=== PATIENT | male | born 1935 | race Caucasian/White ===

== ENCOUNTER 2025-03-16 18:46 | Inpatient (IN) | payer MEDICARE, SELFPAY ==
--- OUTSIDE RECORDS SUMMARY | 2022-04-06 14:00 | XMS_ITS | Encounter Summary ---
Author Organization [email or web address] ([place], [place], [place], [place]) Address [address] [place] [address] Care Team Providers Care Chair Frame Builder Name Role Phone Dion Macedo MD Primary Care Provider Encounter Details Date Type Department Care Team (Late st Contact Info) Description 04/06/2022 2:00 PM EDT Hospital Encounter [facility] [address] [place] [address] Dion Macedo MD [address] [place] [address] Social History Tobacco Use Types Packs/Day Years Used Date Smoking Tobacco: Never Assessed Employment Answer Date Recorded Help finding and keeping a job Not on file 0 07/08/2023 Family and Community Support Answer Suraj e Recorded Help with Day to Day Activities Not on file 07/08/2023 Feeling Lonely or Isolated Not on file 07/08 Educational Attainment Answer Date Amilcar rded Speak language other than Monegasque at home Not on file 07/08/2023 Want help with school or training Not on file 07/08/2023 Substance Use Answer Date Recorded Used prescription meds for non-medical reasons N ot on file 07/08/2023 Used illegal drugs past 12 months Not on file 07/08/2023 Sex and Gender Information Value Date Recorded Sex Assigned at Male 12/29/2021 5:06 PM CDT Legal Sex Male 1:35 PM CDT Gender Identity Male 12/29/2021 5:06 PM CDT Sexual Orientation Not on file documented as of this encounter Plan of Treatment Not on file documented as of this encounter Visit Diagnoses Not on filedocumented in this encounter Care Teams Chair Frame Builder Relationship Specialty Start Date End Date Dion Macedo MD [address] [place] [address] PCP - General Family Medicine 06/27/21 documented as of this encounter
--- OUTSIDE RECORDS SUMMARY | 2025-01-25 11:00 | XMS_ITS | Encounter Summary ---
Author Organization [employer] ([place], [place], [place], [place]) Address [address] [place] [address] Care Team Providers Care Granular Operator Name Role Phone Dion Macedo MD Primary Care Provider Encounter Details Date Type Department Care Team (Latest Contact Info) Description 01/25/2025 11:00 AM EDT - 01/25/2025 11:59 PM EDT Hospital Encounter [facility]ound [facility] Ostomy Therapy [address] [place] [address] Discharge Disposition: Home or Self Care Social History Tobacco Use Types Packs/Day Years [...] Date Amilcar rded Speak language other than [place] at home Not on file 07/08/2023 Want [...] on file documented as of this encounter Progress Notes * Anastasiya Celeste RN - 01/25/2025 1:56 PM EDTSummary: CHIN follow up in ostomy clinic for g-tube change 01/25/25 1100 Gastrostomy/Enterostomy Gastrostomy 22 Fr. LUQ Placement Date/Time: (c) (c) Inserted by: Patient followed in the outpatient ostomy clinic Type: Gastrostomy Tube Size (Fr.): 22 Fr. Location: LUQ Drain Status Clamped Drainage Appearance None Site Assessment Clean;Dry (mild erythema) Type of Dressing Gauze Dressing Status Clean;Dry;Intact Dressing Intervention Dressing changed Securement Method Tape Wound/ostomy department received a call from the patient who is requesting G tube change and patient is at clinic today. Patient with long history of G tube. Patient arrived to clinic after registration. Patient relates he has not had any abdominal pain since last visit. Patient positioned, HOB lowered.Patient with 3 marking showing on g-tube upon inspection. Note peritubular skin with mild erythema, no pain upon palpation. No crepitus, fluctuance or purulence observed with palpation. Patient relates that his tube site has been leaking, he is using Triad on peritubular skin with relief. Removed 8ml H20 from the old balloon. Patient did not have tube feed leakage when old tube was removed. Exchanged the old tube for a new 22Fr tube lubricated with water soluble lubricant. Old balloonintact upon removal. New tube inserted easily; without resistance or pain. Instilled 10 ml H20 intothe new balloon without issue. Aspirated a large amount of gastric content, flushed with 30 ml H20 without issue, no leaking or resistance observed. Placed a new split sponge. HOB raised, patient stood without assistance. He twisted and bent at his abdomen without notable drainage around gtube. Reviewed with the patient the importance of maintaining and monitoring the bumper for a position atthe (4-3) marker, patient verbalized understanding. I also expressed that if he has issues regarding pain during non business hours to seek an emergency room where they may also exchange his G tube and evaluate. Patient verbalized understanding. Wound and Ostomy Care Department to follow as indicated. Patient to call for appointment when next g-tube is to be change which is every 3 months. Time spent with patient 30 minutes. Supplies: [employer] [facility] Gastrostomy Feeding Tube #0100 documented in this encounter Plan of Treatment Not on file documented as of this encounter Visit Diagnoses Not on filedocumented in this encounter Care Teams Granular Operator Relationship Specialty Start Date End Date Dion Macedo MD [address] [place] [address] PCP - General Family Medicine 06/27/21 documented as of this encounter
--- OUTSIDE RECORDS SUMMARY | 2025-03-13 13:41 | XMS_ITS | Encounter Summary ---
Author Organization [facility] Address [address] [place] [address] Care Team Providers Care Entertainment [employer] Media Correspondent Name Role Phone Dion Macedo MD Primary Care Provider Reason for Referral * Durable Medical Equipment (Routine) - Pending Review Specialty Diagnoses / Procedures Referred By Lennoxac t Referred To Contact Diagnoses Panlobular emphysema History of cancer of head or neck Procedures Oxygen Therapy Vanessa Bowie MD [address] [address] Phone: tel: fax: Referral ID Status Reason Start Date Expiration Date V isits Requested Visits Authorized [id number] Pending Review 03/14/2025 06/13/2026 1 1 Reason for Visit * Reason Comments Fatigue * Auth/Cert Specialty Diagnoses / Procedures Referred By Asael t Referred To Contact Diagnoses TIA (transient ischemic attack) Referral ID Status Reason Start Date Expiration Date Visits Re quested Visits Authorized [id number] 1 1 Encounter Details Date Type Department Care Team (Late st Contact Info) Description 03/13/2025 1:41 PM EDT - 03/14/2025 4:55 PM EDT Hospital Encounter [address] [facility] [place] [address] Danie Posada DO [address] [facility] [place] [address] Gay Lozano MD [address] [facility] [address] [place] [address] Lasha Bernabe DO [address] [facility] 4Th [address] [place], [place] [id number] Vanessa Bowie MD [address] [facility] 4th [place], [place] [id number] Generalized weakness (Primary Dx); Weakness of right lower extremity; Pneumonia of right lower lobe due to infectious organism; DENIA (acute kidney injury); Dehydration; Hyperkalemia; Elevated lactic acid level; Pyuria; Elevated liver enzymes; Anemia, unspecified type; Dysphagia, unspecified type; Panlobular emphysema; History of cancer of head or neck Discharge Disposition: Home or Self Care Social History Tobacco Use Types Packs/Day Years Used Date Smoking Tobacco: Former Cigarettes 1 10 1 08/22/1973 - 06/21/1984 Smokeless Tobacco: Never Alcohol Use Standard Drinks/Week Comments Yes 4 (1 standard drink = 0.6 oz pur e alcohol) [facility] Utilities Answer Date Recorded In the past 12 months has [employer], gas, oil, or water [employer] threatened to shut off services in your home? No 03/14/2025 AUDIT-C Answer Date Recorded Q1: How often do you have a drink containing alc ohol? Monthly or less 12/08/2022 Q2: How many drinks containi ng alcohol do you have on a typical day when you are drinking? 3 or 4 12/08/2022 Q3: How often do you have si x or more drinks on one occasion? Less than monthly 12/08/2022 Overall Financial Resource Strain (CARDIA) Answe r Date Recorded How hard is it for you to pa y for the very basics like food, housing, medical care, and heating? Not very hard 03/14/2025 [facility] Occupat ional Health - Occupational Stress Questionnaire Answer Date Recorded Do you feel stress - tense, restless, nervous, or anxious, or unable to sleep at night because your mind is troubled all the time - these days? Not at all 03/14/2025 Exercise Vital Sign Answer Date Recorde d On average, how many days pe r week do you engage in moderate to strenuous exercise (like a brisk walk)? 0 days 03/14/2025 On average, how many minutes do you engage in exercise at this level? 0 min 03/14/2025 Hunger Vital Sign Answer Date Recorded Within the past 12 months, y ou worried that your food would run out before you got the money to buy more. Never true 03/14/20 25 Within the past 12 months, t he food you bought just didn't last and you didn't have money to get more. Never true 03/14/2025 PRAPARE - Transportation Answer Date Re corded In the past 12 months, has l ack of transportation kept you from medical appointments or from getting medications? No 02/25 In the past 12 months, has l ack of transportation kept you from meetings, work, or from getting things needed for daily living? No 03/14/2025 Abuse Screen Answer Date Recorded Feels Unsafe at Home or Work/School no 03/13/2025 Feels Threatened by Someone no 02/25 Does Anyone Try to Keep You From Having Contact with Others or Doing Things Outside Your Home? no 03/13/2025 Physical Signs of Abuse Present no 03/13/2025 Housing Stability Answer Date Recorded Current Living Arrangements home 02/25 Potentially Unsafe Housing Conditions unable to assess 03/14/2025 Family and Community Support Answer Suraj e Recorded If for any reason you need h elp with day-to-day activities such as bathing, preparing meals, shopping, managing finances, etc., do you get the help you need? I get all the help I need 03/14/2025 How often do you feel lonely or isolated from those around you? Never 03/14/2025 Employment Answer Date Recorded Do you want help finding or keeping work or a shalini b? Patient declined 03/14/2025 Disabilities Answer Date Recorded Difficulty Concentrating, Remembering or Making Decisions no 12/08/2022 Difficulty Managing Errands Independently yes 12/08/2022 Education Answer Date Recorded Do you want help with school or training? For example, starting or completing job training or getting a high school diploma, GED or equivalent Patient declined 03/14/2025 Preferred Language Marshallese 03/14/2025 PHQ-2 Answer Date Recorded Patient Health Questionnaire-2 Score 0 03/14/2025 Sex and Gender Information Value Date Recorded Sex Assigned at Not on file Legal Sex Male 10:55 AM EDT Gender Identity Not on file Sexual Orientation Not on file documented as of this encounter Last Filed Vital Signs Vital Sign Reading Time Taken Comments Blood Pressure 142/78 03/14/2025 11:16 AM EDT Pulse 80 03/14/2025 11:49 AM EDT Temperature 36.9 C (98.4 F) 03/14/2025 11:16 AM EDT Respiratory Rate 16 03/14/2025 7:04 AM EDT Oxygen Saturation 87% 03/14/2025 11:49 AM EDT Inhaled Oxygen Concentration - - Weight 78 kg (172 lb) 03/13/2025 2:09 PM EDT Height 172.7 cm (5' 8 ) 03/13/2025 2:09 PM EDT Body Mass Index 26.15 03/13/2025 2:09 PM EDT documented in this encounter Functional Status * Over the past 2 weeks, how often have you been bothered by any of the following problems? Question Answer Date of Assessment Author Patient Health Questionnaire -2 Score 0 03/14/2025 12:41 PM EDT Rosetta Banegas RN * Calculated C-SSRS Risk Score (Lifetime/Recent) Answer Date of Assessment Author No Risk Indicated 03/13/2025 1:55 PM EDT Monica Johnston RN * [place] Suicide Severity Rating Scale (Screener/Recent Self-Report) Question Answer Date of Assessment Author 1. Wish to be (Past 1 Month) No 025 1:55 PM EDT Monica Coy, BAO 2. Non-Specific Active Suici maryann Thoughts (Past 1 Month) No 03/13/2025 1:55 PM EDT Dayanna Coy, BAO 6. Suicidal Behavior (Lifetime) No 1:55 PM EDT Monica Coy, BAO * Question Answer Date of Assessment Author Little interest or pleasure in doing things Not at all 03/14/2025 12:41 PM EDT Rosetta Banegas, RN Feeling down, depressed, or hopeless Not at all 03/14/2025 12:41 PM EDT Rosetta Banegas RN documented as of this encounter Discharge Summaries * Vanessa Bowie MD - 03/14/2025 3:49 PM EDT Images from the original note were not included. [facility] Medicine Services DISCHARGE SUMMARY Patient Name: Abraham Max : 1935 Date of Admission: 03/13/2025 1:41 PM Date of Discharge: 03/14/2025 Primary Care Physician: Dion Macedo MD Consults No orders found for last 30 day(s). Hospital Course Presenting Problem: DENIA/hypotension Active Hospital Problems Diagnosis POA ??? Dysphagia, oropharyngeal [R13.12] Yes ??? PEG (percutaneous endoscopic gastrostomy) status [Z93.1] Not Applicable ??? History of cancer of head or neck [Z85.89] Not Applicable ??? Hyperlipidemia [E78.5] Yes ??? Acquired hypothyroidism [E03.9] Yes Resolved Hospital Problems Diagnosis Date Resolved POA ??? DENIA (acute kidney injury) [N17.9] 03/14/2025 Yes ??? Hypotension [I95.9] 03/14/2025 Yes ??? Hyperkalemia [E87.5] 03/14/2025 Yes Hospital Course: Abraham Max is a 89 y.o. 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 Hypotensive on EMS arrival (SBP 80's) Stroke rule-out limited by inability to obtain MRI from pacemaker. But CT head x2 stable. Symptoms resolved with fluid resuscitation as did BP so thought to be weakness 2/2 this Patient cannot pinpoint reason for hypotension/hypovolemia. He reports being out in garden more than normal over last week in the heat (possible contributor) and new start of tamsulosin in last 4 days which may have contributed. Infectious work-up to now unrevealing. Mod transaminitis possibly 2/2 h ypotension, no abdominal symptoms. No acute respiratory symptoms with CXR at patient baseline. O2 sat 86-95% on room air. He reports he is prescribed oxygen and is supposed to use it but has brokensystem which we correct for him. Appears at baseline per him and daughter both He is very anxious to get home and asks for prompt discharge. Ambulating at baseline with no symptoms on 03/14. I discuss with him his elevated liver enzymes and need for follow-up repeat labs with PCP within 1 week to ensure this improves. Given hydration TF protocol for hot days which he understands. Hold amlodipine + tamsulosin until OP follow-up Discharge Follow Up Recommendations for outpatient labs/diagnostics: PCP Tuesday w repeat CMP Day of Discharge HPI: When I walk in room says I didn't have a stroke. I am 89 years old and someone lese needs this bed Then gets up on a walker, does a jig and says What else do I need to do to provide to you I'm fine No active respiratory symptoms from baseline on review. No recent infectious symptoms Vital Signs: Temp: [97 ??F (36.1 ??C)-98.6 ??F (37 ??C)] 98.4 ??F (36.9 ??C) Heart Rate: [44-80] 80 Resp: [16] 16 BP: (98-144)/(57-110) 142/78 Flow (L/min) (Oxygen Therapy): [2-3] 2 Physical Exam: Constitutional: No acute distress, awake, alert male sitting up in bed. Daughter bedside HEENT: chronic significant voice changes and congestion sounds Resp: no increased wob on room air, upper airway sounds obfuscate exam Cardiovascular: RRR, no murmurs, rubs, or gallops Gastrointestinal: Soft, nontender, nondistended, PEG in place Musculoskeletal: Muscle tone within normal limits, no joint effusions appreciated Psychiatric: Appropriate affect, cooperative Neurologic: Alert and oriented, up on walker w balanced back, speech clear Skin: No rashes Pertinent and/or Most Recent Results LAB RESULTS: Lab 03/14/25 0650 03/13/25 1715 03/13/25 1709 03/13/25 1355 03/13/25 1353 WBC 5.07 -- -- 5.43 -- HEMOGLOBIN 10.4* -- -- 10.8* -- HEMOGLOBIN, POC -- 11.2* -- -- 11.6* HEMATOCRIT 32.8* -- -- 34.3* -- HEMATOCRIT POC -- 33* -- -- 34* PLATELETS 118* -- -- 149 -- NEUTROS ABS 3.88 -- -- 4.72 -- IMMATURE GRANS (ABS) 0.04 -- -- 0.04 -- LYMPHS ABS 0.74 -- -- 0.53* -- MONOS ABS 0.40 -- -- 0.14 -- EOS ABS 0.00 -- -- 0.00 -- MCV 102.5* -- -- 104.3* -- CRP -- -- -- 5.00* -- PROCALCITONIN -- -- -- 0.27* -- LACTATE -- -- 1.7 4.8* -- PROTIME -- -- -- 14.8 -- Lab 03/14/25 0650 03/13/25 1715 03/13/25 1355 03/13/25 1353 SODIUM 136 -- 135* -- POTASSIUM 3.9 -- 5.4* -- CHLORIDE 99 -- 95* -- CO2 27.0 -- 24.2 -- ANION GAP 10.0 -- 15.8* -- BUN 34.3* -- 40.6* -- CREATININE 0.79 1.50* 1.50* 1.50* EGFR 86.0 44.8* 44.8* 44.8* GLUCOSE 90 -- 142* -- CALCIUM 8.5* -- 9.4 -- MAGNESIUM 2.1 -- -- -- PHOSPHORUS 2.9 -- -- -- Lab 03/14/25 0650 03/13/25 1355 TOTAL PROTEIN 5.7* 6.3 ALBUMIN 3.6 3.8 GLOBULIN 2.1 2.5 ALT (SGPT) 195* 133* AST (SGOT) 193* 159* BILIRUBIN 0.5 0.6 ALK PHOS 128* 89 Lab 03/13/25 1355 PROTIME 14.8 INR 1.09 Lab 03/14/25 0650 CHOLESTEROL 89 LDL CHOL 37 HDL CHOL 41 TRIGLYCERIDES 36 Lab 03/13/25 1540 ABO TYPING O RH TYPING Positive ANTIBODY SCREEN Negative Brief Urine Lab Results (Last result in the past 365 days) Color Clarity Blood Leuk Est Nitrite Protein CREAT Urine HCG 03/13/25 1528 Dark Yellow Clear Negative Trace Negative Trace Microbiology Results (last 10 days) Procedure Component Value - Date/Time COVID PRE-OP / PRE-PROCEDURE SCREENING ORDER (NO ISOLATION) - Swab, Nasopharynx [[id number]] (Normal) Collected: 03/13/25 1453 Lab Status: Final result Specimen: Swab from Nasopharynx Updated: 03/13/25 1606 Narrative: The following orders were created for panel order COVID PRE-OP / PRE-PROCEDURE SCREENING ORDER (NO ISOLATION) - Swab, Nasopharynx. Procedure Abnormality Status --------- ------ Respiratory Panel PCR w/...[[id number]] Normal Final result Please view results for these tests on the individual orders. Respiratory Panel PCR w/COVID-19(SARS-CoV-2) TIFFANI/ONDINA/SAFIA/PAD/COR/BROOK In-House, JIGMAKER Swab in UTM/VTM, 2 HR TAT - Swab, Nasopharynx [[id number]] (Normal) Collected: 03/13/25 1453 Lab Status: Final result Specimen: Swab from Nasopharynx Updated: 03/13/25 1606 ADENOVIRUS, PCR Not Detected Coronavirus 229E Not Detected Coronavirus HKU1 Not Detected Coronavirus NL63 Not Detected Coronavirus OC43 Not Detected COVID19 Not Detected Human Metapneumovirus Not Detected Human Rhinovirus/Enterovirus Not Detected Influenza A PCR Not Detected Influenza B PCR Not Detected Parainfluenza Virus 1 Not Detected Parainfluenza Virus 2 Not Detected Parainfluenza Virus 3 Not Detected Parainfluenza Virus 4 Not Detected RSV, PCR Not Detected Bordetella pertussis pcr Not Detected Bordetella parapertussis PCR Not Detected Chlamydophila pneumoniae PCR Not Detected Mycoplasma pneumo by PCR Not Detected Narrative: In the setting of a positive respiratory panel with a viral infection PLUS a negative procalcitoninwithout other underlying concern for bacterial infection, consider observing off antibiotics or discontinuation of antibiotics and continue supportive care. If the respiratory panel is positive for atypical bacterial infection (Bordetella pertussis, Chlamydophila pneumoniae, or Mycoplasma pneumoniae), consider antibiotic de-escalation to target atypical bacterial infection. CT Head Without Contrast Result Date: 03/14/2025 CT HEAD WO CONTRAST Date of Exam: 03/14/2025 8:12 AM EDT Indication: eval stroke. Comparison: Head CT 03/13/2025. Technique: Axial CT images were obtained of the head without contrast administration. Automated exposure control and iterative construction methods were used. Findings: No evidence of acute intracranial hemorrhage or mass effect. No extra-axial collection. The king white matter differentiation is preserved. Ventricles and sulci are symmetric. The mastoid air cells and paranasal sinuses are well aerated. Globes and extraocular muscles are unremarkable. No acute osseous abnormality. Impression: No acute intracranial findings. Electronically Signed: Santiago Miles MD 03/14/2025 8:35 AM EDT Workstation ID: [id number] DxDesc XR Chest 1 View Result Date: 03/13/2025 XR CHEST 1 VW Date of Exam: 03/13/2025 1:51 PM EDT Indication: Stroke Protocol (Onset > 12 hrs). Comparison: CT chest December 08, 2022 Findings: There probably is some atelectasis/scarring in the right middle lobe/right lower lobe area. There also may be some atelectasis in the left basilar area. There may be some chronic interstitial changes in the lower lungs. The heart is enlarged. There are nopleural effusions. Impression: 1.Atelectasis/scarring right middle lobe/right lower lobe area. There may be some atelectasis left basilar area. 2.Some chronic interstitial changes in the lower lungs not excluded. 3.Cardiomegaly. Electronically Signed: Obi Hooper MD 03/13/2025 2:43 PM EDT Workstation ID: [id number] CT Angiogram Head w AI Analysis of LVO Result Date: 03/13/2025 CT ANGIOGRAM NECK, CT ANGIOGRAM HEAD W AI ANALYSIS OF LVO Date of Exam: 03/13/2025 2:04 PM EDT Indication: stroke. CTA OF THE [place] INCLUDING MULTIPLANAR REFORMATTED IMAGING AND PERFORMANCE AND REVIEW OF MIP, 3D OR SURFACE SHADING RECONTRUCTED IMAGES TECHNIQUE: CTA imaging of the neck was performed with IV contrast along with sagittal and coronal reconstructed imaging with contrast. 3D and 2D reconstructed imaging obtained. Exam was tailored for the arterial system. One or more CT techniques were used to decrease dose to the patient, these include automated exposure control, adjustment of the mA and/or kV according to patient size, or use of iterative reconstruction technique. CONTRAST: 70 cc of Isovue-370. COMPARISON: No comparison exams available at the time of dictation. FINDINGS: The NASCET methodology was utilized for calculation of percent stenosis. AORTIC ARCH: Normal anatomic branch pattern of the origination of the great vessels. RIGHT COMMON CAROTID: There is no significant atheromatous disease of the right common carotid artery. No stenosis identified. There is no evidence for pseudoaneurysm or dissection. RIGHT INTERNAL CAROTID ARTERY: There is mild calcified atheromatous disease of the right internal carotid artery. No stenosis identified. There is no evidence forpseudoaneurysm or dissection. LEFT COMMON CAROTID ARTERY: There is no significant atheromatous disease of the left common carotid artery. No stenosis identified. There is no evidence for pseudoaneurysm or dissection. LEFT INTERNAL CAROTID ARTERY: There is mild calcified atheromatous disease of the left internal carotid artery. No stenosis identified. There is no evidence for pseudoaneurysm or dissection. VETEBRAL ARTERIES: There is no significant ostial disease or stenosis of the bilateral vertebral artery origins. Codominant vertebral arteries are noted. There is no evidence for stenosis or dissection of the vertebral arteries. LUNGS: Visualized upper lung hernandez are grossly clear. OSSEOUS: Degenerative changes are noted in the partially imaged cervical spine. 1. No evidence of hemodynamically significant stenosis. CTA OF THE [place] INCLUDING MULTIPLANAR REFORMATTED IMAGING AND PERFORMANCE AND REVIEW OF MIP, 3D OR SURFACE SHADING RECONTRUCTED IMAGES TECHNIQUE: CTA imaging of the head was performed with IV contrast along with sagittal and coronal reconstructed imaging with contrast. 3D and 2D reconstructed imaging obtained. Exam was tailored for the arterial system. One or more CT techniques were used to decrease dose to the patient, these include automated exposure control, adjustment of the mA and/or kV according to patient size, or use of iterative reconstruction technique. CONTRAST: 70 cc of Isovue-370. COMPARISON: No comparison exams available at the time of dictation. FINDINGS: ICA CIRCULATION: Minimal to no significant plaque formation present about the cavernous sinus of the ICAs bilateral. Vascular malformation and/or aneurysm is not present. Hemodynamically significant stenosis not present. ANTERIOR CEREBRAL ARTERY CIRCULATION: The intracranial PATI segments appear normal. MIDDLE CEREBRAL ARTERY CIRCULATION: The bilateral MCA M1 and M2 segments appear normal. POSTERIOR CEREBRAL ARTERY CIRCULATION: The AGRICULTURAL TECHNICAL OFFICER segments appear normal. VERTEBROBASILAR CIRCULATION: Codominant vertebral arteries. Basilar artery appears patentand normal. ADDITIONAL FINDINGS: None IMPRESSION: 1. Normal. Electronically Signed: Jassi Allison MD 03/13/2025 2:34 PM EDT Workstation ID: [id number] CT Angiogram Neck Result Date: 03/13/2025 CT ANGIOGRAM NECK, CT ANGIOGRAM HEAD W AI ANALYSIS OF LVO Date of Exam: 03/13/2025 2:04 PM EDT Indication: stroke. CTA OF THE [place] INCLUDING MULTIPLANAR REFORMATTED IMAGING AND PERFORMANCE AND REVIEW OF MIP, 3D OR SURFACE SHADING RECONTRUCTED IMAGES TECHNIQUE: CTA imaging of the neck was performed with IV contrast along with sagittal and coronal reconstructed imaging with contrast. 3D and 2D reconstructed imaging obtained. Exam was tailored for the arterial system. One or more CT techniques were used to decrease dose to the patient, these include automated exposure control, adjustment of the mA and/or kV according to patient size, or use of iterative reconstruction technique. CONTRAST: 70 cc of Isovue-370. COMPARISON: No comparison exams available at the time of dictation. FINDINGS: The NASCET methodology was utilized for calculation of percent stenosis. AORTIC ARCH: Normal anatomic branch pattern of the origination of the great vessels. RIGHT COMMON CAROTID: There is no significant atheromatous disease of the right common carotid artery. No stenosis identified. There is no evidence for pseudoaneurysm or dissection. RIGHT INTERNAL CAROTID ARTERY: There is mild calcified atheromatous disease of the right internal carotid artery. No stenosis identified. There is no evidence forpseudoaneurysm or dissection. LEFT COMMON CAROTID ARTERY: There is no significant atheromatous disease of the left common carotid artery. No stenosis identified. There is no evidence for pseudoaneurysm or dissection. LEFT INTERNAL CAROTID ARTERY: There is mild calcified atheromatous disease of the left internal carotid artery. No stenosis identified. There is no evidence for pseudoaneurysm or dissection. VETEBRAL ARTERIES: There is no significant ostial disease or stenosis of the bilateral vertebral artery origins. Codominant vertebral arteries are noted. There is no evidence for stenosis or dissection of the vertebral arteries. LUNGS: Visualized upper lung hernandez are grossly clear. OSSEOUS: Degenerative changes are noted in the partially imaged cervical spine. 1. No evidence of hemodynamically significant stenosis. CTA OF THE [place] INCLUDING MULTIPLANAR REFORMATTED IMAGING AND PERFORMANCE AND REVIEW OF MIP, 3D OR SURFACE SHADING RECONTRUCTED IMAGES TECHNIQUE: CTA imaging of the head was performed with IV contrast along with sagittal and coronal reconstructed imaging with contrast. 3D and 2D reconstructed imaging obtained. Exam was tailored for the arterial system. One or more CT techniques were used to decrease dose to the patient, these include automated exposure control, adjustment of the mA and/or kV according to patient size, or use of iterative reconstruction technique. CONTRAST: 70 cc of Isovue-370. COMPARISON: No comparison exams available at the time of dictation. FINDINGS: ICA CIRCULATION: Minimal to no significant plaque formation present about the cavernous sinus of the ICAs bilateral. Vascular malformation and/or aneurysm is not present. Hemodynamically significant stenosis not present. ANTERIOR CEREBRAL ARTERY CIRCULATION: The intracranial PATI segments appear normal. MIDDLE CEREBRAL ARTERY CIRCULATION: The bilateral MCA M1 and M2 segments appear normal. POSTERIOR CEREBRAL ARTERY CIRCULATION: The AGRICULTURAL TECHNICAL OFFICER segments appear normal. VERTEBROBASILAR CIRCULATION: Codominant vertebral arteries. Basilar artery appears patentand normal. ADDITIONAL FINDINGS: None IMPRESSION: 1. Normal. Electronically Signed: Jassi Allison MD 03/13/2025 2:34 PM EDT Workstation ID: [id number] CT Head Without Contrast Stroke Protocol Result Date: 03/13/2025 CT HEAD WO CONTRAST STROKE PROTOCOL Date of Exam: 03/13/2025 1:42 PM EDT Indication: Stroke, follow up Neuro deficit, acute, stroke suspected. Comparison: None available. Technique: Axial CT images were obtained of the head without contrast administration. Reconstructed coronal images were also obtai teresa. Automated exposure control and iterative construction methods were used. Scan Time: 13:41 Results discussed in person with the stroke navigator at the time of the scan. Findings: No evidence of acute intracranial hemorrhage or mass effect. No extra-axial collection. The king white matter differentiation is preserved. Ventricles and sulci are symmetric. The mastoid air cells and paranasal sinuses are well aerated. Globes and extraocular muscles are unremarkable. No acute osseous abnormality. Advanced degenerative changes of the partially visualized upper cervical spine. Impression: No acute intracranial findings. Electronically Signed: Santiago Miles MD 03/13/2025 1:56 PM EDT Workstation ID: [id number] I have personally reviewed the therapy plans: [] PT/OT/ ST Therapy Plans Plan for Follow-up of Pending Labs/Results: Pending Labs Order Current Status Blood Culture - Blood, Arm, Right In process Blood Culture - Blood, Wrist, Right In process Discharge Details Discharge Medications PAUSE taking these medications Instructions Start Date amLODIPine 5 MG tablet Wait to take this until your doctor or other care provider tells you to start again. Hold until PCP follow-up Commonly known as: NORVASC amlodipine 5 mg tablet Take 1 tablet every day by oral route. tamsulosin 0.4 MG capsule 24 hr capsule Wait to take this until your doctor or other care provider tells you to start again. Until PCP appointment follow-up Commonly known as: FLOMAX 1 capsule, Daily Continue These Medications Instructions Start Date aspirin 81 MG EC tablet Aspir-Low 81 mg tablet,delayed release baclofen 10 MG tablet Commonly known as: LIORESAL Take 1 tablet by mouth 3 (Three) Times a Day. Pt states he takes it once in the evening diphenhydrAMINE 25 mg capsule Commonly known as: BENADRYL 12.5 mg, 2 Times Daily levothyroxine 137 MCG tablet Commonly known as: SYNTHROID, LEVOTHROID 137 mcg, Every Tattoo Artist omeprazole 40 MG capsule Commonly known as: priLOSEC 1 capsule, Daily predniSONE 10 MG tablet Commonly known as: DELTASONE Take three tablets once daily on day once. Take two tablets once daily on day two. Take one tablet daily on day three. VITAMIN B 12 PO 1,000 mcg, Daily Zinc 50 MG tablet Daily No Known Allergies Discharge Disposition: Home or Self Care Diet: Hospital: Diet Order Procedures ??? NPO Diet NPO Type: Tube Feeding Standing Status: Standing Number of Occurrences: 1 NPO Type: Tube Feeding Activity: Restrictions or Other Recommendations: CODE STATUS: Code Status and Medical Interventions: No CPR (Do Not Attempt to Resuscitate); Limited Support; No intubation (DNI) Ordered at: 03/13/251921 Code Status (Patient has no pulse and is not breathing): No CPR (Do Not Attempt to Resuscitate) Medical Interventions (Patient has pulse or is breathing): Limited Support Medical Intervention Limits: No intubation (DNI) Level Of Support Discussed With: Patient No future appointments. Additional Instructions for the Follow-ups that You Need to Schedule Discharge Follow-up with PCP As directed Currently Documented PCP: Dion Macedo MD PCP Follow Up Details: Tuesday with repeat labs Vanessa Bowie MD 03/14/25 Time Spent on Discharge: I spent 55 minutes on this discharge activity which included: [id number] with the patient, reviewing the data in the system, coordination of the care with the nursing staff as well as consultants, documentation, and entering orders. documented in this encounter Medications at Time of Discharge amLODIPine (NORVASC) 5 MG tablet amlodipine 5 mg tablet Take 1 tablet every day by oral route. aspirin 81 MG EC tablet Aspir-Low 81 mg tablet,delayed release baclofen (LIORESAL) 10 MG tablet Take 1 tablet by mouth 3 (Three) Times a Day. Pt states he takes it once in the evening Cyanocobalamin (VITAMIN B 12 PO) Take 1,000 mcg by mouth Daily. diphenhydrAMINE (BENADRYL) 25 mg capsule Take 12.5 mg by mouth 2 (Two) Times a Day. levothyroxine (SYNTHROID, LEVOTHROID) 137 MCG tablet Take 1 tablet by mouth Every Morning. omeprazole (priLOSEC) 40 MG capsule Take 1 capsule by mouth Daily. tamsulosin (FLOMAX) 0.4 MG capsule 24 hr capsule Take 1 capsule by mouth Daily. 11/29/2021 Zinc 50 MG tablet Take by mouth Daily. predniSONE (DELTASONE) 10 MG tabletIndications :Non-seasonal allergic rhinitis, unspecified trigger Take three tablets once daily on day once. Take two tablets once daily on day two. Take one tablet daily on day three. 3 tablet 2 07/09/2024 documented as of this encounter Progress Notes * Santana Hodge MD - 03/14/2025 12:24 PM EDT Stroke Progress Note Chief Complaint: Dysarthria and bilateral lower extremity weakness Subjective Subjective Subjective: The patient is lying down in the bed in NAD. The patient daughter was at the bedside. The patient stated that he is close to his baseline and denied having any new stroke or strokelike symptoms. Stated to me that yesterday he felt both his legs are weak and denies having any pain including lower back pain. I have a detailed discussion with patient and his daughter regarding imaging finding what could possibly explain his symptoms. We also discussed management plan moving forward. All questions and concerns were answered. No other acute complains at this time Review of Systems Constitutional: fatigue Objective Temp: [97 ??F (36.1 ??C)-98.6 ??F (37 ??C)] 98.4 ??F (36.9 ??C) Heart Rate: [44-80] 80 Resp: [16] 16 BP: (98-144)/(54-110) 142/78 Objective GEN: lying in bed; in NAD HENT: normocephalic, non-erythematous oropharynx NEURO: Mental Status: A&O x 3, interactive, able to follow commands. Speech: Intact Articulation CN 2-12: II - PERRLA III, IV, - EOMI V - Facial sensation intact VII -no gross facial asymmetry VIII - Auditory acuity intact XII - Tongue protrudes midline Motor: Patient is able to move all 4 extremities against gravity with no drift appreciated with bilateral upper extremities being stronger in the bilateral lower extremities Sensory: intact light touch throughout Coordination: no ataxia with [id number] testing Gait/Station: deferred Results Review: I reviewed the patient's new clinical results. WBC Date Value Ref Range Status 03/14/2025 5.07 3.40 - 10.80 10*3/mm3 Final RBC Date Value Ref Range Status 03/14/2025 3.20 (L) 4.14 - 5.80 10*6/mm3 Final Hemoglobin Date Value Ref Range Status 03/14/2025 10.4 (L) 13.0 - 17.7 g/dL Final Hematocrit Date Value Ref Range Status 03/14/2025 32.8 (L) 37.5 - 51.0 % Final MCV Date Value Ref Range Status 03/14/2025 102.5 (H) 79.0 - 97.0 fL Final MCH Date Value Ref Range Status 03/14/2025 32.5 26.6 - 33.0 pg Final MCHC Date Value Ref Range Status 03/14/2025 31.7 31.5 - 35.7 g/dL Final RDW Date Value Ref Range Status 03/14/2025 15.9 (H) 12.3 - 15.4 % Final RDW-SD Date Value Ref Range Status 03/14/2025 59.3 (H) 37.0 - 54.0 fl Final MPV Date Value Ref Range Status 03/14/2025 11.0 6.0 - 12.0 fL Final Platelets Date Value Ref Range Status 03/14/2025 118 (L) 140 - 450 10*3/mm3 Final Neutrophil % Date Value Ref Range Status 03/14/2025 76.5 (H) 42.7 - 76.0 % Final Lymphocyte % Date Value Ref Range Status 03/14/2025 14.6 (L) 19.6 - 45.3 % Final Monocyte % Date Value Ref Range Status 03/14/2025 7.9 5.0 - 12.0 % Final Eosinophil % Date Value Ref Range Status 03/14/2025 0.0 (L) 0.3 - 6.2 % Final Basophil % Date Value Ref Range Status 03/14/2025 0.2 0.0 - 1.5 % Final Immature Grans % Date Value Ref Range Status 03/14/2025 0.8 (H) 0.0 - 0.5 % Final Neutrophils, Absolute Date Value Ref Range Status 03/14/2025 3.88 1.70 - 7.00 10*3/mm3 Final Lymphocytes, Absolute Date Value Ref Range Status 03/14/2025 0.74 0.70 - 3.10 10*3/mm3 Final Monocytes, Absolute Date Value Ref Range Status 03/14/2025 0.40 0.10 - 0.90 10*3/mm3 Final Eosinophils, Absolute Date Value Ref Range Status 03/14/2025 0.00 0.00 - 0.40 10*3/mm3 Final Basophils, Absolute Date Value Ref Range Status 03/14/2025 0.01 0.00 - 0.20 10*3/mm3 Final Immature Grans, Absolute Date Value Ref Range Status 03/14/2025 0.04 0.00 - 0.05 10*3/mm3 Final nRBC Date Value Ref Range Status 03/14/2025 0.6 (H) 0.0 - 0.2 /100 WBC Final Lab Results Component Value Date GLUCOSE 90 03/14/2025 BUN 34.3 (H) 03/14/2025 CREATININE 0.79 03/14/2025 NA 136 03/14/2025 K 3.9 03/14/2025 CL 99 03/14/2025 CALCIUM 8.5 (L) 03/14/2025 PROTEINTOT 5.7 (L) 03/14/2025 ALBUMIN 3.6 03/14/2025 ALT 195 (H) 03/14/2025 AST 193 (H) 03/14/2025 ALKPHOS 128 (H) 03/14/2025 BILITOT 0.5 03/14/2025 GLOB 2.1 03/14/2025 AGRATIO 1.7 03/14/2025 BCR 43.4 (H) 03/14/2025 ANIONGAP 10.0 03/14/2025 EGFR 86.0 03/14/2025 CT Head Without Contrast Result Date: 03/14/2025 Impression: No acute intracranial findings. Electronically Signed: Santiago Miles MD 03/14/2025 8:35 AM EDT Workstation ID: [id number] DxDesc XR Chest 1 View Result Date: 03/13/2025 Impression: 1.Atelectasis/scarring right middle lobe/right lower lobe area. There may be some atelectasis left basilar area. 2.Some chronic interstitial changes in the lower lungs not excluded. 3.Cardiomegaly. Electronically Signed: Obi Hooper MD 03/13/2025 2:43 PM EDT Workstation ID: [id number] CT Angiogram Head w AI Analysis of LVO Result Date: 03/13/2025 1. No evidence of hemodynamically significant stenosis. CTA OF THE [place] INCLUDING MULTIPLANAR REFORMATTED IMAGING AND PERFORMANCE AND REVIEW OF MIP, 3D OR SURFACE SHADING RECONTRUCTED IMAGES TECHNIQUE: CTA imaging of the head was performed with IV contrast along with sagittal and coronal reconstructed imaging with contrast. 3D and 2D reconstructed imaging obtained. Exam was tailored for the arterial system. One or more CT techniques were used to decrease dose to the patient, these include automated exposure control, adjustment of the mA and/or kV according to patient size, or use of iterative reconstruction technique. CONTRAST: 70 cc of Isovue-370. COMPARISON: No comparison exams available at the time of dictation. FINDINGS: ICA CIRCULATION: Minimal to no significant plaque formation present about the cavernous sinus of the ICAs bilateral. Vascular malformation and/or aneurysm is not present. Hemodynamically significant stenosis not present. ANTERIOR CEREBRAL ARTERY CIRCULATION: The intracranial PATI segments appear normal. MIDDLE CEREBRAL ARTERY CIRCULATION: The bilateral MCA M1 and M2 segments appear normal. POSTERIOR CEREBRAL ARTERY CIRCULATION: The AGRICULTURAL TECHNICAL OFFICER segments appear normal. VERTEBROBASILAR CIRCULATION: Codominant vertebral arteries. Basilar artery appears patent and normal. ADDITIONAL FINDINGS: None IMPRESSION: 1. Normal. Electronically Signed: Jassi Allison MD 03/13/2025 2:34 PM EDT Workstation ID: [id number] CT Angiogram Neck Result Date: 03/13/2025 1. No evidence of hemodynamically significant stenosis. CTA OF THE [place] INCLUDING MULTIPLANAR REFORMATTED IMAGING AND PERFORMANCE AND REVIEW OF MIP, 3D OR SURFACE SHADING RECONTRUCTED IMAGES TECHNIQUE: CTA imaging of the head was performed with IV contrast along with sagittal and coronal reconstructed imaging with contrast. 3D and 2D reconstructed imaging obtained. Exam was tailored for the arterial system. One or more CT techniques were used to decrease dose to the patient, these include automated exposure control, adjustment of the mA and/or kV according to patient size, or use of iterative reconstruction technique. CONTRAST: 70 cc of Isovue-370. COMPARISON: No comparison exams available at the time of dictation. FINDINGS: ICA CIRCULATION: Minimal to no significant plaque formation present about the cavernous sinus of the ICAs bilateral. Vascular malformation and/or aneurysm is not present. Hemodynamically significant stenosis not present. ANTERIOR CEREBRAL ARTERY CIRCULATION: The intracranial PATI segments appear normal. MIDDLE CEREBRAL ARTERY CIRCULATION: The bilateral MCA M1 and M2 segments appear normal. POSTERIOR CEREBRAL ARTERY CIRCULATION: The AGRICULTURAL TECHNICAL OFFICER segments appear normal. VERTEBROBASILAR CIRCULATION: Codominant vertebral arteries. Basilar artery appears patentand normal. ADDITIONAL FINDINGS: None IMPRESSION: 1. Normal. Electronically Signed: Jassi Allison MD 03/13/2025 2:34 PM EDT Workstation ID: [id number] CT Head Without Contrast Stroke Protocol Result Date: 03/13/2025 Impression: No acute intracranial findings. Electronically Signed: Santiago Miles MD 03/13/2025 1:56 PM EDT Workstation ID: [id number] -[facility] wo on 03/13/2025 images were personally reviewed and showed no acute ischemic or hemorrhagic stroke. Repeat CT head from 03/14/2025 images were unremarkable and showed no interval change -CTA of the head and neck images from 03/13/2025 were personally reviewed and showed no flow limiting stenosis or LVO -LDL from 03/14/2025 was 37 Assessment/Plan This is a 89-year-old female with known medical diagnoses of paroxysmal A-fib (1 episode, not on OAC), essential hypertension, hyperlipidemia, CAD, carotid stenosis s/p stent (15 years ago), remote neck cancer s/p surgery, chronic dysphagia s/p G-tube, remote stroke (data deficient) and remote tobacco abuse who presents to the emergency department via EMS for further evaluation of strokelike symptoms. Patient reports when he went to bed at midnight that he was in his normal state of health and woke up with symptoms. He reports bilateral lower extremity weakness and does feel that his speech is slightly more dysarthric than usual. Given LKW > 4.5 hours he is not a candidate for IV thrombolytic therapy. Given lack of LVO on CTA head/neck he is not a candidate for endovascular therapy. Hewill require admission to the hospitalist service for further work-up. Antiplatelet REHABILITATION TECHNICIAN: ASA 81 mg Anticoagulant REHABILITATION TECHNICIAN: None #Worsening dysarthria and bilateral lower extremity weakness #History of stroke, data deficient, no residual deficit per patient -Differentials include metabolic disarrangement/infection verses stroke recrudescence in setting ofhypoperfusion 2/2 hypotension versus less likely TIA/acute ischemic stroke -Will obtain MRI of the brain without contrast if able, patient will need PPM clearance and may notbe able to tolerate given his neck deformity; if unable to obtain can repeat CT in AM -[facility] wo on 03/13/2025 images were personally reviewed and showed no acute ischemic or hemorrhagic stroke. Repeat CT head from 03/14/2025 images were unremarkable and showed no interval change -CTA of the head and neck images from 03/13/2025 were personally reviewed and showed no flow limiting stenosis or LVO -LDL from 03/14/2025 was 37 Recommendations -Treat underlying metabolic and infectious etiology -Continue home aspirin 81 mg -Target systolic blood pressure goals of normotension. Avoid hypotension -Activity as tolerated, fall risk precautions. -PT/OT/PHARMACY CLERK evaluation #Essential hypertension, presented with hypotension -As detailed above #Hyperlipidemia -No need for statin at this time given that LDL is 37 during this admission Patient education: call 911 or present to emergency department with any stroke symptom, including unilateral face, arm, or leg weakness, numbness, or paresthesias, unilateral facial droop, speech deficits, dizziness with nausea, vomiting, nystagmus, and incoordination, visual deficits, or severe onset headache. Stroke will sign off. Please call for any further questions or concerns Santana Hodge MD, Msc, PhD Vascular Neurologist [facility] documented in this encounter H&P Notes * Lasha Bernabe DO - 03/13/2025 6:53 PM EDT Images from the original note were not included. [facility] Medicine Services HISTORY AND PHYSICAL Patient Name: Abraham Max : 1935 Primary Care Physician: Dion Macedo MD Date of admission: 03/13/2025 Subjective Subjective Source of Information: Patient, ER signout, EMR Chief Complaint: Chief Complaint Patient presents with ??? Fatigue HPI: Abraham Max is a 89 y.o. male with PMHx of aspiration pneumonia, remote CVA (2020), hx of right neck cancer s/p CCRT with subsequent chronic dysphagia s/p G-tube, HTN, ISMAEL s/p stent (2009), PAF (not on AC) who presented for evaluation of lower extremity weakness and stroke-like symptoms. LTKW: 03/12 @ 0000. The patient's daughter states she was talking to her father on the phone earlier today and noticed his speech was more dysarthric than usual and that he said his legs weren't working this morning . During the night, he was able to ambulate to use the bathroom without issues. The patient was having difficulty moving his legs and could not adequately get out of bed this morning, so he was able to slide out of bed and crawl on the ground to let his daughter into the house. The patient was unable to move both of his legs. Other than this, he denied any other new complaints. EMS reported an SBP in the 80s or 90s upon arrival and he received 500cc NS. Upon arrival to [facility] ER, the patient underwent evaluation by the stroke team. NIHSS: 1. CTB and CTA H/N were negative for acute pathology. CXR revealed some RLL atelectasis/scarring, but there was some concern for aspiration pneumonia so he was given doxycyline, Zosyn, and vancomycin. Patient deniedF/C, CP, SOB, worsening cough, abd and back pain, N/V/D, dysuria. During my interview, the patient was able to move his lower extremities and appeared to be at baseline. Review of systems: Total 12 point review of systems is negative except as I have mentioned above Personal History Past Medical History: Diagnosis Date ??? Arteriosclerosis of coronary artery 11/11/2020 ??? Atrial fibrillation 03/16/2022 ??? Cancer small cell cart artery ??? Carotid artery disease 03/16/2022 ??? Difficulty walking ??? HL (hearing loss) ??? Hyperlipidemia 11/11/2020 ??? Hypertension 5 mg amlodipine ??? Vision loss Past Surgical History: Procedure Laterality Date ??? CAROTID STENT 15 years Family History: family history includes Dementia in his father. Social History: reports that he quit smoking about 40 years ago. His smoking use included cigarettes. He started smoking about 50 years ago. He has a 10 pack- year smoking history. He has never used smokeless tobacco. He reports current alcohol use of about 4.0 - 5.0 standard drinks of alcohol per week. He reports that he does not use drugs. Social History Social History Narrative ??? Not on file Medications: Available home medication information reviewed. Cyanocobalamin, Zinc, amLODIPine, aspirin, baclofen, diphenhydrAMINE, levothyroxine, omeprazole, predniSONE, and tamsulosin No Known Allergies Objective Objective Vital Signs: Temp: [97.8 ??F (36.6 ??C)-98.1 ??F (36.7 ??C)] 97.8 ??F (36.6 ??C) Heart Rate: [44-58] 52 Resp: [16] 16 BP: (98-134)/(54-110) 134/110 Flow (L/min) (Oxygen Therapy): [2-2.5] 2.5 Total (NIH Stroke Scale): 1 General: Well nourished Head: Normocephalic, atraumatic Eyes: Sclerae appear normal. Pupils equally round ENT: Nares appear normal, no drainage. Moist oral mucosa Neck: No restricted ROM. Trachea midline CV: Bradycardic, RR. No M/R/G. No JVD Lungs: CTAB. No wheezing, rhonchi, or rales. Symmetric expansion Abdomen: Bowel sounds present. Nondistended, soft, nontender. G-tube inplace (no signs of infectionor leaks) Extremities: No cyanosis or clubbing. No edema. Skin: No rashes and normal coloration. Warm and dry. Neuro: CN II-XII grossly intact. Sensation intact. AAOx3. Mild dysarthria, answering all questions,following all commands, strength 5/5 throughout Psych: Normal mood and affect I have personally reviewed labs and tests showing: LAB RESULTS: Lab 03/13/25171403/13/25170803/13/25135403/13/25 135 WBC -- -- 5.43 -- HEMOGLOBIN -- -- 10.8* -- HEMOGLOBIN, POC 11.2* -- -- 11.6* HEMATOCRIT -- -- 34.3* -- HEMATOCRIT POC 33* -- -- 34* PLATELETS -- -- 149 -- NEUTROS ABS -- -- 4.72 -- IMMATURE GRANS (ABS) -- -- 0.04 -- LYMPHS ABS -- -- 0.53* -- MONOS ABS -- -- 0.14 -- EOS ABS -- -- 0.00 -- MCV -- -- 104.3* -- PROCALCITONIN -- -- 0.27* -- LACTATE -- 1.7 4.8* -- PROTIME -- -- 14.8 -- INR -- -- 1.09 -- Lab 03/13/25171403/13/25135403/13/25 135 SODIUM -- 135* -- POTASSIUM -- 5.4* -- CHLORIDE -- 95* -- CO2 -- 24.2 -- ANION GAP -- 15.8* -- BUN -- 40.6* -- CREATININE 1.50* 1.50* 1.50* EGFR 44.8* 44.8* 44.8* GLUCOSE -- 142* -- CALCIUM -- 9.4 -- Lab 03/13/25 1355 TOTAL PROTEIN 6.3 ALBUMIN 3.8 GLOBULIN 2.5 ALT (SGPT) 133* AST (SGOT) 159* BILIRUBIN 0.6 ALK PHOS 89 Lab 03/13/25 1540 ABO TYPING O RH TYPING Positive ANTIBODY SCREEN Negative UA 03/13/2025 15:28 Urinalysis Squamous Epithelial Cells, UA 7-12 Specific [place], UA 1.020 Ketones, UA Trace Blood, UA Negative Leukocytes, UA Trace Nitrite, UA Negative RBC, UA 0-2 WBC, UA 6-10 Bacteria, UA None Seen Microbiology Results (last 10 days) Procedure Component Value - Date/Time COVID PRE-OP / PRE-PROCEDURE SCREENING ORDER (NO ISOLATION) - Swab, Nasopharynx [[id number]] (Normal) Collected: 03/13/251452 Lab Status: Final result Specimen: Swab from Nasopharynx Updated: 03/13/25 160 Narrative: The following orders were created for panel order COVID PRE-OP / PRE-PROCEDURE SCREENING ORDER (NO ISOLATION) - Swab, Nasopharynx. Procedure Abnormality Status --------- ------ Respiratory Panel PCR w/...[[id number]] Normal Final result Please view results for these tests on the individual orders. Respiratory Panel PCR w/COVID-19(SARS-CoV-2) TIFFANI/ONDINA/SAFIA/PAD/COR/BROOK In-House, JIGMAKER Swab in UTM/VTM, 2 HR TAT - Swab, Nasopharynx [[id number]] (Normal) Collected: 03/13/25 145 Lab Status: Final result Specimen: Swab from Nasopharynx Updated: 03/13/25 160 ADENOVIRUS, PCR Not Detected Coronavirus 229E Not Detected Coronavirus HKU1 Not Detected Coronavirus NL63 Not Detected Coronavirus OC43 Not Detected COVID19 Not Detected Human Metapneumovirus Not Detected Human Rhinovirus/Enterovirus Not Detected Influenza A PCR Not Detected Influenza B PCR Not Detected Parainfluenza Virus 1 Not Detected Parainfluenza Virus 2 Not Detected Parainfluenza Virus 3 Not Detected Parainfluenza Virus 4 Not Detected RSV, PCR Not Detected Bordetella pertussis pcr Not Detected Bordetella parapertussis PCR Not Detected Chlamydophila pneumoniae PCR Not Detected Mycoplasma pneumo by PCR Not Detected Narrative: In the setting of a positive respiratory panel with a viral infection PLUS a negative procalcitoninwithout other underlying concern for bacterial infection, consider observing off antibiotics or discontinuation of antibiotics and continue supportive care. If the respiratory panel is positive for atypical bacterial infection (Bordetella pertussis, Chlamydophila pneumoniae, or Mycoplasma pneumoniae), consider antibiotic de-escalation to target atypical bacterial infection. XR Chest 1 View Result Date: 03/13/2025 XR CHEST 1 VW Date of Exam: 03/13/2025 1:51 PM EDT Indication: Stroke Protocol (Onset > 12 hrs). Comparison: CT chest December 08, 2022 Findings: There probably is some atelectasis/scarring in the right middle lobe/right lower lobe area. There also may be some atelectasis in the left basilar area. There may be some chronic interstitial changes in the lower lungs. The heart is enlarged. There are nopleural effusions. Impression: Impression: 1.Atelectasis/scarring right middle lobe/right lower lobe area. There may be some atelectasis left basilar area. 2.Some chronic interstitial changes in the lower lungs not excluded. 3.Cardiomegaly. Electronically Signed: Obi Hooper MD 03/13/2025 2:43 PM EDT Workstation ID: [id number] CT Angiogram Head w AI Analysis of LVO Result Date: 03/13/2025 CT ANGIOGRAM NECK, CT ANGIOGRAM HEAD W AI ANALYSIS OF LVO Date of Exam: 03/13/2025 2:04 PM EDT Indication: stroke. CTA OF THE [place] INCLUDING MULTIPLANAR REFORMATTED IMAGING AND PERFORMANCE AND REVIEW OF MIP, 3D OR SURFACE SHADING RECONTRUCTED IMAGES TECHNIQUE: CTA imaging of the neck was performed with IV contrast along with sagittal and coronal reconstructed imaging with contrast. 3D and 2D reconstructed imaging obtained. Exam was tailored for the arterial system. One or more CT techniques were used to decrease dose to the patient, these include automated exposure control, adjustment of the mA and/or kV according to patient size, or use of iterative reconstruction technique. CONTRAST: 70 cc of Isovue-370. COMPARISON: No comparison exams available at the time of dictation. FINDINGS: The NASCET methodology was utilized for calculation of percent stenosis. AORTIC ARCH: Normal anatomic branch pattern of the origination of the great vessels. RIGHT COMMON CAROTID: There is no significant atheromatous disease of the right common carotid artery. No stenosis identified. There is no evidence for pseudoaneurysm or dissection. RIGHT INTERNAL CAROTID ARTERY: There is mild calcified atheromatous disease of the right internal carotid artery. No stenosis identified. There is no evidence for pseudoaneurysm or dissection. LEFT COMMON CAROTID ARTERY: There is no significant atheromatous disease of the left common carotid artery. No stenosis identified. There is no evidence for pseudoaneurysm or dissection. LEFT INTERNAL CAROTID ARTERY: There is mild calcified atheromatous disease of theleft internal carotid artery. No stenosis identified. There is no evidence for pseudoaneurysm or dissection. VETEBRAL ARTERIES: There is no significant ostial disease or stenosis of the bilateral vertebral artery origins. Codominant vertebral arteries are noted. There is no evidence for stenosis ordissection of the vertebral arteries. LUNGS: Visualized upper lung hernandez are grossly clear. OSSEOUS: Degenerative changes are noted in the partially imaged cervical spine. Impression: 1. No evidence of hemodynamically significant stenosis. CTA OF THE [place] INCLUDING MULTIPLANAR REFORMATTED IMAGING AND PERFORMANCE AND REVIEW OF MIP, 3D OR SURFACE SHADING RECONTRUCTED IMAGES TECHNIQUE: CTA imaging of the head was performed with IV contrast along with sagittal and coronal reconstructed imaging with contrast. 3D and 2D reconstructed imaging obtained. Exam was tailored for the arterial system. One or more CT techniques were used to decrease dose to the patient, these include automated exposure control, adjustment of the mA and/or kV according to patient size, or use of iterative reconstruction technique. CONTRAST: 70 cc of Isovue-370. COMPARISON: No comp [facility] exams available at the time of dictation. FINDINGS: ICA CIRCULATION: Minimal to no significant plaque formation present about the cavernous sinus of the ICAs bilateral. Vascular malformation and/or aneurysm is not present. Hemodynamically significant stenosis not present. ANTERIOR CEREBRAL ARTERY CIRCULATION: The intracranial PATI segments appear normal. MIDDLE CEREBRAL ARTERY CIRCULATION: The bilateral MCA M1 and M2 segments appear normal. POSTERIOR CEREBRAL ARTERY CIRCULATION: The AGRICULTURAL TECHNICAL OFFICER segments appear normal. VERTEBROBASILAR CIRCULATION: Codominant vertebral arteries. Basilar artery appears patent and normal. ADDITIONAL FINDINGS: None IMPRESSION: 1. Normal. Electronically Signed: Jassi Allison MD 03/13/2025 2:34 PM EDT Workstation ID: [id number] CT Angiogram Neck Result Date: 03/13/2025 CT ANGIOGRAM NECK, CT ANGIOGRAM HEAD W AI ANALYSIS OF LVO Date of Exam: 03/13/2025 2:04 PM EDT Indication: stroke. CTA OF THE [place] INCLUDING MULTIPLANAR REFORMATTED IMAGING AND PERFORMANCE AND REVIEW OF MIP, 3D OR SURFACE SHADING RECONTRUCTED IMAGES TECHNIQUE: CTA imaging of the neck was performed with IV contrast along with sagittal and coronal reconstructed imaging with contrast. 3D and 2D reconstructed imaging obtained. Exam was tailored for the arterial system. One or more CT techniques were used to decrease dose to the patient, these include automated exposure control, adjustment of the mA and/or kV according to patient size, or use of iterative reconstruction technique. CONTRAST: 70 cc of Isovue-370. COMPARISON: No comparison exams available at the time of dictation. FINDINGS: The NASCET methodology was utilized for calculation of percent stenosis. AORTIC ARCH: Normal anatomic branch pattern of the origination of the great vessels. RIGHT COMMON CAROTID: There is no significant atheromatous disease of the right common carotid artery. No stenosis identified. There is no evidence for pseudoaneurysm or dissection. RIGHT INTERNAL CAROTID ARTERY: There is mild calcified atheromatous disease of the right internal carotid artery. No stenosis identified. There is no evidence forpseudoaneurysm or dissection. LEFT COMMON CAROTID ARTERY: There is no significant atheromatous disease of the left common carotid artery. No stenosis identified. There is no evidence for pseudoaneurysm or dissection. LEFT INTERNAL CAROTID ARTERY: There is mild calcified atheromatous disease of the left internal carotid artery. No stenosis identified. There is no evidence for pseudoaneurysm or dissection. VETEBRAL ARTERIES: There is no significant ostial disease or stenosis of the bilateral vertebral artery origins. Codominant vertebral arteries are noted. There is no evidence for stenosis or dissection of the vertebral arteries. LUNGS: Visualized upper lung hernandez are grossly clear. OSSEOUS: Degenerative changes are noted in the partially imaged cervical spine. Impression: 1. No evidence of hemodynamically significant stenosis. CTA OF THE [place] INCLUDING MULTIPLANAR REFORMATTED IMAGING AND PERFORMANCE AND REVIEW OF MIP, 3D OR SURFACE SHADING RECONTRUCTED IMAGES TECHNIQUE: CTA imaging of the head was performed with IV contrast along with sagittal and coronal reconstructed imaging with contrast. 3D and 2D reconstructed imaging obtained. Exam was tailored for the arterial system. One or more CT techniques were used to decrease dose to the patient, these include automated exposure control, adjustment of the mA and/or kV according to patient size, or use of iterative reconstruction technique. CONTRAST: 70 cc of Isovue-370. COMPARISON: No [facility] exams available at the time of dictation. FINDINGS: ICA CIRCULATION: Minimal to no significant plaque formation present about the cavernous sinus of the ICAs bilateral. Vascular malformation and/or aneurysm is not present. Hemodynamically significant stenosis not present. ANTERIOR CEREBRAL ARTERY CIRCULATION: The intracranial PATI segments appear normal. MIDDLE CEREBRAL ARTERY CIRCULATION: The bilateral MCA M1 and M2 segments appear normal. POSTERIOR CEREBRAL ARTERY CIRCULATION: The AGRICULTURAL TECHNICAL OFFICER segments appear normal. VERTEBROBASILAR CIRCULATION: Codominant vertebral arteries. Basilar artery appears patent and normal. ADDITIONAL FINDINGS: None IMPRESSION: 1. Normal. Electronically Signed: Jassi Allison MD 03/13/2025 2:34 PM EDT Workstation ID: [id number] CT Head Without Contrast Stroke Protocol Result Date: 03/13/2025 CT HEAD WO CONTRAST STROKE PROTOCOL Date of Exam: 03/13/2025 1:42 PM EDT Indication: Stroke, follow up Neuro deficit, acute, stroke suspected. Comparison: None available. Technique: Axial CT images were obtained of the head without contrast administration. Reconstructed coronal images were also obtai teresa. Automated exposure control and iterative construction methods were used. Scan Time: 13:41 Results discussed in person with the stroke navigator at the time of the scan. Findings: No evidence of acute intracranial hemorrhage or mass effect. No extra-axial collection. The king white matter differentiation is preserved. Ventricles and sulci are symmetric. The mastoid air cells and paranasal sinuses are well aerated. Globes and extraocular muscles are unremarkable. No acute osseous abnormality. Advanced degenerative changes of the partially visualized upper cervical spine. Impression: Impression: No acute intracranial findings. Electronically Signed: Santiago Miles MD 03/13/2025 1:56 PM EDT Workstation ID: [id number] My personal interpretation of the CXR is no acute cardiopulmonary process My personal interpretation of the EKG is 48 junctional rhythm, no ischemic ST/T abnormalities This case was discussed with the ER attending physician. Assessment & Plan Assessment & Plan TIA (transient ischemic attack) Acquired hypothyroidism Difficulty swallowing Hyperlipidemia PEG (percutaneous endoscopic gastrostomy) status History of cancer of head or neck Dysphagia, oropharyngeal Hyperkalemia DENIA (acute kidney injury) Worsening of dysarthria and bilateral lower extremity weakness - DDx: TIA/CVA, stroke recrudescence in setting of hypoperfusion 2/2 hypotension, metabolic derangement/infection - CTB & CTA H/N unremarkable - Patient unable to tolerate MRI, so interval CT Brain will be obtained in the morning - Aspirin 81 - PT/OT/ST - Neurology following - Further management pending clinical course DENIA - BUN/Cr. 40/1.5 (baseline cr ~0.6-0.7) - IVF, avoid nephrotoxins, monitor renal function Hyperkalemia - Acute, mild - Lokelma 10g x1 - Monitor levels and treat further if indicated Hx of aspiration pneumonia - Afebrile, WBC 5.4 - CXR revealed Atelectasis/scarring right middle lobe/right lower lobe area. There may be some atelectasis left basilar area. - No hypoxia, respiratory distress, or HPI consistent with aspiration event -- will continue to monitor off antibiotics - Patient saturating 93-95% on RA Hypothyroidism - Chronic - Resume synthroid 137 HLD - Chronic - Check lipid panel - Statin Chronic oropharyngeal dysphagia s/p G-tube Hx of neck cancer s/p CCRT - NPO - Nutrition consult for TF VTE PPx: SCDs Diet: NPO Diet NPO Type: Strict NPO CODE STATUS: Code Status and Medical Interventions: No CPR (Do Not Attempt to Resuscitate); Limited Support; No intubation (DNI) Ordered at: 03/13/25 192 Code Status (Patient has no pulse and is not breathing): No CPR (Do Not Attempt to Resuscitate) Medical Interventions (Patient has pulse or is breathing): Limited Support Medical Intervention Limits: No intubation (DNI) Level Of Support Discussed With: Patient Expected Discharge TBD Expected discharge date/ time has not been documented. Lasha Bernabe DO 03/13/25 documented in this encounter Consult Notes * Brittaney Goss RD - 03/14/2025 10:27 AM EDTAssociated Order(s): IP CONSULT TO NUTRITION SERVICES Patient Name: Abraham Max Date of : 1935 Admission date: 03/13/2025 Reason for Encounter: Tube Feed Consult [facility] Clinical Nutrition Assessment Subjective Subjective Information Pt admitted for TIA. Pt has been a tube feeder for ~15 years and has a G-tube. Pt doesn't eat orally r/t chronic dysphagia from radiation to neck for skin cancer treatment. Current home regimen of 3 bolus feeds a day and does 1 carton Boost VHC at each feed, followed by ~180-240 ml flush. Reports sometimes does 4 cartons a day, but it just depends . Pt does not do flushes before feeds at home. Reports doing a 60 ml flush or two with meds as well at home. Objective H&P and Current Problems H&P Past Medical History: Diagnosis Date Arteriosclerosis of coronary artery 11/11/2020 Atrial fibrillation 03/16/2022 Cancer small cell cart artery Carotid artery disease 03/16/2022 Difficulty walking HL (hearing loss) Hyperlipidemia 11/11/2020 Hypertension 5 mg amlodipine Vision loss Past Surgical History: Procedure Laterality Date CAROTID STENT 15 years Current Problems Admission Diagnosis: TIA (transient ischemic attack) [G45.9] Problem List: TIA (transient ischemic attack) Acquired hypothyroidism Difficulty swallowing Hyperlipidemia PEG (percutaneous endoscopic gastrostomy) status History of cancer of head or neck Dysphagia, oropharyngeal Hyperkalemia DENIA (acute kidney injury) Applicable Nutrition Hx G-tube dependent x~15 years Anthropometrics Height: 172.7 cm (68 ) Weight: 78 kg (172 lb) (03/13/25 1409) Weight Method: Stated BMI (Calculated): 26.2 Trending Weight Changes 03/14/25: No significant changes Weight History Weight Weight (kg) Weight (lbs) Weight Method 03/16/2022 65.318 kg 144 lb 05/14/2022 69.673 kg 153 lb 9.6 oz 05/26/2022 68.765 kg 151 lb 9.6 oz 12/07/2022 70.308 kg 155 lb Estimated 07/09/2024 64.411 kg 142 lb 03/13/2025 78.019 kg 172 lb Stated Labs Comment: Results from last 7 days Lab Units 09/18/64903/13/25 17103/13/25 1709 03/13/25 1355 SODIUM mmol/L 136 -- -- 135* POTASSIUM mmol/L 3.9 -- -- 5.4* GLUCOSE mg/dL 90 -- -- 142* BUN mg/dL 34.3* -- -- 40.6* CREATININE mg/dL 0.79 1.50* -- 1.50* CALCIUM mg/dL 8.5* -- -- 9.4 PHOSPHORUS mg/dL 2.9 -- -- -- MAGNESIUM mg/dL 2.1 -- -- -- ALBUMIN g/dL 3.6 -- -- 3.8 CRP mg/dL -- -- -- 5.00* LACTATE mmol/L -- -- 1.7 4.8* BILIRUBIN mg/dL 0.5 -- -- 0.6 ALK PHOS U/L 128* -- -- 89 AST (SGOT) U/L 193* -- -- 159* ALT (SGPT) U/L 195* -- -- 133* TRIGLYCERIDES mg/dL 36 -- -- -- Results from last 7 days Lab Units 03/14/25 0650 03/13/25171403/13/25 1355 PLATELETS 10*3/mm3 118* -- 149 HEMOGLOBIN g/dL 10.4* -- 10.8* HEMOGLOBIN, POC g/dL -- 11.2* -- HEMATOCRIT % 32.8* -- 34.3* HEMATOCRIT POC % -- 33* -- No results found for: HGBA1C Medications Scheduled Medications aspirin, 81 mg, Per G Tube, Daily levothyroxine, 137 mcg, Per G Tube, Q AM melatonin, 5 mg, Per G Tube, Nightly pantoprazole, 40 mg, Intravenous, Q AM sodium chloride, 10 mL, Intravenous, Q12H Infusions lactated ringers, 75 mL/hr, Last Rate: 75 mL/hr (03/14/25 0800) Pharmacy Consult, PRN Medications acetaminophen Calcium Replacement - Follow Nurse / BPA Driven Protocol ipratropium-albuterol Magnesium Standard Dose Replacement - Follow Nurse / BPA Driven Protocol Pharmacy Consult nitroglycerin ondansetron Phosphorus Replacement - Follow Nurse / BPA Driven Protocol Potassium Replacement - Follow Nurse / BPA Driven Protocol sodium chloride sodium chloride sodium chloride Physical Findings Chewing/Swallowing PHARMACY CLERK eval pending and Pt with chronic dysphagia and G-tube dependence after receiving radiation to neck for skin cancer treatment years ago. Dentition Mouth/Teeth WDL: teeth Teeth Symptoms: tooth/teeth missing Skin No breakdown noted Bowel function Bowels functioning like normal Edema None noted Intake & Output (last 3 days) 03/11 0703/12 0703/12 0701 03/13 0703/13 0703/14 0703/14 0703/15 07 I.V. (mL/kg) 500 (6.4) IV Piggyback 1100 Total Intake(mL/kg) 1600 (20.5) Urine (mL/kg/hr) 1000 450 (1.7) Total Output 1000 450 Net +600 -450 Nutrition Focused Physical Exam 03/14/25: NFPE completed and not consistent with nutrition diagnosis of malnutrition at this time using AND/ASPEN criteria. Estimated Needs Date Assessed 03/14/25 Weight(s) Used 78 kg Energy Requirements Method for Estimation 20 kcals/kg and MSJ Daily Needs (kcal/day) 20 kcal/kg - 1560 kcal MSJ 1.2 - 1681 kcal ~1600 kcal Protein Requirements Method for Estimation 0.8-1.0 gm/kg Daily Needs (g/day) 62-78 g/d ~70 g/d Fluid Requirements Method for Estimation Per Clinical Status Daily Needs (mL/day) ~1600 ml/d Current Nutrition Orders & Evaluation of Intake Oral Nutrition Food Allergies/Intolerances NKFA Current PO Diet NPO Diet NPO Type: Tube Feeding Oral Nutrition Supplement None Trending % PO Intake 03/14/25: NPO Enteral Nutrition Current EN Order None ordered Current EN Modulars None EN Route G-tube EN Tolerance EN Observation/Intake 2 Assessment & Plan Nutrition Diagnosis and Goals Nutrition Diagnosis 1 Swallowing Difficulty related to Hx of neck radiation as evidenced by chronicdysphagia and need for alternate means for nutrition Nutrition Diagnosis 2 Inadequate Energy Intake related to clinical course as evidenced by no tube feeds running at this time Goal(s) Initiate EN , Tolerates EN , Tolerates EN at Goal , Meets Estimated Needs , and No Significant Weight Loss Nutrition Intervention and Prescription Intervention Start EN, Continue to monitor for plan of care, and Continue with current interventions Diet Prescription NPO EN Prescription Boost [facility] 3 bolus feeds/d 1 carton every feed Follow with 180-240 ml flush This regimen provides: 711mL TGV, 1590kcal (99% est needs), 66g protein (94% est needs), 0g fiber, 476mL TF FW (+ 540-720mL flush = 1016-1196mL total). 3 Monitoring/Evaluation Monitor/Evaluation Per Protocol, I&O, EN Delivery/Tolerance, Weight, GI Status, Symptoms, POC/GOC, and Swallow Function RD Follow-Up Encounter 1-2 days and prn Electronically signed by: Brittaney Goss RD 03/14/25 10:27 EDT Cosigned by Kiara Harrington RD at 03/15/2025 9:45 AM EDT Associated attestation - Kiara Harrington RD - 03/15/2025 9:45 AM EDT I have reviewed this documentation and agree. * Zhanna Lozano APRN - 03/13/2025 1:53 PM EDT Stroke Consult Note Patient Name: Abraham Max Age: 89 y.o. Sex: male : 1935 Primary Care Physician: Daysi Curtis APRN Referring Physician: Dr. Asaf Posada TIME STROKE TEAM CALLED: 1331 EST TIME PATIENT SEEN: 1341 EST Handedness: Left Race: Chief Complaint/Reason for Consultation: Worsening dysarthria and bilateral lower extremity weakness HPI: Mr. Max is a 89-year-old female with known medical diagnoses of paroxysmal A-fib (1 episode,not on OAC), essential hypertension, hyperlipidemia, CAD, carotid stenosis s/p stent (15 years ago), remote neck cancer s/p surgery, chronic dysphagia s/p G-tube, remote stroke (data deficient) and remote tobacco abuse who presents to the emergency department via EMS for further evaluation of strokelike symptoms. Per EMS report the patient's daughter called him today and noted that he his speech was more dysarthric than normal. When she went to his residence to check on him he had to crawl on the floor to unlock the door for her. EMS reports RLE weakness however here in the ED he tells me that he was unable to move both of his legs upon awakening this morning. EMS reports SBP in the 80s to 90s upon their arrival. He did get 500 cc normal saline fluid en route. On arrival to the emergency department the patient is neurologically intact other than moderate dysarthria. He tells me that he takes ASA 81 mg daily however no other antiplatelet or anticoagulation medications. Last Known Normal Date/Time: 0000 EST Review of Systems HENT: Positive for trouble swallowing (Chronic). Eyes: Negative for photophobia and visual disturbance. Respiratory: Negative. Cardiovascular: Negative. Gastrointestinal: Negative. Genitourinary: Negative. Musculoskeletal: Positive for gait problem. Skin: Negative. Neurological: Positive for speech difficulty and weakness (BLE). Negative for dizziness, numbness and headaches. Past Medical History: Diagnosis Date Arteriosclerosis of coronary artery 11/11/2020 Atrial fibrillation 03/16/2022 Cancer small cell cart artery Carotid artery disease 03/16/2022 Difficulty walking HL (hearing loss) Hyperlipidemia 11/11/2020 Hypertension 5 mg amlodipine Vision loss Past Surgical History: Procedure Laterality Date CAROTID STENT 15 years Family History Problem Relation Age of Onset Dementia Father Social History Socioeconomic History Marital status: Tobacco Use Smoking status: Former Current packs/day: 0.00 Average packs/day: 1 pack/day for 10.0 years (10.0 ttl pk-yrs) Types: Cigarettes Start date: 06/21/1974 Quit date: 06/21/1984 Years since quittin.7 Smokeless tobacco: Never Vaping Use Vaping status: Never Used Substance and Sexual Activity Alcohol use: Yes Alcohol/week: 4.0 - 5.0 standard drinks of alcohol Types: 4 - 5 Drinks containing 0.5 oz of alcohol per week Drug use: Never Sexual activity: Not Currently Partners: Female No Known Allergies Prior to Admission medications Medication Sig Start Date End Date Taking? Authorizing Provider amLODIPine (NORVASC) 5 MG tablet amlodipine 5 mg tablet Take 1 tablet every day by oral route. Markos Kebede MD aspirin 81 MG EC tablet Aspir-Low 81 mg tablet,delayed release ProviderMarkos MD baclofen (LIORESAL) 10 MG tablet Markos Kebede MD Cyanocobalamin (VITAMIN B 12 PO) Take 1,000 mcg by mouth Daily. Markos Kebede MD diphenhydrAMINE (BENADRYL) 25 mg capsule Take 12.5 mg by mouth 2 (Two) Times a Day. Markos Kebede MD levothyroxine (SYNTHROID, LEVOTHROID) 137 MCG tablet Take 1 tablet by mouth Every Morning. Markos Kebede MD omeprazole (priLOSEC) 40 MG capsule Take 1 capsule by mouth Daily. Markos Kebede MD predniSONE (DELTASONE) 10 MG tablet Take three tablets once daily on day once. Take two tablets once daily on day two. Take one tablet daily on day three. 07/09/24 Daysi Curtis APRN tamsulosin (FLOMAX) 0.4 MG capsule 24 hr capsule Take 1 capsule by mouth Daily. 11/29/21 Markos Kebede MD Zinc 50 MG tablet Take by mouth Daily. Markos Kebede MD Neurological Exam Mental Status Alert. Oriented to person, place, time and situation. Oriented to person, place, and time. Moderatedysarthria present. Language is fluent with no aphasia. Attention and concentration are normal. Cranial Nerves CN II: Visual hernandez full to confrontation. CN III, IV, : Extraocular movements intact bilaterally. Pupils equal round and reactive to light bilaterally. CN V: Facial sensation is normal. CN VII: Full and symmetric facial movement. CN VIII: Hard of hearing. Motor Decreased muscle bulk throughout. BUE with no drift, 5/5 strength BLE with no drift 4+/5 strength. Sensory Sensation is intact to light touch, pinprick, vibration and proprioception in all four extremities. Coordination No obvious dysmetria out of proportion to weakness noted. Gait Not observed. Physical Exam Vitals and nursing note reviewed. Constitutional: General: He is not in acute distress. Appearance: Normal appearance. He is not ill-appearing. HENT: Head: Normocephalic. Mouth/Throat: Mouth: Mucous membranes are dry. Eyes: Extraocular Movements: Extraocular movements intact. Pupils: Pupils are equal, round, and reactive to light. Cardiovascular: Rate and Rhythm: Normal rate. Pulmonary: Effort: Pulmonary effort is normal. No respiratory distress. Comments: On room air Musculoskeletal: General: Deformity (Neck) present. Right lower leg: Edema present. Left lower leg: Edema present. Skin: General: Skin is warm and dry. Neurological: Mental Status: He is alert and oriented to person, place, and time. Cranial Nerves: Dysarthria present. No cranial nerve deficit. Sensory: No sensory deficit. Motor: Weakness (Generalized) present. Coordination: Coordination normal. Psychiatric: Mood and Affect: Mood normal. Behavior: Behavior normal. Acute Stroke Data Thrombolytic Inclusion / Exclusion Criteria Time: 13:53 EDT Person Administering Scale: Zhanna Lozano APRN YES NO INCLUSION CRITERIA CLASS I [] [x] Suspected diagnosis of acute ischemic stroke with measureable neurological deficit. Low NIHSS with disabling stroke symptoms. [] [x] Onset of stroke symptoms < 3 hours before beginning treatment >/ 18 years old Stroke symptom onset = time patient was last seen well or without symptoms (LKW) [] [x] Onset of symptoms between 3-4.5 hours: >/= 80 years old (safe Class IIa) with history of both diabetes and prior CVA (reasonable Class IIb) AND NIHSS </= 25 *If not eligible for IV Thrombolytic consider neuro intervention for LKW within 24 hours YES NO EXCLUSION CRITERIA (CONTRAINDICATIONS) CLASS III EVIDENCE HARM [] [] Blood pressure >185/110 medically refractory to IV medications [] [] Active bleeding at a non-compressible site [] [] Active intracranial hemorrhage (ICH) [] [] Symptoms suggestive of subarachnoid hemorrhage (SAH) [] [] GI bleed within 21 days [] [] Ischemic stroke within 3 months [] [] Severe head trauma within 3 months [] [] Intracranial or intraspinal surgery within 3 months [] [] Current GI malignancy [] [] Intracranial neoplasm [] [] Infective endocarditis [] [] Aortic arch dissection [] [] Active coagulopathy with INR >1.7, platelets <100,000, PTT > 40 sec, PT > 15 sec *For warfarin, administration can begin before blood tests resulted. Discontinue for above values. [] [] Treatment dose* of LMWH (Lovenox) in last 24 hours *prophylactic dosages are not a contraindication [] [] Concurrent use of antiplatelet agents' glycoprotein inhibitors IIb/IIIa (Integrilin, etc.) [] [] Thrombin or factor Xa inhibitors (Eliquis, Xarelto, Arixtra) taken in last 48 hours YES NO CLASS II: AIS WITH THE FOLLOWING CONDITIONS - TREATMENT RISKS SHOULD BE WEIGHED AGAINST POSSIBLE BENEFITS. [] [] Major trauma in last 14 days, recent major surgery in last 14 days, intracranial arterial dissection, giant unruptured and unsecured intracranial aneurysm, pericarditis [] [] The risks, benefits, and alternatives have been discussed with the patient or family related to the administration of IV thrombolytic therapy for stroke symptoms. [] [] I have discussed and reviewed the patient's case and imaging with the attending prior to IV thrombolytic therapy. TIME N/A Time IV thrombolytic administered Hospital Meds: Scheduled- OnabotulinumtoxinA, 200 Units, Intramuscular, Q3 Months Infusions- PRNs- sodium chloride Functional Status Prior to Current Stroke/[place] Score: 3 NIH Stroke Scale Time: 13:53 EDT Person Administering Scale: Zhanna Lozano APRN Interval: baseline 1a. Level of Consciousness: 0-->Alert, keenly responsive 1b. LOC Questions: 0-->Answers both questions correctly 1c. LOC Commands: 0-->Performs both tasks correctly 2. Best Gaze: 0-->Normal 3. Visual: 0-->No visual loss 4. Facial Palsy: 0-->Normal symmetrical movements 5a. Motor Arm, Left: 0-->No drift, limb holds 90 (or 45) degrees for full 10 secs 5b. Motor Arm, Right: 0-->No drift, limb holds 90 (or 45) degrees for full 10 secs 6a. Motor Leg, Left: 0-->No drift, leg holds 30 degree position for full 5 secs 6b. Motor Leg, Right: 0-->No drift, leg holds 30 degree position for full 5 secs 7. Limb Ataxia: 0-->Absent 8. Sensory: 0-->Normal, no sensory loss 9. Best Language: 0-->No aphasia, normal 10. Dysarthria: 1-->[id number] dysarthria, patient slurs at least some words and, at worst, can be understood with some difficulty 11. Extinction and Inattention (formerly Neglect): 0-->No abnormality Total (NIH Stroke Scale): 1 Results Reviewed: I have personally reviewed current lab, radiology, and data and agree with results. CT Head Without Contrast Stroke Protocol Result Date: 03/13/2025 Impression: No acute intracranial findings. Electronically Signed: Santiago Miles MD 03/13/2025 1:56 PM EDT Workstation ID: [id number] CTA head/neck with multifocal intracranial atherosclerotic disease and bilateral carotid calcified atherosclerotic disease however no LVO. WBC Date Value Ref Range Status 03/13/2025 5.43 3.40 - 10.80 10*3/mm3 Final Hemoglobin Date Value Ref Range Status 03/13/2025 10.8 (L) 13.0 - 17.7 g/dL Final 03/13/2025 11.6 (L) 12.0 - 17.0 g/dL Final Comment: Serial Number: [id number] Hematocrit Date Value Ref Range Status 03/13/2025 34.3 (L) 37.5 - 51.0 % Final 03/13/2025 34 (L) 38 - 51 % Final Platelets Date Value Ref Range Status 03/13/2025 149 140 - 450 10*3/mm3 Final Lab Results Component Value Date GLUCOSE 142 (H) 03/13/2025 BUN 40.6 (H) 03/13/2025 CREATININE 1.50 (H) 03/13/2025 NA 135 (L) 03/13/2025 K 5.4 (H) 03/13/2025 CL 95 (L) 03/13/2025 CALCIUM 9.4 03/13/2025 PROTEINTOT 6.3 03/13/2025 ALBUMIN 3.8 03/13/2025 ALT 133 (H) 03/13/2025 AST 159 (H) 03/13/2025 ALKPHOS 89 03/13/2025 BILITOT 0.6 03/13/2025 GLOB 2.5 03/13/2025 AGRATIO 1.5 03/13/2025 BCR 27.1 (H) 03/13/2025 ANIONGAP 15.8 (H) 03/13/2025 EGFR 44.8 (L) 03/13/2025 Assessment/Plan: This is a 89-year-old female with known medical diagnoses of paroxysmal A-fib (1 episode, not on OAC), essential hypertension, hyperlipidemia, CAD, carotid stenosis s/p stent (15 years ago), remote neck cancer s/p surgery, chronic dysphagia s/p G-tube, remote stroke (data deficient) and remote tobacco abuse who presents to the emergency department via EMS for further evaluation of strokelike symptoms. Patient reports when he went to bed at midnight that he was in his normal state of health and woke up with symptoms. He reports bilateral lower extremity weakness and does feel that his speech is slightly more dysarthric than usual. Given LKW > 4.5 hours he is not a candidate for IV thrombolytic therapy. Given lack of LVO on CTA head/neck he is not a candidate for endovascular therapy. Hewill require admission to the hospitalist service for further work-up. Antiplatelet REHABILITATION TECHNICIAN: ASA 81 mg Anticoagulant REHABILITATION TECHNICIAN: None Worsening dysarthria and bilateral lower extremity weakness History of stroke, data deficient, no residual deficit per patient Differentials include CVA (less likely given BLE involvement) verses metabolic disarrangement/infection verses stroke recrudescence in setting of hypoperfusion 2/2 hypotension -Will obtain MRI of the brain without contrast if able, patient will need PPM clearance and may notbe able to tolerate given his neck deformity; if unable to obtain can repeat CT in AM - will not initiate stroke order set unless MRI is + for stroke -N.p.o.; all medications through G-tube -Activity as tolerated, fall risk precautions -PT/OT/PHARMACY CLERK evaluation - Recommend infectious workup Essential hypertension, presented with hypotension -Allow autoregulation of blood pressure for adequate cerebral blood flow - Will give an additional 1 L normal saline bolus Hyperlipidemia -Lipid panel in a.m. - Atorvastatin 40 mg nightly, patient is not on statin therapy REHABILITATION TECHNICIAN Plan of care was discussed with the patient and Dr. Posada (ED MD). Stroke neurology will continue to follow. Please call with any questions or concerns. Thank you for this consult. Zhanna Lozano APRN March 13, 2025 13:53 EDT documented in this encounter Nursing Notes * Elo Ignacio RN - 03/14/2025 4:22 PM EDT Problem: Adult Inpatient Plan of Care Goal: Plan of Care Review Outcome: Adequate for Care Transition Problem: Adult Inpatient Plan of Care Goal: Patient-Specific Goal (Individualized) Outcome: Adequate for Care Transition Problem: Adult Inpatient Plan of Care Goal: Absence of Hospital-Acquired Illness or Injury Outcome: Adequate for Care Transition Intervention: Identify and Manage Fall Risk Description: Perform standard risk assessment on admission using a validated tool or comprehensive approach appropriate to the patient; reassess fall risk frequently, with change in status or transfer to another level of care.Communicate risk to interprofessional healthcare team; ensure fall risk vi sible cue.Determine need for increased observation, equipment and environmental modification, as well as use of supportive, nonskid footwear.Adjust safety measures to individual needs and identified risk factors.Reinforce the importance of active participation with fall risk prevention, safety, and physical activity with the patient and family.Perform regular intentional rounding to assess need for position change, pain assessment and personal needs, including assistance with toileting. Recent Flowsheet Documentation Taken 03/14/2025 1600 by Elo Ignacio RN Safety Promotion/Fall Prevention: assistive device/personal items within reach Taken 03/14/2025 1400 by Elo Ignacio RN Safety Promotion/Fall Prevention: assistive device/personal items within reach Taken 03/14/2025 1200 by Elo Ignacio RN Safety Promotion/Fall Prevention: assistive device/personal items within reach Taken 03/14/2025 1000 by Elo Ignacio RN Safety Promotion/Fall Prevention: assistive device/personal items within reach Taken 03/14/2025 0800 by Elo Ignacio RN Safety Promotion/Fall Prevention: assistive device/personal items within reach Intervention: Prevent Skin Injury Description: Perform a screening for skin injury risk, such as pressure or moisture-associated skindamage on admission and at regular intervals throughout hospital stay.Keep all areas of skin (especially folds) clean and dry.Maintain adequate skin hydration.Relieve and redistribute pressure and protect bony prominences and skin at risk for injury; implement measures based on patient- specific risk factors.Match turning and repositioning schedule to clinical condition.Encourage weight shift frequently; assist with reposition if unable to complete independently.Float heels off bed; avoid pressure on the Achilles tendon.Keep skin free from extended contact with medical devices.Optimize nutrition and hydration.Encourage functional activity and mobility, as early as tolerated.Use aids (e.g., slide boards, mechanical lift) during transfer. Recent Flowsheet Documentation Taken 03/14/2025 1600 by Elo Ignacio RN Body Position: position maintained Skin Protection: incontinence pads utilized Taken 03/14/2025 1400 by Elo Ignacio RN Body Position: position maintained Skin Protection: incontinence pads utilized Taken 03/14/2025 1200 by Elo Ignacio RN Body Position: position maintained Skin Protection: incontinence pads utilized Taken 03/14/2025 1000 by Elo Ignacio RN Body Position: position maintained Skin Protection: incontinence pads utilized Taken 03/14/2025 0800 by Elo Ignacio RN Body Position: position maintained Skin Protection: incontinence pads utilized Intervention: Prevent Infection Description: Maintain skin and mucous membrane integrity; promote hand, oral and pulmonary hygiene.Optimize fluid balance, nutrition, sleep and glycemic control to maximize infection resistance.Identify potential sources of infection early to prevent or mitigate progression of infection (e.g., wound, lines, devices).Evaluate ongoing need for invasive devices; remove promptly when no longer indicated.Review vaccination status. Recent Flowsheet Documentation Taken 03/14/2025 1600 by Elo Ignacio RN Infection Prevention: environmental surveillance performed equipment surfaces disinfected Taken 03/14/2025 1400 by Elo Ignacio RN Infection Prevention: environmental surveillance performed equipment surfaces disinfected Taken 03/14/2025 1200 by Elo Ignacio RN Infection Prevention: environmental surveillance performed equipment surfaces disinfected Taken 03/14/2025 1000 by Elo Ignacio RN Infection Prevention: environmental surveillance performed equipment surfaces disinfected Taken 03/14/2025 0800 by Elo Ignacio RN Infection Prevention: environmental surveillance performed equipment surfaces disinfected Problem: Adult Inpatient Plan of Care Goal: Absence of Hospital-Acquired Illness or Injury Intervention: Identify and Manage Fall Risk Description: Perform standard risk assessment on admission using a validated tool or comprehensive approach appropriate to the patient; reassess fall risk frequently, with change in status or transfer to another level of care.Communicate risk to interprofessional healthcare team; ensure fall risk vi sible cue.Determine need for increased observation, equipment and environmental modification, as well as use of supportive, nonskid footwear.Adjust safety measures to individual needs and identified risk factors.Reinforce the importance of active participation with fall risk prevention, safety, and physical activity with the patient and family.Perform regular intentional rounding to assess need for position change, pain assessment and personal needs, including assistance with toileting. Recent Flowsheet Documentation Taken 03/14/2025 1600 by Elo Ignacio RN Safety Promotion/Fall Prevention: assistive device/personal items within reach Taken 03/14/2025 1400 by Elo Ignacio RN Safety Promotion/Fall Prevention: assistive device/personal items within reach Taken 03/14/2025 1200 by Elo Ignacio RN Safety Promotion/Fall Prevention: assistive device/personal items within reach Taken 03/14/2025 1000 by Elo Ignacio RN Safety Promotion/Fall Prevention: assistive device/personal items within reach Taken 03/14/2025 0800 by Elo Ignacio RN Safety Promotion/Fall Prevention: assistive device/personal items within reach Problem: Adult Inpatient Plan of Care Goal: Absence of Hospital-Acquired Illness or Injury Intervention: Prevent Skin Injury Description: Perform a screening for skin injury risk, such as pressure or moisture-associated skindamage on admission and at regular intervals throughout hospital stay.Keep all areas of skin (especially folds) clean and dry.Maintain adequate skin hydration.Relieve and redistribute pressure and protect bony prominences and skin at risk for injury; implement measures based on patient- specific risk factors.Match turning and repositioning schedule to clinical condition.Encourage weight shift frequently; assist with reposition if unable to complete independently.Float heels off bed; avoid pressure on the Achilles tendon.Keep skin free from extended contact with medical devices.Optimize nutrition and hydration.Encourage functional activity and mobility, as early as tolerated.Use aids (e.g., slide boards, mechanical lift) during transfer. Recent Flowsheet Documentation Taken 03/14/2025 1600 by Elo Ignacio RN Body Position: position maintained Skin Protection: incontinence pads utilized Taken 03/14/2025 1400 by Elo Ignacio RN Body Position: position maintained Skin Protection: incontinence pads utilized Taken 03/14/2025 1200 by Elo Ignacio RN Body Position: position maintained Skin Protection: incontinence pads utilized Taken 03/14/2025 1000 by Elo Ignacio RN Body Position: position maintained Skin Protection: incontinence pads utilized Taken 03/14/2025 0800 by Elo Ignacio RN Body Position: position maintained Skin Protection: incontinence pads utilized Problem: Adult Inpatient Plan of Care Goal: Absence of Hospital-Acquired Illness or Injury Intervention: Prevent Infection Description: Maintain skin and mucous membrane integrity; promote hand, oral and pulmonary hygiene.Optimize fluid balance, nutrition, sleep and glycemic control to maximize infection resistance.Identify potential sources of infection early to prevent or mitigate progression of infection (e.g., wound, lines, devices).Evaluate ongoing need for invasive devices; remove promptly when no longer indicated.Review vaccination status. Recent Flowsheet Documentation Taken 03/14/2025 1600 by Elo Ignacio RN Infection Prevention: environmental surveillance performed equipment surfaces disinfected Taken 03/14/2025 1400 by Elo Ignacio RN Infection Prevention: environmental surveillance performed equipment surfaces disinfected Taken 03/14/2025 1200 by Elo Ignacio RN Infection Prevention: environmental surveillance performed equipment surfaces disinfected Taken 03/14/2025 1000 by Elo Ignacio RN Infection Prevention: environmental surveillance performed equipment surfaces disinfected Taken 03/14/2025 0800 by Elo Ignacio RN Infection Prevention: environmental surveillance performed equipment surfaces disinfected Goal Outcome Evaluation: * Elo Ignacio RN - 03/14/2025 4:21 PM EDT Problem: Adult Inpatient Plan of Care Goal: Absence of Hospital-Acquired Illness or Injury Intervention: Identify and Manage Fall Risk Description: Perform standard risk assessment on admission using a validated tool or comprehensive approach appropriate to the patient; reassess fall risk frequently, with change in status or transfer to another level of care.Communicate risk to interprofessional healthcare team; ensure fall risk vi sible cue.Determine need for increased observation, equipment and environmental modification, as well as use of supportive, nonskid footwear.Adjust safety measures to individual needs and identified risk factors.Reinforce the importance of active participation with fall risk prevention, safety, and physical activity with the patient and family.Perform regular intentional rounding to assess need for position change, pain assessment and personal needs, including assistance with toileting. Recent Flowsheet Documentation Taken 03/14/2025 1600 by Elo Ignacio RN Safety Promotion/Fall Prevention: assistive device/personal items within reach Taken 03/14/2025 1400 by Elo Ignacio RN Safety Promotion/Fall Prevention: assistive device/personal items within reach Taken 03/14/2025 1200 by Elo Ignacio RN Safety Promotion/Fall Prevention: assistive device/personal items within reach Taken 03/14/2025 1000 by Elo Ignacio RN Safety Promotion/Fall Prevention: assistive device/personal items within reach Taken 03/14/2025 0800 by Elo Ignacio RN Safety Promotion/Fall Prevention: assistive device/personal items within reach Goal Outcome Evaluation: * Elo Ignacio RN - 03/14/2025 4:21 PM EDT Goal Outcome Evaluation: * Rosaura Walden, MS CCC-PHARMACY CLERK - 03/14/2025 11:54 AM EDT Goal Outcome Evaluation: Anticipated Discharge Disposition (PHARMACY CLERK): unknown, other (see comments) (pending further w/u) PHARMACY CLERK Swallowing Diagnosis: suspected pharyngeal dysphagia, other (see comments) (suspect chronic in nature) (03/14/25 0910) * Wild Camacho RN - 03/13/2025 6:50 PM EDT Pt. Admitted to 3F from ED. IV antibiotics infusing from ED. A&Ox4. Baseline dysarthria and dysphagia. Prev. Neck cancer, chemo and radiation tx. Strict NPO at baseline, G-tube in place. 2L NC. Telemetry in place. Pt. States there's always some drainage around tube. Drsg. In place. Denies any pain. NIH-1. MD and daughter at bedside. Skin assessment with BAO [place]. Preventative allevyn place tococcyx (blanchable redness) and bilateral heels (blanchable redness). King waffle mattress placed under pt. Bed alarm under pt. Call light w/ in reach. WCTM. documented in this encounter ED Notes * Danie Posada DO - 03/13/2025 2:41 PM EDT Subjective History of Present Illness Patient is a pleasant 89-year-old male presents to the emergency department with weakness. Was initially reported that he had slurred speech and right leg weakness preventing him from getting out of bed. History is somewhat vague with or also reports for the patient that he has had generalized weakness in his bilateral lower extremities preventing him from getting out of bed. He states they did try to get up and was unable to have the strength to stand, lowering to the floor. He denies a significant fall or trauma. Family found him at home unable to stand and called EMS. EMS states that patient was hypotensive with a systolic in the 80s but otherwise vital signs were normal. Blood glucose was normal and route. Patient himself denies fever and states that when he went to bed last night he was normal. He had a stroke several years ago but denies symptoms similar to what he is experienced today. He denies fever, chills, chest pain, shortness of breath, abdominal pain, vomiting, diarrhea,or other acute complaints. Patient had both the stroke several years ago but also throat cancer. Feeding tube in place. Because of the stroke and cancer his speech is fairly difficult to comprehend but he is able to communicate to a limited degree. Review of Systems All other systems reviewed and are negative. Past Medical History: Diagnosis Date Arteriosclerosis of coronary artery 11/11/2020 Atrial fibrillation 03/16/2022 Cancer small cell cart artery Carotid artery disease 03/16/2022 Difficulty walking HL (hearing loss) Hyperlipidemia 11/11/2020 Hypertension 5 mg amlodipine Vision loss No Known Allergies Past Surgical History: Procedure Laterality Date CAROTID STENT 15 years Family History Problem Relation Age of Onset Dementia Father Social History Socioeconomic History Marital status: Tobacco Use Smoking status: Former Current packs/day: 0.00 Average packs/day: 1 pack/day for 10.0 years (10.0 ttl pk-yrs) Types: Cigarettes Start date: 06/21/1974 Quit date: 06/21/1984 Years since quittin.7 Smokeless tobacco: Never Vaping Use Vaping status: Never Used Substance and Sexual Activity Alcohol use: Yes Alcohol/week: 4.0 - 5.0 standard drinks of alcohol Types: 4 - 5 Drinks containing 0.5 oz of alcohol per week Drug use: Never Sexual activity: Not Currently Partners: Female Objective Physical Exam Vitals and nursing note reviewed. Constitutional: Appearance: He is ill-appearing (Chronic ill appearance). HENT: Head: Normocephalic. Mouth/Throat: Mouth: Mucous membranes are moist. Eyes: Extraocular Movements: Extraocular movements intact. Pupils: Pupils are equal, round, and reactive to light. Cardiovascular: Rate and Rhythm: Normal rate and regular rhythm. Pulses: Normal pulses. Heart sounds: Normal heart sounds. Pulmonary: Effort: Pulmonary effort is normal. Breath sounds: Normal breath sounds. Abdominal: General: Bowel sounds are normal. Palpations: Abdomen is soft. Comments: G-tube feeding tube in place Musculoskeletal: General: Normal range of motion. Cervical back: Normal range of motion. Rigidity present. No tenderness. Comments: Baseline kyphosis Skin: General: Skin is warm and dry. Capillary Refill: Capillary refill takes less than 2 seconds. Neurological: General: No focal deficit present. Mental Status: He is alert and oriented to person, place, and time. Motor: Weakness present. Comments: Generalized weakness. No focal deficit. Slurred speech suspected baseline Psychiatric: Behavior: Behavior normal. Procedures ED Course Recent Results (from the past 24 hours) POC CHEM 8 Collection Time: 03/13/25 1:53 PM Specimen: Blood Result Value Ref Range Glucose 141 (H) 70 - 130 mg/dL BUN 40 (H) 8 - 26 mg/dL Creatinine 1.50 (H) 0.60 - 1.30 mg/dL Sodium 133 (L) 138 - 146 mmol/L POC Potassium 5.2 (H) 3.5 - 4.9 mmol/L Chloride 94 (L) 98 - 109 mmol/L Total CO2 26 24 - 29 mmol/L Hemoglobin 11.6 (L) 12.0 - 17.0 g/dL Hematocrit 34 (L) 38 - 51 % Ionized Calcium 1.12 (L) 1.20 - 1.32 mmol/L eGFR 44.8 (L) >60.0 mL/min/1.73 Comprehensive Metabolic Panel Collection Time: 03/13/25 1:55 PM Specimen: Blood Result Value Ref Range Glucose 142 (H) 65 - 99 mg/dL BUN 40.6 (H) 8.0 - 23.0 mg/dL Creatinine 1.50 (H) 0.76 - 1.27 mg/dL Sodium 135 (L) 136 - 145 mmol/L Potassium 5.4 (H) 3.5 - 5.2 mmol/L Chloride 95 (L) 98 - 107 mmol/L CO2 24.2 22.0 - 29.0 mmol/L Calcium 9.4 8.6 - 10.5 mg/dL Total Protein 6.3 6.0 - 8.5 g/dL Albumin 3.8 3.5 - 5.2 g/dL ALT (SGPT) 133 (H) 1 - 41 U/L AST (SGOT) 159 (H) 1 - 40 U/L Alkaline Phosphatase 89 39 - 117 U/L Total Bilirubin 0.6 0.0 - 1.2 mg/dL Globulin 2.5 gm/dL A/G Ratio 1.5 g/dL BUN/Creatinine Ratio 27.1 (H) 7.0 - 25.0 Anion Gap 15.8 (H) 5.0 - 15.0 mmol/L eGFR 44.8 (L) >60.0 mL/min/1.73 Protime-INR Collection Time: 03/13/25 1:55 PM Specimen: Blood Result Value Ref Range Protime 14.8 12.2 - 15.3 Seconds INR 1.09 0.89 - 1.12 CBC Auto Differential Collection Time: 03/13/25 1:55 PM Specimen: Blood Result Value Ref Range WBC 5.43 3.40 - 10.80 10*3/mm3 RBC 3.29 (L) 4.14 - 5.80 10*6/mm3 Hemoglobin 10.8 (L) 13.0 - 17.7 g/dL Hematocrit 34.3 (L) 37.5 - 51.0 % MCV 104.3 (H) 79.0 - 97.0 fL MCH 32.8 26.6 - 33.0 pg MCHC 31.5 31.5 - 35.7 g/dL RDW 16.0 (H) 12.3 - 15.4 % RDW-SD 61.4 (H) 37.0 - 54.0 fl MPV 10.8 6.0 - 12.0 fL Platelets 149 140 - 450 10*3/mm3 Neutrophil % 86.9 (H) 42.7 - 76.0 % Lymphocyte % 9.8 (L) 19.6 - 45.3 % Monocyte % 2.6 (L) 5.0 - 12.0 % Eosinophil % 0.0 (L) 0.3 - 6.2 % Basophil % 0.0 0.0 - 1.5 % Immature Grans % 0.7 (H) 0.0 - 0.5 % Neutrophils, Absolute 4.72 1.70 - 7.00 10*3/mm3 Lymphocytes, Absolute 0.53 (L) 0.70 - 3.10 10*3/mm3 Monocytes, Absolute 0.14 0.10 - 0.90 10*3/mm3 Eosinophils, Absolute 0.00 0.00 - 0.40 10*3/mm3 Basophils, Absolute 0.00 0.00 - 0.20 10*3/mm3 Immature Grans, Absolute 0.04 0.00 - 0.05 10*3/mm3 nRBC 0.4 (H) 0.0 - 0.2 /100 WBC Green Top (Gel) Collection Time: 03/13/25 1:55 PM Result Value Ref Range Extra Tube Hold for add-ons. Lavender Top Collection Time: 03/13/25 1:55 PM Result Value Ref Range Extra Tube hold for add-on Gold Top - SST Collection Time: 03/13/25 1:55 PM Result Value Ref Range Extra Tube Hold for add-ons. King Top Collection Time: 03/13/25 1:55 PM Result Value Ref Range Extra Tube Hold for add-ons. Light Blue Top Collection Time: 03/13/25 1:55 PM Result Value Ref Range Extra Tube Hold for add-ons. Lactic Acid, Plasma Collection Time: 03/13/25 1:55 PM Specimen: Blood Result Value Ref Range Lactate 4.8 (C) 0.5 - 2.0 mmol/L Procalcitonin Collection Time: 03/13/25 1:55 PM Specimen: Blood Result Value Ref Range Procalcitonin 0.27 (H) 0.00 - 0.25 ng/mL Ethanol Collection Time: 03/13/25 1:55 PM Specimen: Blood Result Value Ref Range Ethanol <10 0 - 10 mg/dL ECG 12 Lead ED Triage Standing Order; Stroke (Onset >12 hrs) Collection Time: 03/13/25 2:10 PM Result Value Ref Range QT Interval 410 ms QTC Interval 395 ms ECG 12 Lead Rhythm Change Collection Time: 03/13/25 2:30 PM Result Value Ref Range QT Interval 424 ms QTC Interval 378 ms Respiratory Panel PCR w/COVID-19(SARS-CoV-2) TIFFANI/ONDINA/SAFIA/PAD/COR/BROOK In-House, JIGMAKER Swab in UTM/VTM, 2 HR TAT - Swab, Nasopharynx Collection Time: 03/13/25 2:53 PM Specimen: Nasopharynx; Swab Result Value Ref Range ADENOVIRUS, PCR Not Detected Not Detected Coronavirus 229E Not Detected Not Detected Coronavirus HKU1 Not Detected Not Detected Coronavirus NL63 Not Detected Not Detected Coronavirus OC43 Not Detected Not Detected COVID19 Not Detected Not Detected - Ref. Range Human Metapneumovirus Not Detected Not Detected Human Rhinovirus/Enterovirus Not Detected Not Detected Influenza A PCR Not Detected Not Detected Influenza B PCR Not Detected Not Detected Parainfluenza Virus 1 Not Detected Not Detected Parainfluenza Virus 2 Not Detected Not Detected Parainfluenza Virus 3 Not Detected Not Detected Parainfluenza Virus 4 Not Detected Not Detected RSV, PCR Not Detected Not Detected Bordetella pertussis pcr Not Detected Not Detected Bordetella parapertussis PCR Not Detected Not Detected Chlamydophila pneumoniae PCR Not Detected Not Detected Mycoplasma pneumo by PCR Not Detected Not Detected Urinalysis With Culture If Indicated - Straight Cath Collection Time: 03/13/25 3:28 PM Specimen: Straight Cath; Urine Result Value Ref Range Color, UA Dark Yellow (A) Yellow, Straw Appearance, UA Clear Clear pH, UA <=5.0 5.0 - 8.0 Specific [place], UA 1.020 1.005 - 1.030 Glucose, UA Negative Negative Ketones, UA Trace (A) Negative Bilirubin, UA Negative Negative Blood, UA Negative Negative Protein, UA Trace (A) Negative Leuk Esterase, UA Trace (A) Negative Nitrite, UA Negative Negative Urobilinogen, UA 1.0 E.U./dL 0.2 - 1.0 E.U./dL Urinalysis, Microscopic Only - Straight Cath Collection Time: 03/13/25 3:28 PM Specimen: Straight Cath; Urine Result Value Ref Range RBC, UA 0-2 None Seen, 0-2 /HPF WBC, UA 6-10 (A) None Seen, 0-2 /HPF Bacteria, UA None Seen None Seen /HPF Squamous Epithelial Cells, UA 7-12 (A) None Seen, 0-2 /HPF Hyaline Casts, UA 21-30 None Seen /LPF Methodology Manual Light Microscopy Type & Screen Collection Time: 03/13/25 3:40 PM Specimen: Blood Result Value Ref Range ABO Type O RH type Positive Antibody Screen Negative T&S Expiration Date 03/16/2025 11:59:59 PM Note: In addition to lab results from this visit, the labs listed above may include labs taken at another facility or during a different encounter within the last 24 hours. Please correlate lab timeswith ED admission and discharge times for further clarification of the services performed during this visit. XR Chest 1 View Final Result Impression: 1.Atelectasis/scarring right middle lobe/right lower lobe area. There may be some atelectasis left basilar area. 2.Some chronic interstitial changes in the lower lungs not excluded. 3.Cardiomegaly. Electronically Signed: Obi Hooper MD 03/13/2025 2:43 PM EDT Workstation ID: [id number] CT Angiogram Head w AI Analysis of LVO Final Result 1. No evidence of hemodynamically significant stenosis. CTA OF THE [place] INCLUDING MULTIPLANAR REFORMATTED IMAGING AND PERFORMANCE AND REVIEW OFMIP, 3D OR SURFACE SHADING RECONTRUCTED IMAGES TECHNIQUE: CTA imaging of the head was performed with IV contrast along with sagittal and coronal reconstructed imaging with contrast. 3D and 2D reconstructed imaging obtained. Exam was tailored forthe arterial system. One or more CT techniques were used to decrease dose to the patient, these include automated exposure control, adjustment of the mA and/or kV according to patient size, or use of iterative reconstruction technique. CONTRAST: 70 cc of Isovue-370. COMPARISON: No comparison exams available at the time of dictation. FINDINGS: ICA CIRCULATION: Minimal to no significant plaque formation present about the cavernous sinus of the ICAs bilateral. Vascular malformation and/or aneurysm is not present. Hemodynamically significant stenosis not present. ANTERIOR CEREBRAL ARTERY CIRCULATION: The intracranial PATI segments appear normal. MIDDLE CEREBRAL ARTERY CIRCULATION: The bilateral MCA M1 and M2 segments appear normal. POSTERIOR CEREBRAL ARTERY CIRCULATION: The AGRICULTURAL TECHNICAL OFFICER segments appear normal. VERTEBROBASILAR CIRCULATION: Codominant vertebral arteries. Basilar artery appears patent and normal. ADDITIONAL FINDINGS: None IMPRESSION: 1. Normal. Electronically Signed: Jassi Allison MD 03/13/2025 2:34 PM EDT Workstation ID: [id number] CT Angiogram Neck Final Result 1. No evidence of hemodynamically significant stenosis. CTA OF [place] INCLUDING MULTIPLANAR REFORMATTED IMAGING AND PERFORMANCE AND REVIEW OFMIP, 3D OR SURFACE SHADING RECONTRUCTED IMAGES TECHNIQUE: CTA imaging of the head was performed with IV contrast along with sagittal and coronal reconstructed imaging with contrast. 3D and 2D reconstructed imaging obtained. Exam was tailored for the arterial system. One or more CT techniques were used to decrease dose to the patient, these include automated exposure control, adjustment of the mA and/or kV according to patient size, or use of iterative reconstruction technique. CONTRAST: 70 cc of Isovue-370. COMPARISON: No comparison exams available at the time of dictation. FINDINGS: ICA CIRCULATION: Minimal to no significant plaque formation present about the cavernous sinus of the ICAs bilateral. Vascular malformation and/or aneurysm is not present. Hemodynamically significant stenosis not present. ANTERIOR CEREBRAL ARTERY CIRCULATION: The intracranial PATI segments appear normal. MIDDLE CEREBRAL ARTERY CIRCULATION: The bilateral MCA M1 and M2 segments appear normal. POSTERIOR CEREBRAL ARTERY CIRCULATION: The AGRICULTURAL TECHNICAL OFFICER segments appear normal. VERTEBROBASILAR CIRCULATION: Codominant vertebral arteries. Basilar artery appears patent and normal. ADDITIONAL FINDINGS: None IMPRESSION: 1. Normal. Electronically Signed: Jassi Allison MD 03/13/2025 2:34 PM EDT Workstation ID: [id number] CT Head Without Contrast Stroke Protocol Final Result Impression: No acute intracranial findings. Electronically Signed: Santiago Miles MD 03/13/2025 1:56 PM EDT Workstation ID: [id number] CT Head Without Contrast (Results Pending) Vitals: 03/13/25 1530 03/13/25 1600 03/13/25 1630 03/13/25 1700 BP: 107/64 99/57 110/59 BP Location: Patient Position: Pulse: (!) 48 (!) 46 (!) 49 (!) 44 Resp: Temp: TempSrc: SpO2: 92% 91% 92% 93% Weight: Height: Medications sodium chloride 0.9 % flush 10 mL (has no administration in time range) vancomycin IVPB 1500 mg in 0.9% NaCl (Premix) 500 mL (has no administration in time range) sepsis fluid NS 0.9 % bolus 1,340 mL (has no administration in time range) aspirin chewable tablet 81 mg (has no administration in time range) doxycycline (VIBRAMYCIN) 100 mg in sodium chloride 0.9 % 100 mL MBP (has no administration in time range) iopamidol (ISOVUE-370) 76 % injection 100 mL (75 mL Intravenous Given 03/13/25 1404) sodium chloride 0.9 % bolus 1,000 mL (1,000 mL Intravenous New Bag 03/13/25 1511) piperacillin-tazobactam (ZOSYN) 3.375 g IVPB in 100 mL NS MBP (CD) (3.375 g Intravenous New Bag 03/13/25 1605) ECG/EMG Results (last 24 hours) Procedure Component Value Units Date/Time Telemetry Scan [[id number]] Resulted: 03/13/251414 Updated: 03/13/251436 Telemetry Scan [[id number]] Resulted: 03/13/251424 Updated: 03/13/251436 ECG 12 Lead Rhythm Change [[id number]] Collected: 03/13/251429 Updated: 03/13/25 1440 QT Interval 424 ms QTC Interval 378 ms Narrative: Test Reason : Rhythm Change Blood Pressure : */* mmHG Vent. 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 Differential including CVA, acute psychosis, baseline poor cognition, hypertensive encephalopathy, medication reaction, drug reaction, seizure, ICH,MS, UTI, Metabolic disturbance, PR, PNA, and additional acute, emergent conditions considered. Extensive workup including imaging and labs, as discussed separately, performed and emergent condition managed. Patient presents with dehydration and electrolyte abnormalities consistent with this including acute kidney injury. Etiology for his generalized weakness is not fully evident at this time. Given patient's history of aspiration and nonspecific opacities on chest x-ray, right lower lobe, antibiotics initiated and empiric coverage started. Patient is currently significantly improving with IV hydration. He is comfortable with this plan. Problems Addressed: DENIA (acute kidney injury): complicated acute illness or injury Anemia, unspecified type: complicated acute illness or injury Dehydration: complicated acute illness or injury Elevated lactic acid level: complicated acute illness or injury Elevated liver enzymes: complicated acute illness or injury Generalized weakness: complicated acute illness or injury Hyperkalemia: complicated acute illness or injury Pneumonia of right lower lobe due to infectious organism: complicated acute illness or injury Pyuria: complicated acute illness or injury Weakness of right lower extremity: complicated acute illness or injury Amount and/or Complexity of Data Reviewed External Data Reviewed: notes. Labs: ordered. Decision-making details documented in ED Course. Radiology: ordered and independent interpretation performed. Decision-making details documented in ED Course. ECG/medicine tests: ordered and independent interpretation performed. Decision- making details documented in ED Course. Risk Prescription drug management. Decision regarding hospitalization. Final diagnoses: Generalized weakness Weakness of right lower extremity Pneumonia of right lower lobe due to infectious organism DENIA (acute kidney injury) Dehydration Hyperkalemia Elevated lactic acid level Pyuria Elevated liver enzymes Anemia, unspecified type ED Disposition ED Disposition ED Disposition Decision to Admit Condition -- Comment Level of Care: Telemetry [5] Diagnosis: TIA (transient ischemic attack) [566297] Admitting Physician: GAY LOZANO [[id number]] Attending Physician: GAY LOZANO [[id number]] Certification: I Certify That Inpatient Hospital Services Are Medically Necessary For Greater Than 2 Midnights Danie Posada DO 03/13/25 1719 documented in this encounter Miscellaneous Notes * Case Management/Social Work - Rosetta Banegas RN - 03/14/2025 12:40 PM EDT Images from the original note were not included. Discharge Planning Assessment [facility] Patient Name: Abraham Max Today's Date: 03/14/2025 Admit Date: 03/13/2025 Plan: Home Discharge Needs Assessment Row Name 03/14/25 1225 Living Environment People in Home alone Current Living Arrangements home Potentially Unsafe Housing Conditions unable to assess In the past 12 months has the electric, gas, oil, or water company threatened to shut off services in your home? No Primary Care Provided by self Provides Primary Care For no one Family Caregiver if Needed child(carlos), adult Family Caregiver Names Ceci Nieto, daughter Quality of Family Relationships unable to assess Resource/Environmental Concerns Resource/Environmental Concerns none Transportation Concerns none Transportation Needs In the past 12 months, has lack of transportation kept you from medical appointments or from getting medications? no In the past 12 months, has lack of transportation kept you from meetings, work, or from getting things needed for daily living? No Food Insecurity Within the past 12 months, you worried that your food would run out before you got the money to buymore. Never true Within the past 12 months, the food you bought just didn't last and you didn't have money to get more. Never true Transition Planning Patient/Family Anticipates Transition to home Patient/Family Anticipated Services at Transition onsite case managergarden center manager Anticipated family or friend will provide Discharge Needs Assessment Equipment Currently Used at Home none Concerns to be Addressed discharge planning Do you want help finding or keeping work or a job? Patient declined Do you want help with school or training? For example, starting or completing job training or getting a high school diploma, GED or equivalent Patient declined Discharge Plan Row Name 03/14/25 1229 Plan Plan Home Patient/Family in Agreement with Plan yes Plan Comments Spoke with patient at bedside to initiate discharge planning. Confirmed patient resides in [facility]; PCP is Dion Macedo; insurance is [facility] Medicare. Patient states he is independent with ADLs and mobility; no DME or home health currently used. Patient's daughter will transport at discharge. Home oxygen ordered thru [facility] [place] (2L [place]) and they will bring a tank to the patient's hospital room prior to discharge and deliver remaining equipment to the home address. Patient denies other needs. Final Discharge Disposition Code 01 - home or self-care Continued Care and Services - Admitted Since 03/13/2025 Durable Medical Equipment Service Provider Request Status Services Address Phone Fax Patient Preferred [facility] Selected Oxygen Equipment and Accessories [address] [phone] -- Demographic Summary Row Name 03/14/25 1211 General Information Referral Source admission list Reason for Consult discharge planning Preferred Language Marshall[place] Contact Information Permission Granted to Share Info With onsite case managerproblem manager Status Row Name 03/14/25 1226 Functional Status Usual Activity Tolerance good Physical Activity On average, how many days per week do you engage in moderate to strenuous exercise (like a brisk walk)? 0 days On average, how many minutes do you engage in exercise at this level? 0 min Number of minutes of exercise per week 0 Functional Status, IADL Medications independent Meal Preparation independent Housekeeping independent Shopping independent If for any reason you need help with day-to-day activities such as bathing, preparing meals, shopping, managing finances, etc., do you get the help you need? I get all the help I need Psychosocial No documentation. Abuse/Neglect No documentation. Legal No documentation. Substance Abuse No documentation. Patient Forms No documentation. Rosetta Banegas RN * Therapy Evaluation - Rosaura Walden, MS CCC-PHARMACY CLERK - 03/14/2025 11:55 AM EDT Images from the original note were not included. Acute Care - Speech Language Pathology Swallow Initial Evaluation [facility] Clinical Swallow Evaluation Patient Name: Abraham Max : 1935 Today's Date: 03/14/2025 Admit Date: 03/13/2025 Visit Dx: ICD-10-CM ICD-9-CM 1. Generalized weakness R53.1 780.79 2. Weakness of right lower extremity R29.898 729.89 3. Pneumonia of right lower lobe due to infectious organism J18.9 486 4. DENIA (acute kidney injury) N17.9 584.9 5. Dehydration E86.0 276.51 6. Hyperkalemia E87.5 276.7 7. Elevated lactic acid level R79.89 276.2 8. Pyuria R82.81 791.9 9. Elevated liver enzymes R74.8 790.5 10. Anemia, unspecified type D64.9 285.9 11. Dysphagia, unspecified type R13.10 787.20 12. Panlobular emphysema J43.1 492.8 13. 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 Personal history of malignant neoplasm, unspecified History of cancer of head or neck Torticollis, acquired Cervical dystonia TIA (transient ischemic attack) Dysphagia, oropharyngeal Hyperkalemia DENIA (acute kidney injury) Past Medical History: Diagnosis Date Arteriosclerosis of coronary artery 11/11/2020 Atrial fibrillation 03/16/2022 Cancer small cell cart artery Carotid artery disease 03/16/2022 Difficulty walking HL (hearing loss) Hyperlipidemia 11/11/2020 Hypertension 5 mg amlodipine Vision loss Past Surgical History: Procedure Laterality Date CAROTID STENT 15 years PHARMACY CLERK Recommendation and Plan Recommended discharge disposition is based on the functional assessment performed by PT/OT/Speech therapy (as applicable) and may not reflect the medical necessity determined by your provider or services covered by an individual patient's insurance plan or patient resource. PHARMACY CLERK Swallowing Diagnosis: suspected pharyngeal dysphagia, other (see comments) (suspect chronic in nature) (03/14/25909) PHARMACY CLERK Diet Recommendation: NPO, terminal makeup operator alternate methods of nutrition/hydration (03/14/25909) PHARMACY CLERK Rec. for Method of Medication Administration: meds via alternate route (03/14/25909) Recommended Diagnostics: No further PHARMACY CLERK services recommended, other (see comments) (SLC Eval not ordered, discussed w/ pt. Pt does not feel SLC eval is warranted @ this time and denies acute change from baseline) (03/14/25909) Swallow Criteria for Skilled Therapeutic Interventions Met: patient/family declined skilled intervention at this time (03/14/25909) Anticipated Discharge Disposition (PHARMACY CLERK): unknown, other (see comments) (pending further w/u) (03/14/25909) Therapy Frequency (Swallow): evaluation only (03/14/25909) Oral Care Recommendations: Oral Care BID/PRN, Toothbrush, Suction toothbrush (03/14/25909) SWALLOW EVALUATION (Last 72 Hours) PHARMACY CLERK Adult Swallow Evaluation Row Name 03/14/25909 Rehab Evaluation Document Type evaluation - Subjective Information no complaints - Patient Observations alert;cooperative - Patient/Family/Caregiver Comments/Observations Family present - Patient Effort good - Symptoms Noted During/After Treatment none - General Information Patient Profile Reviewed yes - Current Method of Nutrition NPO;gastrostomy feedings - Precautions/Limitations, Vision WFL;for purposes of eval -MH Precautions/Limitations, Hearing WFL;for purposes of eval - Prior Level of Function-Communication unknown - Prior Level of Function-Swallowing NPO;other (see comments) See clinical eval summary - Plans/Goals Discussed with patient;family;agreed upon [facility] Barriers to Rehab medically complex;previous functional deficit - Patient's Goals for Discharge patient did not state - Family Goals for Discharge family did not state - Pain Additional Documentation Pain Scale: FACES Pre/Post-Treatment (Group) - Pain Scale: FACES Pre/Post-Treatment Pain: FACES Scale, Pretreatment 0-->no hurt - Posttreatment Pain Rating 0-->no hurt - Oral Motor Structure and Function Secretion Management WNL/WFL - Mucosal Quality moist, healthy - Oral Musculature and Cranial Nerve Assessment Oral Motor General Assessment vocal impairment - Vocal Impairment, Detail. Cranial Nerve X (Vagus) vocal quality abnormality (see comments);other (see comments) Hoarse vocal quality, also noted w/ hypernasality - General Eating/Swallowing Observations Respiratory Support Currently in Use nasal cannula - O2 Liters 1L - Eating/Swallowing Skills self-fed - Positioning During Eating upright 90 degree;upright in bed - Utensils Used cup - Consistencies Trialed thin liquids - Clinical Swallow Eval Pharyngeal Phase suspected pharyngeal impairment - Clinical Swallow Evaluation Summary Pt accepted single sip of thin liquid, immediate cough observed. Pt then expectorated majority of trial. Further PO presentations deferred per pt preference. Per chart, MBS completed @ [facility] 06/08/23: No overt signs of initiation of a pharyngeal swallow were appre ciated. No laryngeal elevation, anterior hyoid excursion, base of tongue to posterior pharyngeal wall contact or pharyngeal stripping wave were observed. No overt penetration or aspiration was observed. Pt reports he has been NPO w/ PEG ~18 years, but occasionally accepts small sips of thin liquid w/ L head turn. Pt also reports he underwent instrumental study @ [facility] a long time ago , w/ recsfor thin liquid diet (no solids) + head turn/tilt to the L. Discussed concern for continued pharyngeal dysphagia, pt/family demonstrated understanding. Pt stated he may be interested in repeat instrumental in the future, provided contact card & onsite case manager made aware. - Pharyngeal Phase Concerns Pharyngeal Phase Concerns cough - Cough thin - PHARMACY CLERK Evaluation Clinical Impression PHARMACY CLERK Swallowing Diagnosis suspected pharyngeal dysphagia;other (see comments) suspect chronic in nature - Functional Impact risk of aspiration/pneumonia - Swallow Criteria for Skilled Therapeutic Interventions Met patient/family declined skilled intervention at this time - Recommendations Therapy Frequency (Swallow) evaluation only - PHARMACY CLERK Diet Recommendation NPO;terminal makeup operator alternate methods of nutrition/hydration - Recommended Diagnostics No further PHARMACY CLERK services recommended;other (see comments) SLC Eval not ordered, discussed w/ pt. Pt does not feel SLC eval is warranted @ this time and denies acute change frombaseline - Oral Care Recommendations Oral Care BID/PRN;Toothbrush;Suction toothbrush - PHARMACY CLERK Rec. for Method of Medication Administration meds via alternate route - Anticipated Discharge Disposition (PHARMACY CLERK) unknown;other (see comments) pending further w/u - User Garcia (r) = Recorded By, (t) = Taken By, (c) = Cosigned By Initials Name Effective Dates Rosaura Walden MS CCC-PHARMACY CLERK 11/05/22 - EDUCATION The patient has been educated in the following areas: Dysphagia (Swallowing Impairment) Oral Care/Hydration NPO rationale. Time Calculation: Time Calculation- PHARMACY CLERK Row Name 03/14/25 1154 Time Calculation- [facility] PHARMACY CLERK Start Time 09 - PHARMACY CLERK Received On 03/14/25 - Untimed Charges [id number] Eval Oral Pharyng Swallow Minutes 65 - Total Minutes Untimed Charges Total Minutes 65 - Total Minutes 65 - User Garcia (r) = Recorded By, (t) = Taken By, (c) = Cosigned By Initials Name Provider Type Rosaura Walden MS CCC-PHARMACY CLERK Speech and Language Pathologist Therapy Charges for Today Code Description Service Date Service Provider Modifiers Qty [id number] HC ST EVAL ORAL PHARYNG SWALLOW 4 03/14/2025 Rosaura Walden MS CCC-PHARMACY CLERK GN 1 MS ZEUS Anthony 03/14/2025 documented in this encounter Plan of Treatment Pending Results Name Type Priority Associated Diagnoses Date /Time Blood Culture - Blood, Wrist, Right Microbiology STAT 03/13/2025 3 :06 PM EDT Blood Culture - Blood, Arm, Right Microbiology STAT 03/13/2025 3:0 6 PM EDT documented as of this encounter Procedures Procedure Name Priority Date/Time Associated Diagnosis Comments CT HEAD WO CONTRAST STAT 03/14/2025 8 :29 AM EDT CBC WITH AUTO DIFFERENTIAL Routine 03/14/2025 6:50 AM EDT PHOSPHORUS Routine 03/14/2025 6:50 AM EDT MAGNESIUM Routine 03/14/2025 6:50 AM EDT LIPID PANEL Routine 03/14/2025 6:50 AM EDT COMPREHENSIVE METABOLIC PANEL Routine 03/14/2025 6:50 AM EDT POCT [id number] CT Routine 03/13/2025 5:15 PM EDT LACTIC ACID, REFLEX STAT 03/13/2025 5 :09 PM EDT TYPE AND SCREEN STAT 03/13/2025 3:40 PM EDT URINALYSIS, MICROSCOPIC ONLY STAT 03/13/2025 3:28 PM EDT URINALYSIS W/ CULTURE IF INDICATED STAT 03/13/2025 3:28 PM EDT BLOOD CULTURE STAT 03/13/2025 3:06 PM EDT BLOOD CULTURE STAT 03/13/2025 3:06 PM EDT RESPIRATORY PANEL PCR W/ COVID-19 (SARS-COV-2), JIGMAKER SWAB IN UTM/VTP, 2 HR TAT STAT 03/13/2025 2:53 PM EDT COVID PRE-OP / PRE-PROCEDURE SCREENING ORDER (NO ISOLATION) STAT 03/13/2025 2:53 PM EDT XR CHEST 1 VW STAT 03/13/2025 2:35 PM EDT ECG 12-LEAD STAT 03/13/2025 2:30 PM EDT SCANNED - TELEMETRY 03/13/2025 2 :29 PM EDT SCANNED - TELEMETRY 03/13/2025 2 :25 PM EDT SCANNED - TELEMETRY 03/13/2025 2 :15 PM EDT ECG 12-LEAD STAT 03/13/2025 2:[address] ANGIOGRAM HEAD W AI ANALYSIS OF LVO STAT 03/13/2025 2:[address] ANGIOGRAM NECK STAT 03/13/2025 2:0 6 PM EDT KING TOP STAT 03/13/2025 1:55 PM EDT GOLD TOP - SST STAT 03/13/2025 1:55 PM EDT DK GREEN TOP STAT 03/13/2025 1:55 PM EDT PROCALCITONIN STAT 03/13/2025 1:55 PM EDT CBC WITH AUTO DIFFERENTIAL STAT 03/13/2025 1:55 PM EDT LAVENDER TOP STAT 03/13/2025 1:55 PM EDT LIGHT BLUE TOP STAT 03/13/2025 1:55 PM EDT RAINBOW DRAW STAT 03/13/2025 1:55 PM EDT PROTIME-INR STAT 03/13/2025 1:55 PM EDT CBC AND DIFFERENTIAL STAT 03/13/2025 1:55 PM EDT C-REACTIVE PROTEIN Add-On 03/13/2025 1: 55 PM EDT LACTIC ACID, PLASMA STAT 03/13/2025 1 :55 PM EDT CK STAT 03/13/2025 1:55 PM EDT ETHANOL STAT 03/13/2025 1:55 PM EDT COMPREHENSIVE METABOLIC PANEL STAT 03/13/2025 1:55 PM EDT POCT [id number]-[id number] CT STAT 03/13/2025 1:[address] HEAD WO CONTRAST STROKE PROTOCOL STAT 03/13/2025 1:45 PM EDT documented in this encounter Results * CT Head Without Contrast (03/14/2025 8:29 AM EDT) Anatomical Region Laterality Modality Head N/A Computed Tomogra phy 03/14/2025 8:32 AM EDT Impressions 03/14/2025 8:35 AM EDT Impression: No acute intracranial findings. Electronically Signed: Santiago Miles MD 03/14/2025 8:35 AM EDT Workstation ID: [id number] DxDesc Narrative 03/14/2025 8:[address] HEAD WO CONTRAST Date of Exam: 03/14/2025 8:12 AM EDT Indication: eval stroke. Comparison: Head CT 03/13/2025. Technique: Axial CT images were obtained of the head without contrast administration. Automated exposure control and iterative construction methods were used. Findings: No evidence of acute intracranial hemorrhage or mass effect. No extra-axial collection. The king white matter differentiation is preserved. Ventricles and sulci are symmetric. The mastoid air cells and paranasal sinuses are well aerated. Globes and extraocular muscles are unremarkable. No acute osseous abnormality. Procedure Note Santiago Miles MD - 03/14/2025 CT HEAD WO CONTRAST Date of Exam: 03/14/2025 8:12 AM EDT Indication: eval stroke. Comparison: Head CT 03/13/2025. Technique: Axial CT images were obtained of the head without contrastadministration. Automated exposure control and iterative constructionmethods were used. Findings: No evidence of acute intracranial hemorrhage or mass effect. Noextra-axial collection. The king white matter differentiation ispreserved. Ventricles and sulci are symmetric. The mastoid air cells and paranasal sinuses are well aerated. Globes andextraocular muscles are unremarkable. No acute osseous abnormality. IMPRESSION: Impression: No acute intracranial findings. Electronically Signed: Santiago Miles MD 03/14/2025 8:35 AM EDT Workstation ID: [id number] DxDesc Zhanna Lozano BANK SALES AND SERVICE MANAGER IMG CT ORDERABLES F inal Result * Phosphorus (03/14/2025 6:50 AM EDT) Phosphorus 2.9 2.5 - 4.5 mg/dL 03/14/2025 7:43 AM EDT [facility] Blood Venipuncture / Unknown 03/14/2025 6:50 AM EDT 03/14/2025 7:00 AM EDT Lasha Bernabe DO LAB BLOOD ORDERABLES Final R esult Performing Organization Address City/[facility] Co de Phone Number [facility]
[address] [place] [address], * Magnesium (03/14/2025 6:50 AM EDT) Magnesium 2.1 1.6 - 2.4 mg/dL 03/14/2025 7:45 AM EDT [facility] Blood Venipuncture / Unknown 03/14/2025 6:50 AM EDT 03/14/2025 7:00 AM EDT us Lasha Bernabe DO LAB BLOOD ORDERABLES Final R esult [facility]
[address] [place] [address], [place] [phone] * (ABNORMAL) Comprehensive Metabolic Panel (03/14/2025 6:50 AM EDT) [facility] Glucose 90 65 - 99 mg/dL 03/14/2025 7:45 AM EDT [facility] BUN 34.3(H) 8.0 - 23.0 mg/dL 03/14/2025 7:45 AM EDT [facility] Creatinine 0.79 0.76 - 1.27 mg/dL 03/14/2025 7:45 AM EDT [facility] Sodium 136 136 - 145 mmol/L 03/14/2025 7:45 AM EDT [facility] Potassium 3.9 3.5 - 5.2 mmol/L 03/14/2025 7:45 AM EDT [facility] Chloride 99 98 - 107 mmol/L 03/14/2025 7:45 AM EDT [facility] CO2 27.0 22.0 - 29.0 mmol/L 03/14/2025 7:45 AM EDT [facility] Calcium 8.5(L) 8.6 - 10.5 mg/dL 03/14/2025 7:45 AM EDT [facility] Total Protein 5.7(L) 6.0 - 8.5 g/dL 03/14[facility] Albumin 3.6 3.5 - 5.2 g/dL 03/14/2025 7:[facility] ALT (SGPT) 195(H) 1 - 41 U/L 03/14/2025 7:45 AM [facility] AST (SGOT) 193(H) 1 - 40 U/L 03/14/2025 7:45 AM EDT [facility] Alkaline Phosphatase 128(H) 39 - 117 U/L 03/14/2025 7:45 AM T [facility] Total Bilirubin 0.5 0.0 - 1.2 mg/dL 03/14/2025 7:45 AM EDT [facility] Globulin 2.1 gm/dL 03/14/2025 7:45 AM EDT [facility] Comment:Calculated Result A/G Ratio 1.7 g/dL 03/14/2025 7:45 AM EDT [facility] BUN/Creatinine Ratio 43.4(H) 7.0 - 25.0 03/14/2025 7:45 AM EDT [facility] Anion Gap 10.0 5.0 - 15.0 mmol/L 03/14/2025 7:45 AM EDT [facility] eGFR 86.0 >60.0 mL/min/1.7 3 03/14/2025 7:45 AM EDT [facility] Blood Venipuncture / Unknown 03/14/2025 6:50 AM EDT 03/14/2025 7:00 AM EDT [facility] - 03/14/2025 7:45 AM EDT GFR Categories in Chronic Kidney Disease (CKD) GFR Category GFR (mL/min/1.73) Interpretation G1 90 or greater Normal or high (1) G2 60-89 Mild decrease (1) G3a 45-59 Mild to moderate decrease G3b 30-44 Moderate to severe decrease G4 15-29 Severe decrease G5 14 or less Kidney failure (1)In the absence of evidence of kidney disease, neither GFR category G1 or G2 fulfill the criteria for CKD. eGFR calculation 2020 CKD-EPI creatinine equation, which does not include race as a factor Lasha Bernabe DO LAB BLOOD ORDERABLES Final R esult [facility]
[address] [place] [address], * (ABNORMAL) CBC Auto Differential (03/14/2025 6:50 AM EDT) WBC 5.07 3.40 - 10.80 10*3/mm3 03/14/2025 7:13 AM EDT [facility] RBC 3.20(L) 4.14 - 5.80 10*6/mm3 03/14/2025 7:[facility] Hemoglobin 10.4(L) 13.0 - 17.7 g/dL 03/14/2025 7:13 AM [facility] Hematocrit 32.8(L) 37.5 - 51.0 % 03/14/2025 7:13 AM [facility] MCV 102.5(H) 79.0 - 97.0 fL 03/14/2025 7:13 [facility] MCH 32.5 26.6 - 33.0 pg 03/14/2025 7:13 AM [facility] MCHC 31.7 31.5 - 35.7 g/dL 03/14/2025 7:13 AM [facility] RDW 15.9(H) 12.3 - 15.4 % 03/14/2025 7:13 AM [facility] RDW-SD 59.3(H) 37.0 - 54.0 fl 03/14/2025 7:13 AM [facility] MPV 11.0 6.0 - 12.0 fL 03/14/2025 7:13 AM [facility] Platelets 118(L) 140 - 450 10*3/mm3 03/14/2025 7:13 AM [facility] Neutrophil % 76.5(H) 42.7 - 76.0 % 03/14/2025 7:13 AM [facility] Lymphocyte % 14.6(L) 19.6 - 45.3 % 03/14/2025 7:13 AM [facility] Monocyte % 7.9 5.0 - 12.0 % 03/14/2025 7:13 AM [facility] Eosinophil % 0.0(L) 0.3 - 6.2 % 03/14/2025 7:13 AM [facility] Basophil % 0.2 0.0 - 1.5 % 03/14/2025 7:13 AM [facility] Immature Grans % 0.8(H) 0.0 - 0.5 % 03/14/2025 7:13 AM EDT [facility] Neutrophils, Absolute 3.88 1.70 - 7.00 10*3/mm3 03/14/2025 7:13 AM EDT [facility] Lymphocytes, Absolute 0.74 0.70 - 3.10 10*3/mm3 03/14/2025 7:13 AM EDT [facility] Monocytes, Absolute 0.40 0.10 - 0.90 10*3/mm3 03/14/2025 7:13 AM EDT [facility] Eosinophils, Absolute 0.00 0.00 - 0.40 10*3/mm3 03/14/2025 7:13 AM EDT [facility] Basophils, Absolute 0.01 0.00 - 0.20 10*3/mm3 03/14/2025 7:13 AM EDT [facility] Immature Grans, Absolute 0.04 0.00 - 0.05 10*3/mm3 03/14/2025 7:13 AM EDT [facility] nRBC 0.6(H) 0.0 - 0.2 /100 WBC 03/14/2025 7:13 AM EDT [facility] Blood Venipuncture / Unknown 03/14/2025 6:50 AM EDT 03/14/2025 7:00 AM EDT Lasha Bernabe DO LAB BLOOD ORDERABLES Final R esult [facility]
[address] [place] [address], * Lipid Panel (03/14/2025 6:50 AM EDT) Total Cholesterol 89 0 - 200 mg/dL 03/14/2025 7:43 AM EDT [facility] Triglycerides 36 0 - 150 mg/dL 03/14/2025 7:43 AM EDT [facility] HDL Cholesterol 41 40 - 60 mg/dL 03/14/2025 7:43 AM EDT [facility] LDL Cholesterol 37 0 - 100 mg/dL 03/14/2025 7:43 AM EDT [facility] VLDL Cholesterol 11 5 - 40 mg/dL 03/14/2025 7:43 AM EDT [facility] LDL/HDL Ratio 1.00 03/14/2025 7:43 AM EDT [facility] Blood Venipuncture / Unknown 03/14/2025 6:50 AM EDT 03/14/2025 7:00 AM EDT Narrative [facility] - 03/14/2025 7:43 AM EDT Cholesterol Reference Ranges (U.S. Department of Health and Human Services ATP III Classifications) Desirable <200 mg/dL Borderline High 200-239 mg/dL High Risk >240 mg/dL Triglyceride Reference Ranges (U.S. Department of Health and Human Services ATP III Classifications) Normal <150 mg/dL Borderline High 150-199 mg/dL High 200-499 mg/dL Very High >500 mg/dL HDL Reference Ranges (U.S. Department of Health and Human Services ATP III Classifications) Low <40 mg/dl (major risk factor for CHD) High >60 mg/dl ('negative' risk factor for CHD) LDL Reference Ranges (U.S. Department of Health and Human Services ATP III Classifications) Optimal <100 mg/dL Near Optimal 100-129 mg/dL Borderline High 130-159 mg/dL High 160-189 mg/dL Very High >189 mg/dL LDL is calculated using the NIH LDL-C calculation. Zhanna Lozano BANK SALES AND SERVICE MANAGER LAB BLOOD ORDERABLE S Final Result [facility]
[address] [place] [address], * (ABNORMAL) POC CHEM 8 (03/13/2025 5:15 PM EDT) Glucose 126 70 - 130 mg/dL 03/13/2025 5:18 PM EDT [facility] BUN 40(H) 8 - 26 mg/dL 03/13/2025 5:18 PM EDT [facility] Creatinine 1.50(H) 0.60 - 1.30 mg/dL 03/13/2025 5:18 PM EDT [facility] Sodium 132(L) 138 - 146 mmol/L 03/13/2025 5:18 PM EDT [facility] POC Potassium 5.0(H) 3.5 - 4.9 mmol/L 03/13/2025 5:18 PM EDT [facility] Chloride 95(L) 98 - 109 mmol/L 03/13/2025 5:18 PM EDT [facility] Total CO2 27 24 - 29 mmol/L 03/13/2025 5:18 PM EDT [facility] Hemoglobin 11.2(L) 12.0 - 17.0 g/dL 03/13/2025 5:18 PM EDT [facility] Comment:Serial Number: [id number] 1Operator: [id number] Hematocrit 33(L) 38 - 51 % 03/13/2025 5:18 PM EDT [facility] Ionized Calcium 1.14(L) 1.20 - 1.32 mmol/L 03/13/2025 5:18 PM EDT [facility] eGFR 44.8(L) >60.0 mL/min/1.7 3 03/13/2025 5:18 PM EDT [facility] Blood 03/13/2025 5:15 PM EDT 03/13/2025 5:18 PM EDT us Gay Lozano MD POINT OF CARE TEST ORDERABLES Final Result [facility]
[address] [place] [address], * STAT Lactic Acid, Reflex (03/13/2025 5:09 PM EDT) Lactate 1.7 0.5 - 2.0 mmol/L 03/13/2025 5:43 PM EDT [facility] Comment:Falsely depressed re sults may occur on samples drawn from patients receiving N-Acetylcysteine (NAC) or Metamizole. Blood Structure of left upper limb / Unknown Venipuncture / Unknown 03/13/2025 5:09 PM EDT 03/13/2025 5:19 PM EDT [employer] LAB BLOOD ORDERABLES Final Resul t Performing Organization Address [facility] Co de Phone Number [facility]
[address] [place] [address], * Type & Screen (03/13/2025 3:40 PM EDT) ABO Type O 03/13/2025 4:29 PM EDT [facility] RH type Positive 03/13/2025 4:29 PM EDT [facility] Antibody Screen Negative 03/13/2025 4:29 PM EDT [facility] T&S Expiration Date 03/16/2025 11:59:59 PM 03/13/2025 4:29 PM EDT [facility] Blood Venipuncture / Unknown 03/13/2025 3:40 PM EDT 03/13/2025 3:53 PM EDT [employer] BLOOD BANK TEST ORDERABLES Edite d Result - Final Performing Organization Address City/[facility] Co de Phone Number [facility]
[address] [place] [address], * (ABNORMAL) Urinalysis, Microscopic Only - Straight Cath (03/13/2025 3:28 PM EDT) RBC, UA 0-2 None Seen, 0-2 /HPF 03/13/2025 4:11 PM EDT [facility] WBC, UA 6-10(A) None Seen, 0-2 /HPF 03/13/2025 4:11 PM EDT [facility] Comment:Urine culture not in dicated. Bacteria, UA None Seen None Seen /HPF 03/13/2025 4:11 PM EDT [facility] Squamous Epithelial Cells, UA 7-12(A) None Seen, 0-2 /HPF 03/13/2025 4:11 PM EDT [facility] Hyaline Casts, UA 21-30 None Seen /LPF 03/13/2025 4:11 PM EDT [facility] Methodology Manual Light Microscopy 03/13/2025 4:11 PM EDT [facility] Urine (Straight Cath) Collection / Unknown 03/13/2025 3:28 PM EDT 03/13/2025 3:42 PM EDT Danie Posada DO URINE ORDERABLES Final Result [facility]
[address] [place] [address], * (ABNORMAL) Urinalysis With Culture If Indicated - Straight Cath (03/13/2025 3:28 PM EDT) Color, UA Dark Yellow(A) Yellow, Straw 03/13/2025 3:51 PM EDT [facility] Appearance, UA Clear Clear 03/13/2025 3:51 PM EDT [facility] pH, UA <=5.0 5.0 - 8.0 03/13/2025 3:51 PM EDT [facility] Specific [place], UA 1.020 1.005 - 1.030 03/13/2025 3:51 PM EDT [facility] Glucose, UA Negative Negative 03/13/2025 3:51 PM EDT [facility] Ketones, UA Trace(A) Negative 03/13/2025 3:51 PM EDT [facility] Bilirubin, UA Negative Negative 03/13/2025 3:51 PM EDT [facility] Blood, UA Negative Negative 03/13/2025 3:51 PM EDT [facility] Protein, UA Trace(A) Negative 03/13/2025 3:51 PM EDT [facility] Leuk Esterase, UA Trace(A) Negative 03/13/2025 3:51 PM EDT [facility] Nitrite, UA Negative Negative 03/13/2025 3:51 PM EDT [facility] Urobilinogen, UA 1.0 E.U./dL 0.2 - 1.0 E.U./dL 03/13/2025 3:51 PM EDT [facility] Urine (Straight Cath) Collection / Unknown 03/13/2025 3:28 PM EDT 03/13/2025 3:42 PM EDT [facility] - 03/13/2025 3:51 PM EDT In absence of clinical symptoms, the presence of pyuria, bacteria, and/or nitrites on the urinalysis result does not correlate with infection. Danie Posada DO URINE ORDERABLES Final Result [facility]
[address] [place] [address], * Respiratory Panel PCR w/COVID-19(SARS-CoV-2) TIFFANI/ONDINA/SAFIA/PAD/COR/BROOK In-House, JIGMAKER Swab in UTM/VTM, 2 HR TAT - Swab, Nasopharynx (03/13/2025 2:53 PM EDT) ADENOVIRUS, PCR Not Detected Not Detected BIOFIRE TORCH 03/13/2025 4:06 PM EDT [facility] Coronavirus 229E Not Detected Not Detected BIOFIRE TOR 03/13/2025 4:06 PM EDT [facility] Coronavirus HKU1 Not Detected Not Detected BIOFIRE TORCH 03/13/2025 4:06 PM EDT [facility] Coronavirus NL63 Not Detected Not Detected BIOFIRE TORCH 03/13/2025 4:06 PM EDT [facility] Coronavirus OC43 Not Detected Not Detected BIOFIRE TOR 03/13/2025 4:06 PM EDT [facility] COVID19 Not Detected Not Detected - Ref. Range BIOFIRE TOR 03/13/2025 4:06 PM EDT [facility] Human Metapneumovirus Not Detected Not Detected BIOFIRE TOR 03/13/2025 4:06 PM EDT [facility] Human Rhinovirus/Enterov irus Not Detected Not Detected BIOFIRE TOR 03/13/2025 4:06 PM EDT [facility] Influenza A PCR Not Detected Not Detected BIOFIRE TOR 03/13/2025 4:06 PM EDT [facility] Influenza B PCR Not Detected Not Detected BIOFIRE TOR 03/13/2025 4:06 PM EDT [facility] Parainfluenza Virus 1 Not Detected Not Detected BIOFIRE TOR 03/13/2025 4:06 PM EDT [facility] Parainfluenza Virus 2 Not Detected Not Detected BIOFIRE TOR 03/13/2025 4:06 PM EDT [facility] Parainfluenza Virus 3 Not Detected Not Detected BIOFIRE TOR 03/13/2025 4:06 PM EDT [facility] Parainfluenza Virus 4 Not Detected Not Detected BIOFIRE TOR 03/13/2025 4:06 PM EDT [facility] RSV, PCR Not Detected Not Detected BIOFIRE TOR 03/13/2025 4:06 PM EDT [facility] Bordetella pertussis pcr Not Detected Not Detected BIOFIRE TOR 03/13/2025 4:06 PM EDT [facility] Bordetella parapertussis PCR Not Detected Not Detected BIOFIRE TOR 03/13/2025 4:06 PM EDT [facility] Chlamydophila pneumoniae PCR Not Detected Not Detected BIOFIRE TOR 03/13/2025 4:06 PM EDT [facility] Mycoplasma pneumo by PCR Not Detected Not Detected BIOFIRE TOR [facility] Swab Nasopharyngeal structure / Unknown Collection / Unknown 03/13/2025 2:53 PM EDT 03/13/2025 3:16 PM EDT Narrative [facility] - 03/13/2025 4:06 PM EDT In the setting of a positive respiratory panel with a viral infection PLUS a negative procalcitonin without other underlying concern for bacterial infection, consider observing off antibiotics or discontinuation of antibiotics and continue supportive care. If the respiratory panel is positive for atypical bacterial infection (Bordetella pertussis, Chlamydophila pneumoniae, or Mycoplasma pneumoniae), consider antibiotic de-escalation to target atypical bacterial infection. us Danie Posada DO MICROBIOLOGY - GENERAL ORDERABLE S Final Result [facility]
[address] [place] [address], * XR Chest 1 View (03/13/2025 2:35 PM EDT) Anatomical Region Laterality Modality Body N/A Radiographic Gabby ging 03/13/2025 2:40 PM EDT Impressions 03/13/2025 2:43 PM EDT Impression: 1.Atelectasis/scarring right middle lobe/right lower lobe area. There may be some atelectasis left basilar area. 2.Some chronic interstitial changes in the lower lungs not excluded. 3.Cardiomegaly. Electronically Signed: Obi Hooper MD 03/13/2025 2:43 PM EDT Workstation ID: [id number] [facility] 03/13/2025 2:43 PM EDT XR CHEST 1 VW Date of Exam: 03/13/2025 1:51 PM EDT Indication: Stroke Protocol (Onset > 12 hrs). Comparison: CT chest December 08, 2022 Findings: There probably is some atelectasis/scarring in the right middle lobe/right lower lobe area. There also may be some atelectasis in the left basilar area. There may be some chronic interstitial changes in the lower lungs. The heart is enlarged. There are no pleural effusions. Procedure Note Obi Hooper MD - 03/13/2025 XR CHEST 1 VW Date of Exam: 03/13/2025 1:51 PM EDT Indication: Stroke Protocol (Onset > 12 hrs). Comparison: CT chest December 08, 2022 Findings: There probably is some atelectasis/scarring in the right middle lobe/rightlower lobe area. There also may be some atelectasis in the left basilararea. There may be some chronic interstitial changes in the lower lungs.The heart is enlarged. There are no pleural effusions. IMPRESSION: Impression: 1.Atelectasis/scarring right middle lobe/right lower lobe area. There maybe some atelectasis left basilar area. 2.Some chronic interstitial changes in the lower lungs not excluded. 3.Cardiomegaly. Electronically Signed: Obi Hooper MD 03/13/2025 2:43 PM EDT Workstation ID: [id number] Danie Posada DO IMG DIAGNOSTIC IMAGING ORDERABLE S Final Result * ECG 12 Lead Rhythm Change (03/13/2025 2:30 PM EDT) QT Interval 424 ms BH ECG QTC Interval 378 ms ECG 03/13/2025 2:30 PM EDT 03/17/2025 2:30 PM EDT Narrative ECG - 03/17/2025 2:30 PM EDT Test Reason : Rhythm Change Blood Pressure : */* mmHG Vent. 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 ECG ORDERABLES Final Result * Telemetry Scan (03/13/2025 2:25 PM EDT) Result [facility] ECG ORDERABLES Final Result * Telemetry Scan (03/13/2025 2:15 PM EDT) Result [facility] ECG ORDERABLES Final Result * ECG 12 Lead ED Triage Standing Order; Stroke (Onset >12 hrs) (03/13/2025 2:10 PM EDT) QT Interval 410 ms ECG QTC Interval 395 ms ECG 03/13/2025 2:10 PM EDT 03/17/2025 2:30 PM EDT Narrative ECG - 03/17/2025 2:30 PM EDT Test Reason : ED Triage Standing Order~ Blood Pressure : */* mmHG Vent. 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 No evidence of hemodynamically significant stenosis. CTA OF THE [place] INCLUDING MULTIPLANAR REFORMATTED IMAGING AND PERFORMANCE AND REVIEW OF MIP, 3D OR SURFACE SHADING RECONTRUCTED IMAGES TECHNIQUE: CTA imaging of the head was performed with IV contrast along with sagittal and coronal reconstructed imaging with contrast. 3D and 2D reconstructed imaging obtained. Exam was tailored for the arterial system. One or more CT techniques were used to decrease dose to the patient, these include automated exposure control, adjustment of the mA and/or kV according to patient size, or use of iterative reconstruction technique. CONTRAST: 70 cc of Isovue-370. COMPARISON: No comparison exams available at the time of dictation. FINDINGS: ICA CIRCULATION: Minimal to no significant plaque formation present about the cavernous sinus of the ICAs bilateral. Vascular malformation and/or aneurysm is not present. Hemodynamically significant stenosis not present. ANTERIOR CEREBRAL ARTERY CIRCULATION: The intracranial PATI segments appear normal. MIDDLE CEREBRAL ARTERY CIRCULATION: The bilateral MCA M1 and M2 segments appear normal. POSTERIOR CEREBRAL ARTERY CIRCULATION: The AGRICULTURAL TECHNICAL OFFICER segments appear normal. VERTEBROBASILAR CIRCULATION: Codominant vertebral arteries. Basilar artery appears patent and normal. ADDITIONAL FINDINGS: None IMPRESSION: 1. Normal. Electronically Signed: Jassi Allison MD 03/13/2025 2:34 PM EDT Workstation ID: [id number] [facility] 03/13/2025 2:[address] ANGIOGRAM NECK, CT ANGIOGRAM HEAD W AI ANALYSIS OF LVO Date of Exam: 03/13/2025 2:04 PM EDT Indication: stroke. CTA OF THE [place] INCLUDING MULTIPLANAR REFORMATTED IMAGING AND PERFORMANCE AND REVIEW OF MIP, 3D OR SURFACE SHADING RECONTRUCTED IMAGES TECHNIQUE: CTA imaging of the neck was performed with IV contrast along with sagittal and coronal reconstructed imaging with contrast. 3D and 2D reconstructed imaging obtained. Exam was tailored for the arterial system. One or more CT techniques were used to decrease dose to the patient, these include automated exposure control, adjustment of the mA and/or kV according to patient size, or use of iterative reconstruction technique. CONTRAST: 70 cc of Isovue-370. COMPARISON: No comparison exams available at the time of dictation. FINDINGS: The NASCET methodology was utilized for calculation of percent stenosis. AORTIC ARCH: Normal anatomic branch pattern of the origination of the great vessels. RIGHT COMMON CAROTID: There is no significant atheromatous disease of the right common carotid artery. No stenosis identified. There is no evidence for pseudoaneurysm or dissection. RIGHT INTERNAL CAROTID ARTERY: There is mild calcified atheromatous disease of the right internal carotid artery. No stenosis identified. There is no evidence for pseudoaneurysm or dissection. LEFT COMMON CAROTID ARTERY: There is no significant atheromatous disease of the left common carotid artery. No stenosis identified. There is no evidence for pseudoaneurysm or dissection. LEFT INTERNAL CAROTID ARTERY: There is mild calcified atheromatous disease of the left internal carotid artery. No stenosis identified. There is no evidence for pseudoaneurysm or dissection. VETEBRAL ARTERIES: There is no significant ostial disease or stenosis of the bilateral vertebral artery origins. Codominant vertebral arteries are noted. There is no evidence for stenosis or dissection of the vertebral arteries. LUNGS: Visualized upper lung hernandez are grossly clear. OSSEOUS: Degenerative changes are noted in the partially imaged cervical spine. Procedure Note Jassi Allison MD - 03/13/2025 CT ANGIOGRAM NECK, CT ANGIOGRAM HEAD W AI ANALYSIS OF LVO Date of Exam: 03/13/2025 2:04 PM EDT Indication: stroke. CTA OF THE [place] INCLUDING MULTIPLANAR REFORMATTED IMAGING ANDPERFORMANCE AND REVIEW OF MIP, 3D OR SURFACE SHADING RECONTRUCTED IMAGES TECHNIQUE: CTA imaging of the neck was performed with IV contrast alongwith sagittal and coronal reconstructed imaging with contrast. 3D and 2Dreconstructed imaging obtained. Exam was tailored for the arterialsystem. One or more CT techniques were used to decrease dose to the patient, theseinclude automated exposure control, adjustment of the mA and/or kVaccording to patient size, or use of iterative reconstruction technique. CONTRAST: 70 cc of Isovue-370. COMPARISON: No comparison exams available at the time of dictation. FINDINGS: The NASCET methodology was utilized for calculation of percentstenosis. AORTIC ARCH: Normal anatomic branch pattern of the origination of thegreat vessels. RIGHT COMMON CAROTID: There is no significant atheromatous disease of the right common carotidartery. No stenosis identified. There is no evidence for pseudoaneurysmor dissection. RIGHT INTERNAL CAROTID ARTERY: There is mild calcified atheromatous disease of the right internal carotidartery. No stenosis identified. There is no evidence for pseudoaneurysmor dissection. LEFT COMMON CAROTID ARTERY: There is no significant atheromatous disease of the left common carotidartery. No stenosis identified. There is no evidence for pseudoaneurysmor dissection. LEFT INTERNAL CAROTID ARTERY: There is mild calcified atheromatous disease of the left internal carotidartery. No stenosis identified. There is no evidence for pseudoaneurysmor dissection. VETEBRAL ARTERIES: There is no significant ostial disease or stenosis ofthe bilateral vertebral artery origins. Codominant vertebral arteries arenoted. There is no evidence for stenosis or dissection of the vertebralarteries. LUNGS: Visualized upper lung hernandez are grossly clear. OSSEOUS: Degenerative changes are noted in the partially imaged cervicalspine. IMPRESSION: 1. No evidence of hemodynamically significant stenosis. CTA OF THE [place] INCLUDING MULTIPLANAR REFORMATTED IMAGING ANDPERFORMANCE AND REVIEW OF MIP, 3D OR SURFACE SHADING RECONTRUCTED IMAGES TECHNIQUE: CTA imaging of the head was performed with IV contrast alongwith sagittal and coronal reconstructed imaging with contrast. 3D and 2Dreconstructed imaging obtained. Exam was tailored for the arterialsystem. One or more CT techniques were used to decrease dose to the patient, theseinclude automated exposure control, adjustment of the mA and/or kVaccording to patient size, or use of iterative reconstruction technique. CONTRAST: 70 cc of Isovue-370. COMPARISON: No comparison exams available at the time of dictation. FINDINGS: ICA CIRCULATION: Minimal to no significant plaque formation present aboutthe cavernous sinus of the ICAs bilateral. Vascular malformation and/oraneurysm is not present. Hemodynamically significant stenosis notpresent. ANTERIOR CEREBRAL ARTERY CIRCULATION: The intracranial PATI segments appearnormal. MIDDLE CEREBRAL ARTERY CIRCULATION: The bilateral MCA M1 and M2 segmentsappear normal. POSTERIOR CEREBRAL ARTERY CIRCULATION: The AGRICULTURAL TECHNICAL OFFICER segments appear normal. VERTEBROBASILAR CIRCULATION: Codominant vertebral arteries. Basilarartery appears patent and normal. ADDITIONAL FINDINGS: None IMPRESSION: 1. Normal. Electronically Signed: Jassi Allison MD 03/13/2025 2:34 PM EDT Workstation ID: [id number] us Zhanna Lozano [employer]ICE MA[employer] IMG CT ORDERABLES F inal Result * CT Angiogram Head w AI Analysis of LVO (03/13/2025 2:06 PM EDT) Anatomical Region Laterality Modality Head, Vascular N/A Computed Tomogra phy 03/13/2025 2:26 PM EDT Impressions 03/13/2025 2:34 PM EDT 1. No evidence of hemodynamically significant stenosis. CTA OF THE [place] INCLUDING MULTIPLANAR REFORMATTED IMAGING AND PERFORMANCE AND REVIEW OF MIP, 3D OR SURFACE SHADING RECONTRUCTED IMAGES TECHNIQUE: CTA imaging of the head was performed with IV contrast along with sagittal and coronal reconstructed imaging with contrast. 3D and 2D reconstructed imaging obtained. Exam was tailored for the arterial system. One or more CT techniques were used to decrease dose to the patient, these include automated exposure control, adjustment of the mA and/or kV according to patient size, or use of iterative reconstruction technique. CONTRAST: 70 cc of Isovue-370. COMPARISON: No comparison exams available at the time of dictation. FINDINGS: ICA CIRCULATION: Minimal to no significant plaque formation present about the cavernous sinus of the ICAs bilateral. Vascular malformation and/or aneurysm is not present. Hemodynamically significant stenosis not present. ANTERIOR CEREBRAL ARTERY CIRCULATION: The intracranial PATI segments appear normal. MIDDLE CEREBRAL ARTERY CIRCULATION: The bilateral MCA M1 and M2 segments appear normal. POSTERIOR CEREBRAL ARTERY CIRCULATION: The AGRICULTURAL TECHNICAL OFFICER segments appear normal. VERTEBROBASILAR CIRCULATION: Codominant vertebral arteries. Basilar artery appears patent and normal. ADDITIONAL FINDINGS: None IMPRESSION: 1. Normal. Electronically Signed: Jassi Allison MD 03/13/2025 2:34 PM EDT Workstation ID: [id number] [facility] 03/13/2025 2:[address] ANGIOGRAM NECK, CT ANGIOGRAM HEAD W AI ANALYSIS OF LVO Date of Exam: 03/13/2025 2:04 PM EDT Indication: stroke. CTA OF THE [place] INCLUDING MULTIPLANAR REFORMATTED IMAGING AND PERFORMANCE AND REVIEW OF MIP, 3D OR SURFACE SHADING RECONTRUCTED IMAGES TECHNIQUE: CTA imaging of the neck was performed with IV contrast along with sagittal and coronal reconstructed imaging with contrast. 3D and 2D reconstructed imaging obtained. Exam was tailored for the arterial system. One or more CT techniques were used to decrease dose to the patient, these include automated exposure control, adjustment of the mA and/or kV according to patient size, or use of iterative reconstruction technique. CONTRAST: 70 cc of Isovue-370. COMPARISON: No comparison exams available at the time of dictation. FINDINGS: The NASCET methodology was utilized for calculation of percent stenosis. AORTIC ARCH: Normal anatomic branch pattern of the origination of the great vessels. RIGHT COMMON CAROTID: There is no significant atheromatous disease of the right common carotid artery. No stenosis identified. There is no evidence for pseudoaneurysm or dissection. RIGHT INTERNAL CAROTID ARTERY: There is mild calcified atheromatous disease of the right internal carotid artery. No stenosis identified. There is no evidence for pseudoaneurysm or dissection. LEFT COMMON CAROTID ARTERY: There is no significant atheromatous disease of the left common carotid artery. No stenosis identified. There is no evidence for pseudoaneurysm or dissection. LEFT INTERNAL CAROTID ARTERY: There is mild calcified atheromatous disease of the left internal carotid artery. No stenosis identified. There is no evidence for pseudoaneurysm or dissection. VETEBRAL ARTERIES: There is no significant ostial disease or stenosis of the bilateral vertebral artery origins. Codominant vertebral arteries are noted. There is no evidence for stenosis or dissection of the vertebral arteries. LUNGS: Visualized upper lung hernandez are grossly clear. OSSEOUS: Degenerative changes are noted in the partially imaged cervical spine. Procedure Note Jassi Allison MD - 03/13/2025 CT ANGIOGRAM NECK, CT ANGIOGRAM HEAD W AI ANALYSIS OF LVO Date of Exam: 03/13/2025 2:04 PM EDT Indication: stroke. CTA OF THE [place] INCLUDING MULTIP[place]AR REFORMATTED IMAGING ANDPERFORMANCE AND REVIEW OF MIP, 3D OR SURFACE SHADING RECONTRUCTED IMAGES TECHNIQUE: CTA imaging of the neck was performed with IV contrast alongwith sagittal and coronal reconstructed imaging with contrast. 3D and 2Dreconstructed imaging obtained. Exam was tailored for the arterialsystem. One or more CT techniques were used to decrease dose to the patient, theseinclude automated exposure control, adjustment of the mA and/or kVaccording to patient size, or use of iterative reconstruction technique. CONTRAST: 70 cc of Isovue-370. COMPARISON: No comparison exams available at the time of dictation. FINDINGS: The NASCET methodology was utilized for calculation of percentstenosis. AORTIC ARCH: Normal anatomic branch pattern of the origination of thegreat vessels. RIGHT COMMON CAROTID: There is no significant atheromatous disease of the right common carotidartery. No stenosis identified. There is no evidence for pseudoaneurysmor dissection. RIGHT INTERNAL CAROTID ARTERY: There is mild calcified atheromatous disease of the right internal carotidartery. No stenosis identified. There is no evidence for pseudoaneurysmor dissection. LEFT COMMON CAROTID ARTERY: There is no significant atheromatous disease of the left common carotidartery. No stenosis identified. There is no evidence for pseudoaneurysmor dissection. LEFT INTERNAL CAROTID ARTERY: There is mild calcified atheromatous disease of the left internal carotidartery. No stenosis identified. There is no evidence for pseudoaneurysmor dissection. VETEBRAL ARTERIES: There is no significant ostial disease or stenosis ofthe bilateral vertebral artery origins. Codominant vertebral arteries arenoted. There is no evidence for stenosis or dissection of the vertebralarteries. LUNGS: Visualized upper lung hernandez are grossly clear. OSSEOUS: Degenerative changes are noted in the partially imaged cervicalspine. IMPRESSION: 1. No evidence of hemodynamically significant stenosis. CTA OF THE [place] INCLUDING MULTIPLANAR REFORMATTED IMAGING ANDPERFORMANCE AND REVIEW OF MIP, 3D OR SURFACE SHADING RECONTRUCTED IMAGES TECHNIQUE: CTA imaging of the head was performed with IV contrast alongwith sagittal and coronal reconstructed imaging with contrast. 3D and 2Dreconstructed imaging obtained. Exam was tailored for the arterialsystem. One or more CT techniques were used to decrease dose to the patient, theseinclude automated exposure control, adjustment of the mA and/or kVaccording to patient size, or use of iterative reconstruction technique. CONTRAST: 70 cc of Isovue-370. COMPARISON: No comparison exams available at the time of dictation. FINDINGS: ICA CIRCULATION: Minimal to no significant plaque formation present aboutthe cavernous sinus of the ICAs bilateral. Vascular malformation and/oraneurysm is not present. Hemodynamically significant stenosis notpresent. ANTERIOR CEREBRAL ARTERY CIRCULATION: The intracranial PATI segments appearnormal. MIDDLE CEREBRAL ARTERY CIRCULATION: The bilateral MCA M1 and M2 segmentsappear normal. POSTERIOR CEREBRAL ARTERY CIRCULATION: The AGRICULTURAL TECHNICAL OFFICER segments appear normal. VERTEBROBASILAR CIRCULATION: Codominant vertebral arteries. Basilarartery appears patent and normal. ADDITIONAL FINDINGS: None IMPRESSION: 1. Normal. Electronically Signed: Jassi Allison MD 03/13/2025 2:34 PM EDT Workstation ID: [id number] Nikki Cartagena MD IM CT ORDERABLES Final R esult * (ABNORMAL) C-reactive Protein (03/13/2025 1:55 PM EDT) [facility] C-Reactive Protein 5.00(H) 0.00 - 0.50 mg/dL 03/13/2025 10:50 PM EDT [facility] Blood Line / Unknown 03/13/2025 1: 55 PM EDT 03/13/2025 1:59 PM EDT Lasha Bernabe DO LAB BLOOD ORDERABLES Final R esult Performing Organization Address City/[facility]/ZIP Co de Phone Number [facility]
[address] [place] [address], * CK (03/13/2025 1:55 PM EDT) Pathologist [facility] Creatine Kinase 57 20 - 200 U/L 03/13/2025 5:20 PM EDT [facility] Blood Line / Unknown 03/13/2025 1: 55 PM EDT 03/13/2025 1:59 PM EDT Gay Lozano MD LAB BLOOD ORDERABLES Final Re sult Performing Organization Address [facility] Co de Phone Number [facility]
[address] [place] [address], * Ethanol (03/13/2025 1:55 PM EDT) Pathologist [facility] Ethanol <10 0 - 10 mg/dL 03/13/2025 4:41 PM EDT [facility] Blood Line / Unknown 03/13/2025 1: 55 PM EDT 03/13/2025 1:59 PM EDT Narrative [facility] - 03/13/2025 4:41 PM EDT Not for legal purposes. Danie Posada DO LAB BLOOD ORDERABLES Final Resul t Performing Organization Address City/[facility]/ZIP Co de Phone Number [facility]
[address] [place] [address], [place] [phone] * (ABNORMAL) Procalcitonin (03/13/2025 1:55 PM EDT) Procalcitonin 0.27(H) 0.00 - 0.25 ng/mL 03/13/2025 2:32 PM EDT [facility] Blood Line / Unknown 03/13/2025 1: 55 PM EDT 03/13/2025 1:59 PM EDT [facility] - 03/13/2025 2:32 PM EDT As a Marker for Sepsis (Non-Neonates): 1. <0.5 ng/mL represents a low risk of severe sepsis and/or septic shock. 2. >2 ng/mL represents a high risk of severe sepsis and/or septic shock. As a Marker for Lower Respiratory Tract Infections that require antibiotic therapy: PCT on Admission Antibiotic Therapy 6-12 Hrs later >0.5 Strongly Recommended >0.25 - <0.5 Recommended 0.1 - 0.25 Discouraged Remeasure/reassess PCT <0.1 Strongly Discouraged Remeasure/reassess PCT As 28 day mortality risk marker: Change in Procalcitonin Result (>80% or <=80%) if Day 0 (or Day 1) and Day 4 values are available. Refer to http://www.wiceik-okr-txrjrnemhz.com Change in PCT <=80% A decrease of PCT levels below or equal to 80% defines a positive change in PCT test result representing a higher risk for 28-day all-cause mortality of patients diagnosed with severe sepsis for septic shock. Change in PCT >80% A decrease of PCT levels of more than 80% defines a negative change in PCT result representing a lower risk for 28-day all-cause mortality of patients diagnosed with severe sepsis or septic shock. us Danie Posada DO LAB BLOOD ORDERABLES Final Resul t [facility]
[address] [place] [address], * (ABNORMAL) Lactic Acid, Plasma (03/13/2025 1:55 PM EDT) Lactate 4.8(HH) 0.5 - 2.0 mmol/L 03/13/2025 3:05 PM EDT [facility] Comment:Falsely depressed re sults may occur on samples drawn from patients receiving N-Acetylcysteine (NAC) or Metamizole. Blood Line / Unknown 03/13/2025 1: 55 PM EDT 03/13/2025 1:59 PM EDT us Danie Ethete DO LAB BLOOD ORDERABLES Final Resul t Performing Organization Address [facility] Phone Number [facility]
[address] [place] [address], * Light Blue Top (03/13/2025 1:55 PM EDT) Extra Tube Hold for add-ons. 03/13/2025 2:01 PM EDT [facility] Comment:Auto resulted Blood Line / Unknown 03/13/2025 1: 55 PM EDT 03/13/2025 1:59 PM EDT us Danie Ethete DO LAB BLOOD ORDER ONLY Final Resul t Performing Organization Address [facility] de Phone Number [facility]
[address] [place] [address], [place] [phone] * King Top (03/13/2025 1:55 PM EDT) Extra Tube Hold for add-ons. 03/13/2025 2:01 PM EDT [facility] Comment:Auto resulted. Blood Line / Unknown 03/13/2025 1: 55 PM EDT 03/13/2025 1:59 PM EDT us Danie Ethete DO LAB BLOOD ORDER ONLY Final Resul t Performing Organization Address [facility] de Phone Number [facility]
[address] [place] [address], * Gold Top - SST (03/13/2025 1:55 PM EDT) Extra Tube Hold for add-ons. 03/13/2025 2:01 PM EDT [facility] Comment:Auto resulted. Blood Line / Unknown 03/13/2025 1: 55 PM EDT 03/13/2025 1:59 PM EDT us Danie Ethete DO LAB BLOOD ORDER ONLY Final Resul t Performing Organization Address City/[facility]/ZIP Co de Phone Number [facility]
[address] [place] [address], [place] [phone] * Lavender Top (03/13/2025 1:55 PM EDT) Extra Tube hold for add-on 03/13/2025 2:01 PM EDT [facility] Comment:Auto resulted Blood Line / Unknown 03/13/2025 1: 55 PM EDT 03/13/2025 1:59 PM EDT us Danie Ethete DO LAB BLOOD ORDER ONLY Final Resul t Performing Organization Address City/[facility]/ZIP Co de Phone Number [facility]
[address] [place] [address], [place] [phone] * Green Top (Gel) (03/13/2025 1:55 PM EDT) Extra Tube Hold for add-ons. 03/13/2025 2:01 PM EDT [facility] Comment:Auto resulted. Blood Line / Unknown 03/13/2025 1: 55 PM EDT 03/13/2025 1:59 PM EDT us Danie Ethete DO LAB BLOOD ORDER ONLY Final Resul t Performing Organization Address City/[facility]/ZIP Co de Phone Number [facility]
[address] [place] [address], * (ABNORMAL) CBC Auto Differential (03/13/2025 1:55 PM EDT) WBC 5.43 3.40 - 10.80 10*3/mm3 03/13/2025 2:07 PM EDT [facility] RBC 3.29(L) 4.14 - 5.80 10*6/mm3 03/13/2025 2:07 PM EDT [facility] Hemoglobin 10.8(L) 13.0 - 17.7 g/dL 03/13/2025 2:07 PM EDT [facility] Hematocrit 34.3(L) 37.5 - 51.0 % 03/13/2025 2:07 PM EDT [facility] MCV 104.3(H) 79.0 - 97.0 fL 03/13/2025 2:07 PM EDT [facility] MCH 32.8 26.6 - 33.0 pg 03/13/2025 2:07 PM EDT [facility] MCHC 31.5 31.5 - 35.7 g/dL 03/13/2025 2:07 PM EDT [facility] RDW 16.0(H) 12.3 - 15.4 % 03/13/2025 2:07 PM EDT [facility] RDW-SD 61.4(H) 37.0 - 54.0 fl 03/13/2025 2:07 PM EDT [facility] MPV 10.8 6.0 - 12.0 fL 03/13/2025 2:07 PM EDT [facility] Platelets 149 140 - 450 10*3/mm3 03/13/2025 2:07 PM EDT [facility] Neutrophil % 86.9(H) 42.7 - 76.0 % 03/13/2025 2:07 PM EDT [facility] Lymphocyte % 9.8(L) 19.6 - 45.3 % 03/13/2025 2:07 PM EDT [facility] Monocyte % 2.6(L) 5.0 - 12.0 % 03/13/2025 2:07 PM EDT [facility] Eosinophil % 0.0(L) 0.3 - 6.2 % 03/13/2025 2:07 PM EDT [facility] Basophil % 0.0 0.0 - 1.5 % 03/13/2025 2:07 PM EDT [facility] Immature Grans % 0.7(H) 0.0 - 0.5 % 03/13/2025 2:07 PM EDT [facility] Neutrophils, Absolute 4.72 1.70 - 7.00 10*3/mm3 03/13/2025 2:07 PM EDT [facility] Lymphocytes, Absolute 0.53(L) 0.70 - 3.10 10*3/mm3 03/13/2025 2:07 PM EDT [facility] Monocytes, Absolute 0.14 0.10 - 0.90 10*3/mm3 03/13/2025 2:07 PM EDT [facility] Eosinophils, Absolute 0.00 0.00 - 0.40 10*3/mm3 03/13/2025 2:07 PM EDT [facility] Basophils, Absolute 0.00 0.00 - 0.20 10*3/mm3 03/13/2025 2:07 PM EDT [facility] Immature Grans, Absolute 0.04 0.00 - 0.05 10*3/mm3 03/13/2025 2:07 PM EDT [facility] nRBC 0.4(H) 0.0 - 0.2 /100 WBC 03/13/2025 2:07 PM EDT [facility] Blood Line / Unknown 03/13/2025 1: 55 PM EDT 03/13/2025 1:59 PM EDT us Danie Posada DO LAB BLOOD ORDERABLES Final Resul t [facility]
[address] [place] [address], * Protime-INR (03/13/2025 1:55 PM EDT) Protime 14.8 12.2 - 15.3 Seconds 03/13/2025 2:17 PM EDT [facility] INR 1.09 0.89 - 1.12 03/13/2025 2:17 PM EDT [facility] Blood Line / Unknown 03/13/2025 1: 55 PM EDT 03/13/2025 1:59 PM EDT Danie Posada DO LAB BLOOD ORDERABLES Final Resul t [facility]
[address] [place] [address], * (ABNORMAL) Comprehensive Metabolic Panel (03/13/2025 1:55 PM EDT) Glucose 142(H) 65 - 99 mg/dL 03/13/2025 2:32 PM EDT [facility] BUN 40.6(H) 8.0 - 23.0 mg/dL 03/13/2025 2:32 PM EDT [facility] Creatinine 1.50(H) 0.76 - 1.27 mg/dL 03/13/2025 2:32 PM EDT [facility] Sodium 135(L) 136 - 145 mmol/L 03/13/2025 2:32 PM EDT [facility] Potassium 5.4(H) 3.5 - 5.2 mmol/L 03/13/2025 2:32 PM EDT [facility] Chloride 95(L) 98 - 107 mmol/L 03/13/2025 2:32 PM EDT [facility] CO2 24.2 22.0 - 29.0 mmol/L 03/13/2025 2:32 PM EDT [facility] Calcium 9.4 8.6 - 10.5 mg/dL 03/13/2025 2:32 PM EDT [facility] Total Protein 6.3 6.0 - 8.5 g/dL 03/13/2025 2:32 PM EDT [facility] Albumin 3.8 3.5 - 5.2 g/dL 03/13/2025 2:32 PM EDT [facility] ALT (SGPT) 133(H) 1 - 41 U/L 03/13/2025 2:32 PM EDT [facility] AST (SGOT) 159(H) 1 - 40 U/L 03/13/2025 2:32 PM EDT [facility] Alkaline Phosphatase 89 39 - 117 U/L 03/13/2025 2:32 PM EDT [facility] Total Bilirubin 0.6 0.0 - 1.2 mg/dL 03/13/2025 2:32 PM EDT [facility] Globulin 2.5 gm/dL 03/13/2025 2:32 PM EDT [facility] Comment:Calculated Result A/G Ratio 1.5 g/dL 03/13/2025 2:32 PM T [facility] BUN/Creatinine Ratio 27.1(H) 7.0 - 25.0 03/13/2025 2:32 PM T [facility] Anion Gap 15.8(H) 5.0 - 15.0 mmol/L 03/13/2025 2:32 PM T [facility] eGFR 44.8(L) >60.0 mL/min/1.7 3 03/13/2025 2:32 PM T [facility] Blood Line / Unknown 03/13/2025 1: 55 PM EDT 03/13/2025 1:59 PM EDT [facility] - 03/13/2025 2:32 PM EDT GFR Categories in Chronic Kidney Disease (CKD) GFR Category GFR (mL/min/1.73) Interpretation G1 90 or greater Normal or high (1) G2 60-89 Mild decrease (1) G3a 45-59 Mild to moderate decrease G3b 30-44 Moderate to severe decrease G4 15-29 Severe decrease G5 14 or less Kidney failure (1)In the absence of evidence of kidney disease, neither GFR category G1 or G2 fulfill the criteria for CKD. eGFR calculation 2020 CKD-EPI creatinine equation, which does not include race as a factor us Danie Posada LAB BLOOD ORDERABLES Final Resul t [facility]
[address] [place] [address], * (ABNORMAL) POC CHEM 8 (03/13/2025 1:53 PM EDT) Glucose 141(H) 70 - 130 mg/dL 03/13/2025 1:56 PM EDT [facility] BUN 40(H) 8 - 26 mg/dL 03/13/2025 1:56 PM EDT [facility] Creatinine 1.50(H) 0.60 - 1.30 mg/dL 03/13/2025 1:56 PM EDT [facility] Sodium 133(L) 138 - 146 mmol/L 03/13/2025 1:56 PM EDT [facility] POC Potassium 5.2(H) 3.5 - 4.9 mmol/L 03/13/2025 1:56 PM EDT [facility] Chloride 94(L) 98 - 109 mmol/L 03/13/2025 1:56 PM EDT [facility] Total CO2 26 24 - 29 mmol/L 03/13/2025 1:56 PM EDT [facility] Hemoglobin 11.6(L) 12.0 - 17.0 g/dL 03/13/2025 1:56 PM EDT [facility] Comment:Serial Number: [id number] 1Operator: [id number] Hematocrit 34(L) 38 - 51 % 03/13/2025 1:56 PM EDT [facility] Ionized Calcium 1.12(L) 1.20 - 1.32 mmol/L 03/13/2025 1:56 PM EDT [facility] eGFR 44.8(L) >60.0 mL/min/1.7 3 03/13/2025 1:56 PM EDT [facility] Blood 03/13/2025 1:53 PM EDT 03/13/2025 1:56 PM EDT us Danie Posada DO POINT OF CARE TEST ORDERABLES Fi nal Result [facility]
[address] [place] [address], * CT Head Without Contrast Stroke Protocol (03/13/2025 1:45 PM EDT) Anatomical Region Laterality Modality Head N/A Computed Tomogra phy 03/13/2025 1:51 PM EDT Impressions 03/13/2025 1:56 PM EDT Impression: No acute intracranial findings. Electronically Signed: Santiago Miles MD 03/13/2025 1:56 PM EDT Workstation ID: [id number] Narrative 03/13/2025 1:[address] HEAD WO CONTRAST STROKE PROTOCOL Date of Exam: 03/13/2025 1:42 PM EDT Indication: Stroke, follow up Neuro deficit, acute, stroke suspected. Comparison: None available. Technique: Axial CT images were obtained of the head without contrast administration. Reconstructed coronal images were also obtained. Automated exposure control and iterative construction methods were used. Scan Time: 13:41 Results discussed in person with the stroke navigator at the time of the scan. Findings: No evidence of acute intracranial hemorrhage or mass effect. No extra-axial collection. The king white matter differentiation is preserved. Ventricles and sulci are symmetric. The mastoid air cells and paranasal sinuses are well aerated. Globes and extraocular muscles are unremarkable. No acute osseous abnormality. Advanced degenerative changes of the partially visualized upper cervical spine. Procedure Note Santiago Miles MD - 03/13/2025 CT HEAD WO CONTRAST STROKE PROTOCOL Date of Exam: 03/13/2025 1:42 PM EDT Indication: Stroke, follow up Neuro deficit, acute, stroke suspected. Comparison: None available. Technique: Axial CT images were obtained of the head without contrastadministration. Reconstructed coronal images were also obtained.Automated exposure control and iterative construction methods were used. Scan Time: 13:41 Results discussed in person with the stroke navigator at the time of thescan. Findings: No evidence of acute intracranial hemorrhage or mass effect. Noextra-axial collection. The king white matter differentiation ispreserved. Ventricles and sulci are symmetric. The mastoid air cells and paranasal sinuses are well aerated. Globes andextraocular muscles are unremarkable. No acute osseous abnormality.Advanced degenerative changes of the partially visualized upper cervicalspine. IMPRESSION: Impression: No acute intracranial findings. Electronically Signed: Santiago Miles MD 03/13/2025 1:56 PM EDT Workstation ID: [id number] Danie Posada DO IM CT ORDERABLES Final Result documented in this encounter Visit Diagnoses Diagnosis DENIA (acute kidney injury)- Primary Generalized weakness Weakness of right lower extremity Pneumonia of right lower lobe due to infectious organism DENAI (acute kidney injury) Dehydration Hyperkalemia Hyperpotassemia Elevated lactic acid level Pyuria Other nonspecific finding on examination of urine Elevated liver enzymes Other nonspecific abnormal serum enzyme levels Anemia, unspecified type Dysphagia, unspecified type Panlobular emphysema Other emphysema History of cancer of head or neck Hyperlipidemia Other and unspecified hyperlipidemia PEG (percutaneous endoscopic gastrostomy) status Acquired hypothyroidism Unspecified hypothyroidism Dysphagia, oropharyngeal Dysphagia, oropharyngeal phase History of cancer of head or neck Hyperkalemia Hyperpotassemia Hypotension Unspecified hypotension documented in this encounter Admitting Diagnoses Diagnosis TIA (transient ischemic attack) Unspecified transient cerebral ischemia documented in this encounter Administered Medications Inactive Administered Medications - up to 3 most recent administrations Medication Order MAR Action Action Date Dose Rate Site acetaminophen (TYLENOL) tablet 650 mg 650 mg, Oral, Every 4 Hours PRN, Mild Pain, Starting on Tue03/13/25 at 1859, If given for fever, use fever parameter: fever greater than 100.4 F Based on patient request - if ordered for moderate or severe pain, provider allows for administration of a medication prescribed for a lower pain scale. Do not exceed 4 grams of acetaminophen in a 24 hr period. Max dose of 2gm for AST/ALT greater than 120 units/L. If given for pain, use the following pain scale: Mild Pain = Pain Score of 1-3, CPOT 1-2 Moderate Pain = Pain Score of 4-6, CPOT 3-4 Severe Pain = Pain Score of 7-10, CPOT 5-8 aspirin chewable tablet 81 mg 81 mg, Per G Tube, Daily, First dose on Tue03/13/25 at 1800, Herbal/drug interaction: Avoid use with ginkgo biloba. Based on patient request - if ordered for moderate or severe pain, provider allows for administration of a medication prescribed for a lower pain scale. Do not exceed 4 grams of aspirin in a 24 hr period. If given for pain, use the following pain scale: Mild Pain = Pain Score of 1-3, CPOT 1-2 Moderate Pain = Pain Score of 4-6, CPOT 3-4 Severe Pain = Pain Score of 7-10, CPOT 5-8 Given 03/14/2025 8:01 AM EDT 81 mg Given 03/13/2025 8:18 PM EDT 81 mg Calcium Replacement - Follow Nurse / BPA Driven Protocol Open Order & Select [facility] Electrolyte Replacement Protocol Algorithm to View Details doxycycline (VIBRAMYCIN) 100 mg in sodium chloride 0.9 % 100 mL MBP 100 mg, Intravenous, Administer over 60 Minutes, Once, On Tue03/13/25 at 1655, For 1 dose, Protect from light., Indications: PneumoniaIndications:Pneumonia New Bag 03/13/2025 5:53 PM EDT 100 mg iopamidol (ISOVUE-370) 76 % injection 100 mL 100 mL, Intravenous, Once in Imaging, On Tue03/13/25 at 1420, For 1 dose Given 03/13/2025 2:04 PM EDT 75 mL ipratropium-albuterol (DUO-NEB) nebulizer solution 3 mL 3 mL, Nebulization, Every 4 Hours PRN, Shortness of Air, Wheezing, Starting on Tue03/13/25 at 2241 lactated ringers infusion 75 mL/hr, Intravenous, Continuous, Starting on Tue03/13/25 at 2015, For 12 hours New Bag 03/13/2025 8:40 PM EDT 75 mL/hr 75 mL/hr lactated ringers infusion 75 mL/hr, Intravenous, Continuous, Starting on Arabella 03/14/25 at 0845, For 12 hours New Bag 03/14/2025 8:00 AM EDT 75 mL/hr 75 mL/hr levothyroxine (SYNTHROID, LEVOTHROID) tablet 137 mcg 137 mcg, Per G Tube, Every Tattoo Artist, First dose on Arabella 03/14/25 at 0600, Take on empty stomach. Given 03/14/2025 6:02 AM EDT 137 mcg Magnesium Standard Dose Replacement - Follow Nurse / BPA Driven Protocol Open Order & Select [facility] Electrolyte Replacement Protocol Algorithm to View Details MED REC Continuous PRN, Starting on Tue03/14/25 at 0800, Until Tue03/14/25 at 1855, Consult, Consult for: med rec incomplete melatonin tablet 5 mg 5 mg, Per G Tube, Nightly, First dose on Tue03/13/25 at 2100 Given 03/13/2025 8:18 PM EDT 5 mg nitroglycerin (NITROSTAT) SL tablet 0.4 mg 0.4 mg, Sublingual, Every 5 Minutes PRN, Chest Pain, Starting on Tue03/13/25 at 1900, If Pain Unrelieved After 3 Doses Notify MD May administer up to 3 doses per episode. Hold if SBP less than 100. ondansetron (ZOFRAN) injection 4 mg 4 mg, Intravenous, Every 6 Hours PRN, Nausea, Vomiting, Starting on Tue03/13/25 at 1859, If BOTH ondansetron (ZOFRAN) and promethazine (PHENERGAN) are ordered use ondansetron first and THEN promethazine IF ondansetron is ineffective. pantoprazole (PROTONIX) injection 40 mg 40 mg, Intravenous, Every Tattoo Artist, First dose on Arabella 03/14/25 at 0600, Dilute with 10 mL of 0.9% NaCl and give IV push over 2 minutes., Indications: Gastroesophageal Reflux DiseaseIndications:Gastroesophagea l Reflux Disease Given 03/14/2025 6:01 AM EDT 40 mg Phosphorus Replacement - Follow Nurse / BPA Driven Protocol Open Order & Select [facility] Electrolyte Replacement Protocol Algorithm to View Details piperacillin-tazobactam (ZOSYN) 3.375 g IVPB in 100 mL NS MBP (CD) 3.375 g, Intravenous, Administer over 30 Minutes, Once, On Tue03/13/25 at 1529, For 1 dose, Indications: EmpiricIndications:Empiric New Bag 03/13/2025 4:05 PM EDT 3.375 g Potassium Replacement - Follow Nurse / BPA Driven Protocol Open Order & Select [facility] Electrolyte Replacement Protocol Algorithm to View Details sepsis fluid NS 0.9 % bolus 1,340 mL 1,340 mL, Intravenous, at 1,340 mL/hr, Administer over 1 Hours, Once, On Tue03/13/25 at 1619, For 1 dose, Volume of This Order May Need to Be Adjusted to Account For Fluids Already Given. Calculated Total Bolus Volume - 2,340.6 mL New Bag 03/13/2025 5:55 PM EDT 1,340 mL 1340 mL/hr sodium chloride 0.9 % bolus 1,000 mL 1,000 mL, Intravenous, at 1,000 mL/hr, Administer over 1 Hours, Once, On Tue03/13/25 at 1443, For 1 dose New Bag 03/13/2025 3:11 PM EDT 1,000 mL 1000 mL/hr sodium chloride 0.9 % flush 10 mL 10 mL, Intravenous, As Needed, Line Care, Starting on Tue03/13/25 at 1341 sodium chloride 0.9 % flush 10 mL 10 mL, Intravenous, Every 12 Hours Scheduled, First dose on Tue03/13/25 at 2100 Given 03/14/2025 8:01 AM EDT 10 mL sodium chloride 0.9 % flush 10 mL 10 mL, Intravenous, As Needed, Line Care, Starting on Tue03/13/25 at 1859 sodium chloride 0.9 % infusion 40 mL 40 mL, Intravenous, As Needed, Line Care, Starting on Tue03/13/25 at 1859, Following administration of an IV intermittent medication, flush line with 40mL NS at 100mL/hr. sodium zirconium cyclosilicate (LOKELMA) packet 10 g 10 g, Per G Tube, Once, On Tue03/13/25 at 2015, For 1 dose, Empty entire contents of the packet(s) into a glass with at least 3 tablespoons (45 mL) of water. Stir well and drink immediately; if powder remains in the glass, add water, stir and drink immediately; repeat until no powder remains. Administer other oral medications at least 2 hours before or 2 hours after dose. Given 03/13/2025 8:18 PM EDT 10 g vancomycin IVPB 1500 mg in 0.9% NaCl (Premix) 500 mL 1,500 mg (rounded from 1,560 mg = 20 mg/kg 78 kg), Intravenous, at 333.3 mL/hr, Administer over 90 Minutes, Once, On Tue03/13/25 at 1529, For 1 dose, Indications: EmpiricIndications:Empiric New Bag 03/13/2025 5:53 PM EDT 1,500 mg 333.3 mL/hr documented in this encounter Active and Recently Administered Medications Times are shown in EDT. Scheduled Medication Order 03/12/2025 03/13/2025 03/14/2025 aspirin chewable tablet 81 mg 81 mg, Per G Tube, Daily, First dose on Tue03/13/25 at 1800, Herbal/drug interaction: Avoid use with ginkgo biloba. Based on patient request - if ordered for moderate or severe pain, provider allows for administration of a medication prescribed for a lower pain scale. Do not exceed 4 grams of aspirin in a 24 hr period. If given for pain, use the following pain scale: Mild Pain = Pain Score of 1-3, CPOT 1-2 Moderate Pain = Pain Score of 4-6, CPOT 3-4 Severe Pain = Pain Score of 7-10, CPOT 5-8 2017 (Given - Provider: Jesus Alberto Turner RN - Comment: scheduled) 800 (Given - Provider: Elo Ignacio RN) doxycycline (VIBRAMYCIN) 100 mg in sodium chloride 0.9 % 100 mL MBP (COMPLETED) 100 mg, Intravenous, Administer over 60 Minutes, Once, On Tue03/13/25 at 1655, For 1 dose, Protect from light., Indications: Pneumonia 175 (New Bag - Provider: Monica Coy RN) iopamidol (ISOVUE-370) 76 % injection 100 mL (COMPLETED) 100 mL, Intravenous, Once in Imaging, On Tue03/13/25 at 1420, For 1 dose 1404 (Given - Provider: Andie Garcia) levothyroxine (SYNTHROID, LEVOTHROID) tablet 137 mcg 137 mcg, Per G Tube, Every Tattoo Artist, First dose on Arabella 03/14/25 at 0600, Take on empty stomach. 06 (Given - Provider: Jesus Alberto Turner RN) melatonin tablet 5 mg 5 mg, Per G Tube, Nightly, First dose on Tue03/13/25 at 2100 2018 (Given - Provider: Jesus Alberto Turner, RN) pantoprazole (PROTONIX) injection 40 mg 40 mg, Intravenous, Every Tattoo Artist, First dose on Arabella 03/14/25 at 0600, Dilute with 10 mL of 0.9% NaCl and give IV push over 2 minutes., Indications: Gastroesophageal Reflux Disease 0601 (Given - Provider: Jesus Alberto Turner, BAO) piperacillin-tazobactam (ZOSYN) 3.375 g IVPB in 100 mL NS MBP (CD) (COMPLETED) 3.375 g, Intravenous, Administer over 30 Minutes, Once, On Tue03/13/25 at 1529, For 1 dose, Indications: Empiric 1605 (New Bag - Provider: Tayla Bell RN)1745 (Stopped - Provider: Monica Coy RN) sepsis fluid NS 0.9 % bolus 1,340 mL (COMPLETED) 1,340 mL, Intravenous, at 1,340 mL/hr, Administer over 1 Hours, Once, On Tue03/13/25 at 1619, For 1 dose, Volume of This Order May Need to Be Adjusted to Account For Fluids Already Given. Calculated Total Bolus Volume - 2,340.6 mL 1755 (New Bag - Provider: Monica Coy RN) sodium chloride 0.9 % bolus 1,000 mL (COMPLETED) 1,000 mL, Intravenous, at 1,000 mL/hr, Administer over 1 Hours, Once, On Tue03/13/25 at 1443, For 1 dose 1511 (New Bag - Provider: Monica Coy RN)1745 (Stopped - Provider: Monica Coy RN) sodium chloride 0.9 % flush 10 mL 10 mL, Intravenous, Every 12 Hours Scheduled, First dose on Tue03/13/25 at 2100 2047 (Canceled Entry - Provider: Jesus Alberto Turner RN) 0801 (Given - Provider: Elo Ignacio RN) sodium zirconium cyclosilicate (LOKELMA) packet 10 g (COMPLETED) 10 g, Per G Tube, Once, On Tue03/13/25 at 2015, For 1 dose, Empty entire contents of the packet(s) into a glass with at least 3 tablespoons (45 mL) of water. Stir well and drink immediately; if powder remains in the glass, add water, stir and drink immediately; repeat until no powder remains. Administer other oral medications at least 2 hours before or 2 hours after dose. 2018 (Given - Provider: Jesus Alberto Turner RN) vancomycin IVPB 1500 mg in 0.9% NaCl (Premix) 500 mL (COMPLETED) 1,500 mg (rounded from 1,560 mg = 20 mg/kg 78 kg), Intravenous, at 333.3 mL/hr, Administer over 90 Minutes, Once, On Tue03/13/25 at 1529, For 1 dose, Indications: Empiric 1753 (New Bag - Provider: Monica Coy RN) Continuous Medication Order 03/12/2025 03/13/2025 03/14/2025 lactated ringers infusion (CANCELED) 75 mL/hr, Intravenous, Continuous, Starting on Tue03/13/25 at 2015, For 12 hours 2040 (New Bag - Provider: Jesus Alberto Turner RN) 0748 (Stopped - Provider: Elo Ignacio RN - Comment: [Order ends at this time. Document the following action when infusion is complete: Stopped]) lactated ringers infusion 75 mL/hr, Intravenous, Continuous, Starting on Arabella 03/14/25 at 0845, For 12 hours 0800 (New Bag - Provider: Elo Ignacio RN)1855 (Due: Order Ending - Provider: Automatic Discharge Provider - Comment: [Order ends at this time. Document the following action when infusion is complete: Stopped]) PRN Medication Order 03/12/2025 03/13/2025 03/14/2025 acetaminophen (TYLENOL) tablet 650 mg 650 mg, Oral, Every 4 Hours PRN, Mild Pain, Starting on Tue03/13/25 at 1859, If given for fever, use fever parameter: fever greater than 100.4 F Based on patient request - if ordered for moderate or severe pain, provider allows for administration of a medication prescribed for a lower pain scale. Do not exceed 4 grams of acetaminophen in a 24 hr period. Max dose of 2gm for AST/ALT greater than 120 units/L. If given for pain, use the following pain scale: Mild Pain = Pain Score of 1-3, CPOT 1-2 Moderate Pain = Pain Score of 4-6, CPOT 3-4 Severe Pain = Pain Score of 7-10, CPOT 5-8 Calcium Replacement - Follow Nurse / BPA Driven Protocol Open Order & Select [facility] Electrolyte Replacement Protocol Algorithm to View Details ipratropium-albuterol (DUO-NEB) nebulizer solution 3 mL 3 mL, Nebulization, Every 4 Hours PRN, Shortness of Air, Wheezing, Starting on Tue03/13/25 at 2241 Magnesium Standard Dose Replacement - Follow Nurse / BPA Driven Protocol Open Order & Select [facility] Electrolyte Replacement Protocol Algorithm to View Details MED REC Continuous PRN, Starting on Arabella 03/14/25 at 0800, Until Arabella 03/14/25 at 1855, Consult, Consult for: med rec incomplete nitroglycerin (NITROSTAT) SL tablet 0.4 mg 0.4 mg, Sublingual, Every 5 Minutes PRN, Chest Pain, Starting on Tue03/13/25 at 1900, If Pain Unrelieved After 3 Doses Notify MD May administer up to 3 doses per episode. Hold if SBP less than 100. ondansetron (ZOFRAN) injection 4 mg 4 mg, Intravenous, Every 6 Hours PRN, Nausea, Vomiting, Starting on Tue03/13/25 at 1859, If BOTH ondansetron (ZOFRAN) and promethazine (PHENERGAN) are ordered use ondansetron first and THEN promethazine IF ondansetron is ineffective. Phosphorus Replacement - Follow Nurse / BPA Driven Protocol Open Order & Select [facility] Electrolyte Replacement Protocol Algorithm to View Details Potassium Replacement - Follow Nurse / BPA Driven Protocol Open Order & Select [facility] Electrolyte Replacement Protocol Algorithm to View Details sodium chloride 0.9 % flush 10 mL 10 mL, Intravenous, As Needed, Line Care, Starting on Tue03/13/25 at 1341 sodium chloride 0.9 % flush 10 mL 10 mL, Intravenous, As Needed, Line Care, Starting on Tue03/13/25 at 1859 sodium chloride 0.9 % infusion 40 mL 40 mL, Intravenous, As Needed, Line Care, Starting on Tue03/13/25 at 1859, Following administration of an IV intermittent medication, flush line with 40mL NS at 100mL/hr. documented in this encounter Additional Health Concerns Infection Onset Date Last Indicated Resolved Time COVID Screen (preop/placement) 03/13/2025 03/13/2025 03/13/2025 4:06 PM EDT documented as of this encounter Care Teams Entertainment [employer] Correspondent Relationship Specialty Start Date End Date Dion Macedo MD [address] [place] [address] PCP - General Family Medicine 03/13/25 documented as of this encounter
--- NOTE | 2025-03-16 16:29 | ECG_ITS ---
APPROVED REPORT Exam: Resting ECG HR:77 bpm ECG Measurements Heart Rate 77 AXES MS 161 P -1 QRSd 93 QRS 47 QT 350 T 42 QTc 382 Conclusion SINUS RHYTHM WITH OCCASIONAL VENTRICULAR PREMATURE COMPLEXES SEPTAL MYOCARDIAL INFARCTION , OF INDETERMINATE AGE [40+ ms Q WAVE IN V1/V2] ABNORMAL ECG UNCONFIRMED REPORT Electronically signed by : Stone Kothari MD 03/17/2025 20:23:25
--- NOTE | 2025-03-16 18:55 | PC.NURSE ---
patient arrived to the ICU in room [id number] @[id number]
[2025-03-16 19:15] VITALS: PULSE 77
[2025-03-16 19:16] VITALS: BP 166/97; PULSE 79; RESP 16; TEMP 37; O2SAT 94
[2025-03-16 19:35] VITALS: BMI 20.4
[2025-03-16 19:46] LABS: Hematocrit 34.8 % (42.0-52.0); Hemoglobin 11.3 g/dL (14.1-18.0)
[2025-03-16 20:05] VITALS: BP 170/95; PULSE 83; RESP 17; O2SAT 92
[2025-03-16 20:10] LABS: Troponin I 4.04 ng/ml (0.00-0.034)
--- NOTE | 2025-03-16 21:53 | EXP.HP ---
History of Present Illness *Admission Date: 03/16/25 *Reason for visit:: chst pain, syncope *History of present illness: Patient is a 89-year-old male with past medical history of status post surgery, status post PEG tube placement, CAD status post stenting around 30 years ago, hypothyroidism, hypertension, BPH who presents to the hospital as a transfer from outside facility where he presented for difficulty breathing, chest discomfort as well as an episode of syncope. Patient lives at home, reportedly he passed out and woke up and called his daughter who recommended to go to the emergency department where he was noticed to have elevated troponin. Patient at time of my evaluation denied active chest pain shortness of breath nausea vomiting diarrhea constipation dysuria fevers and chills. On further evaluation patient was noticed to have elevated troponin as well as BNP. Assessment and plan elevated troponin, chest pain suspect NSTEMI Start IV heparin Order echocardiogram Consult cardiology Monitor on cardiac flour tester troponin Aspirin, statin Patient also had syncope, will order D-dimer levels to rule out PE Elevated proBNP, suspect chronic CHF-unknown EF Order chest x-ray Ordered 20 of IV Lasix Follow-up on echocardiogram Chronic medical condition Hypothyroidism History of throat cancer status post PEG tube, patient is n.p.o. normally History of CAD Hypertension Resume home amlodipine, levothyroxine, Flomax Will resume feeding via feeding tube DVT prophylaxis on IV heparin [facility] Disclaimer: The information contained in this section may have been updated after the patient was seen, as this information can be updated by other users. Social History Smoking Status: Former smoker alcohol intake: never current occupational status: disabled Travel in the last 8 weeks?: None Other Medical History Have you received the Flu Vaccine for this season: Yes Have you received the Pneumonia Vaccine: Yes Review of Systems Review of Systems Review of systems:: pertinent systems reviewed and negative unless documented below Meds Home Medications and Allergies Home Medications ?Medication ?Instructions ?Recorded ?Confirmed ?Type amlodipine 5 mg tablet 5 mg PO DAILY 03/16/25 03/16/25 History aspirin 81 mg tablet 81 mg PO DAILY 03/16/25 03/16/25 History cholecalciferol (vitamin D3) 10 400 unit PO DAILY 03/16/25 03/16/25 History mcg (400 unit) tablet (Vitamin D3) finasteride 5 mg tablet 5 mg PO DAILY 03/16/25 03/16/25 History levothyroxine 150 mcg tablet 37.5 mcg PO DAILY 03/16/25 03/16/25 History omeprazole 40 mg capsule,delayed 20 mg PO DAILY 03/16/25 03/16/25 History release prednisone 20 mg tablet 20 mg PO DAILY 03/16/25 03/16/25 History tamsulosin 0.4 mg capsule 0.4 mg PO HS 03/16/25 03/16/25 History New Prescriptions to Start Prescriptions: Allergies Allergy/AdvReac Type Severity Reaction Status Date / Time No Known Allergies Allergy Verified 03/16/25 19:07 Exam Data for Last 24 hours Vital signs and Labs for Last 24 Hours: Temp Pulse Resp BP Pulse Ox O2 Del Method O2 Flow Rate 98.6 F 83 17 170/95 H 92 L Nasal Cannula 6 03/16/25 19:16 03/16/25 20:05 03/16/25 20:05 03/16/25 20:05 03/16/25 20:05 03/16/25 21:00 03/16/25 21:00 Laboratory Results - last 24 hr 03/16/25 19:36: Hgb 11.3 L, Hct 34.8 L, Troponin I 4.04 H I & O for Last 24 hours: Intake & Output 03/13/25 03/14/25 03/15/25 03/16/25 23:59 23:59 23:59 23:59 Output Total 150 / 150 Balance -150 / -150 Weight 60.9 kg Constitutional Constitutional: no acute distress *Routine HEENT Exam Head: Present normocephalic Eye: Present EOMI and PERRL ENT: Present mucous membranes moist *Routine Neck Exam Neck: Present supple; Absent lymphadenopathy *Routine Respiratory Exam Respiratory: Present CTA bilaterally *Routine Cardiovascular Exam Cardiovascular: Present RRR *Routine Abdominal Exam Abdominal: Present soft and normoactive bowel sounds; Absent tenderness *Routine Rectal Exam Rectal:: deferred *Routine Genitalia Exam Genitalia:: deferred *Routine Extremities Exam Extremities: Absent cyanosis, clubbing or edema *Routine Skin Exam Skin: Present warm; Absent rash *Routine Neurological Exam Neurological: Present alert and oriented X3 Assessment and Plan *Assessment and plan (1) NSTEMI (non-ST elevated myocardial infarction): Status: Acute Category: Medical Code(s): I21.4 - Non-ST elevation (NSTEMI) myocardial infarction (2) Elevated brain natriuretic peptide (BNP) level: Status: Acute Category: Medical Code(s): R79.89 - Other specified abnormal findings of blood chemistry (3) HTN (hypertension): Status: Acute Category: Medical Code(s): I10 - Essential (primary) hypertension (4) Hypothyroid: Status: Acute Category: Medical Code(s): E03.9 - Hypothyroidism, unspecified Plan Patient is a 89-year-old male with past medical history of status post surgery, status post PEG tube placement, CAD status post stenting around 30 years ago, hypothyroidism, hypertension, BPH who presents to the hospital as a transfer from outside facility where he presented for difficulty breathing, chest discomfort as well as an episode of syncope. Patient lives at home, reportedly he passed out and woke up and called his daughter who recommended to go to the emergency department where he was noticed to have elevated troponin. Patient at time of my evaluation denied active chest pain shortness of breath nausea vomiting diarrhea constipation dysuria fevers and chills. On further evaluation patient was noticed to have elevated troponin as well as BNP. Assessment and plan elevated troponin, chest pain suspect NSTEMI Start IV heparin Order echocardiogram Consult cardiology Monitor on cardiac flour tester troponin Aspirin, statin Patient also had syncope, will order D-dimer levels to rule out PE Elevated proBNP, suspect chronic CHF-unknown EF Order chest x-ray Ordered 20 of IV Lasix Follow-up on echocardiogram Chronic medical condition Hypothyroidism History of throat cancer status post PEG tube, patient is n.p.o. normally History of CAD Hypertension Resume home amlodipine, levothyroxine, Flomax Will resume feeding via feeding tube DVT prophylaxis on IV heparin
[2025-03-16 22:00] VITALS: BP 157/89; PULSE 72; RESP 16; O2SAT 92
[2025-03-16 22:20] LABS: NT Pro Brain Natriuretic Pep. 19100 pg/mL (0-450)
[2025-03-16 23:58] LABS: Troponin I 4.36 ng/ml (0.00-0.034)
[2025-03-17] VITALS (14 sets, daily range): BP systolic 111–181; BP diastolic 59–99; PULSE 42–132; RESP 11–21; TEMP 37.1; O2SAT 40–96; BMI 19.8
--- NOTE | 2025-03-17 00:15 | XR_ITS ---
PROCEDURE INFORMATION: Exam: XR Chest Exam date and time: 03/17/2025 1:26 AM Age: 89 years old Clinical indication: Shortness of breath; Additional info: SOB TECHNIQUE: Imaging protocol: Radiologic exam of the chest. Views: 1 view. COMPARISON: No relevant prior studies available. FINDINGS: Lungs: Poorly defined perihilar opacities. Subtle Zaid B-lines. Pleural spaces: Possible small right pleural effusion. Heart/Mediastinum: Unremarkable. No cardiomegaly. Bones/joints: Unremarkable. IMPRESSION: CHF/pulmonary edema with possible pleural effusion.
[2025-03-17] MEDS: FUROSEMIDE 20 MG/2 ML VIAL IV (00:41)
[2025-03-17 01:08] LABS: Albumin Level 3.9 g/dl (3.5-5.0); Chloride 103 mmol/L (98-107); Potassium 3.9 mmoL/L (3.5-5.1); Sodium 144 mmol/L (136-145)
--- NOTE | 2025-03-17 01:08 | PC.NURSE ---
Patient asleep but suddenly woke up coughing. Phlegm noted in back of throat and patient was attempting to clear airway. Due to patient anatomy and previous hx of throat cancer, patient was having difficulty clearing sputum. Patient states that at home that he usually gargles salt water. Yankauer used for oral suction and attempt to remove secretions. During coughing episode patient did desat to 75%, and was not recovering on previous 6L NC. Respiratory notified for placement of a nonrebreather. Nonrebreather in place and patient O2 recovered to 93%. Dr. Santoro notified of patient episode. No new orders at this time. Radiology notified of prev chest xray order and needing STAT. Radiology at bedside for imaging to which patient tolerated. Patient appears to be resting more comfortably at this time. Current O2 96% on 15LNRB.
[2025-03-17 01:11] LABS: Alanine Aminotransferase 113 U/L (12-78); Albumin/Globulin Ratio 1.6 (1.1-1.8); Alkaline Phosphatase 91 U/L (38-126); Anion Gap 10.9 mEq/L (5-15); Aspartate Amino Transferase 97 U/L (17-59); Bilirubin,Total 0.9 mg/dl (0.2-1.3); Blood Urea Nitrogen 27 mg/dl (9-20); Calcium 9.4 mg/dl (8.4-10.2); Carbon Dioxide 34 mmol/L (22.0-30.0); Creatinine Clearance Estimated 45 mL/min (50-200); Creatinine,Serum 0.60 mg/dl (0.66-1.25); Estimated Glomerular Filt Rate 127 ml/min (>60); GFR (African American) 154 ML/MIN (>60); Globulin 2.5 g/dL (1.3-3.2); Glucose 111 mg/dl (74-100); Total Protein,Serum 6.4 g/dl (6.3-8.2)
[2025-03-17 01:16] LABS: D-Dimer 1.86 ug/mL (0.0-0.5)
[2025-03-17 02:05] LABS: Lactate Venous 1.4 mmol/L (0.4-2.0); VBG HCO3 33.5 mmol/L (23-30); VBG PCO2 53.0 mmol/L (35-51); VBG PH 7.42 mmol/L (7.31-7.41); VBG PO2 38.9 mmol/L (28-40)
--- NOTE | 2025-03-17 02:22 | CT_ITS ---
PROCEDURE INFORMATION: Exam: CTA Chest With Contrast Exam date and time: 03/17/2025 2:56 AM Age: 89 years old Clinical indication: Shortness of breath and other: Syncope; Additional info: SOB, syncope TECHNIQUE: Imaging protocol: Computed tomographic angiography of the chest with contrast. Exam focused on the arteries. 3D rendering (Not supervised by radiologist): MIP and/or 3D reconstructed images were created by the technologist. Radiation optimization: All CT scans at this facility use at least one of these dose optimization techniques: automated exposure control; mA and/or kV adjustment per patient size (includes targeted exams where dose is matched to clinical indication); or iterative reconstruction. Contrast material: ISOUVE 370; Contrast volume: 70 ml; Contrast route: INTRAVENOUS (IV); COMPARISON: CR XR CHEST PORTABLE 03/17/2025 1:26 AM FINDINGS: Pulmonary arteries: Pulmonary artery is dilated at 4.0 cm. Aorta: Unremarkable. No aortic aneurysm. No aortic dissection. Lungs: Moderately severe centrilobular emphysema. Partial consolidation of the lower lobes bilaterally. Diffuse ground-glass opacity and infiltrates are seen throughout both lungs. Thickening of the interlobular septa is noted. Pleural spaces: Moderate right and small left-sided pleural effusions. Heart: Moderate cardiomegaly. Coronary arteries: Extensive coronary atherosclerosis is present. Lymph nodes: Unremarkable. No enlarged lymph nodes. Bones/joints: Unremarkable. No acute fracture. Soft tissues: Unremarkable. IMPRESSION: 1. No evidence of pulmonary embolus. 2. Cardiomegaly, coronary atherosclerosis, bilateral right greater than left effusions, thickening of the interlobular septa, ground-glass opacity likely pulmonary edema, findings all consistent with congestive failure. 3. Moderately severe centrilobular emphysema. 4. Superimposed infiltrate can not be entirely excluded, correlate with clinical signs and symptoms. 5. Pulmonary artery enlargement was present, this can be seen with pulmonary hypertension.
--- NOTE | 2025-03-17 02:50 | PC.NURSE ---
Patient transported with RN and tech to CT. Transport monitor in bed, monitoring patient vitals at this time. Patient tolerated CT well. Upon arrival to room patient current oxygen saturation 95% on nonrebreather. Attempted to place patient back on 6LNC to which patient O2 sats dropped to 79% with good pleth. Dr. Santoro notified. New order to place patient on vapotherm. Respiratory notified, and patient placed on vapotherm at 30L and 80%. Current saturations 85%. Respiratory remains at bedside.
[2025-03-17 03:04] LABS: Troponin I 2.89 ng/ml (0.00-0.034)
[2025-03-17] MEDS: 0.9 % SODIUM CHLORIDE 50 ML VIAL 40 ML IV (03:14)
[2025-03-17] MEDS: IOPAMIDOL-370 (76%);100ML BOTTLE 70 ML IV (03:14)
[2025-03-17] MEDS: SODIUM CHLORIDE 0.9% 10ML SYR (RAD ONLY) 10 ML IV (03:15)
--- NOTE | 2025-03-17 04:00 | PC.NURSE ---
Repiratory at bedside. Patient unable to tolerate vapotherm due to humidity secretion. Patient continues to choke on drainage from vapotherm and unable to tolerate. Dr. Santoro notified and inform of issue. BIPAP ordered, and patient placed on bipap. Patient tolerating at this time 18/8 100% fio2. Second IV line started, and new medications order. SEE MAR.
[2025-03-17] MEDS: METHYLPREDNISOLONE SOD SUCC 40MG VIAL 40 MG IV (04:15)
[2025-03-17] MEDS: FUROSEMIDE 40MG/4ML VIAL 40 MG IV (04:25)
--- NOTE | 2025-03-17 04:58 | ECG_ITS ---
APPROVED REPORT Exam: Resting ECG HR:142 bpm ECG Measurements Heart Rate 142 AXES QRSd 91 QRS 85 QT 299 T -72 QTc 381 Conclusion ATRIAL FIBRILLATION WITH RAPID VENTRICULAR RESPONSE WITH ABERRANT CONDUCTION OR VENTRICULAR PREMATURE COMPLEXES SEPTAL MYOCARDIAL INFARCTION , OF INDETERMINATE AGE [40+ ms Q WAVE IN V1/V2] ST DEVIATION AND MODERATE T-WAVE ABNORMALITY, CONSIDER INFERIOR ISCHEMIA [-0.1+ mV T-WAVE IN II/aVF] ABNORMAL ECG UNCONFIRMED REPORT Electronically signed by : Stone Kothari MD 03/17/2025 20:23:11
--- NOTE | 2025-03-17 05:00 | PC.NURSE ---
Patient currently in respiratory distress. Dr. Santoro at bedside. New orders placed for nitro gtt, and bumex gtt due to patient hypertension, and tachycardia. EKG obtained, shows AFIB RVR. SEE AUG. Patient requesting daughter at bedside. Daughter contacted and updated on patient condition. Daughter states that she is in route to hospital.
[2025-03-17] MEDS: BUMETANIDE 10 MG in 0.9 % SODIUM CHLORIDE 60 ML 5 MG IV (05:11)
[2025-03-17] MEDS: NITROGLYCERIN IN 5 % DEXTROSE 250 ML 1.5 MG IV (05:16)
--- NOTE | 2025-03-17 05:34 | PC.NURSE ---
Daughter updated on patient plan of care and now at bedside.
[2025-03-17 05:38] LABS: VBG HCO3 35.9 mmol/L (23-30); VBG PCO2 56.3 mmol/L (35-51); VBG PH 7.42 mmol/L (7.31-7.41); VBG PO2 32.8 mmol/L (28-40)
[2025-03-17 05:40] LABS: Lactate Venous 3.2 mmol/L (0.4-2.0)
--- NOTE | 2025-03-17 05:40 | PC.NURSE ---
Patient states that he wants to take bipap mask off and wishes to no longer receive advanced medical care. Dr. Santoro called and at bedside, to which patient informs physician of same wishes. DNR form obtained, and signed by daughter who is POA, to which patient agrees. At 0549 DNR obtained, all gtts turned off and bipap mask removed. Pt given first dose morphine at 0559 for comfort.
[2025-03-17 05:53] LABS: Hematocrit 41.6 % (42.0-52.0); Immature Granulocytes % 0.5 %; Mean Corpuscular HGB Conc 31.0 g/dL (31.8-35.4); Mean Corpuscular Hemoglobin 32.7 pg (27.0-31.2); Mean Corpuscular Volume 105.3 fl (80-94); Nucleated Red Blood Cells % 0.6 %; Platelet Count 169 K/mm3 (142-424); Red Blood Count 3.95 M/mm3 (4.60-6.20); Red Cell Distribution Width-SD 63.4 fL; White Blood Count 10.7 K/mm3 (4.8-10.8)
[2025-03-17 05:58] LABS: Albumin Level 4.4 g/dl (3.5-5.0); Chloride 95 mmol/L (98-107); Sodium 142 mmol/L (136-145)
[2025-03-17 05:59] LABS: Hemoglobin 13.0 g/dL (14.1-18.0); Potassium 3.5 mmoL/L (3.5-5.1)
[2025-03-17] MEDS: MORPHINE 2MG/ML SYRINGE 2 MG IV ×4 (05:59→08:09)
[2025-03-17 06:01] LABS: Alanine Aminotransferase 121 U/L (12-78); Albumin/Globulin Ratio 1.6 (1.1-1.8); Alkaline Phosphatase 84 U/L (38-126); Anion Gap 13.5 mEq/L (5-15); Aspartate Amino Transferase 127 U/L (17-59); Bilirubin,Total 1.5 mg/dl (0.2-1.3); Blood Urea Nitrogen 25 mg/dl (9-20); Carbon Dioxide 37 mmol/L (22.0-30.0); Cholesterol 134 mg/dl (140-200); Creatinine Clearance Estimated 44 mL/min (50-200); Creatinine,Serum 0.60 mg/dl (0.66-1.25); Estimated Glomerular Filt Rate 127 ml/min (>60); GFR (African American) 154 ML/MIN (>60); Globulin 2.8 g/dL (1.3-3.2); Phosphorous 2.8 mg/dl (2.5-4.5); Total Protein,Serum 7.2 g/dl (6.3-8.2); Triglycerides 96 mg/dl (30-150)
[2025-03-17 06:02] LABS: Calcium 9.3 mg/dl (8.4-10.2); Glucose 123 mg/dl (74-100); HDL Cholesterol 45 mg/dl (40-60); Magnesium 1.7 mg/dl (1.6-2.3)
--- NOTE | 2025-03-17 06:10 | PC.NURSE ---
Patient appears to be uncomfortable. Jerking movements notes, and facial grimacing. Dr. Santoro informed and gives verbal order to give extra morphine dose to patient for comfort. After second dose administration, patient appears to resting comfortably, with eyes close, and breathing unlabored. Daughter remains at bedside. Staff support provided, and education through and dying process.
[2025-03-17 06:19] LABS: Procalcitonin 0.095 ng/mL (0.0-2.0)
--- NOTE | 2025-03-17 08:40 | PC.NURSE ---
Patient at 0837. Call placed to [facility] at this time.
--- NOTE | 2025-03-17 08:45 | PC.NURSE ---
[facility] contacted spoke to Katy Jaramillo case id number [id number].
--- NOTE | 2025-03-17 08:47 | PC.NURSE ---
Can Stacker paged at this time
[2025-03-17 09:35] LABS: Reflex Lactic Add Lactic Reflex
--- NOTE | 2025-03-17 09:35 | P.DN_ITS ---
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 He presented there after an episode of vomiting that was blood-tinged after administering a G-tube feed. He subsequently syncopized. On presentation to the ER he was found to have a troponin of 1500 on high-sensitivity troponin. Was placed on oxygen (Not initially reported at time of acceptance of transfer) due to hypoxia on arrival. Workup concerning for NSTEMI. Transfer was initiated for further management. On arrival the patient developed acute worsening of respiratory distress. Workup at our facility found that his BNP was elevated at 19,000. Chest imaging showed bilateral pulmonary edema and moderate size pleural effusions. Patient initiated on diuretics with Lasix and then Bumex drip. Began to have some urine output. Attempts were made to oxygenate him using nasal cannula oxygen, Vapotherm, and subsequently BiPAP due to intolerance of Vapotherm because of moisture/secretions and his inability to swallow. While on BiPAP he went into A-fib with RVR. He decided he did not want to have any further interventions and was intolerant of BiPAP. Family was contacted who arrived at bedside. Patient stated his wishes and they were in agreement. Decision made to de-escalate care and transition to comfort care. Patient was kept comfortable with morphine and respirations gradually decreased. peacefully with his daughter at bedside at 8:37 AM. Additional Data Confirmation of : no pulse, no respirations, no heart sounds and pupils fixed and dilated Family: at bedside Attending/PCP notified?: Yes Attending physician: Abraham Rodríguez MD Was code activated?: No Autopsy should be considered if:: Unknown or unanticipated medical complications Cause is not known with certainty on clinical grounds Would allay concerns of the public/family regarding Unexplained/unexpected apparently natural and not subject to a forensic medical jurisdiction DOA Within 24 hours of admission Sustained or apparently sustained injury while in the hospital Result of high risk, infectious and contagious disease Obstetric and pediatric arising from environmental or occupational hazard Unexplained/unexpected from dental, medical, or surgical diagnostic procedures and/or therapies Would disclose a known or suspected illness which also may have a bearing on survivors or recipients of transplanted organs Autopsy requested?: No Inappropriate situation test examiner notified?: Yes Organ bank notified?: Yes Advance directives: Yes
--- NOTE | 2025-03-17 09:38 | PC.NURSE ---
Post mortem care completed by Orion Malloy RN, Orion ASHLEY, and Lacey SRNA
--- NOTE | 2025-03-17 09:58 | PC.NURSE ---
Slope Tender in the room at this time
--- NOTE | 2025-03-17 10:01 | PC.NURSE ---
[facility] contacted by the Manager Nuclear.
--- NOTE | 2025-03-17 10:30 | PC.NURSE ---
Daughter and son in law called wanting to change the home from [facility] in [place] to [facility] in [place]
--- NOTE | 2025-03-17 10:31 | PC.NURSE ---
on the phone with [facility] at this time with Jamir the director about switching from that home to [facility] in [place].
--- NOTE | 2025-03-17 10:38 | PC.NURSE ---
[facility] will be coming to get the patient.
--- NOTE | 2025-03-17 11:40 | PC.NURSE ---
patient now with [facility]
--- OUTSIDE RECORDS SUMMARY | 2025-03-17 16:22 | XMS_ITS | Encounter Summary ---
Author Organization [employer] ([place], [place], [place], [place]) Address [address] [place] [address] Care Team Providers Care Math And Science Instructor Name Role Phone Dion Macedo MD Primary Care Provider Encounter Details Date Type Department Care Team (Late st Contact Info) Description 08/04/2018 Transcribed Document [facility] [place] [facility] [place] [address] ProviderMarkos MD [address], [place] [id number] Social History Tobacco Use Types Packs/Day Years Used Date Smoking Tobacco: Never Assessed Sex and Gender Information Value Date Recorded Sex Assigned at Male 12/29/2021 5:06 PM CDT Legal Sex Male 1:35 PM CDT Gender Identity Male 12/29/2021 5:06 PM CDT Sexual Orientation Not on file documented as of this encounter Miscellaneous Notes * Cerner Conversion Note - Markos Kebede MD - 08/04/2018 1:06 PM SOLDERING MACHINE SETTER Consult Phone Call Documentation Entered On: 08/04/2018 13:06 EST Performed On: 08/04/2018 13:06 EST by Romain Quiroz jonathan Phone Call for Consults Consult Phone Call/Page Attempt : First call Consult Reason : PT HAS PEG TUBE Physician Requesting Consult : ЕКАТЕРИНА SUE MD-INT Date and Time Call Returned : 08/04/2018 13:06 EST Romain Quiroz jonathan - 08/04/2018 13:06 EST Electronically signed by Shira [facility] Conversion Laborer [employer]ner at 10/13/2022 9:40 PM CDT documented in this encounter Plan of Treatment Not on file documented as of this encounter Visit Diagnoses Not on filedocumented in this encounter Care Teams Math And Science Instructor Relationship Specialty Start Date End Date Dion Macedo MD [address] [place] [address] PCP - General Family Medicine 06/27/21 documented as of this encounter
--- OUTSIDE RECORDS SUMMARY | 2025-03-17 16:22 | XMS_ITS | Encounter Summary ---
Author Organization [employer] ([place], [place], [place], [place]) Address [address] [place] [address] Care Team Providers Care Director Digital Marketing Name Role Phone Dion Macedo MD Primary Care Provider Encounter Details Date Type Department Care Team (Late st Contact Info) Description 08/09/2018 Transcribed Document [facility] [place] [address] ProviderMarkos MD [address] [place], [place] [id number] Social History Tobacco Use Types Packs/Day Years Used Date Smoking Tobacco: Never Assessed Sex and Gender Information Value Date Recorded Sex Assigned at Male 12/29/2021 5:06 PM CDT Legal Sex Male 1:35 PM CDT Gender Identity Male 12/29/2021 5:06 PM CDT Sexual Orientation Not on file documented as of this encounter Miscellaneous Notes * Cerner Conversion Note - Markos Kebede MD - 08/09/2018 11:13 AM PROCESS AREA SUPERVISOR Patient Education Materials Follows: Aspiration Pneumonia Aspiration pneumonia is an infection in your lungs. It occurs when food, liquid, or stomach contents (vomit) are inhaled (aspirated) into your lungs. When these things get into your lungs, swelling (inflammation) and infection can occur. This can make it difficult for you to breathe. Aspiration pneumonia is a serious condition and can be life threatening. What increases the risk? Aspiration pneumonia is more likely to occur when a person's cough (gag) reflex or ability to swallow has been decreased. Some things that can do this include: ??? Having a brain injury or disease, such as stroke, seizures, Parkinson's disease, dementia, or amyotrophic lateral sclerosis (ALS). ??? Being given general anesthetic for procedures. ??? Being in a coma (unconscious). ??? Having a narrowing of the tube that carries food to the stomach (esophagus). ??? Drinking too much alcohol. If a person passes out and vomits, vomit can be swallowed into the lungs. ??? Taking certain medicines, such as tranquilizers or sedatives. What are the signs or symptoms? Coughing after swallowing food or liquids. ??? Breathing problems, such as wheezing or shortness of breath. ??? Bluish skin. This can be caused by lack of oxygen. ??? Coughing up food or mucus. The mucus might contain blood, greenish material, or yellowish-white fluid (pus). ??? Fever. ??? Chest pain. ??? Being more tired than usual (fatigue). ??? Sweating more than usual. ??? Bad breath. How is this diagnosed? A physical exam will be done. During the exam, the health care provider will listen to your lungs with a stethoscope to check for: ??? Crackling sounds in the lungs. ??? Decreased breath sounds. ??? A rapid heartbeat. Various tests may be ordered. These may include: ??? Chest X-ray. ??? CT scan. ??? Swallowing study. This test looks at how food is swallowed and whether it goes into your breathing tube (trachea) or food pipe (esophagus). ??? Sputum culture. Saliva and mucus (sputum) are collected from the lungs or the tubes that carry air to the lungs (bronchi). The sputum is then tested for bacteria. ??? Bronchoscopy. This test uses a flexible tube (bronchoscope) to see inside the lungs. How is this treated? Treatment will usually include antibiotic medicines. Other medicines may also be used to reduce fever or pain. You may need to be treated in the hospital. In the hospital, your breathing will be carefully monitored. Depending on how well you are breathing, you may need to be given oxygen, or you may need breathing support from a breathing machine (ventilator). For people who fail a swallowing study, a feeding tube might be placed in the stomach, or they may be asked to avoid certain food textures or liquids when they eat. Follow these instructions at home: ??? Carefully follow any special eating instructions you were given, such as avoiding certain food textures or thickening liquids. This reduces the risk of developing aspiration pneumonia again. ??? Only take [id number] or prescription medicines as directed by your health care provider. Follow the directions carefully. ??? If you were prescribed antibiotics, take them as directed. Finish them even if you start to feel better. ??? Rest as instructed by your health care provider. ??? Keep all follow-up appointments with your health care provider. Contact a health care provider if: ??? You develop worsening shortness of breath, wheezing, or difficulty breathing. ??? You develop a fever. ??? You have chest pain. This information is not intended to replace advice given to you by your health care provider. Make sure you discuss any questions you have with your health care provider. Document Released: 04/10/2010 Document Revised: 11/24/2016 Document Reviewed: 11/29/2013 Service Route Interactive Patient Education ? 2017 [employer]. Electronically signed by Addi Silva Conversion Supervisor Cap And Hat Production Cerner at 10/13/2022 9:32 PM CDT documented in this encounter Plan of Treatment Not on file documented as of this encounter Visit Diagnoses Not on filedocumented in this encounter Care Teams Director Digital Marketing Relationship Specialty Start Date End Date Dion Macedo MD [address] [place] [address] PCP - General Family Medicine 06/27/21 documented as of this encounter
--- OUTSIDE RECORDS SUMMARY | 2025-03-17 16:22 | XMS_ITS | Encounter Summary ---
Author Organization [employer] ([place], [place], [place], [place]) Address [address] [place] [address] Care Team Providers Care Facsimile Operator Name Role Phone Dion Macedo MD Primary Care Provider Encounter Details Date Type Department Care Team (Late st Contact Info) Description 08/06/2018 Transcribed Document [facility] [place] [address] [place] [address] ProviderMarkos MD [address] [place], [place] [id number] Social History Tobacco Use Types Packs/Day Years Used Date Smoking Tobacco: Never Assessed Sex and Gender Information Value Date Recorded Sex Assigned at Male 12/29/2021 5:06 PM CDT Legal Sex Male 1:35 PM CDT Gender Identity Male 12/29/2021 5:06 PM CDT Sexual Orientation Not on file documented as of this encounter Miscellaneous Notes * Cerner Conversion Note - Markos ProviderMD - 08/06/2018 5:00 PM MASTER TAX ADVISOR Chart Check - Review Order Profile Entered On: 08/06/2018 19:00 EST Performed On: 08/06/2018 17:00 EST by Nasreen Mcmillan RN Chart Check Chart Reviewed Date and Time : 08/06/2018 17:00 EST Powerplans Initiated/Discontinued as Appropriate : Yes All Active Orders Reviewed : Yes Nasreen Mcmillan RN - 08/06/2018 19:00 EST Electronically signed by Shira [facility] Conversion Drafting Instructor Cerner at 10/13/2022 9:21 PM CDT documented in this encounter Plan of Treatment Not on file documented as of this encounter Visit Diagnoses Not on filedocumented in this encounter Care Teams Facsimile Operator Relationship Specialty Start Date End Date Doin Macedo MD [address] [place] [address] PCP - General Family Medicine 06/27/21 documented as of this encounter
--- OUTSIDE RECORDS SUMMARY | 2025-03-17 16:22 | XMS_ITS | Encounter Summary ---
Author Organization [employer] ([place], [place], [place], [place]) Address [address] [place] [address] Care Team Providers Care Blasting Cap Assembler Name Role Phone Dion Macedo MD Primary Care Provider Encounter Details Date Type Department Care Team (Late st Contact Info) Description 08/08/2018 Transcribed Document [facility] [place] [address] [place] [address] ProviderMarkos MD [address] [place] [address] Social History Tobacco Use Types Packs/Day Years Used Date Smoking Tobacco: Never Assessed Sex and Gender Information Value Date Recorded Sex Assigned at Male 12/29/2021 5:06 PM CDT Legal Sex Male 1:35 PM CDT Gender Identity Male 12/29/2021 5:06 PM CDT Sexual Orientation Not on file documented as of this encounter Miscellaneous Notes * Cerner Conversion Note - Markos ProviderMD - 08/08/2018 5:00 PM SHIELD OPERATOR Chart Check - Review Order Profile Entered On: 08/08/2018 18:02 EST Performed On: 08/08/2018 17:00 EST by Nasreen Mcmillan RN Chart Check Chart Reviewed Date and Time : 08/08/2018 17:00 EST Powerplans Initiated/Discontinued as Appropriate : Yes All Active Orders Reviewed : Yes Nasreen Mcmillan RN - 08/08/2018 18:02 EST Electronically signed by Shira [facility] Conversion Commercial Real Estate Agent Cerner at 10/13/2022 9:35 PM CDT documented in this encounter Plan of Treatment Not on file documented as of this encounter Visit Diagnoses Not on filedocumented in this encounter Care Teams Blasting Cap Assembler Relationship Specialty Start Date End Date Dion Macedo MD [address] [place] [address] PCP - General Family Medicine 06/27/21 documented as of this encounter
--- OUTSIDE RECORDS SUMMARY | 2025-03-17 16:22 | XMS_ITS | Encounter Summary ---
Author Organization [employer] ([place], [place], [place], [place]) Address [address] [place] [address] Care Team Providers Care Correctional Security Officer Name Role Phone Dion Macedo MD Primary Care Provider Encounter Details Date Type Department Care Team (Late st Contact Info) Description 08/07/2018 Transcribed Document [facility] [place] Family Medicine [address] [place] [address] ProviderMarkos MD [address] [place] [address] Social History Tobacco Use Types Packs/Day Years Used Date Smoking Tobacco: Never Assessed Sex and Gender Information Value Date Recorded Sex Assigned at Male 12/29/2021 5:06 PM CDT Legal Sex Male 1:35 PM CDT Gender Identity Male 12/29/2021 5:06 PM CDT Sexual Orientation Not on file documented as of this encounter Miscellaneous Notes * Cerner Conversion Note - Markos ProviderMD - 08/07/2018 5:00 AM LABORER PIPELINE Chart Check - Review Order Profile Entered On: 08/07/2018 6:31 EST Performed On: 08/07/2018 5:00 EST by Sarah Recio Rn-Resource Chart Check Chart Reviewed Date and Time : 08/07/2018 6:31 EST Powerplans Initiated/Discontinued as Appropriate : Yes All Active Orders Reviewed : Yes Sarah Recio, Rn-Resource - 08/07/2018 6:31 EST Electronically signed by Shira [id number] Conversion Composition Tile Layer Cerner at 10/13/2022 9:37 PM CDT documented in this encounter Plan of Treatment Not on file documented as of this encounter Visit Diagnoses Not on filedocumented in this encounter Care Teams Correctional Security Officer Relationship Specialty Start Date End Date Dion Macedo MD [address] [place] [address] PCP - General Family Medicine 06/27/21 documented as of this encounter
--- OUTSIDE RECORDS SUMMARY | 2025-03-17 16:22 | XMS_ITS | Encounter Summary ---
Author Organization [employer] ([place], [place], [place], [place]) Address [address] [place] [address] Care Team Providers Care Regulatory Assistant Name Role Phone Dion Macedo MD Primary Care Provider Encounter Details Date Type Department Care Team (Late st Contact Info) Description 08/04/2018 Transcribed Document [facility] [place] [address] [place] [address] ProviderMarkos MD [address] [place], [place] [phone] Social History Tobacco Use Types Packs/Day Years Used Date Smoking Tobacco: Never Assessed Sex and Gender Information Value Date Recorded Sex Assigned at Male 12/29/2021 5:06 PM CDT Legal Sex Male 1:35 PM CDT Gender Identity Male 12/29/2021 5:06 PM CDT Sexual Orientation Not on file documented as of this encounter Miscellaneous Notes * Cerner Conversion Note - Markos Kebede MD - 08/04/2018 7:13 PM STOCK FEEDER RX Interventions Entered On: 08/04/2018 19:14 EST Performed On: 08/04/2018 19:13 EST by Edith Arzola, Pharm.D.-Resident Clinical Interventions Chart Review : Yes Edith Arzola, Pharm.D.-Resident - 08/04/2018 19:13 EST Chart Review Chart Review, Order : Zosyn 7 day treatment Chart Review, Notes : Per Kssindy treat Zosyn for 7 days Chart Review, Value : 0 Dollar Chart Review, Time : 0 Minute(s) Edith Arzola, Pharm.D.-Resident - 08/04/2018 19:13 EST Electronically signed by Shira, [facility] Conversion Shotgun Shell Assembly Machine Operator Cerner at 10/13/2022 9:30 PM CDT documented in this encounter Plan of Treatment Not on file documented as of this encounter Visit Diagnoses Not on filedocumented in this encounter Care Teams Regulatory Assistant Relationship Specialty Start Date End Date Dion Macedo MD [address] [place] [address] PCP - General Family Medicine 06/27/21 documented as of this encounter
--- OUTSIDE RECORDS SUMMARY | 2025-03-17 16:22 | XMS_ITS | Encounter Summary ---
Author Organization [employer] ([place], [place], [place], [place]) Address [address] [place] [address] Care Team Providers Care Building Mechanic Name Role Phone Dion Macedo MD Primary Care Provider Encounter Details Date Type Department Care Team (Late st Contact Info) Description 08/04/2018 Transcribed Document [facility] [place] [address] [place] [address] ProviderMarkos MD [address] [place], [place] [id number] Social History Tobacco Use Types Packs/Day Years Used Date Smoking Tobacco: Never Assessed Sex and Gender Information Value Date Recorded Sex Assigned at Male 12/29/2021 5:06 PM CDT Legal Sex Male 1:35 PM CDT Gender Identity Male 12/29/2021 5:06 PM CDT Sexual Orientation Not on file documented as of this encounter Miscellaneous Notes * Cerner Conversion Note - Markos Kebede MD - 08/04/2018 8:18 PM RETAIL STORE CLERK Pain Assessment Entered On: 08/06/2018 3:28 EST Performed On: 08/06/2018 3:51 EST by Rosibel Arreola Rn Intervention Information: acetaminophen Performed by Rosibel Arreola Rn on 08/06/2018 02:51:00 EST acetaminophen,650mg Oral,Pain (Mild 1-3) Pain Assessment Pain Assessment : Follow-up assessment Pain Scale Goal : 0 Pain Scale Used : 0-10 Scale Rosibel Arreola Rn - 08/06/2018 3:28 EST Pain Scale Intensity : 2 Rosibel Arreola Rn - 08/06/2018 3:28 EST Image 4 - Images currently included in the form version of this document have not been included in the text rendition version of the form. documented in this encounter Plan of Treatment Not on file documented as of this encounter Visit Diagnoses Not on filedocumented in this encounter Care Teams Building Mechanic Relationship Specialty Start Date End Date Dion Macedo MD [address] [place] [address] PCP - General Family Medicine 06/27/21 documented as of this encounter
--- OUTSIDE RECORDS SUMMARY | 2025-03-17 16:22 | XMS_ITS | Encounter Summary ---
Author Organization [employer] ([place], [place], [place], [place]) Address [address] [place] [address] Care Team Providers Care Drawing Supervisor Name Role Phone Dion Macedo MD Primary Care Provider Encounter Details Date Type Department Care Team (Late st Contact Info) Description 08/09/2018 Transcribed Document [facility] [place] [facility] [place] [address] ProviderMarkos MD [address] [place], [place] [id number] Social History Tobacco Use Types Packs/Day Years Used Date Smoking Tobacco: Never Assessed Sex and Gender Information Value Date Recorded Sex Assigned at Male 12/29/2021 5:06 PM CDT Legal Sex Male 1:35 PM CDT Gender Identity Male 12/29/2021 5:06 PM CDT Sexual Orientation Not on file documented as of this encounter Miscellaneous Notes * Cerner Conversion Note - Markos Kebede MD - 08/09/2018 8:00 AM RESTAURANT ASSISTANT Patient: OMERO DOZIER Age: 82 Years Sex: Male : 1935 Admission Information The patient is an 82-year-old gentleman with history of following chronic stable conditions CAD, hyperlipidemia, hypertension, hypothyroidism, BPH, 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 Patient presents on 08/03/2018 to [facility] emergency room complaining of posterior rib-trunk pain. The onset was 1 hours ago. The course/duration of symptoms is constant. Location: left, lateral chest. Type of injury: unknown. The character of symptoms is pain. The location where the incident occurred was at home. The degree of pain is moderate. The degree of bleeding is none. There are exacerbating factors including movement and breathing. The relieving factor is none. Risk factors consist of age. Therapy today: none. Associated symptoms: shortness of breath. Additional history: none. Subjective The pt c/o pain that is rated as 1-2 on scale of 1-10, with out radiation of sx. Global in lower back location. Sx are worst when he takes a deep breath and are improved when he does not breathe deeply. The condition was acute and now controlled. No other improving or exacerbating factors, no other modifying factors associated with current condition. Risk factors are history of aspiration, history of ENT surgery and advanced age Hospital Course Date of inpatient admission 08/03/2018 Date of discharge 08/09/2018 Hospital course by problem list: #1 multifocal aspiration pneumonia: Confirmed by CT on 08/03/2018. Patient was admitted to hospital ICU status on 08/03/2018 and initiated on Zosyn and Flagyl IV therapy. Patient will require 7 days of IV antibiotics therapy as recommended by pulmonary consultants. The patient however understanding risks of recurrence desired to decrease the IV antibiotics to 6 days. New problem, controlled, stable #2 sepsis: with hypotension requiring pressors at time of admission, new problem, controlled, stable #2 chest pain related to diagnosis #1. Morphine was administered when necessary to improve patient's discomfort. New problem, stable, controlled #3 hypertension with hypotension at time of admission, and again hypertension per recent measurements on 08/07/2018. Amlodipine 5 mg by mouth daily was added on 08/07/2018. Blood pressure is being monitored closely and therapy adjusted to optimize inpatient that pressure control. Established problem, stable, controlled #4 dysphagia: Patient is fed through PEG only. Dietary was consulted we will not bolus feed him but instead use a pump to feed him at an hourly rate and thus prevent possible reflux and additional aspiration. Established problem, stable, controlled #5 CAD: Established problem, stable, controlled #6 high risk medications: Medicines requiring close monitoring due to risks of toxicity #7 diarrhea related to tube feedings: Since patient is doing much better now we will switch him back to bolus feeding however the frequency of feeding was increased from 4 times a day to 6 times a day to avoid stomach distention and possible increased risk for proble aspiration. New problem, controlled, stable Significant Findings Please refer to the electronic medical record for details of hospitalization Procedures and Treatment Provided No qualifying data available. Physical Exam Vitals & Measurements T: 36.8 ??C TMIN: 36.8 ??C TMAX: 37.1 ??C HR: 59(Monitored) RR: 18 BP: 172/97 SpO2: 91% HT: 172.72 cm WT: 73.7 kg BMI: 24.7 General: Alert and oriented, Mild distress. Eye: Pupils are equal, round and reactive to light, Extraocular movements are intact, Normal conjunctiva, Vision unchanged. HENT: Normocephalic, Tympanic membranes are clear, Normal hearing, Oral mucosa is moist, No pharyngeal erythema. Neck: Supple, Non-tender, No carotid bruit, No jugular venous distention, No lymphadenopathy, No thyromegaly. Respiratory: Breath sounds are equal, Symmetrical chest wall expansion, No chest wall tenderness, Scattered crackles audible on exam. Cardiovascular: Normal rate, Regular rhythm. Breast: No mass. Gastrointestinal: Soft, Non-tender, Non-distended, Normal bowel sounds, No organomegaly. Genitourinary: No costovertebral angle tenderness. Lymphatics: No lymphadenopathy neck, axilla, groin. Musculoskeletal: Normal range of motion, Normal strength, No tenderness, No swelling, No deformity. Integumentary: Warm, Dry, [place]. Neurologic: Alert, Oriented, Normal sensory, Normal motor function, No focal deficits, Cranial Nerves II-XII are grossly intact, Gag reflex normal, Normal deep tendon reflexes. Psychiatric: Cooperative, Appropriate mood & affect, Normal judgment, Non-suicidal. Discharge Plan Aspiration pneumonia J69.0, Pneumonitis due to inhalation of food and vomit J69.0, Pneumonitis due to inhalation of food and vomit J69.0 Chest pain R07.9 Flank pain [id number] Rib/trunk pain-swelling [id number] Orders: acetaminophen, Oral, Liquid, Q4H, PRN Pain (Mild 1-3), 0 Refill(s) amLODIPine, 5 mg, Oral, Tab, Daily, Routine, Start 08/08/18 9:00:00 EST amLODIPine, 1 Tab, Oral, Tab, Daily, 0 Refill(s) docusate, 10 mL, Oral, Liquid, BID, 0 Refill(s) famotidine, 1 Tab, Oral, Tab, Daily, 0 Refill(s) guaiFENesin, 10 mL, PEG Tube, Liquid, Q6H, PRN Congestion, 0 Refill(s) lactobacillus acidophilus and bulgaricus, Oral, Granule, BID, 0 Refill(s) loratadine, 0.5 Tab, Oral, Tab, Daily, 0 Refill(s) tamsulosin, 1 Cap, Oral, CR Cap, At Bedtime, 0 Refill(s) Communication to Nursing Discharge Discharge Activity Discharge Diet Discharge Follow Up Instructions Nutrition Dietitian Follow Up Tube Feeding, Adult Discharge Orders Discharge - Ordered -- Start: 08/09/18 11:00:00 EST, Discharge to: Home, Other DC instructions: Administer IV antibiotics prior to discharge Discharge Activity - Ordered -- Start: 08/09/18 8:00:00 EST, Activity: Activity as tolerated Discharge Diet - Ordered -- Start: 08/09/18 8:00:00 EST, Diet: Other (see Special Instructions), Resume PEG diet as instructed in the hospital. Do not bend or lift objects after bolus feeding. Discharge Follow Up Instructions - Ordered -- Start: 08/09/18 8:00:00 EST, Patient is to follow-up with Dr. Epperson within 1 week of his hospital discharge. Please call [phone] for an appointment. At the time of the follow-up CMP and CBC will be obtained. If blood pressure remains elevated additional antihypertensives therapy will be instituted. Patient Discharge Condition Condition at time of discharge is stable Discharge Disposition Discharge disposition is as noted above per discharge orders. I have reviewed patient's past medical history, I have personally reviewed patient's laboratory data. I ordered outpatient labs and outpatient antibiotics for this patient. I have discussed the plan of care with the patient at which we arrived via shared decision-making process. I discussed the CODE STATUS with this patient: The patient desires to be DNR. We have reviewed patient's current care and plan for future care. Time in preparation of this discharge summary 1 hour 9 minutes. This note has been prepared with the use of voice recognition software and may contain sound alike errors and omissions. Discharge Medications Home Medications (10) Active acetaminophen 160 mg/5 mL oral suspension , PRN, Oral, Q4H amLODIPine 5 mg oral tablet 5 mg = 1 Tab, Oral, Daily docusate 10 mg/mL oral liquid 100 mg = 10 mL, Oral, BID guaiFENesin 100 mg/5 mL oral liquid 200 mg = 10 mL, PRN, PEG Tube, Q6H hydrOXYzine hydrochloride 50 mg oral tablet 50 mg = 1 Tab, Oral, At Bedtime lactobacillus acidophilus and bulgaricus oral granule , Oral, BID levothyroxine 88 mcg (0.088 mg) oral tablet 88 mcg = 1 Tab, Oral, Daily loratadine 10 mg oral tablet 5 mg = 0.5 Tab, Oral, Daily Pepcid 20 mg oral tablet 20 mg = 1 Tab, Oral, Daily tamsulosin 0.4 mg oral capsule 0.4 mg = 1 Cap, Oral, At Bedtime Augmentin 875 one by mouth twice a day ??8 days Lab Results Blood Gases (Current Encounter/Past 24 Hours) No Blood Gas Results Found (Past 24 Hours) Electrolytes(BMP) Results (Current Encounter/Past 24 Hours) Sodium Level 142 mmol/L 08/08/2018 07:04 Potassium Level 2.9 mmol/L LOW 08/08/2018 18:09 Chloride Level 109 mmol/L 08/08/2018 07:04 Carbon Dioxide Level 27 mmol/L 08/08/2018 07:04 Anion Gap 9 08/08/2018 07:04 Blood Urea Nitrogen 14 mg/dL 08/08/2018 07:04 Glucose Level 97 mg/dL 08/08/2018 07:04 Calcium Level 8.4 mg/dL 08/08/2018 07:04 Creatinine Level 0.50 mg/dL LOW 08/08/2018 18:09 Cardiac Markers (Current Encounter/Past 24 Hours) No Cardiac Marker Results Found (Past 24 Hours) CBC Results (Current Encounter/Past 24 Hours) WBC 4.8 K/uL 08/08/2018 06:43 Hct 35.2 % LOW 08/08/2018 18:09 Hgb 12.3 g/dL LOW 08/08/2018 18:09 Platelet Count 118 K/uL LOW 08/08/2018 18:09 CMP Results (Current Encounter/Past 24 Hours) eGFR NonAfrican >60 mL/min/1.73m2 08/08/2018 07:04 Globulin 2.3 Gram/dL 08/08/2018 07:04 A/G Ratio 1.3 08/08/2018 07:04 eGFR >60 mL/min/1.73m2 08/08/2018 07:04 Creatinine Level 0.50 mg/dL LOW 08/08/2018 18:09 Protein Total 5.4 Gram/dL LOW 08/08/2018 18:09 Bun/Creatinine 28.0 HI 08/08/2018 18:09 Sodium Level 142 mmol/L 08/08/2018 07:04 Potassium Level 2.9 mmol/L LOW 08/08/2018 18:09 Chloride Level 109 mmol/L 08/08/2018 07:04 Carbon Dioxide Level 27 mmol/L 08/08/2018 07:04 Anion Gap 9 08/08/2018 07:04 Alk Phos 61 Units/Liter 08/08/2018 07:04 ALT 34 Units/Liter 08/08/2018 07:04 AST 33 Units/Liter 08/08/2018 07:04 Blood Urea Nitrogen 14 mg/dL 08/08/2018 07:04 Glucose Level 97 mg/dL 08/08/2018 07:04 Albumin Level 3.1 Gram/dL LOW 08/08/2018 18:09 Bilirubin Total 0.8 mg/dL 08/08/2018 07:04 Calcium Level 8.4 mg/dL 08/08/2018 07:04 Coagulation Results (Current Encounter/Past 24 Hours) No Coagulation Results Found (Past 24 Hours) Creatinine Clearance (Current Encounter/Past 24 Hours) Creatinine Level 0.50 mg/dL LOW 08/08/2018 18:09 Bun/Creatinine 28.0 ME 08/08/2018 18:09 Estimated Creatinine Clearance 114.00 mL/Min 08/08/2018 07:04 Blood Products No qualifying data available. No Radiology Results Found documented in this encounter Plan of Treatment Not on file documented as of this encounter Visit Diagnoses Not on filedocumented in this encounter Care Teams Drawing Supervisor Relationship Specialty Start Date End Date Dion Macedo MD [address] [place] [address] PCP - General Family Medicine 06/27/21 documented as of this encounter
--- OUTSIDE RECORDS SUMMARY | 2025-03-17 16:22 | XMS_ITS | Encounter Summary ---
Author Organization [employer] ([place], [place], [place], [place]) Address [address] [place] [address] Care Team Providers Care Supervisor Cytology Name Role Phone Dion Macedo MD Primary Care Provider Encounter Details Date Type Department Care Team (Late st Contact Info) Description 08/04/2018 Transcribed Document [facility] [place] [address] [place] [address] ProviderMarkos MD [address] [place], [place] [id number] Social History Tobacco Use Types Packs/Day Years Used Date Smoking Tobacco: Never Assessed Sex and Gender Information Value Date Recorded Sex Assigned at Male 12/29/2021 5:06 PM CDT Legal Sex Male 1:35 PM CDT Gender Identity Male 12/29/2021 5:06 PM CDT Sexual Orientation Not on file documented as of this encounter Miscellaneous Notes * Cerner Conversion Note - Markos Kebede MD - 08/04/2018 8:47 PM TELESCOPE MAINTENANCE [address] [place] [address] PERSON INFORMATION Name OMERO DOZIER Age 82 Years 1935 Sex Male Language Mosotho PCP LOUIS CLEARY MD-INT Marital Status Med Service Internal Medicine Acct# Arrival 08/03/2018 19:17:00 Visit Reason Flank pain; Rib/trunk pain-swelling; PNEUMONITIS DUE TO INHALATION OF FOOD AND VOMIT Acuity 2 - Emergent LOS 000 25:30 Depart Date: 00:00 AM Address: [address] [facility] [address] Comment: PROVIDER INFORMATION Provider Role Assigned Unassigned JENSEN SANTOS MD-[facility] ED Physician 08/03/2018 19:31:11 08/03/2018 21:31:52 Tawana Wetzel, MAJOR ACCOUNT MANAGER Nurse 08/03/2018 19:51:12 Pect, E X ED Physician 08/03/2018 21:31:53 HANG CARBONE, MAJOR ACCOUNT MANAGER Nurse 08/04/2018 07:30:39 08/04/2018 12:21:02 Sarah Barron, MAJOR ACCOUNT MANAGER Nurse 08/04/2018 12:21:03 DIAGNOSIS Aspiration pneumonia; Chest pain PHYS DOC NOTES VITALS INFORMATION Vital Sign Triage Latest Temp Source Oral Oral Temp Mode Fahrenheit Fahrenheit Temp Fahrenheit 98.5 Deg F 99.0 Deg F Temp Celsius 02 Sat 89 % 94 % Respiratory Rate 22 Breaths/Min 18 Breaths/Min Peripheral Pulse Rate 78 bpm 78 bpm Apical Heart Rate Blood Pressure 180 mmHg / 94 mmHg 171 mmHg / 86 mmHg Comment: MEDICAL INFORMATION Allergy Info: No Known Allergies Medications: Home Meds Display diphenhydrAMINE (Benadryl 25 mg oral capsule) 1 Cap, Oral, Cap, At Bedtime, PRN insomnia, # 30 Cap, 0 Refill(s) hydrOXYzine (hydrOXYzine hydrochloride 50 mg oral tablet) 1 Tab, Oral, At Bedtime, 0 Refill(s) Comment: DISCHARGE INFORMATION Discharge Disposition: Admitted as Inpatient Discharge Location: PATIENT EDUCATION INFORMATION Instructions: Follow up: With: Address: When: [facility] Comments: Patient is established with Louis Cleary. Please contact the Patient Resource Center at [phone] if you need assistance establishing a primary care physician in the future. With: Address: When: LOUIS CLEARY [address] [facility], [address] [place] [id number] [facility] (1) Within 2 to 3 days Comment: documented in this encounter Plan of Treatment Not on file documented as of this encounter Visit Diagnoses Not on filedocumented in this encounter Care Teams Supervisor Cytology Relationship Specialty Start Date End Date Dion Macedo MD [address] [place] [id number] PCP - General Family Medicine 06/27/21 documented as of this encounter
--- OUTSIDE RECORDS SUMMARY | 2025-03-17 16:22 | XMS_ITS | Encounter Summary ---
Author Organization [employer] ([place], [place], [place], [place]) Address [address] [place] [address] Care Team Providers Care Qa Test Analyst Name Role Phone Dion Macedo MD Primary Care Provider Encounter Details Date Type Department Care Team (Late st Contact Info) Description 08/07/2018 Transcribed Document [facility] [place] [address] [place] [address] ProviderMarkos MD [address] [place], [place] [id number] Social History Tobacco Use Types Packs/Day Years Used Date Smoking Tobacco: Never Assessed Sex and Gender Information Value Date Recorded Sex Assigned at Male 12/29/2021 5:06 PM CDT Legal Sex Male 1:35 PM CDT Gender Identity Male 12/29/2021 5:06 PM CDT Sexual Orientation Not on file documented as of this encounter Miscellaneous Notes * Cerner Conversion Note - Historical ProviderMD - 08/07/2018 2:00 AM BILINGUAL KINDERGARTEN TEACHER Rocket Engine Component Mechanic Details Entered On: 08/07/2018 2:49 EST Performed On: 08/07/2018 2:00 EST by Sarah Recio Rn-Resource Order Details Transport Mode Order Detail : Wheelchair Isolation Precautions Order Detail : Standard Precautions Order Detail : N/A IV Order Detail : 1 Oxygen Order Detail : 0 Nurse Collect Order Detail : 0 Lift/Transfer : Independent Central Line Order Detail : No Room Service : Appropriate Arterial Line : No Sarah Recio Rn-Resource - 08/07/2018 2:41 EST Electronically signed by Shira [facility] Conversion Application Development Director Cerner at 10/13/2022 9:24 PM CDT documented in this encounter Plan of Treatment Not on file documented as of this encounter Visit Diagnoses Not on filedocumented in this encounter Care Teams Qa Test Analyst Relationship Specialty Start Date End Date Dion Macedo MD [address] [place] [address] PCP - General Family Medicine 06/27/21 documented as of this encounter
--- OUTSIDE RECORDS SUMMARY | 2025-03-17 16:22 | XMS_ITS | Encounter Summary ---
Author Organization [employer] ([place], [place], [place], [place]) Address [address] [place] [address] Care Team Providers Care Tax Compliance Officer Name Role Phone Dion Macedo MD Primary Care Provider Encounter Details Date Type Department Care Team (Late st Contact Info) Description 08/03/2018 Transcribed Document [facility] [place] [facility] [place] [address] ProviderMarkos MD [address] [place], [place] [address] Social History Tobacco Use Types Packs/Day Years Used Date Smoking Tobacco: Never Assessed Sex and Gender Information Value Date Recorded Sex Assigned at Male 12/29/2021 5:06 PM CDT Legal Sex Male 1:35 PM CDT Gender Identity Male 12/29/2021 5:06 PM CDT Sexual Orientation Not on file documented as of this encounter Miscellaneous Notes * Cerner Conversion Note - Historical ProviderMD - 08/03/2018 10:26 PM DIABETES TRAINER Consult Phone Call Documentation Entered On: 08/05/2018 8:25 EST Performed On: 08/03/2018 22:26 EST by Ceci Duffy, Sports Equipment Repairer-Health Unit Coord Phone Call for Consults Consult Phone Call/Page Attempt : Other: called on 08/04 Ceci Duffy, Sports Equipment Repairer-Health Unit Coord - 08/05/2018 8:25 EST Electronically signed by Shira [facility] Conversion Molasses Feed Mixer Cerner at 10/13/2022 9:28 PM CDT documented in this encounter Plan of Treatment Not on file documented as of this encounter Visit Diagnoses Not on filedocumented in this encounter Care Teams Tax Compliance Officer Relationship Specialty Start Date End Date Dion Macedo MD [address] [place] [address] PCP - General Family Medicine 06/27/21 documented as of this encounter
--- OUTSIDE RECORDS SUMMARY | 2025-03-17 16:22 | XMS_ITS | Encounter Summary ---
Author Organization [employer] ([place], [place], [place], [place]) Address [address] [place] [address] Care Team Providers Care Concrete Paving Supervisor Name Role Phone Dion Macedo MD Primary Care Provider Encounter Details Date Type Department Care Team (Late st Contact Info) Description 08/08/2018 Transcribed Document [facility] [place] [facility] [place] [address] ProviderMarkos MD [address] [place], [place] [id number] Social History Tobacco Use Types Packs/Day Years Used Date Smoking Tobacco: Never Assessed Sex and Gender Information Value Date Recorded Sex Assigned at Male 12/29/2021 5:06 PM CDT Legal Sex Male 1:35 PM CDT Gender Identity Male 12/29/2021 5:06 PM CDT Sexual Orientation Not on file documented as of this encounter Miscellaneous Notes * Cerner Conversion Note - Markos Kebede MD - 08/08/2018 6:17 PM RADIATION SAFETY OFFICER Patient: OMERO DOZIER Age: 82 years Sex: Male : 1935 Associated Diagnoses: None Author: NIKO OCONNOR MD-INT Basic Information The patient is an 82-year-old gentleman with history of following chronic stable conditions CAD, hyperlipidemia, hypertension, hypothyroidism, BPH, 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 Patient presents on 08/03/2018 to [facility] emergency room complaining of posterior rib-trunk pain. [...] pt c/o pain that is rated as 2 on scale of 1-10, with out radiation of sx. Global in lower back location. Sx are worst when he coughs or takes a deep breath and are improved when he does not do these things. The condition is acute and now controlled. No other improving or exacerbating factors, no other modifying factors associated with current condition. Risk factors are history of aspiration, history of ENT surgery and advanced age Review of Systems Constitutional: Weakness, Fatigue. Eye: Negative except as documented in history of present illness. Ear/Nose/Mouth/Throat: Negative except as documented in history of present illness. Respiratory: Shortness of breath. Cardiovascular: Negative except as documented in history of present illness, Positive for hypertension. Gastrointestinal: Abdominal pain: Characterized as ( Now much improved ). Genitourinary: Negative except as documented in history of present illness. Hematology/Lymphatics: Negative except as documented in history of present illness. Endocrine: Negative except as documented in history of present illness. Immunologic: Negative except as documented in history of present illness. Musculoskeletal: Back pain, Joint pain. Integumentary: Negative except as documented in history of present illness. Neurologic: Negative except as documented in history of present illness. Psychiatric: Negative except as documented in history of present illness. ROS reviewed as documented in chart Health Status Allergies: Allergic Reactions (Selected) No Known Allergies, Allergies (1) Active Reaction No Known Allergies None Documented Current medications: (Selected) Inpatient Medications Ordered Astelin 137 mcg/inh nasal spray: 2 Genoa, Nasal, BID BD Lactinex oral granule: 1 Packet, Oral, BID DuoNeb 0.5 mg-2.5 mg/3 mL inhalation solution: 3 mL, Nebulized Inhalation, RT_Q4H, PRN: Dyspnea Lovenox: 40 mg, SubCutaneous, [id number] Milk of Magnesia 8% oral suspension: 30 mL, Oral, Daily, PRN: Constipation Normal Saline Flush: 10 mL, IV Push, See Comment, PRN: IV Use Pepcid: 20 mg, Oral, Daily Tylenol: 650 mg, Oral, Q4H, PRN: Pain (Mild 1-3) Zofran: 4 mg, IV Push, Q4H, PRN: Nausea Zosyn + Sodium Chloride 0.9% intravenous solution 100 mL: 3.375 Gram, 33.33 mL/Hr, IV Piggyback, Q6HInt amLODIPine: 5 mg, Oral, Daily diphenhydrAMINE: 25 mg, Oral, At Bedtime, PRN: Insomnia docusate sodium: 100 mg, Oral, BID guaiFENesin: 200 mg, PEG Tube, Q6H, PRN: Congestion levothyroxine: 88 mcg, Oral, Daily loratadine: 5 mg, Oral, Daily morphine: 2 mg, IV Push, Q4H, PRN: Pain (Severe 7-10) tamsulosin: 0.4 mg, Oral, At Bedtime Documented Medications Documented Benadryl 25 mg oral capsule: 1 Cap, Oral, At Bedtime, PRN: insomnia, 30 Cap, 0 Refill(s) Flomax 0.4 mg oral capsule: 1 Cap, Oral, At Bedtime hydrOXYzine hydrochloride 50 mg oral tablet: 1 Tab, Oral, At Bedtime, 0 Refill(s) levothyroxine 88 mcg (0.088 mg) oral tablet: 1 Tab, Oral, Daily, 30 Tab, Medications (18) Active Scheduled: (10) amLODIPine 5 mg tab 5 mg 1 Tab, Oral, Daily azelastine 137 mcg/spray nasal 30 mL 2 Genoa, Nasal, BID docusate sod 100 mg/10 mL liq 100 mg 10 mL, Oral, BID enoxaparin 40 mg/0.4 mL inj 40 mg 0.4 mL, SubCutaneous, [id number] famotidine 20 mg tab 20 mg 1 Tab, Oral, Daily lactobacillus granule pkt 1 Packet, Oral, BID levothyroxine 88 mcg (0.88 mg) tab 88 mcg 1 Tab, Oral, Daily loratadine 10 mg tab 5 mg 0.5 Tab, Oral, Daily piperacillin-tazobactam + NaCl 0.9% 100 mL 3.375 Gram, IV Piggyback, Q6HInt tamsulosin CR 0.4 mg cap 0.4 mg 1 Cap, Oral, At Bedtime Continuous: (0) PRN: (8) #NaCl 0.9% *FLUSH* inj 10 mL 10 mL, IV Push, See Comment acetaminophen 325 mg/10.15 mL liq 650 mg 20.3 mL, Oral, Q4H albuterol-ipratropium inh 3 mL 3 mL, Nebulized Inhalation, RT_Q4H diphenhydrAMINE 25 mg tab 25 mg 1 Tab, Oral, At Bedtime guaiFENesin 200 mg/10 mL liq 200 mg 10 mL, PEG Tube, Q6H magnesium hydroxide 8% liq 30 mL 30 mL, Oral, Daily morphine 2 mg/1 ml inj 2 mg 1 mL, IV Push, Q4H ondansetron 4 mg/2 mL inj 4 mg 2 mL, IV Push, Q4H Problem list: Medical At risk for sleep apnea / IMO [id number] / Confirmed BPH - Benign prostatic hypertrophy / SNOMED CT 368893503 / Confirmed CAD - Coronary artery disease / SNOMED CT 6645571939 / Confirmed Hyperlipidemia / SNOMED CT 39044939 / Confirmed Hypertension / SNOMED CT 09452594 / Confirmed Hypothyroid / SNOMED CT 106619484 / Confirmed Malignant carotid body tumor / SNOMED CT 87111252 / Confirmed Pancreatitis / SNOMED CT 143506308 / Confirmed, Active Problems (8) At risk for sleep apnea BPH - Benign prostatic hypertrophy CAD - Coronary artery disease Hyperlipidemia Hypertension Hypothyroid Malignant carotid body tumor Pancreatitis Objective VS/Measurements Vitals Signs (last 24 hrs) Last Charted Minimum Maximum Temp 98.3 (AUG 08 14:43) 98.3 (AUG 08 14:43) 98.7 (AUG 07 18:48) Mon HR 59 (AUG 08 14:43) 59 (AUG 08 14:43) 86 (AUG 08 10:52) Resp Rate 18 (AUG 08 14:43) 18 (AUG 07 22:09) 18 (AUG 07 22:09) SBP H 172 (AUG 08 14:43) 139 (AUG 08 02:25) H 188 (AUG 07 22:09) DBP H 97 (AUG 08 14:43) 79 (AUG 08 05:59) H 110 (AUG 08 10:52) MAP 131 (AUG 08 14:43) 95 (AUG 08 05:59) 133 (AUG 08 10:52) SpO2 L 91 (AUG 08 14:43) L 91 (AUG 08 14:43) L 93 (AUG 08 02:25) General: Alert and oriented, Mild distress. Eye: [...] No swelling, No deformity. Integumentary: Warm, Dry, [place]. Neurologic: Alert, Oriented, Normal sensory, Normal motor function, No focal deficits, Cranial Nerves II-XII are grossly intact, Gag reflex normal, Normal deep tendon reflexes. Psychiatric: Cooperative, Appropriate mood & affect, Normal judgment, Non-suicidal. Review / Management Results review: Labs (Last four charted values) WBC 4.8 (AUG 08) 5.2 (AUG 07) 6.5 (AUG 06) 7.4 (AUG 05) HB L 12.3 (AUG 08) L 11.6 (AUG 07) L 12.7 (JUL 10) L 12.1 (AUG 05) HCT L 35.2 (AUG 08) L 34.1 (AUG 07) L 38.0 (JUL 10) L 36.6 (JUL 09) Plt L 118 (AUG 08) L 109 (AUG 07) L 106 (JUL 10) L 91 (JUL 09) Na 142 (FEB 12) 145 (FEB 11) 143 (FEB 10) 142 (FEB 09) K L 2.9 (FEB 12) L 3.1 (FEB 11) L 3.4 (FEB 10) 4.2 (FEB 09) Cl 109 (FEB 12) 110 (FEB 11) 110 (FEB 10) 112 (FEB 09) CO2 27 (FEB 12) 27 (FEB 11) L 22 (FEB 10) 24 (FEB 09) BUN 14 (FEB 12) 15 (FEB 11) 14 (FEB 10) 18 (FEB 09) Cr L 0.50 (FEB 12) L 0.60 (FEB 11) L 0.50 (FEB 10) L 0.60 (FEB 09) Glu R 97 (FEB 12) 93 (FEB 11) 82 (FEB 10) H 116 (FEB 09) Ca 8.4 (FEB 12) L 7.9 (FEB 11) 8.5 (FEB 10) L 7.7 (FEB 09) Lactic C 2.2 (FEB 07) PT 10.2 (FEB 07) INR 0.9 (B 07) PTT 24.1 (FEB 07) AST 33 (FEB 12) 27 (FEB 11) 28 (FEB 10) 27 (FEB 09) ALT 34 (FEB 12) 32 (FEB 11) 34 (FEB 10) 45 (FEB 09) ALK P 61 (FEB 12) 59 (FEB 11) 76 (FEB 10) 70 (FEB 09) T Bili 0.8 (FEB 12) 0.9 (FEB 11) H 1.2 (FEB 10) H 1.1 (FEB 09) PTN L 5.4 (FEB 12) L 5.0 (FEB 11) L 5.8 (FEB 10) L 5.2 (FEB 09) ALB L 3.1 (FEB 12) L 2.8 (FEB 11) L 3.3 (FEB 10) L 2.9 (FEB 09) Lipase 155 (FEB 07) Troponin <0.015 (FEB 07) <0.015 (FEB 07) . Radiology results No Radiology Results Found Impression and Plan #1 multifocal aspiration pneumonia: Confirmed by CT on 08/03/2018. Patient was admitted to hospital ICU status on 08/03/2018 and initiated on Zosyn and Flagyl IV therapy. Patient will require 7 days of IV antibiotics therapy as recommended by pulmonary consultants. The patient however understanding risks of recurrence desired to decrease the IV antibiotics to 6 days. New problem, controlled, unstable #2 sepsis: with hypotension requiring pressors at [...] optimize inpatient that pressure control. Established problem, unstable, controlled #4 dysphagia: Patient is fed through PEG only. Dietary was consulted we will not bolus feed him but instead use a pump to feed him at an hourly rate and thus prevent possible reflux and additional aspiration. Established problem, unstable, controlled #5 CAD: Established problem, stable, controlled [...] for proble aspiration. New problem, controlled, stable I have reviewed patient's past medical history, I have personally reviewed patient's laboratory data. I ordered labs and IV antibiotics for this patient. I have discussed the plan of care with the patient at which we arrived via shared decision-making process. I discussed the CODE STATUS with this patient: The patient desires to be DNR. We have reviewed patient's current care and plan for future care. This note has been prepared with the use of voice recognition software and may contain sound alike errors and omissions. documented in this encounter Plan of Treatment Not on file documented as of this encounter Visit Diagnoses Not on filedocumented in this encounter Care Teams Concrete Paving Supervisor Relationship Specialty Start Date End Date Dion Macedo MD [address] [address] PCP - General Family Medicine 06/27/21 documented as of this encounter
--- OUTSIDE RECORDS SUMMARY | 2025-03-17 16:22 | XMS_ITS | Encounter Summary ---
Author Organization [employer] ([place], [place], [place], [place]) Address [address] [place] [address] Care Team Providers Care Repair Clerk Name Role Phone Dion Macedo MD Primary Care Provider Encounter Details Date Type Department Care Team (Late st Contact Info) Description 08/03/2018 Transcribed Document [facility] [place] [address] [place] [address] ProviderMarkos MD [address] [place], [place] [id number] Social History Tobacco Use Types Packs/Day Years Used Date Smoking Tobacco: Never Assessed Sex and Gender Information Value Date Recorded Sex Assigned at Male 12/29/2021 5:06 PM CDT Legal Sex Male 1:35 PM CDT Gender Identity Male 12/29/2021 5:06 PM CDT Sexual Orientation Not on file documented as of this encounter Miscellaneous Notes * Cerner Conversion Note - Markos Kebede MD - 08/03/2018 8:42 PM QUENCHER OPERATOR Pain Assessment Entered On: 08/03/2018 21:17 EST Performed On: 08/03/2018 21:17 EST by Tawana Wetzel RN Intervention Information: ketorolac Performed by Tawana Wetzel RN on 08/03/2018 20:47:00 EST ketorolac,15mg IV Push,Peripheral Line 1 Pain Assessment Pain Assessment : Follow-up assessment Pain Scale Used : 0-10 Scale Tawana Wetzel RN - 08/03/2018 21:17 EST Pain Scale Intensity : 7 Tawana Wetzel RN - 08/03/2018 21:17 EST Image 4 - Images currently included in the form version of this document have not been included in the text rendition version of the form. documented in this encounter Plan of Treatment Not on file documented as of this encounter Visit Diagnoses Not on filedocumented in this encounter Care Teams Repair Clerk Relationship Specialty Start Date End Date Dion Macedo MD [address] [place] [address] PCP - General Family Medicine 06/27/21 documented as of this encounter
--- OUTSIDE RECORDS SUMMARY | 2025-03-17 16:22 | XMS_ITS | Encounter Summary ---
Author Organization [employer] ([place], [place], [place], [place]) Address [address] [place] [address] Care Team Providers Care Dog Pound Attendant Name Role Phone Dion Macedo MD Primary Care Provider Encounter Details Date Type Department Care Team (Late st Contact Info) Description 08/09/2018 Transcribed Document [facility] [address] [place] [address] ProviderMarkos MD [address] [place], [place] [id number] Social History Tobacco Use Types Packs/Day Years Used Date Smoking Tobacco: Never Assessed Sex and Gender Information Value Date Recorded Sex Assigned at Male 12/29/2021 5:06 PM CDT Legal Sex Male 1:35 PM CDT Gender Identity Male 12/29/2021 5:06 PM CDT Sexual Orientation Not on file documented as of this encounter Miscellaneous Notes * Cerner Conversion Note - Markos Kebede MD - 08/09/2018 7:40 AM WALL TO WALL CARPET INSTALLER Discharge Instructions Entered On: 08/09/2018 7:40 EST Performed On: 08/09/2018 7:40 EST by HOA CLEMENT, RandaD DC Instructions HWD Stroke/TIA Discharge Ins : N/A Heart Failure Discharge Ins : N/A Warfarin Discharge Ins : N/A Diet After Discharge : Resume usual diet as tolerated Activity After Discharge : As tolerated Driving After Discharge : Do not drive Showering/Bathing : May shower Nasreen Mcmillan RN - 08/09/2018 11:12 EST Special Instructions : STOP taking the following medications: 1) Benadryl (diphenhydramine) HOA CLEMENT, RandaD - 08/09/2018 7:40 EST documented in this encounter Plan of Treatment Not on file documented as of this encounter Visit Diagnoses Not on filedocumented in this encounter Care Teams Dog Pound Attendant Relationship Specialty Start Date End Date Dion Macedo MD [address] [place] [address] PCP - General Family Medicine 06/27/21 documented as of this encounter
--- OUTSIDE RECORDS SUMMARY | 2025-03-17 16:22 | XMS_ITS | Encounter Summary ---
Author Organization [employer] ([place], [place], [place], [place]) Address [address] [place] [address] Care Team Providers Care Parks Worker Name Role Phone Dion Macedo MD Primary Care Provider Encounter Details Date Type Department Care Team (Late st Contact Info) Description 08/04/2018 Transcribed Document [facility] [place] [address] ProviderMarkos MD [address] [place], [place] [id number] Social History Tobacco Use Types Packs/Day Years Used Date Smoking Tobacco: Never Assessed Sex and Gender Information Value Date Recorded Sex Assigned at Male 12/29/2021 5:06 PM CDT Legal Sex Male 1:35 PM CDT Gender Identity Male 12/29/2021 5:06 PM CDT Sexual Orientation Not on file documented as of this encounter Miscellaneous Notes * Cerner Conversion Note - Markos Kebede MD - 08/04/2018 5:00 PM CRANK HAND ED Event Note Entered On: 08/04/2018 20:46 EST Performed On: 08/04/2018 17:00 EST by Sarah Barron RN ED Event Note ED Event Date/Time : 08/04/2018 17:00 EST ED Description of Event : Patient transferred to room 217 per H. Ayleen, tube drawer. No distress noted. Sarah Barron RN - 08/04/2018 20:46 EST Electronically signed by [facility] Conversion Plating Stripper Cerner at 10/13/2022 9:40 PM CDT documented in this encounter Plan of Treatment Not on file documented as of this encounter Visit Diagnoses Not on filedocumented in this encounter Care Teams Parks Worker Relationship Specialty Start Date End Date Dion Macedo MD [address] [place] [address] PCP - General Family Medicine 06/27/21 documented as of this encounter
--- OUTSIDE RECORDS SUMMARY | 2025-03-17 16:22 | XMS_ITS | Encounter Summary ---
Author Organization [employer] ([place], [place], [place], [place]) Address [address] [place] [address] Care Team Providers Care Assembler Corncob Pipes Name Role Phone Dion Macedo MD Primary Care Provider Encounter Details Date Type Department Care Team (Late st Contact Info) Description 08/04/[address] [facility] [place] [facility] [place] [address] ProviderMarkos MD [address] [place] [address] Social History Tobacco Use Types Packs/Day Years Used Date Smoking Tobacco: Never Assessed Sex and Gender Information Value Date Recorded Sex Assigned at Male 12/29/2021 5:06 PM CDT Legal Sex Male 1:35 PM CDT Gender Identity Male 12/29/2021 5:06 PM CDT Sexual Orientation Not on file documented as of this encounter Miscellaneous Notes * Cerner Conversion Note - Markos ProviderMD - 08/04/2018 12:59 PM SCRAPER BURRER Consult Phone Call Documentation Entered On: 08/04/2018 13:00 EST Performed On: 08/04/2018 12:59 EST by Romain Quiroz jonathan Phone Call for Consults Consult Phone Call/Page Attempt : First call Consult Reason : HYPOTENSION Physician Requesting Consult : JENSEN SAEZ MD-EMR Date and Time Call Returned : 08/04/2018 13:00 EST Additional Information : SPOKE Eneida BE @1300 Romain Quiroz jonathan - 08/04/2018 12:59 EST Electronically signed by [facility] Conversion Strategic Buyer Cerner at 10/13/2022 9:14 PM CDT documented in this encounter Plan of Treatment Not on file documented as of this encounter Visit Diagnoses Not on filedocumented in this encounter Care Teams Assembler Corncob Pipes Relationship Specialty Start Date End Date Dion Macedo MD [address] [place] [address] PCP - General Family Medicine 06/27/21 documented as of this encounter
--- OUTSIDE RECORDS SUMMARY | 2025-03-17 16:22 | XMS_ITS | Encounter Summary ---
Author Organization [employer] ([place], [place], [place], [place]) Address [address] [place] [address] Care Team Providers Care Advertising Material Distributor Name Role Phone Dion Macedo MD Primary Care Provider Encounter Details Date Type Department Care Team (Late st Contact Info) Description 08/03/2018 Transcribed Document [facility] [place] [address] ProviderMarkos MD [address] [place], [place] [phone] Social History Tobacco Use Types Packs/Day Years Used Date Smoking Tobacco: Never Assessed Sex and Gender Information Value Date Recorded Sex Assigned at Male 12/29/2021 5:06 PM CDT Legal Sex Male 1:35 PM CDT Gender Identity Male 12/29/2021 5:06 PM CDT Sexual Orientation Not on file documented as of this encounter Miscellaneous Notes * Cerner Conversion Note - Historical ProviderMD - 08/03/2018 8:56 PM DIRECTOR OF SCIENTIFIC RESEARCH CR Chest 1 Vw Portable Ordered: 08/03/2018 Modified Reason for Exam: Chest Pain 08/03/2018 20:08 08/03/2018 20:56 (SARITA YADAV APRN) Reviewed by Provider, No further action required x1 documented in this encounter Plan of Treatment Not on file documented as of this encounter Visit Diagnoses Not on filedocumented in this encounter Care Teams Advertising Material Distributor Relationship Specialty Start Date End Date Dion Macedo MD [address] [place] [address] PCP - General Family Medicine 06/27/21 documented as of this encounter
--- OUTSIDE RECORDS SUMMARY | 2025-03-17 16:22 | XMS_ITS | Encounter Summary ---
Author Organization [employer] ([place], [place], [place], [place]) Address [address] [place] [address] Care Team Providers Care Associate Veterinarian Name Role Phone Dion Macedo MD Primary Care Provider Encounter Details Date Type Department Care Team (Late st Contact Info) Description 08/04/2018 Transcribed Document [facility] [place] [facility] [place] [address] ProviderMarkos MD [address] [place], [place] [phone] Social History Tobacco Use Types Packs/Day Years Used Date Smoking Tobacco: Never Assessed Sex and Gender Information Value Date Recorded Sex Assigned at Male 12/29/2021 5:06 PM CDT Legal Sex Male 1:35 PM CDT Gender Identity Male 12/29/2021 5:06 PM CDT Sexual Orientation Not on file documented as of this encounter Miscellaneous Notes * Cerner Conversion Note - Markos Kebede MD - 08/04/2018 5:20 PM ACCOUNTS PAYABLE TECHNICIAN Care Management Assessment/Plan Entered On: 08/07/2018 15:48 EST Performed On: 08/07/2018 15:48 EST by KATYA DEAN CSW Care Management Note Documentation Status Complete : Yes KATYA DEAN CSW - 08/07/2018 15:48 EST Patient History Current Daily Living Assistance : None Professional Skilled Services : None Patient History Note : Pt is a 82 yr old male who was admitted for aspiration PNA with alow readmission risk of 36. BUN/creat 25. Blood cultures are pending. PT/OT/Dietary/Pulmonary have been consulted. Pt did ambulate 375' with PT. Pt is currently on subcue Lovenox 40mg q24h & IV Zosyn 3.375gram q6h. PCP is Dr. Louis Cleary. PMH of HTN, Panceratitis, malignant carotid tumor, PEG placement, BPH, CAD, HLD, & hypothyriodism. Pt is A & O x 4 with no family @ BS. CM role explained. Pt states that he is I & will d/c home when medically ready for d/c. Pt.'s family will transport. CM will continue to follow. KATYA DEAN CSW - 08/07/2018 16:16 EST Financial Concerns Regarding Hospital/Discharge : No Employment/Vocation : Pt is retired Frequent Hospitalizations or ED Visits : No KATYA DEAN CSW - 08/07/2018 15:51 EST Information Obtained from, Care Mgt : Patient, Medical Record KATYA DEAN CSW 08/07/2018 16:16 EST Current Primary Care Physician : Dr. Louis Veras Emergency Contact #1 : Ceci Lovelace Emergency Contact #1 Emergency Contact #1 Relationship : Daughter Emergency Contact #2 : n/a Emergency Contact #2 Phone Number : n/a Emergency Contact #2 Relationship : n/a Living Situation : Home Patient Lives With : Spouse Mobility Assistance Prior to Admission : Independent Current Home Treatments : None [place] [facility] [place] 08/07/2018 15:48 EST Sources of Income : Pension, Social Security Residential Benefits KATYA DEAN [facility] [place] 08/07/2018 15:51 EST Home Situation/Environment : External stairs, Internal stairs Inside Stairs, Number of Steps : 14 KATYA DEAN CSW 08/07/2018 15:48 EST Ant. DC Needs/Initial Plan Anticipated Discharge Needs, Care Management : Transportation needs KATYA DEAN CSW 08/07/2018 16:16 EST Transportation Needs : Family/Friend KATYA DEAN [facility] [place] - 08/07/2018 15:51 EST Anticipated Discharge Needs/Initial Plan Note : Home with self care. Pt.'s family will transport the pt home. KATYA DEAN CSW - 08/07/2018 16:16 EST documented in this encounter Plan of Treatment Not on file documented as of this encounter Visit Diagnoses Not on filedocumented in this encounter Care Teams Associate Veterinarian Relationship Specialty Start Date End Date Dion Macedo MD [address] [place] [address] PCP - General Family Medicine 06/27/21 documented as of this encounter
--- OUTSIDE RECORDS SUMMARY | 2025-03-17 16:22 | XMS_ITS | Encounter Summary ---
Author Organization [employer] ([place], [place], [place], [place]) Address [address] [place] [address] Care Team Providers Care Phytopathologist Name Role Phone Dion Macedo MD Primary Care Provider Encounter Details Date Type Department Care Team (Late st Contact Info) Description 08/09/2018 Transcribed Document [facility] [place] [facility] [place] [address] ProviderMarkos MD [address], [place] [id number] Social History Tobacco Use Types Packs/Day Years [...] Markos Kebede MD - 08/09/2018 11:13 AM [employer] [address] , [place] [address] Patient Copy Patient Information: Name: OMERO DOZIER Current Date: 08/09/2018 11:13:47 : 1935 Patient Address: [address] [place] [id number] Patient Attending Physician: NIKO CLEARY MD-INT Primary Care Provider: NIKO CLEARY MD-INT Primary Care Provider Discharge Diagnosis: Aspiration pneumonia; Chest pain Weight on Admission: 160 lb, 0 oz Weight at Discharge: 160 lb, 8 oz Comment: Follow-up Instructions: With: Address: When: NIKO CLEARY [address] [place] [address], [id number] [place] [phone] Business (1) 1:15 AM Comments: Appointment has been made Bring Ins Card, Photo ID, Ins Co-pay With: Address: When: [facility] Comments: Patient is established with Niko Cleary. Please contact the Patient Resource [facility] at [phone] if you need assistance establishing a primary care physician in the future. Discharge Instructions: Diet after Discharge: Resume usual diet as tolerated Activity after Discharge: As tolerated Driving after Discharge: Do not drive Showering/Bathing:May shower Immunizations Documented During Stay: No Immunizations Found Special Instructions: STOP taking the following medications: 1) Benadryl (diphenhydramine) Heart Failure Discharge Instructions (if any): Stroke Related Discharge Instructions (if any): Warfarin Related Discharge Instructions (if any): Final Medication List: Printed Prescriptions amLODIPine (Norvasc 5 mg oral tablet) 1 Tablet(s) Oral Every Day. Refills: 0. Patient Instructions: New medication. Prescription provided. amoxicillin-clavulanate (Augmentin 875 mg-125 mg oral tablet) 1 Tablet(s) Oral Two Times A Day for 8 Day(s). Refills: 0. Patient Instructions: New medication. Prescription provided. valsartan (Diovan 160 mg oral tablet) 1 Tablet(s) Oral Every Day. Refills: 0. Patient Instructions: New medication. Prescription provided. Other Medications acetaminophen (acetaminophen 160 mg/5 mL oral suspension) 10 Milliliter(s) Oral Every 4 Hours as needed Pain (Mild 1-3). Patient Instructions: New Medication. Available for purchase over the counter. docusate (docusate 10 mg/mL oral liquid) 10 Milliliter(s) Oral Two Times A Day. Patient Instructions: New Medication. Available for purchase over the counter. famotidine (Pepcid 20 mg oral tablet) 1 Tablet(s) Oral Every Day. Patient Instructions: New Medication. Available for purchase over the counter. guaiFENesin (guaiFENesin 100 mg/5 mL oral liquid) 10 Milliliter(s) PEG Tube Every 6 Hours as needed Congestion. Patient Instructions: New Medication. Available for purchase over the counter. hydrOXYzine (hydrOXYzine hydrochloride 50 mg oral tablet) 1 Tablet(s) Oral At Bedtime. lactobacillus acidophilus and bulgaricus (lactobacillus acidophilus and bulgaricus oral granule) 1 Packet(s) Oral Two Times A Day. Patient Instructions: New Medication. Available for purchase over the counter. levothyroxine (levothyroxine 88 mcg (0.088 mg) oral tablet) 1 Tablet(s) Oral Every Day. loratadine (loratadine 10 mg oral tablet) 0.5 Tablet(s) Oral Every Day. Patient Instructions: New Medication. Available for purchase over the counter. tamsulosin (tamsulosin 0.4 mg oral capsule) 1 Capsule(s) Oral At Bedtime. Patient Allergies: No Known Allergies Medication Instructions: Take your medications faithfully. Do NOT skip medication. Do NOT stop taking medications without the direction of a physician. Carry a list of your medications with you at all times, and take this medication list with you to your first follow up visit. Report any side effects. Avoid herbal remedies unless discussed with your physician. As part of your treatment plan, your physician may have prescribed a limited course of a controlled substance. This medication may be given to help people with moderate or severe pain or for other medical conditions, but there are risks involved with treatment. Common side effects may include nausea, constipation, drowsiness, sweating, itching, dry mouth, and rash. More serious side effects may include cognitive and motor impairment, like problems with thinking, concentrating, alertness, and movement (e.g. slowed reflexes), and driving and operating heavy machinery can be dangerous. It is important for you to talk to your physician if you have these side effects or questions. These controlled substances can produce physical dependence and be habit-forming if taken for an extended period of time, which means that the body has gotten used to them and may experience withdrawal symptoms if they are abruptly stopped. Withdrawal symptoms can include runny nose, sweating, goose bumps, diarrhea, abdominal cramping, rapid heartbeat, difficulty sleeping, and nervousness. Patient education materials: Aspiration Pneumonia Aspiration pneumonia is an infection [...] developing aspiration pneumonia again. ??? Only take xojb-ckz-dunfvtu or prescription medicines as directed by your [...] 04/10/2010 Document Revised: 11/24/2016 Document Reviewed: 11/29/2013 [employer] Patient Education ? 2017 [employer] Medication Leaflets: amlodipine (am DRISS appiah) [facility] What is the most important information I should know about amlodipine? Follow all directions on your medicine label and package. Tell each of your healthcare providers about all your medical conditions, allergies, and all medicines you use. What is amlodipine? Amlodipine is a calcium channel davy that dilates (widens) blood vessels and improves blood flow. Amlodipine is used to treat chest pain (angina) and other conditions caused by coronary artery disease. Amlodipine is also used to treat high blood pressure (hypertension). Lowering blood pressure may lower your risk of a stroke or heart attack. Amlodipine is for use in adults and children who are at least 6 years old. Amlodipine may also be used for purposes not listed in this medication guide. What should I discuss with my healthcare provider before taking amlodipine? You should not take amlodipine if you are allergic to it. To make sure amlodipine is safe for you, tell your doctor if you have: ? liver disease; or ?? a heart valve problem called aortic stenosis. It is not known whether this medicine will harm an unborn baby. Tell your doctor if you are or plan to become . Amlodipine can pass into breast milk, but effects on the nursing baby are not known. Tell your doctor if you are breast-feeding. Amlodipine is not approved for use by anyone younger than 6 years old. How should I take amlodipine? Follow all directions on your prescription label. Your doctor may occasionally change your dose. Do not use this medicine in larger or smaller amounts or for longer than recommended. You may take amlodipine with or without food. Take the medicine at the same time each day. Your blood pressure will need to be checked often. Your chest pain may become worse when you first start taking amlodipine or when your dose is increased. Call your doctor if your chest pain is severe or ongoing. If you are being treated for high blood pressure, keep using amlodipine even if you feel well. High blood pressure often has no symptoms. You may need to use blood pressure medicine for the rest of your life. Your hypertension or heart condition may be treated with a combination of drugs. Use all medications as directed by your doctor. Read the medication guide or patient instructions provided with each medication. Do not change your doses or stop taking any of your medications without your doctor's advice. This is especially important if you also take nitroglycerin. Amlodipine is only part of a complete program of treatment that may also include diet, exercise, weight control, and other medications. Follow your diet, medication, and exercise routines very closely. Store at room temperature away from moisture, heat, and light. What happens if I miss a dose? Take the missed dose as soon as you remember. If you are more than 12 hours late, skip the missed dose. Do not take extra medicine to make up the missed dose. What happens if I overdose? Seek emergency medical attention or call the Poison Help line at . Overdose symptoms may include rapid heartbeats, redness or warmth in your arms or legs, or fainting. What should I avoid while taking amlodipine? Avoid getting up too fast from a sitting or lying position, or you may feel dizzy. Get up slowly and steady yourself to prevent a fall. What are the possible side effects of amlodipine? Get emergency medical help if you have signs of an allergic reaction: hives; difficulty breathing; swelling of your face, lips, tongue, or throat. In rare cases, when you first start taking amlodipine, your angina may get worse or you could have a heart attack. Seek emergency medical attention or call your doctor right away if you have symptoms such as: chest pain or pressure, pain spreading to your jaw or shoulder, nausea, sweating. Call your doctor at once if you have: ? pounding heartbeats or fluttering in your chest; ?? worsening chest pain; ?? swelling in your feet or ankles; ?? severe drowsiness; or ?? a light-headed feeling, like you might pass out. Common side effects may include: ? dizziness; ?? feeling tired; ?? stomach pain, nausea; or ?? flushing (warmth, redness, or tingly feeling). This is not a complete list of side effects and others may occur. Call your doctor for medical advice about side effects. You may report side effects to FDA at 9-864-SJF-2315. What other drugs will affect amlodipine? Tell your doctor about all your current medicines and any you start or stop using, especially: ? nitroglycerin; ?? simvastatin (Zocor, Simcor, Vytorin); or ?? any other heart or blood pressure medications. This list is not complete. Other drugs may interact with amlodipine, including prescription and ooyy-jnq-dthlnky medicines, vitamins, and herbal products. Not all possible interactions are listed in this medication guide. Where can I get more information? Your pharmacist can provide more information about amlodipine. Remember, keep this and all other medicines out of the reach of children, never share your medicines with others, and use this medication only for the indication prescribed. Every effort has been made to ensure that the information provided by [employer]') is accurate, up-to-date, and complete, but no guarantee is made to that effect. Drug information contained herein may be time sensitive. [employer] information has been compiled for use by healthcare practitioners and consumers in the [place] and therefore [employer] does not warrant that uses outside of the [place] are appropriate, unless specifically indicated otherwise. [employer] drug information does not endorse drugs, diagnose patients or recommend therapy. [employer] drug information is an informational resource designed to assist licensed healthcare practitioners in caring for their patients and/or to serve consumers viewing this service as a supplement to, and not a substitute for, the expertise, skill, knowledge and judgment of healthcare practitioners. The absence of a warning for a given drug or drug combination in no way should be construed to indicate that the drug or drug combination is safe, effective or appropriate for any given patient. [employer] does not assume any responsibility for any aspect of healthcare administered with the aid of information [employer] provides. The information contained herein is not intended to cover all possible uses, directions, precautions, warnings, drug interactions, allergic reactions, or adverse effects. If you have questions about the drugs you are taking, check with your doctor, nurse or pharmacist. Copyright 9935-9980 [employer]. Version: 14.01. Revision Date: 10/04/2016. amoxicillin and clavulanate potassium (am OK i CRISTIANA in KLAV ue EDWARD ate brandi TAS ee um) Augmentin, Augmentin ES-600, Augmentin XR What is the most important information I should know about amoxicillin and clavulanate potassium? You should not use this medicine if you have severe kidney disease, if you have had liver problems or jaundice while taking amoxicillin and clavulanate potassium, or if you are allergic to any penicillin or cephalosporin antibiotic, such as Amoxil, Ceftin, Cefzil, Moxatag, Omnicef, and others. What is amoxicillin and clavulanate potassium? Amoxicillin is a penicillin antibiotic that fights bacteria in the body. Clavulanate potassium is a beta-lactamase inhibitor that helps prevent certain bacteria from becoming resistant to amoxicillin. Amoxicillin and clavulanate potassium is a combination medicine used to treat many different infections caused by bacteria, such as sinusitis, pneumonia, ear infections, bronchitis, urinary tract infections, and infections of the skin. Amoxicillin and clavulanate potassium may also be used for purposes not listed in this medication guide. What should I discuss with my healthcare provider before taking amoxicillin and clavulanate potassium? You should not use this medicine if you are allergic to it, or if: ? you have severe kidney disease (or if you are on dialysis); ?? you have had liver problems or jaundice while taking amoxicillin and clavulanate potassium; or ?? you are allergic to any penicillin or cephalosporin antibiotic, such as Amoxil, Ceftin, Cefzil, Moxatag, Omnicef, and others. To make sure amoxicillin and clavulanate potassium is safe for you, tell your doctor if you have ever had: ? liver disease (hepatitis or jaundice); ?? kidney disease; or ?? mononucleosis. It is not known whether this medicine will harm an unborn baby. Tell your doctor if you are or plan to become . Amoxicillin and clavulanate potassium can make control pills less effective. Ask your doctor about using a non-hormonal control (condom, diaphragm with spermicide) to prevent . Amoxicillin and clavulanate potassium can pass into breast milk and may affect the nursing baby. Tell your doctor if you are breast-feeding. Do not give this medicine to a child without medical advice. The liquid or chewable tablet may contain phenylalanine. Talk to your doctor before using these forms of this medicine if you have phenylketonuria (PKU). How should I take amoxicillin and clavulanate potassium? Follow all directions on your prescription label. Do not take this medicine in larger or smaller amounts or for longer than recommended. Take the medicine every 12 hours, at the start of a meal to reduce stomach upset. Do not crush or chew the extended-release tablet. Swallow the pill whole, or break the pill in half and take both halves one at a time. If you have trouble swallowing a whole or half pill, talk with your doctor about using another form of amoxicillin and clavulanate potassium. The chewable tablet must be chewed before you swallow it. Shake the liquid medicine well just before you measure a dose. Measure liquid medicine with the dosing syringe provided, or with a special dose-measuring spoon or medicine cup. If you do not have a dose-measuring device, ask your pharmacist for one. Use this medicine for the full prescribed length of time. Your symptoms may improve before the infection is completely cleared. Skipping doses may also increase your risk of further infection that is resistant to antibiotics. Amoxicillin and clavulanate potassium will not treat a viral infection such as the flu or a common cold. This medicine can cause unusual results with certain lab tests for glucose (sugar) in the urine. Tell any doctor who treats you that you are using amoxicillin and clavulanate potassium. Store the tablets at room temperature away from moisture and heat. Store the liquid in the refrigerator. Throw away any unused liquid after 10 days. What happens if I miss a dose? Take the missed dose as soon as you remember. Skip the missed dose if it is almost time for your next scheduled dose. Do not take extra medicine to make up the missed dose. What happens if I overdose? Seek emergency medical attention or call the Poison Help line at . Overdose can cause nausea, vomiting, stomach pain, diarrhea, skin rash, drowsiness, hyperactivity, and decreased urination. What should I avoid while taking amoxicillin and clavulanate potassium? Avoid taking this medicine together with or just after eating a high-fat meal. This will make it harder for your body to absorb the medication. Antibiotic medicines can cause diarrhea, which may be a sign of a new infection. If you have diarrhea that is watery or bloody, call your doctor. Do not use anti-diarrhea medicine unless your doctor tells you to. What are the possible side effects of amoxicillin and clavulanate potassium? Get emergency medical help if you have signs of an allergic reaction: hives; difficult breathing; swelling of your face, lips, tongue, or throat. Call your doctor at once if you have: ? severe stomach pain, diarrhea that is watery or bloody; ?? pale or yellowed skin, dark colored urine, fever, confusion or weakness; ?? loss of appetite, upper stomach pain, jaundice (yellowing of the skin or eyes); ?? easy bruising or bleeding; ?? little or no urination; or ?? severe skin reaction--fever, sore throat, swelling in your face or tongue, burning in your eyes, skin pain followed by a red or purple skin rash that spreads (especially in the face or upper body) and causes blistering and peeling. Common side effects may include: ? nausea, diarrhea; or ?? vaginal itching or discharge; This is not a complete list of side effects and others may occur. Call your doctor for medical advice about side effects. You may report side effects to FDA at 8-890-PMX-7360. What other drugs will affect amoxicillin and clavulanate potassium? Tell your doctor about all your current medicines and any you start or stop using, especially: ? allopurinol; ?? probenecid; or ?? a blood thinner--warfarin, Coumadin, Jantoven. This list is not complete. Other drugs may interact with amoxicillin and clavulanate potassium, including prescription and kgnr-pmu-llsmoki medicines, vitamins, and herbal products. Not all possible interactions are listed in this medication guide. Where can I get more information? Your pharmacist can provide more information about amoxicillin and clavulanate potassium. Remember, keep this and all other medicines out of the reach of children, never share your medicines with others, and use this medication only for the indication prescribed. Every effort has been made to ensure that the information provided by [employer]') is accurate, up-to-date, and complete, but no guarantee is made to that effect. Drug information contained herein may be time sensitive. [employer] information has been compiled for use by healthcare practitioners and consumers in the [place] and therefore [employer] does not warrant that uses outside of the [place] are appropriate, unless specifically indicated otherwise. [employer] drug information does not endorse drugs, diagnose patients or recommend therapy. [employer] drug information is an informational resource designed to assist licensed healthcare practitioners in caring for their patients and/or to serve consumers viewing this service as a supplement to, and not a substitute for, the expertise, skill, knowledge and judgment of healthcare practitioners. The absence of a warning for a given drug or drug combination in no way should be construed to indicate that the drug or drug combination is safe, effective or appropriate for any given patient. [employer] does not assume any responsibility for any aspect of healthcare administered with the aid of information [employer] provides. The information contained herein is not intended to cover all possible uses, directions, precautions, warnings, drug interactions, allergic reactions, or adverse effects. If you have questions about the drugs you are taking, check with your doctor, nurse or pharmacist. Copyright 0252-3443 [employer]. Version: 04.28. Revision Date: 06/28/2017. valsartan (gus SHAFFER araujoViatliy Kimfausto What is the most important information I should know about valsartan? Do not use if you are . Stop using and tell your doctor right away if you become . Valsartan can cause injury or to the unborn baby if you take the medicine during your second or third trimester. If you have diabetes, do not use valsartan together with any medication that contains aliskiren (Amturnide, Tekturna, Tekamlo, Valturna). What is valsartan? Valsartan is an angiotensin II receptor antagonist. Valsartan keeps blood vessels from narrowing, which lowers blood pressure and improves blood flow. Valsartan is used to treat high blood pressure (hypertension) in adults and children who are at least 6 years old. Valsartan is also used in adults to treat heart failure, and to lower the risk of after a heart attack. Valsartan is sometimes given together with other blood pressure medications. Valsartan may also be used for purposes not listed in this medication guide. What should I discuss with my healthcare provider before taking valsartan? You should not use valsartan if you are allergic to it. To make sure valsartan is safe for you, tell your doctor if you have: ? kidney disease (or if you are on dialysis); ?? liver disease; ?? a heart condition other than one being treated with valsartan; ?? if you are on a kex-yeyr-mncw; ?? if you are dehydrated; or ?? if you have ever had a severe allergic reaction to any blood pressure medication. Do not use if you are . Stop using and tell your doctor right away if you become . Valsartan can cause injury or to the unborn baby if you take the medicine during your second or third trimester. Use effective control. It is not known whether valsartan passes into breast milk or if it could harm a nursing baby. You should not breast-feed while using this medicine. Valsartan should not be given to a child younger than 6 years old. How should I take valsartan? Follow all directions on your prescription label. Your doctor may occasionally change your dose to make sure you get the best results. Do not take this medicine in larger or smaller amounts or for longer than recommended. You may take valsartan with or without food. Take the medicine at the same time each day. If a child taking valsartan cannot swallow a capsule whole, your pharmacist can mix the medicine into a liquid. Shake this liquid well just before you measure a dose. Measure the liquid with a special dose-measuring spoon or medicine cup, not with a regular table spoon. If you do not have a dose-measuring device, ask your pharmacist for one. You may have very low blood pressure while taking valsartan. Call your doctor if you are sick with vomiting or diarrhea, or if you are sweating more than usual. Your blood pressure will need to be checked often. Your kidney function may also need to be checked. It may take 2 to 4 weeks of using this medicine before your blood pressure is under control. Keep using this medicine as directed, even if you feel well. High blood pressure often has no symptoms. You may need to use blood pressure medicine for the rest of your life. Talk with your doctor if your symptoms do not improve after 4 weeks of treatment. Store at room temperature away from moisture and heat. Read all patient information, medication guides, and instruction sheets provided to you. Ask your doctor or pharmacist if you have any questions. What happens if I miss a dose? Take the missed dose as soon as you remember. Skip the missed dose if it is almost time for your next scheduled dose. Do not take extra medicine to make up the missed dose. What happens if I overdose? Seek emergency medical attention or call the Poison Help line at . What should I avoid while taking valsartan? Drinking alcohol can further lower your blood pressure and may increase certain side effects of valsartan. Do not use potassium supplements or salt substitutes while you are taking valsartan, unless your doctor has told you to. Avoid getting up too fast from a sitting or lying position, or you may feel dizzy. Get up slowly and steady yourself to prevent a fall. What are the possible side effects of valsartan? Get emergency medical help if you have signs of an allergic reaction: hives; difficulty breathing; swelling of your face, lips, tongue, or throat. In rare cases, valsartan can cause a condition that results in the breakdown of skeletal muscle tissue, leading to kidney failure. Call your doctor right away if you have unexplained muscle pain, tenderness, or weakness especially if you also have fever, unusual tiredness, and dark colored urine. Also call your doctor at once if you have: ? shortness of breath (even with mild exertion); ?? little or no urinating, swelling, rapid weight gain; ?? weakness, confusion, increased thirst, loss of appetite, vomiting; ?? pounding heartbeats or fluttering in your chest; ?? a light-headed feeling, like you might pass out; or ?? high potassium--slow heart rate, weak pulse, muscle weakness, tingly feeling. Common side effects may include: ? headache, dizziness, tired feeling; ?? flu symptoms; ?? stomach pain, diarrhea; ?? back pain, joint pain; or ?? cough. This is not a complete list of side effects and others may occur. Call your doctor for medical advice about side effects. You may report side effects to FDA at 9-721-UQY-0993. What other drugs will affect valsartan? Tell your doctor about all your current medicines and any you start or stop using, especially: ? cyclosporine; ?? a diuretic (water pill); ?? lithium; ?? rifampin; ?? ritonavir; or ?? NSAIDs (nonsteroidal anti-inflammatory drugs)--aspirin, ibuprofen (Advil, Motrin), naproxen (Aleve), celecoxib, diclofenac, indomethacin, meloxicam, and others. This list is not complete. Other drugs may interact with valsartan, including prescription and [id number] medicines, vitamins, and herbal products. Not all possible interactions are listed in this medication guide. Where can I get more information? Your pharmacist can provide more information about valsartan. Remember, keep this and all other medicines out of the reach of children, never share your medicines with others, and use this medication only for the indication prescribed. Every effort has been made to ensure that the information provided by [employer] ('[employer]') is accurate, up-to-date, and complete, but no guarantee is made to that effect. Drug information contained herein may be time sensitive. [employer] information has been compiled for use by healthcare practitioners and consumers in the [place] and therefore [employer] does not warrant that uses outside of the [place] are appropriate, unless specifically indicated otherwise. [employer] drug information does not endorse drugs, diagnose patients or recommend therapy. [employer] drug information is an informational resource designed to assist licensed healthcare practitioners in caring for their patients and/or to serve consumers viewing this service as a supplement to, and not a substitute for, the expertise, skill, knowledge and judgment of healthcare practitioners. The absence of a warning for a given drug or drug combination in no way should be construed to indicate that the drug or drug combination is safe, effective or appropriate for any given patient. [facility] does not assume any responsibility for any aspect of healthcare administered with the aid of information [facility] provides. The information contained herein is not intended to cover all possible uses, directions, precautions, warnings, drug interactions, allergic reactions, or adverse effects. If you have questions about the drugs you are taking, check with your doctor, nurse or pharmacist. Copyright 5917-7728 [employer]. Version: 16.05. Revision Date: 05/19/2016. CIGARETTE SMOKING: The facts are clear, cigarette smoking will shorten your life. Smoking can cause many illnesses along the way. As a healthcare provider, we recommend that you stop smoking. Assistance with quitting is available by contacting 9-518-NYYR-NOW. This is a free resource providing counseling, support, and referral. Or you may contact your personal physician. 4 WAYS TO GET AHEAD OF SEPSIS SEPSIS is a MEDICAL EMERGENCY. Time matters! Infections put you and your family at risk for a life-threatening condition called sepsis. Sepsis is the body???s extreme response to an infection. It is life-threatening, and without timely treatment, sepsis can rapidly lead to tissue damage, organ failure, and . Sepsis happens when an infection you already have???in your skin, lungs, urinary tract or somewhere else???triggers a chain reaction throughout your body. 1 PREVENT INFECTIONS Take good care of chronic conditions. Talk to your doctor about getting the recommended vaccines. 2 PRACTICE GOOD HYGIENE Wash your hands frequently. Keep cuts or open sores clean and covered until they are healed. 3 KNOW THE SYMPTOMS Confusion or disorientation Shortness of breath High heart rate Fever, shivering, or feeling very cold Extreme pain or discomfort Clammy or sweaty skin 4 ACT FAST Get medical care IMMEDIATELY if you suspect sepsis or if you have an infection that???s not getting better or is getting worse. To learn more about sepsis and how to prevent infections, visit www.cdc.gov/sepsis. STROKE is an EMERGENCY Every Minute Counts ACT F.A.S.T! FACE ?? Facial droop ?? Uneven smile ARM ?? Arm numbness ?? Arm weakness SPEECH ?? Slurred speech ?? Difficulty speaking or understanding TIME ?? Call 911 and get to the hospital immediately Have the ambulance go to the nearest stroke center. STROKE Risk Factors High blood pressure High cholesterol Heart Disease Diabetes Smoking Heavy alcohol use Physical inactivity and obesity Atrial Fibrillation (irregular heartbeat) Family history of stroke Reminder: Be sure to sign up for the [employer] patient portal, which gives you 17/01 access to your medical information ??? including these discharge instructions ??? using your computer, smartphone, or tablet. Just go to [employer] to get started. Questions? Call . [facility] would like to thank you for allowing us to assist you with your healthcare needs. JACOBY Campbell JAMES B, (or kiosk sales representative) have received the above patient education materials/instructions and have verbalized understanding: Patient Signature _ Date/Time Patient Color Technician Signature (if needed) Date/Time Clinician/Hospital Color Technician Signature (if needed) Date/Time documented in this encounter Plan of Treatment Not on file documented as of this encounter Visit Diagnoses Not on filedocumented in this encounter Care Teams Phytopathologist Relationship Specialty Start Date End Date Dion Macedo MD [address] [place] [address] PCP - General Family Medicine 06/27/21 documented as of this encounter
--- OUTSIDE RECORDS SUMMARY | 2025-03-17 16:22 | XMS_ITS | Encounter Summary ---
Author Organization [employer] ([place], [place], [place], [place]) Address [address] [place] [address] Care Team Providers Care Fishing Worker Name Role Phone Dion Macedo MD Primary Care Provider Encounter Details Date Type Department Care Team (Late st Contact Info) Description 08/03/2018 Transcribed Document [facility] [place] [address] [place] [address] ProviderMarkos MD [address] [place], [place] [id number] Social History Tobacco Use Types Packs/Day Years Used Date Smoking Tobacco: Never Assessed Sex and Gender Information Value Date Recorded Sex Assigned at Male 12/29/2021 5:06 PM CDT Legal Sex Male 1:35 PM CDT Gender Identity Male 12/29/2021 5:06 PM CDT Sexual Orientation Not on file documented as of this encounter Miscellaneous Notes * Cerner Conversion Note - Markos ProviderMD - 08/03/2018 9:17 PM TYPER Evaluation, Occupational Therapy Entered On: 08/05/2018 13:34 EST Performed On: 08/05/2018 12:06 EST by MIRNA HIGGINS OTR/Terry General Information, OT Visit Type, OT : Initial evaluation Patient Orders : Order Date Order Ordering 08/03/2018 21:17 OT Evaluation and Treatment Ordered By: NIKO OCONNOR MD-INT Active Diagnoses : 08/03/2018 00:00 Chest pain, unspecified 08/03/2018 00:00 Flank pain 08/03/2018 00:00 Pneumonitis due to inhalation of food and vomit 08/03/2018 00:00 Rib/trunk pain-swelling Admission Date : 08/03/2018 21:04 Co-treated by, OT : Physical Therapist Personal Devices : Personal Devices No Devices Recorded Assistive Devices : Assistive Devices No Devices Recorded General Information Comment, OT : Pt with posterior rib trunk pain and SOA, dx with acute hypoxic respiratory failure, G-code, Pt with PEG feeding, MIRNA HIGGINS OTR/Terry - 08/05/2018 13:13 EST General Status Patient Received Status : Long sitting in bed Treatment Start Time : 08/05/2018 12:06 EST Patient Left Status : Up in chair RN/PCT Informed Comment : Lorenzo approved therapy Treatment End Time : 08/05/2018 12:33 EST Treatment Time : 27 Minute(s) MIRNA HIGGINS OTR/Terry 08/05/2018 13:13 EST History and Environment, OT Living Situation, Therapy : Home Patient Lives With : Spouse Persons Providing Information : Patient Home Equipment, Therapy : None Home Setup : Two story Bedroom Location : Main level Bathroom #1 Location : Main level Stairs : Yes Stair Location(s) : Inside Inside Stairs, Number of Steps : 14 Railing Outside : Yes MIRNA HIGGINS OTR/Terry 08/05/2018 13:13 EST Prior LOF Bathing, OT : Assist needed (Comment: asst in/out shower [MIRNA HIGGINS OTR/Terry 08/05/2018 13:13 EST] ) Prior LOF Bed Mobility : Independent Prior LOF Upper Body Dressing, OT : Independent Prior LOF Lower Body Dressing, OT : Independent Prior LOF Toileting : Independent Prior LOF Transfer : Independent Prior LOF Grooming, OT : Assist needed (Comment: set up [MIRNA HIGGINS OTR/Terry 08/05/2018 13:13 EST] ) MIRNA HIGGINS OTR/Terry 08/05/2018 13:13 EST Upper Extremity Upper Extremity Dominance : Right Right UE Active ROM : WFL Left UE Active ROM : WFL MIRNA HIGGINS OTR/Terry - 08/05/2018 13:13 EST MIRNA HIGGINS OTR/Terry 08/05/2018 13:13 EST RadialDeviation 0-20 Shoulder Flexion 0-180 : 4/good Elbow Flexion 0-150 : 5/normal Elbow Extension 0-0 : 4/good MIRNA HIGGINS OTR/L - 08/05/2018 13:38 EST RadialDeviation 0-20 LUE Shoulder Flexion 0-180 : 4/good Elbow Flexion 0-150 : 5/normal Elbow Extension 0-0 : 4/good MIRNA HIGGINS OTR/L 08/05/2018 13:38 EST Fine Motor Coordination Impaired : No MIRNA HIGGINS OTR/L - 08/05/2018 13:13 EST Self Care/Home Management, OT Self Feeding Assist Level, OT : Independent, complete MIRNA HIGGINS R/L 08/05/2018 13:13 EST Grooming Assist Level, OT : Independent, complete Bathing Assist Level, OT : Independent, complete Upper Body Dressing Assist Level, OT : Independent, complete Lower Body Dressing Assist Level, OT : Independent, complete MIRNA HIGGINS R/L 08/05/2018 13:38 EST Toileting Assist Level : Independent, complete MIRNA HIGGINS R/L 08/05/2018 13:13 EST Toilet Transfer Assist Level : Independent, complete Bed/Chair/WC Transfer Assist Level : Independent, complete MIRNA HIGGINS R/L 08/05/2018 13:38 EST Mobility Device/Prosthesis/Wt Bearing Weight Bearing Status Maintained : Yes Weight Bearing Status : As tolerated MIRNA HIGGINS R/L 08/05/2018 13:13 EST Functional Mobility Mobility Grid Supine to Sit : Rehab Complete independence Sit to Stand : Rehab Complete independence Bed to Chair : Rehab Complete independence Stand to Sit : Rehab Complete independence MIRNA HIGGINS OTR/L 08/05/2018 13:38 EST Sit to Stand Device : Belt, gait MIRNA HIGGINS OTR/L 08/05/2018 13:13 EST AM PAC Daily Activity Putting On/Taking Off Lower Body Clothes : None Bathing (Washing, Rinsing, Drying) : None Toileting Includes Toilet, Bedpan, Urinal : None Putting On/Taking Off Upper Clothing : None Taking Care of Grooming : None MIRNA HIGGINS, OTR/L - 08/05/2018 13:38 EST Eating Meals : None MIRNA HIGGINS, OTR/L - 08/05/2018 13:13 EST AM-PAC Daily Activity Raw Score : 24 GISELAMIRNA ALFRED, OTR/L - 08/05/2018 13:38 EST Image 3 - Images currently included in the form version of this document have not been included in the text rendition version of the form. Functional Limitation Reporting, OT Self Care G8989 - Discharge Mod, OT : 0 percent impaired, limited or restricted (CH) GISELAMIRNA ALFRED, OTR/L - 08/05/2018 13:38 EST Functional Limitation Visit Type, OT : Initial evaluation MIRNA HIGGINS OTR/L - 08/05/2018 13:13 EST Self Care G8987 - Current Mod, OT : 0 percent impaired, limited or restricted (CH) Self Care G8988 - Proj Goal Mod, OT : 0 percent impaired, limited or restricted (CH) MIRNA HIGGINS, OTR/L - 08/05/2018 13:38 EST Cognition Assessment, OT Orientation : Oriented x 4 MIRNA HIGGINS, OTR/L - 08/05/2018 13:13 EST Indication Assessment, OT MIRNA HIGGINS, OTR/L - 08/05/2018 13:38 EST Plan of Care, OT OT Tx Plan/Goals Established w Patient : Yes MIRNA HIGGINS, OTR/L - 08/05/2018 13:13 EST MIRNA HIGGINS, OTR/L - 08/05/2018 13:38 EST Longterm Goals, OT Dressing, Lower Body LTG Grid Goal #1 Activity : MIRNA HIGGINS, OTR/L - 08/05/2018 13:38 EST Assist : MIRNA HIGGINS OTR/L - 08/05/2018 13:38 EST Date to Meet : MIRNA HIGGINS OTR/L - 08/05/2018 13:38 EST Goal Status : MIRNA HIGGINS, OTR/L - 08/05/2018 13:38 EST MIRNA HIGGINS, OTR/L - 08/05/2018 13:13 EST Toilet Transfer LTG Grid Goal #1 Activity : GISELA, AMEALIA, OTR/L - 08/05/2018 13:38 EST Assist : GISELA, AMEALIA, OTR/L - 08/05/2018 13:38 EST Equipment : GISELA, AMEALIA, OTR/L - 08/05/2018 13:38 EST Date to Meet : GISELA, AMEALIA, OTR/L - 08/05/2018 13:38 EST Goal Status : GISELA, AMEALIA, OTR/L - 08/05/2018 13:38 EST GISELA, AMEALIA, OTR/L - 08/05/2018 13:13 EST Bed Mobility/ Bed Transfer LTG Grid Goal #1 Activity : GISELA, AMEALIA, OTR/L - 08/05/2018 13:38 EST Assist : GISELA, AMEALIA, OTR/L - 08/05/2018 13:38 EST Equipment : GISELA, AMEALIA, OTR/L - 08/05/2018 13:38 EST Date to Meet : GISELA, AMEALIA, OTR/L - 08/05/2018 13:38 EST Goal Status : GISELA, AMEALIA, OTR/L - 08/05/2018 13:38 EST GISELA, AMEALIA, OTR/L - 08/05/2018 13:13 EST Treatment Note Subjective Comment : Pt agreed to eval GISELA, AMEALIA, OTR/L - 08/05/2018 13:13 EST Additional Objective Information : Pt completed eval. Pt with deficit no deficits and up and moving aound room GISELA, AMEALIA, OTR/L - 08/05/2018 13:38 EST Assessment : All needs in reach, Plan for Treatment : POC GISELA AMEALIA, OTR/L - 08/05/2018 13:13 EST Pain Assessment Pain Scaled Used : 0-10 Pain scale Pain Goal, Rehab : 0 Pain Score During-Intervention : 0 GISELA AMEALIA, OTR/L - 08/05/2018 13:13 EST Image 1 - Images currently included in the form version of this document have not been included in the text rendition version of the form. Lott OT Charges OT Eval Low Complexity : 1 GISELA GENEANUPAMA, OTR/L - 08/05/2018 13:13 EST Electronically signed by Shira, [facility] Conversion Plate Grainer Apprentice Cerner at 10/13/2022 9:37 PM CDT documented in this encounter Plan of Treatment Not on file documented as of this encounter Visit Diagnoses Not on filedocumented in this encounter Care Teams Fishing Worker Relationship Specialty Start Date End Date Dion Macedo MD [address] [place] [address] PCP - General Family Medicine 06/27/21 documented as of this encounter
--- OUTSIDE RECORDS SUMMARY | 2025-03-17 16:22 | XMS_ITS | Encounter Summary ---
Author Organization [employer] ([place], [place], [place], [place]) Address [address] [place] [address] Care Team Providers Care Tilt Wall Supervisor Name Role Phone Dion Macedo MD Primary Care Provider Encounter Details Date Type Department Care Team (Late st Contact Info) Description 08/08/2018 Transcribed Document [facility] [place] [address] [place] [address] ProviderMarkos MD [address], [place] [id number] Social History Tobacco Use Types Packs/Day Years Used Date Smoking Tobacco: Never Assessed Sex and Gender Information Value Date Recorded Sex Assigned at Male 12/29/2021 5:06 PM CDT Legal Sex Male 1:35 PM CDT Gender Identity Male 12/29/2021 5:06 PM CDT Sexual Orientation Not on file documented as of this encounter Miscellaneous Notes * Cerner Conversion Note - Historical ProviderMD - 08/08/2018 5:00 AM [employer] Height and Weight, Routine Entered On: 08/08/2018 5:17 EST Performed On: 08/08/2018 5:00 EST by Semaj Nicolas [facility] Height and Weight, Routine Routine Weight Source : Bed scale Routine Weight Entry Format : Metric Routine Weight, Kilograms : 73.7 kg(Converted to: 162 lb 8 oz) Routine Weight Calculation : 73.7 kg Height Source : Stated Height Entry Format : [place] Height, Feet : 5 ft Height, Inches : 8 Inch Clinical Height : 172.72 cm Body Surface Area (BSA), Routine : 1.87 m2 Body Mass Index (BMI), Routine : 24.7 kg/m2 Semaj Nicolas [facility] - 08/08/2018 5:16 EST documented in this encounter Plan of Treatment Not on file documented as of this encounter Visit Diagnoses Not on filedocumented in this encounter Care Teams Tilt Wall Supervisor Relationship Specialty Start Date End Date Dion Macedo MD [address] [place] [address] PCP - General Family Medicine 06/27/21 documented as of this encounter
--- OUTSIDE RECORDS SUMMARY | 2025-03-17 16:22 | XMS_ITS | Encounter Summary ---
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, Physical Therapy Entered On: 08/05/2018 13:22 EST Performed On: 08/05/2018 13:02 EST by KAIN RICHMOND, PT General Information, PT Visit Type, PT : Initial evaluation Patient Orders : Order Date Order Ordering 08/03/2018 21:17 PT Evaluation and Treatment Ordered By: NIKO OCONNOR MD-INT Active Diagnoses : 08/03/2018 00:00 Chest pain, unspecified 08/03/2018 00:00 Flank pain 08/03/2018 00:00 Pneumonitis due to inhalation of food and vomit 08/03/2018 00:00 Rib/trunk pain-swelling Onset of Problem, PT : 08/03/2018 EST Admission Date : 08/03/2018 21:04 Co-treated by, PT : Occupational Therapist Personal Devices : Personal Devices No Devices Recorded Assistive Devices : Assistive Devices No Devices Recorded KAIN RICHMOND, PT - 08/05/2018 13:02 EST General Status Patient Received Status : Supine in bed Treatment Start Time : 08/05/2018 12:08 EST Patient Left Status : Up in chair, RN/PCT informed, Communication board completed, All needs met and within reach RN/PCT Informed Comment : RN Treatment End Time : 08/05/2018 12:36 EST Treatment Time : 28 Minute(s) Actual Treatment Time : 28 Minute(s) KAIN RICHMOND, PT - 08/05/2018 13:02 EST History and Environment Living Situation, Therapy : Home Patient Lives With : Spouse Persons Providing Information : Patient Home Equipment Therapy, PT : None Home Setup : Multi-level home Bedroom Location : Downstairs Bathroom #1 Location : Downstairs Bathroom #2 Location : Upstairs Bathroom #2 Features : Tub/Shower Stairs : Yes Stair Location(s) : Inside Inside Stairs, Number of Steps : 14 Railing Inside : Yes Inside Railing Position : Bilateral Ramp : No KAIN RICHMOND, PT - 08/05/2018 13:02 EST Prior Level of Function PT GRID Prior LOF Ambulation, Household : Independent Prior LOF Ambulation, Community : Independent Prior LOF Bed Mobility : Independent Prior LOF Toileting : Independent Prior LOF Transfer : Independent KAIN RICHMOND, PT - 08/05/2018 13:02 EST History and Environment Comment, PT : Pt cares for who has more health issues than he does, needs asssist KAIN RICHMOND, PT - 08/05/2018 13:02 EST Upper Extremity Upper Extremity Dominance : Left Right UE Strength : WFL Left UE Active ROM : WFL Left UE Strength : WFL Fine Motor Coordination Impaired : No KAIN RICHMOND, PT - 08/05/2018 13:02 EST Lower Extremity RLE Active ROM : WFL Right LE Strength : WFL LLE Active ROM : WFL Left LE Strength : WFL KAIN RICHMOND, PT - 08/05/2018 13:02 EST Functional Mobility Mobility Grid Bed Roll Right : Rehab Complete independence Bed Scooting : Rehab Complete independence Supine to Sit : Rehab Complete independence Sit to Stand : Rehab Complete independence Stand to Sit : Rehab Complete independence KAIN RICHMOND, PT - 08/05/2018 13:02 EST Sit to Stand Device : Belt, gait Stand to Sit Device : Belt, gait KAIN RICHMOND, PT - 08/05/2018 13:02 EST AM PAC Basic Mobility Turning Over in Bed : None Sit Down On/Stand Up From Chair w/ Arms : None Move Back Lying to Sitting Side of Bed : None Moving To/From a Bed to Chair : None Need to Walk in Hospital Room : None Climbing 3-5 Steps with a Railing : None AM-PAC Basic Mobility Raw Score : 24 AM-PAC Basic Mobility Standardized Score : 61.14 AM-[facility] Basic Mobility CMS 0-100% Score : 0 % KAIN RICHMOND, PT - 08/05/2018 13:02 EST Image 1 - Images currently included in the form version of this document have not been included in the text rendition version of the form. Functional Limitation Reporting, PT Functional Limitation Visit Type, PT : Initial evaluation Severity Determination Method, PT : AM PAC Basic Mobility Mobility G8978 - Current Mod, PT : 0 percent impaired, limited or restricted (CH) Mobility G8979 - Proj Goal Mod, PT : 0 percent impaired, limited or restricted (CH) Mobility G8980 - Discharge Mod, PT : 0 percent impaired, limited or restricted (CH) KAIN RICHMOND, PT - 08/05/2018 13:02 EST Gait Training/Assessment, PT Weight Bearing Status : Full Gait Assistance Level : Independent, complete Walking Distance : 375' Ambulatory Devices : Gait belt Gait Deviations : No Stair(s) Ascend/Descend Training : No KAIN RICHMOND, PT - 08/05/2018 13:02 EST Cognition Assessment, PT Orientation : Oriented x 4 KAIN RICHMOND, PT - 08/05/2018 13:02 EST Edu Topics Physical Therapy Education Grid Role of Physical Therapy : Verbalizes understanding Safety : Returns demonstration Transfer Training : Returns demonstration KAIN RICHMOND, PT - 08/05/2018 13:02 EST Indication Assesessment, PT Physical Therapy Indicated : No Physical Therapy Not Indicated : Independent, complete KAIN RICHMONDJaye, PT - 08/05/2018 13:02 EST Plan of Care, PT PT Tx Plan/Goals Established w Patient : No Reason Tx/Plan Not Established W/ Pt PT : Pt is independent, safe with mobility, is at baseline functional status Plan of Care Comment, PT : Pt in agreement KAIN RICHMOND Roly, PT - 08/05/2018 13:02 EST Treatment Note Subjective Comment : Pt states he is getting around without difficulty, has been independent in room and feels he is at usual mobility status Patient's Response to Treatment : Tolerated without difficulty Additional Objective Information : Pt independent out of bed, also independent without balance issues during ambulation level surfaces x375'. Pt up to chair after with needs at hand. Assessment : Pt is safe and independent with bed mobility, transfers, ambulation in his room and the sainz. Plan for Treatment : No additional therapy is needed. BASILIO KAIN L., PT - 08/05/2018 13:02 EST Pain Assessment Pain Scaled Used : 0-10 Pain scale Pain Score Pre-Intervention : 0 KAIN RICHMOND, PT - 08/05/2018 13:02 EST Image 1 - Images currently included in the form version of this document have not been included in the text rendition version of the form. Seltzer PT Charges PT Eval Low Complexity : 1 MARIXACHANTAL KAIN L., PT - 08/05/2018 13:02 EST Electronically signed by Sh[facility] Conversion Social Organization Professor [employer] at 10/13/2022 9:34 PM CDT documented in this encounter Plan of Treatment Not on file documented as of this encounter Visit Diagnoses Not on filedocumented in this encounter Care Teams Idea Man Relationship Specialty Start Date End Date Dion Macedo MD [address] [place] [address] PCP - General Family Medicine 06/27/21 documented as of this encounter
--- OUTSIDE RECORDS SUMMARY | 2025-03-17 16:22 | XMS_ITS | Encounter Summary ---
Author Organization [employer] ([place], [place], [place], [place]) Address [address] [place] [address] Care Team Providers Care Systems Engineer Name Role Phone Dion Macedo MD Primary Care Provider Encounter Details Date Type Department Care Team (Late st Contact Info) Description 08/03/2018 Transcribed Document [facility] [place] [address] [place] [address] ProviderMarkos MD [address] [place], [place] [phone] Social History Tobacco Use Types Packs/Day Years Used Date Smoking Tobacco: Never Assessed Sex and Gender Information Value Date Recorded Sex Assigned at Male 12/29/2021 5:06 PM CDT Legal Sex Male 1:35 PM CDT Gender Identity Male 12/29/2021 5:06 PM CDT Sexual Orientation Not on file documented as of this encounter Miscellaneous Notes * [employer] Conversion Note - Markos ProviderMD - 08/03/2018 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 Entered On: 08/04/2018 17:24 EST Performed On: 08/03/2018 22:38 EST by Rosie Luo Rn-Weekend Order Details Transport Mode Order Detail : Wheelchair Isolation Precautions Order Detail : Standard Precautions Order Detail : N/A IV Order Detail : 1 Oxygen Order Detail : 1 Nurse Collect Order Detail : 0 Lift/Transfer : Independent Central Line Order Detail : No Room Service : Appropriate Arterial Line : No Rosie Luo Rn-Weekend - 08/04/2018 17:24 EST documented in this encounter Plan of Treatment Not on file documented as of this encounter Visit Diagnoses Not on filedocumented in this encounter Care Teams Systems Engineer Relationship Specialty Start Date End Date Dion Macedo MD [address] [place] [address] PCP - General Family Medicine 06/27/21 documented as of this encounter
--- OUTSIDE RECORDS SUMMARY | 2025-03-17 16:22 | XMS_ITS | Encounter Summary ---
Author Organization [employer] ([place], [place], [place], [place]) Address [address] [place] [address] Care Team Providers Care Loader Name Role Phone Dion Macedo MD Primary Care Provider Encounter Details Date Type Department Care Team (Late st Contact Info) Description 08/04/2018 Transcribed Document [facility] Pulm & Critical Care Medicine [address] [place] [address] [place] [id number] Karen Denis MD [address] [facility] [address] [place] [address] Social History Tobacco Use Types Packs/Day Years Used Date Smoking Tobacco: Never Assessed Sex and Gender Information Value Date Recorded Sex Assigned at Male 12/29/2021 5:06 PM CDT Legal Sex Male 1:35 PM CDT Gender Identity Male 12/29/2021 5:06 PM CDT Sexual Orientation Not on file documented as of this encounter Miscellaneous Notes * [employer] Conversion Note - Karen Denis MD - 08/04/2018 1:07 AM EST Patient: OMERO DOZIER Age: 82 years Sex: Male : 1935 Associated Diagnoses: None Author: KAREN DENIS MD Basic Information Pulmonary/Critical Care Consultation Date of consult:08/03/18 Date of admission:08/03/18 Requesting physician: Dr Guadalupe-ER Reason for consult: Chief complaint: Weakness History of present illness: The patient is an 82-year-old gentleman with history of following chronic stable conditions CAD, hyperlipidemia, hypertension, hypothyroidism, BPH, 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 Patient presents on 08/03/2018 to [facility] emergency room complaining of posterior rib-trunk pain. The onset was hours ago. The course/duration of symptoms is [...] symptoms: shortness of breath. Additional history: none. The pt c/o pain that is rated as 7-10 on scale of 1-10, with out radiation of sx. Global in lower back location. Sx are worst when he coughs or takes a deep breath and are improved when he lays still and takes shallow breaths. The condition is acute and uncontrolled. No other improving or exacerbating factors, no other modifying factors associated with current condition. Risk factors are history of aspiration, history of ENT surgery and advanced age. Patient had a CT scan of the chest that revealed bilateral lower lobe infiltrates consistent with probable aspiration. He also had a CT of the abdomen and pelvis without contrast revealed no acute intra-abdominal abnormality. Pulmonary/critical care was consulted by the ER physician because he stated Dr. Veras was not in-house tonight. At time of consult patient is currently in in bed on 3 L R Schrantz cannula saturation in the mid 90s. He does appear weak but is not in distress or tachypnea. He does complain of epigastric pain that is not radiating. He states that this waxes and wanes. States that he did smoke cigarettes about 50 years ago for 10-15 years. No history of lung disease. He does have a history of coronary artery disease with a previous stent. He denies fevers or chills or cough. No ill contacts or recent travel. No nausea or vomiting. Patient's daughter is present at bedside. He is currently on IV fluid infusion and is hemodynamically stable with systolic blood pressure in the 130s. PAST MEDICAL HISTORY: 1. Coronary artery disease. 2. Hypertension. 3. Hyperlipidemia. 4. BPH. 5. Carotid tumor, status post radiation. PAST SURGICAL HISTORY: 1. Umbilical hernia. 2. Inguinal hernia. FAMILY HISTORY: Noncontributory. SOCIAL HISTORY: He does not smoke or abuse alcohol. Review of Systems Constitutional: Fever, Weakness, Fatigue, No chills. Respiratory: No shortness of breath, No cough, No sputum production. Cardiovascular: No chest pain, No palpitations, No peripheral edema. Gastrointestinal: epigastric pain, non radiating , No nausea, No vomiting. Genitourinary: No dysuria, No hematuria. Hematology/Lymphatics: No bruising tendency, No bleeding tendency. Immunologic: Not immunocompromised. Neurologic: Alert and oriented X4. Psychiatric: No anxiety, No depression. Health Status Allergies: Allergic Reactions (Selected) No Known Allergies, Allergies (1) Active Reaction No Known Allergies None Documented Current medications: (Selected) Inpatient Medications Ordered Colace: 100 mg, Oral, BID DuoNeb 0.5 mg-2.5 mg/3 mL inhalation solution: 3 mL, Nebulized Inhalation, RT_Q4H, PRN: Dyspnea Flagyl: 500 mg, 100 mL, 100 mL/Hr, IV Piggyback, Q6HInt Lovenox: 40 mg, SubCutaneous, [id number] Milk of Magnesia 8% oral suspension: 30 mL, Oral, Daily, PRN: Constipation Normal Saline Flush: 10 mL, IV Push, See Comment, PRN: IV Use Pepcid: 20 mg, Oral, Daily Sodium Chloride 0.9% intravenous solution 1,000 mL: 20 mL/Hr, IntraVENous Tylenol: 650 mg, Oral, Q4H, PRN: Pain (Mild 1-3) Zofran: 4 mg, IV Push, Q4H, PRN: Nausea Zosyn + Sodium Chloride 0.9% intravenous solution 100 mL: 3.375 Gram, 33.33 mL/Hr, IV Piggyback, Q6HInt morphine: 2 mg, IV Push, Q4H, PRN: Pain (Severe 7-10) Documented Medications Documented Flomax 0.4 mg oral capsule: 1 Cap, Oral, At Bedtime levothyroxine 88 mcg (0.088 mg) oral tablet: 1 Tab, Oral, Daily, 30 Tab Physical Examination VS/Measurements Vitals Signs (last 24 hrs) Last Charted Minimum Maximum Temp 98.5 (AUG 03 19:26) 98.5 (AUG 03:) 98.5 (AUG 03:) Mon HR 80 (AUG 03 23:01) 62 (AUG 03 21:41) 80 (AUG 03 23:) Periph HR 78 (AUG 03:) 78 (AUG 03:26) 78 (AUG 03:) Resp Rate H 30 (AUG 03 23:01) 20 (AUG 03 20:47) H 36 (AUG 03:17) SBP H 142 (AUG 03:) L 54 (AUG 03:47) H 180 (AUG 03:) DBP 73 (AUG 03 23:) L 43 (AUG 03 20:36) H 94 (AUG 03:) MAP 94 (AUG 03:01) 67 (AUG 03:41) 108 (AUG 03 20:36) SpO2 L 92 (AUG 03:) L 88 (AUG 03:36) L 92 (AUG 03:17) , Measurements from flowsheet : Measurements 08/03/2018 19:26 EST Height Source Stated Height Entry Format [place] Height/Length, [place] (ft) 5 ft Height/Length [place] 8 Inch CLINICALHEIGHT 172.72 cm [place] Body Weight 67.45 kg Weight Source, ED Critical estimated dosing weight Weight Entry Format [place] Weight [place] lb 160 lb CLINICALWEIGHT 72.73 kg Body Surface Area (BSA) 1.86 m2 Body Mass Index 24.4 kg/m2 HI General: Alert and oriented, No acute distress. Eye: Pupils are equal, round and reactive to light, Extraocular movements are intact, Normal conjunctiva. HENT: Normocephalic. Neck: Supple, Non-tender. Respiratory: Respirations are non-labored, Breath sounds are equal, Breath sounds decreased in bases, otherwise clear, no wheezing or rhonchi, no stridor. Cardiovascular: Normal rate, Regular rhythm, S1, S2, No edema. Gastrointestinal: Soft, nondistended, epigastric pain with palpation, no rebound or guarding, normoactive bowel sounds, PEG tube. Musculoskeletal: No swelling, No deformity. Integumentary: Warm, Intact. Neurologic: Alert, Oriented, No focal deficits. Psychiatric: Cooperative, Appropriate mood & affect. Review / Management Results review: Labs (Last four charted values) WBC 6.5 (AUG 03) HB 14.2 (AUG 03) HCT 43.4 (AUG 03) Plt L 136 (AUG 03) Na 136 (AUG 03) K 4.2 (AUG 03) Cl L 101 (AUG 03) CO2 27 (AUG 03) BUN 21 (AUG 03) Cr 0.80 (AUG 03) Glu R 95 (AUG 03) Ca L 8.3 (AUG 03) Lactic C 2.2 (AUG 03) PT 10.2 (AUG 03) INR 0.9 (AUG 03) PTT 24.1 (AUG 03) AST 13 (AUG 03) ALT 20 (AUG 03) ALK P 86 (AUG 03) T Bili 0.5 (AUG 03) PTN 6.8 (AUG 03) ALB 4.0 (AUG 03) Lipase 155 (AUG 03) Troponin <0.015 (AUG 03) <0.015 (AUG 03) . Radiology Results (Last 48 hours) [id number] -- 08/03/2018 21:04 CR Chest 1 Vw Portable (08/03/2018 19:50) Result: Single view chestINDICATION: Chest painFINDINGS:The lung volumes are low. There is some minimal linear opacities at bothbases, likely atelectasis.Curvilinear interface overlying the left apex is likely related to thescapula.IMPRESSION: As above CT Chest WO (08/03/2018 20:00) Result: CT of the chest, abdomen, and pelvis without contrast.INDICATION: Left-sided abdominal pain and shortness of breathTECHNIQUE: Helically acquired noncontrast axial CT images were obtainedfrom the apices to the upper abdomen. Dose reduction techniques wereemployed.FINDINGS:The central airways are patent.There is significant airspace disease in the venous superior portions ofthe lower lobes bilaterally. There is additional airspace disease at theright base posteriorly.There is no mediastinal adenopathy. The heart and pericardium areunremarkable.The liver, spleen, adrenal glands, kidneys, and pancreas demonstrate noacute abnormality.There is a gastrostomy tube in place.No abnormally dilated loops of small bowel are seen.There is extensive rectosigmoid diverticulosis with no evidence of acuteinflammation.IMPRESSION:1. Findings may represent multifocal pneumonia or aspiration.2. No acute intra-abdominal abnormality. CT Abdomen Pelvis WO (08/03/2018 20:04) Result: CT of the chest, abdomen, and pelvis without contrast.INDICATION: Left-sided abdominal pain and shortness of breathTECHNIQUE: Helically acquired noncontrast axial CT images were obtainedfrom the apices to the upper abdomen. Dose reduction techniques wereemployed.FINDINGS:The central airways are patent.There is significant airspace disease in the venous superior portions ofthe lower lobes bilaterally. There is additional airspace disease at theright base posteriorly.There is no mediastinal adenopathy. The heart and pericardium areunremarkable.The liver, spleen, adrenal glands, kidneys, and pancreas demonstrate noacute abnormality.There is a gastrostomy tube in place.No abnormally dilated loops of small bowel are seen.There is extensive rectosigmoid diverticulosis with no evidence of acuteinflammation.IMPRESSION:1. Findings may represent multifocal pneumonia or aspiration.2. No acute intra-abdominal abnormality. Impression and Plan Acute hypoxemic respiratory failure Bilateral infiltrates in bases, probable aspiration Chronic aspiration Tobacco smoking several years ago for 10-15 years CAD with previous stent Epigastric pain, unknown cause: initial troponin negative, CT ab/pelvis negative Hemodynamically stable Plan: Cont supplmental O2 Wean for sat>90% Incentive spirometry Nebs prn Lovenox for DVT prophylaxis Add Pepcid for GI prophylaxis Patient on Zosyn and Flagyl per primary Order respiratory panel and sputum culture Will follow Patient is hemodynamically stable CODE STATUS: DNR, full treatment Pulm and CCM Attending Note: I performed personally History evaluation, Review of systems, Physical examniation and reviewed Labs as well as Radiology data and Medications, I discussed with allied staff patient???s condition and discussed findings, I formulated diagnoses/impression and plan and I updated note . I also discussed my impression and plan for the day with patient???s nurse and I discussed with patient and family present at bed side. Patient requires a high complexity of decision making for assessment. Overall my opinion and recommendations are: Patient was seen in emergency room on August 04, 2018 at 1500. Patient's appears comfortable, off pressors, patient's currently on 2 L oxygen. Patient did very well with good efforts using flutter valve device. He complains of postnasal drip. And frequently clearing his throat, patient has productive cough as well. Denies any chest pain. Acute hypoxemic respiratory failure secondary to Bilateral infiltrate multi lobar with high likely aspiration pneumonitis in the setting of chronic aspiration. sepsis on admission : and hypotension : resolved plan: May add Zyrtec 10 mg daily at bedtime May add astelin 1 squirt each nostril once a day Continue Zosyn, total Zosyn is 7 days Add lactobacillus Incentive surrounds her flutter valve device was nebs. Titrate saturation every saturation above 90% May stop Flagyl Follow sputum cultures/respiratory panel Remove Jaramillo catheter advise PT/OT thanks donna level 255 pulm will see on tuesday call if needed discussed with DR Nagy documented in this encounter Plan of Treatment Not on file documented as of this encounter Visit Diagnoses Not on filedocumented in this encounter Care Teams Loader Relationship Specialty Start Date End Date Dion Macedo MD [address] [place] [address] PCP - General Family Medicine 06/27/21 documented as of this encounter
--- OUTSIDE RECORDS SUMMARY | 2025-03-17 16:22 | XMS_ITS | Encounter Summary ---
Author Organization [employer] ([place], [place], [place], [place]) Address [address] [place] [address] Care Team Providers Care Club Car Attendant Name Role Phone Dion Macedo MD Primary Care Provider Encounter Details Date Type Department Care Team (Late st Contact Info) Description 08/09/2018 Transcribed Document [facility] [place] Family Medicine [address] [place] [address] ProviderMarkos MD [address] [place], [place] [id number] Social History Tobacco Use Types Packs/Day Years Used Date Smoking Tobacco: Never Assessed Sex and Gender Information Value Date Recorded Sex Assigned at Male 12/29/2021 5:06 PM CDT Legal Sex Male 1:35 PM CDT Gender Identity Male 12/29/2021 5:06 PM CDT Sexual Orientation Not on file documented as of this encounter Miscellaneous Notes * Cerner Conversion Note - Markos ProviderMD - 08/09/2018 10:40 AM INCOME TAX MANAGER Care Management Assessment/Plan Entered On: 08/09/2018 10:43 EST Performed On: 08/09/2018 10:40 EST by KATYA DEAN CSW Care Management Note Anticipated Discharge Date : 08/08/2018 12:00 EST Care Management Note Report : KATYA DEAN CSW - 08/08/18 14:55:03 SW spoke with pt related to his disposition. Pt states that he is I & that he stilll drives. Pt denies d/c planning needs & states that the family will transport the pt home. Documentation Status Complete : Yes KATYA DEAN CSW - 08/09/2018 10:40 EST Patient History Current Primary Care Physician : Dr. Louis Veras Emergency Contact #1 : Ceci Lovelace Emergency Contact #1 Emergency Contact #1 Relationship : Daughter Emergency Contact #2 : n/a Emergency Contact #2 Phone Number : n/a Emergency Contact #2 Relationship : n/a Living Situation : Home Patient Lives With : Spouse Mobility Assistance Prior to Admission : Independent Current Daily Living Assistance : None Professional Skilled Services : None Current Home Treatments : Tube feeding Home Equipment : Other: tubefeeding Special Services and Community Resources : Other: Out pt TF supplies & feedings Special Services Contact Information : Bioscripts , Financial Concerns Regarding Hospital/Discharge : No Sources of Income : Pension, Social Security [employer] Benefits Employment/Vocation : Pt is retired Frequent Hospitalizations or ED Visits : No Home Situation/Environment : External stairs, Internal stairs Inside Stairs, Number of Steps : 14 Patient History Note Report : KATYA DEAN CSW - 08/07/18 16:22:49 Pt is a 82 yr old male [...] continue to follow. KATYA DEAN CSW - 08/09/2018 10:40 EST Discharge Planning Details Discharge Home : Home with spouse/significant other Discharge Placement Needs : Home Persons Assisting Patient at Home, PSY : Spouse Transportation Needs : Family/Friend Discharge Transportation Arrangement Cmt : family Discharge Dialysis Arrangements : No Family/Guardian Notified Transfer Plans : No Discharge Planning Details Note : Pt is medically ready for d/c & will d/c home with self care. Pt.'s family will transport the pt home. KATYA DEAN CSW - 08/09/2018 10:40 EST Info/List/Choices Provided Patient Offered Choice/Affiliations Explained : No Important Medicare Message Reviewed With : Patient Important Medicare Message Reviewed D/T : 08/09/2018 10:00 EST Information/Lists/Choice Provided Note : N/A KATYA DEAN CSW - 08/09/2018 10:40 EST Final Discharge Disposition Note-CM Final Discharge Disposition Note-CM : Home with a low readmission risk, f/u appointments have been scheduled Discharge To Care Management : Home/Residential/Alf or Self Care -01 Name of Receiving Facility/Provider-CM : home KATYA DEAN CSW - 08/09/2018 10:40 EST Electronically signed by Shira [facility] Conversion Partition Making Machine Operator Cerner at 10/13/2022 9:23 PM CDT documented in this encounter Plan of Treatment Not on file documented as of this encounter Visit Diagnoses Not on filedocumented in this encounter Care Teams Club Car Attendant Relationship Specialty Start Date End Date Dion Macedo MD [address] [place] [address] PCP - General Family Medicine 06/27/21 documented as of this encounter
--- OUTSIDE RECORDS SUMMARY | 2025-03-17 16:22 | XMS_ITS | Referral Summary ---
Author Organization [employer] ([place], [place], [place], [place]) Address [address] [place] [address] Care Team Providers Care Ethnographer Name Role Phone Dion Macedo MD Primary Care Provider Encounters Date Type Department Care Team Description 01/25/2025 Travel 01/25/2025 11:00 AM EDT - 01/25/2025 11:59 PM EDT Hospital Encounter [facility] [address] [place] [address] Discharge Disposition: Home or Self Care from Last 3 Months Social History Tobacco Use Types Packs/Day Years [...] Date Amilcar rded Speak language other than Lao at home Not on file 07/08/2023 Want [...] PM CDT Sexual Orientation Not on file Plan of Treatment Not on file Insurance [facility] MEDICARE ADVANTAGE Care Teams Ethnographer Relationship Specialty Start Date End Date Dion Macedo MD [address] [place] [address] PCP - General Family Medicine 06/27/21
--- OUTSIDE RECORDS SUMMARY | 2025-03-17 16:22 | XMS_ITS | Encounter Summary ---
Author Organization [employer] ([place], [place], [place], [place]) Address [address] [place] [address] Care Team Providers Care Wort Extractor Name Role Phone Dion Macedo MD Primary Care Provider Encounter Details Date Type Department Care Team (Late st Contact Info) Description 08/08/2018 Transcribed Document [facility] [place] Family Medicine [address] [place] [address] ProviderMarkos MD [address] [place], [place] [id number] Social History Tobacco Use Types Packs/Day Years Used Date Smoking Tobacco: Never Assessed Sex and Gender Information Value Date Recorded Sex Assigned at Male 12/29/2021 5:06 PM CDT Legal Sex Male 1:35 PM CDT Gender Identity Male 12/29/2021 5:06 PM CDT Sexual Orientation Not on file documented as of this encounter Miscellaneous Notes * Cerner Conversion Note - Markos ProviderMD - 08/08/2018 5:00 AM COMPUTER ENGINEERING TECHNICIAN Chart Check - Review Order Profile Entered On: 08/08/2018 5:18 EST Performed On: 08/08/2018 5:00 EST by Sarah Recio Rn-Resource Chart Check Chart Reviewed Date and Time : 08/08/2018 5:18 EST Powerplans Initiated/Discontinued as Appropriate : Yes All Active Orders Reviewed : Yes Sarah Recio, Rn-Resource - 08/08/2018 5:18 EST Electronically signed by Shira [facility] Conversion Wood Heel Flap Rubber Cerner at 10/13/2022 9:18 PM CDT documented in this encounter Plan of Treatment Not on file documented as of this encounter Visit Diagnoses Not on filedocumented in this encounter Care Teams Wort Extractor Relationship Specialty Start Date End Date Dion Macedo MD [address] [place] [address] PCP - General Family Medicine 06/27/21 documented as of this encounter
--- OUTSIDE RECORDS SUMMARY | 2025-03-17 16:22 | XMS_ITS | Encounter Summary ---
Author Organization [employer] ([place], [place], [place], [place]) Address [address] [place] [address] Care Team Providers Care Shipping Support Clerk Name Role Phone Dion Macedo MD Primary Care Provider Encounter Details Date Type Department Care Team (Late st Contact Info) Description 08/06/2018 Transcribed Document [facility] [place] [facility] [place] [address] ProviderMarkos MD [address] [place], [place] [phone] Social History Tobacco Use Types Packs/Day Years Used Date Smoking Tobacco: Never Assessed Sex and Gender Information Value Date Recorded Sex Assigned at Male 12/29/2021 5:06 PM CDT Legal Sex Male 1:35 PM CDT Gender Identity Male 12/29/2021 5:06 PM CDT Sexual Orientation Not on file documented as of this encounter Miscellaneous Notes * Cerner Conversion Note - Markos Kebede MD - 08/06/2018 1:54 PM OPERATING ROOM SCHEDULER Patient: OMERO DOZIER Age: 82 years Sex: Male : 1935 Associated Diagnoses: None Author: NIKO OCONNOR MD-INT Basic Information The patient is an 82-year-old gentleman with history of following chronic stable conditions CAD, hyperlipidemia, hypertension, hypothyroidism, BPH, 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 Patient presents on 08/03/2018 to [facility] emergency room complaining of posterior rib-trunk [...] pt c/o pain that is rated as 2-3 on scale of 1-10, with out radiation [...] as documented in history of present illness. Gastrointestinal: Abdominal pain: Characterized as ( Now [...] Ordered Astelin 137 mcg/inh nasal spray: 2 Birney, Nasal, BID BD Lactinex oral granule: 1 Packet, Oral, BID DuoNeb 0.5 mg-2.5 mg/3 mL inhalation solution: 3 mL, Nebulized Inhalation, RT_Q4H, PRN: Dyspnea Lovenox: 40 mg, SubCutaneous, [id number] Milk of Magnesia 8% oral suspension: 30 mL, Oral, Daily, PRN: Constipation NORepinephrine injection 4 mg + NaCl 0.9% for drip 250 mL: Titrate, IntraVENous Normal Saline 1,000 mL: 150 mL/Hr, IntraVENous Normal Saline Flush: 10 mL, IV Push, See Comment, PRN: IV Use Pepcid: 20 mg, Oral, Daily Tylenol: 650 mg, Oral, Q4H, PRN: Pain (Mild 1-3) Zofran: 4 mg, IV Push, Q4H, PRN: Nausea Zosyn + Sodium Chloride 0.9% intravenous solution 100 mL: 3.375 Gram, 33.33 mL/Hr, IV Piggyback, Q6HInt docusate sodium: 100 mg, Oral, BID guaiFENesin: 200 mg, PEG Tube, Q6H, PRN: Congestion loratadine: 5 mg, Oral, Daily morphine: 2 mg, IV Push, Q4H, PRN: Pain (Severe 7-10) Documented Medications Documented Benadryl 25 mg oral capsule: 1 Cap, Oral, At Bedtime, PRN: insomnia, 30 Cap, 0 Refill(s) Flomax 0.4 mg oral capsule: 1 Cap, Oral, At Bedtime hydrOXYzine hydrochloride 50 mg oral tablet: 1 Tab, Oral, At Bedtime, 0 Refill(s) levothyroxine 88 mcg (0.088 mg) oral tablet: 1 Tab, Oral, Daily, 30 Tab, Medications (16) Active Scheduled: (7) azelastine 137 mcg/spray nasal 30 mL 2 Birney, Nasal, BID docusate sod 100 mg/10 mL liq 100 mg 10 mL, Oral, BID enoxaparin 40 mg/0.4 mL inj 40 mg 0.4 mL, SubCutaneous, [id number] famotidine 20 mg tab 20 mg 1 Tab, Oral, Daily lactobacillus granule pkt 1 Packet, Oral, BID loratadine 10 mg tab 5 mg 0.5 Tab, Oral, Daily piperacillin-tazobactam + NaCl 0.9% 100 mL 3.375 Gram, IV Piggyback, Q6HInt Continuous: (2) NaCl 0.9% 1,000 mL 1,000 mL, IntraVENous, 150 mL/Hr NORepinephrine 4 mg + NaCl 0.9% T ITRATE 250 mL 250 mL, IntraVENous PRN: (7) #NaCl 0.9% *FLUSH* inj 10 mL 10 mL, IV Push, See Comment acetaminophen 325 mg/10.15 mL liq 650 mg 20.3 mL, Oral, Q4H albuterol-ipratropium inh 3 mL 3 mL, Nebulized Inhalation, RT_Q4H guaiFENesin 200 mg/10 mL liq 200 mg 10 mL, PEG Tube, Q6H magnesium hydroxide 8% liq 30 mL 30 mL, Oral, Daily morphine 2 mg/1 ml inj 2 mg 1 mL, IV Push, Q4H ondansetron 4 mg/2 mL inj 4 mg 2 mL, IV Push, Q4H Problem list: Medical At risk for sleep apnea / IMO 64431918 / Confirmed BPH - Benign prostatic hypertrophy / SNOMED CT 131947702 / Confirmed CAD - Coronary artery disease / SNOMED CT 1200405901 / Confirmed Hyperlipidemia / SNOMED CT 78188603 / Confirmed Hypertension / SNOMED CT 85710241 / Confirmed Hypothyroid / SNOMED CT 989631010 / Confirmed Malignant carotid body tumor / SNOMED CT 54128434 / Confirmed Pancreatitis / SNOMED CT 194402356 / Confirmed, Active Problems (8) At risk for sleep apnea BPH - Benign prostatic hypertrophy CAD - Coronary artery disease Hyperlipidemia Hypertension Hypothyroid Malignant carotid body tumor Pancreatitis Objective VS/Measurements Vitals Signs (last 24 hrs) Last Charted Minimum Maximum Temp 98.8 (AUG 06 12:36) 98.8 (AUG 06 12:36) 98.6 (AUG 05 15:00) Mon HR 64 (AUG 06 12:36) 60 (AUG 05 15:00) 86 (AUG 05 18:58) Resp Rate 16 (AUG 06 03:27) 16 (AUG 06 03:27) 18 (AUG 05 15:00) SBP H 169 (AUG 06 12:36) H 169 (AUG 06 12:36) H 189 (AUG 05 18:58) DBP 84 (AUG 06 12:36) 84 (AUG 06 12:36) H 103 (AUG 05 23:45) MAP 105 (AUG 06 12:36) 105 (AUG 06 12:36) 159 (AUG 05 18:58) SpO2 L 93 (AUG 06 03:27) L 92 (AUG 05 23:45) 95 (AUG 05 18:58) General: Alert and oriented, Mild distress. Eye: [...] Regular rhythm. Breast: No mass. Gastrointestinal: Soft, Non-distended, Normal bowel sounds, No organomegaly, Tender in the epigastric area but much improved in comparison to initial exam. Genitourinary: No costovertebral angle tenderness. Lymphatics: No lymphadenopathy neck, axilla, groin. Musculoskeletal: Normal range of motion, Normal strength, No tenderness, No swelling, No deformity. Integumentary: Warm, Dry, Nixon. Neurologic: Alert, Oriented, Normal sensory, Normal motor function, No focal deficits, Cranial Nerves II-XII are grossly intact, Gag reflex normal, Normal deep tendon reflexes. Psychiatric: Cooperative, Appropriate mood & affect, Normal judgment, Non-suicidal. Review / Management Results review: Labs (Last four charted values) WBC 6.5 (AUG 06) 7.4 (AUG 05) H 11.0 (AUG 04) 6.5 (AUG 03) HB L 12.7 (AUG 06) L 12.1 (AUG 05) L 13.3 (AUG 04) 14.2 (AUG 03) HCT L 38.0 (AUG 06) L 36.6 (AUG 05) 40.2 (AUG 04) 43.4 (AUG 03) Plt L 106 (AUG 06) L 91 (AUG 05) L 134 (AUG 04) L 136 (AUG 03) Na 143 (AUG 06) 142 (AUG 05) 136 (AUG 04) 136 (AUG 03) K L 3.4 (AUG 06) 4.2 (AUG 05) 5.0 (AUG 04) 4.2 (AUG 03) Cl 110 (B 10) 112 (B 09) 103 (JUL 08) L 101 (AUG 03) CO2 L 22 (B 10) 24 (JUL 09) 24 (JUL 08) 27 (AUG 03) BUN 14 (JUL 10) 18 (JUL 09) H 25 (JUL 08) 21 (AUG 03) Cr L 0.50 (JUL 10) L 0.60 (JUL 09) 0.90 (JUL 08) 0.80 (AUG 03) Glu R 82 (JUL 10) H 116 (JUL 09) H 126 (JUL 08) 95 (AUG 03) Ca 8.5 (JUL 10) L 7.7 (AUG 05) L 8.0 (AUG 04) L 8.3 (AUG 03) Lactic C 2.2 (AUG 03) PT 10.2 (AUG 03) INR 0.9 (AUG 03) PTT 24.1 (AUG 03) AST 28 (AUG 06) 27 (AUG 05) H 102 (JUL 08) 13 (AUG 03) ALT 34 (JUL 10) 45 (JUL 09) H 89 (JUL 08) 20 (AUG 03) ALK P 76 (AUG 06) 70 (AUG 05) 107 (JUL 08) 86 (AUG 03) T Bili H 1.2 (JUL 10) H 1.1 (JUL 09) H 1.4 (JUL 08) 0.5 (AUG 03) PTN L 5.8 (JUL 10) L 5.2 (JUL 09) L 6.1 (JUL 08) 6.8 (AUG 03) ALB L 3.3 (JUL 10) L 2.9 (JUL 09) 3.5 (JUL 08) 4.0 (AUG 03) Lipase 155 (AUG 03) Troponin <0.015 (AUG 03) <0.015 (AUG 03) . Radiology results No Radiology Results Found Impression and Plan #1 multifocal aspiration pneumonia: Confirmed by CT on 08/03/2018. Patient was admitted to hospital ICU status on 08/03/2018 and initiated on Zosyn and Flagyl IV therapy. Patient will require 7 days of IV antibiotics therapy as recommended by pulmonary consultants. New problem, controlled, unstable #2 sepsis: With hypotension requiring pressors at time of admission, new problem, controlled, stable #2 chest pain related to diagnosis #1. Morphine was administered when necessary to improve patient's discomfort. New problem, stable, controlled #3 hypertension with hypotension at time of admission, blood pressure will be monitored closely and therapy adjusted to optimize [...] bolus feeding however the frequency of feeding will be increased from 4 times a day to 6 times a day to avoid stomach distention and possible increased risk for proble aspiration. New problem, controlled, stable I have reviewed patient's past medical history, I have personally reviewed patient's laboratory data and CT results. I ordered labs and IV antibiotics for [...] may contain sound alike errors and omissions. Electronically signed by Addi Silva Conversion Water Pollution Control Technician Cerner at 10/13/2022 9:38 PM CDT documented in this encounter Plan of Treatment Not on file documented as of this encounter Visit Diagnoses Not on filedocumented in this encounter Care Teams Shipping Support Clerk Relationship Specialty Start Date End Date Dion Macedo MD [address] [place] [address] PCP - General Family Medicine 06/27/21 documented as of this encounter
--- OUTSIDE RECORDS SUMMARY | 2025-03-17 16:22 | XMS_ITS | Encounter Summary ---
Author Organization [employer] ([place], [place], [place], [place]) Address [address] [place] [address] Care Team Providers Care Loader Operator Supervisor Name Role Phone Dion Macedo MD Primary Care Provider Encounter Details Date Type Department Care Team (Late st Contact Info) Description 08/04/2018 Transcribed Document [facility] [place] Family Medicine [address] [place] [address] ProviderMarkos MD [address] [place], [place] [id number] Social History Tobacco Use Types Packs/Day Years [...] Markos Kebede MD - 08/04/2018 5:00 PM MILK RECEIVER TANK TRUCK ED Discharge Entered On: 08/04/2018 20:47 EST Performed On: 08/04/2018 17:00 EST by Sarah Barron RN Discharge Process Patient Disposition : Admit/Observe Personal Belongings With Patient : Yes IV Discontinued : No Sarah Barron RN - 08/04/2018 20:46 EST Admission, ED Nurse Report Accepted By : called per Tony Barrientos RN Nurse Report Acceptance Time : 08/04/2018 16:30 EST `Nurse Report (Hand Off) : Called Fluids/Drips Continued on Admission : Yes Fluids/Drips Continued on Admission, Comment : antibiotic, normal saline Mode Of Departure : Sarah Joseph, BAO - 08/04/2018 20:46 EST Electronically signed by Shira, [facility] Conversion Marble Supervisor Cerner at 10/13/2022 9:25 PM CDT documented in this encounter Plan of Treatment Not on file documented as of this encounter Visit Diagnoses Not on filedocumented in this encounter Care Teams Loader Operator Supervisor Relationship Specialty Start Date End Date Dion Macedo MD [address] [place] [address] PCP - General Family Medicine 06/27/21 documented as of this encounter
--- OUTSIDE RECORDS SUMMARY | 2025-03-17 16:22 | XMS_ITS | Encounter Summary ---
Author Organization [employer] ([place], [place], [place], [place]) Address [address] [place] [address] Care Team Providers Care Preassembler Printed Circuit Board Name Role Phone Dion Macedo MD Primary Care Provider Encounter Details Date Type Department Care Team (Late st Contact Info) Description 08/03/2018 Transcribed Document [facility] Family Medicine [address] [place] [address] ProviderMarkos MD [address] [place], [place] [phone] Social History Tobacco Use Types Packs/Day Years Used Date Smoking Tobacco: Never Assessed Sex and Gender Information Value Date Recorded Sex Assigned at Male 12/29/2021 5:06 PM CDT Legal Sex Male 1:35 PM CDT Gender Identity Male 12/29/2021 5:06 PM CDT Sexual Orientation Not on file documented as of this encounter Miscellaneous Notes * Cerner Conversion Note - Markos ProviderMD - 08/03/2018 7:38 PM SENIOR SYSTEMS DEVELOPER Pain Assessment Entered On: 08/03/2018 20:36 EST Performed On: 08/03/2018 20:36 EST by Tawana Wetzel RN Intervention Information: morphine Performed by Tawana Wetzel RN on 08/03/2018 20:03:00 EST morphine,2mg IV Push,Peripheral Line 1 Pain Assessment Pain Scale Used : 0-10 Scale Tawana Wetzel RN - 08/03/2018 20:36 EST Pain Scale Intensity : 3 Tawana Wetzel RN - 08/03/2018 20:36 EST Image 4 - Images currently included in the form version of this document have not been included in the text rendition version of the form. documented in this encounter Plan of Treatment Not on file documented as of this encounter Visit Diagnoses Not on filedocumented in this encounter Care Teams Preassembler Printed Circuit Board Relationship Specialty Start Date End Date Dion Macedo MD [address] [place] [address] PCP - General Family Medicine 06/27/21 documented as of this encounter
--- OUTSIDE RECORDS SUMMARY | 2025-03-17 16:22 | XMS_ITS | Encounter Summary ---
Author Organization [employer] ([place], [place], [place], [place]) Address [address] [place] [address] Care Team Providers Care Marine Diesel Technician Name Role Phone Dion Macedo MD Primary Care Provider Encounter Details Date Type Department Care Team (Late st Contact Info) Description 08/03/2018 Transcribed Document [facility] [place] [address] [place] [address] ProviderMarkos MD [address] [place] [phone] Social History Tobacco Use Types Packs/Day Years [...] - Markos ProviderMD - 08/03/2018 9:17 PM TESTING COORDINATOR Height and Weight, Routine Entered On: 08/04/2018 17:25 EST Performed On: 08/03/2018 21:17 EST by Rosie Luo Rn-Weekend Height and Weight, Routine Routine Weight Entry Format : [place] Routine Weight, Pounds : 161 lb Routine Weight, Ounces : 0 oz Routine Weight Calculation : 73.18 kg Height Source : Stated Height Entry Format : [place] Height, Feet : 5 ft Height, Inches : 8 Inch Clinical Height : 172.72 cm Body Surface Area (BSA), Routine : 1.87 m2 Body Mass Index (BMI), Routine : 24.53 kg/m2 Rosie Luo, Rn-Weekend - 08/04/2018 17:24 EST documented in this encounter Plan of Treatment Not on file documented as of this encounter Visit Diagnoses Not on filedocumented in this encounter Care Teams Marine Diesel Technician Relationship Specialty Start Date End Date Dion Macedo MD [address] [place] [address] PCP - General Family Medicine 06/27/21 documented as of this encounter
--- OUTSIDE RECORDS SUMMARY | 2025-03-17 16:22 | XMS_ITS | Encounter Summary ---
Author Organization [employer] ([place], [place], [place], [place]) Address [address] [place] [address] Care Team Providers Care Filler Sifter Machine Name Role Phone Dion Macedo MD Primary Care Provider Encounter Details Date Type Department Care Team (Late st Contact Info) Description 08/04/2018 Transcribed Document [facility] [place] [address] [place] [address] ProviderMarkos MD [address] [place], [place] [phone] Social History Tobacco Use Types Packs/Day Years Used Date Smoking Tobacco: Never Assessed Sex and Gender Information Value Date Recorded Sex Assigned at Male 12/29/2021 5:06 PM CDT Legal Sex Male 1:35 PM CDT Gender Identity Male 12/29/2021 5:06 PM CDT Sexual Orientation Not on file documented as of this encounter Miscellaneous Notes * Cerner Conversion Note - Markos ProviderMD - 08/04/2018 8:00 AM CONTRACT PROCESSOR Nutrition Assessment Entered On: 08/04/2018 13:13 EST Performed On: 08/04/2018 13:13 EST by SILAS ZAVALA RD, LD Nutrition Assessment Current Nutrition Regimen Comment : 08/04: Rec'd consult for TF mgmt. Pt on home TF via PEG. States he boluses 4 cans of TwoCalHN daily. would like pt to have continuous TF while in hospital. Spoke with RN and pt about plan Dx: Aspiration, acute resp failure PMH: PEG for aspiration, carotid tumor s/p rxt, CAD, HTN Meds: colace, NS @ 150ml/hr Labs: BUN 25, LAC 2.2 (08/03), WBC 11.0 Skin: no breakdown, PEG GI: no bm noted Diet: NPO Ht: 68 in Wt: 160# (08/04) BMI: 24.3 IBW: 154# Estimated Needs (25 kcal/kg; 1 gm pro/kg): 5351-0119 kcal; 72 gm pro SILAS ZAV[address], - 08/04/2018 13:37 EST Nutrition Assessment Reason : Consult, Nutrition support SILAS ZAVALA RD, - 08/04/2018 13:13 EST Nutrition Diagnoses Oral or Nutrition Support Intake : Inadequate oral intake Oral or Nutr Support Intake Related To : dysphagia Oral or Nutr Support Intake Evidenced by : NPO, need for EN Oral or Nutrition Support Intake Status : Active SILAS ZAVALA RD, - 08/04/2018 13:37 EST Nutrition Interventions Enteral/Parenteral Nutrition : Initiate enteral nutrition SILAS ZAVALA RD, - 08/04/2018 13:37 EST Monitoring/Evaluation Energy Intake : Total energy intake Enteral Nutrition Intake : Tube Feeding Tolerance Protein Intake : Total protein Weight Status : Weight Maintanence SILAS ZAVALA RD, - 08/04/2018 13:37 EST Nutrition Recommendations Dietitian Recommendations : 1. Initiate TwoCalHN @ 10ml/hr and advance as tolerated to goal rate @ 40ml/hr (Provides 1760 kcal; 73 gm pro). FW per MD Goal: meet est needs 2. Weigh pt 2x weekly Goal: no sig weight changes High Risk- RD will f/up 2-3x/ week SILAS ZAVALA RD, - 08/04/2018 13:37 EST documented in this encounter Plan of Treatment Not on file documented as of this encounter Visit Diagnoses Not on filedocumented in this encounter Care Teams Filler Sifter Machine Relationship Specialty [place] [address] [place] [address] PCP - General Family Medicine 06/27/21 documented as of this encounter
--- OUTSIDE RECORDS SUMMARY | 2025-03-17 16:22 | XMS_ITS | Encounter Summary ---
Author Organization [employer] ([place], [place], [place], [place]) Address [address] [place] [address] Care Team Providers Care Clinic Lead Name Role Phone Dion Macedo MD Primary Care Provider Encounter Details Date Type Department Care Team (Late st Contact Info) Description 08/07/2018 Transcribed Document [facility] [place] [address] [place] [address] ProviderMarkos MD [address], [place] [id number] Social History Tobacco Use Types Packs/Day Years Used Date Smoking Tobacco: Never Assessed Sex and Gender Information Value Date Recorded Sex Assigned at Male 12/29/2021 5:06 PM CDT Legal Sex Male 1:35 PM CDT Gender Identity Male 12/29/2021 5:06 PM CDT Sexual Orientation Not on file documented as of this encounter Miscellaneous Notes * Cerner Conversion Note - Historical ProviderMD - 08/07/2018 5:00 AM VENTILATING ENGINEER Height and Weight, Routine Entered On: 08/07/2018 5:07 EST Performed On: 08/07/2018 5:00 EST by Semaj Nicolas [facility] Height and Weight, Routine Routine Weight Source : Bed scale Routine Weight Entry Format : Metric Routine Weight, Kilograms : 74.8 kg(Converted to: 164 lb 14 oz) Routine Weight Calculation : 74.8 kg Height Source : Stated Height Entry Format : [place] Height, Feet : 5 ft Height, Inches : 8 Inch Clinical Height : 172.72 cm Body Surface Area (BSA), Routine : 1.88 m2 Body Mass Index (BMI), Routine : 25.07 kg/m2 Semaj Nicolas [facility] - 08/07/2018 5:07 EST documented in this encounter Plan of Treatment Not on file documented as of this encounter Visit Diagnoses Not on filedocumented in this encounter Care Teams Clinic Lead Relationship Specialty Start Date End Date Dion Macedo MD [address] [place] [address] PCP - General Family Medicine 06/27/21 documented as of this encounter
--- OUTSIDE RECORDS SUMMARY | 2025-03-17 16:22 | XMS_ITS | Encounter Summary ---
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 Please contact the Patient Resource Center at [phone] if you need assistance establishing a primary care physician in the future. With: Address: When: LOUIS MUKHERJEE HALEY [address] [place] [address], [address] [place] [address] Business (1) Within 2 to 3 days Patient Education Materials: Allergies: No Known Allergies Medication Information: Home Meds Display diphenhydrAMINE (Benadryl 25 mg oral capsule) 1 Cap, Oral, Cap, At Bedtime, PRN insomnia, # 30 Cap, 0 Refill(s) hydrOXYzine (hydrOXYzine hydrochloride 50 mg oral tablet) 1 Tab, Oral, At Bedtime, 0 Refill(s) Laboratory or Other Results This Visit (last charted value for your 08/03/2018 visit) Hematology 08/04/18 04:00:00 WBC: 11.0 K/uL -- Normal range between ( 4.2 and 9.1 ) RBC: 3.93 Million/uL -- Normal range between ( 4.63 and 6.08 ) Hct: 40.2 % -- Normal range between ( 40.1 and 51.0 ) Hgb: 13.3 g/dL -- Normal range between ( 13.5 and 17.3 ) Platelet Count: 134 K/uL -- Normal range between ( 163 and 369 ) MCH: 33.8 pg -- Normal range between ( 25.6 and 32.2 ) MCHC: 33.1 Gram/dL -- Normal range between ( 32.2 and 36.5 ) MCV: 102.3 fL -- Normal range between ( 79.0 and 94.8 ) Slide Review: No Eos %: 0.0 % -- Normal range between ( 0.0 and 7.0 ) [place] #: 1.23 K/uL -- Normal range between ( 0.16 and 1.00 ) Eos #: 0.00 x10(3)/uL -- Normal range between ( 0.00 and 0.80 ) [place] %: 11.1 % -- Normal range between ( 3.0 and 9.0 ) Baso %: 0.1 % -- Normal range between ( 0.0 and 1.5 ) Baso #: 0.01 x10(3)/uL -- Normal range between ( 0.00 and 0.20 ) RDW: 13.4 % -- Normal range between ( 11.6 and 14.4 ) Neut %: 85.1 % -- Normal range between ( 34.0 and 71.0 ) Neut #: 9.40 K/uL -- Normal range between ( 1.56 and 6.13 ) Lymph %: 3.2 % -- Normal range between ( 19.3 and 53.1 ) Lymph #: 0.35 x10(3)/uL -- Normal range between ( 1.00 and 3.90 ) MPV: 11.3 fL -- Normal range between ( 9.4 and 12.4 ) IG#: 0.05 x10(3)/uL -- Normal range between ( 0.00 and 0.05 ) IG%: 0.50 % -- Normal range between ( 0.00 and 0.60 ) Microbiology 08/04/18 00:22:00 Influenza A: Not Detected Mycoplasma pneumoniae by PCR: Not Detected Respiratory Syncytial Virus: Not Detected Influenza B: Not Detected Influenza A H3: Not Detected Parainfluenza 3: Not Detected Influenza A H1: Not Detected Rhinovirus/Enterovirus: Not Detected Human Metapneumovirus: Not Detected Parainfluenza 1: Not Detected Parainfluenza 2: Not Detected Adenovirus: Not Detected Parainfluenza 4: Not Detected Coronavirus HKU1: Not Detected Coronavirus NL63: Not Detected Coronavirus OC43: Not Detected Coronavirus 229E: Not Detected Influenza A 2008 H1N1: Not Detected 08/03/18 20:02:00 Influenza A+B Antigen: See Result General Chemistry 08/04/18 04:00:00 Creatinine Level: 0.90 mg/dL -- Normal range between ( 0.70 and 1.30 ) Sodium Level: 136 mmol/L -- Normal range between ( 136 and 146 ) Potassium Level: 5.0 mmol/L -- Normal range between ( 3.5 and 5.1 ) Chloride Level: 103 mmol/L -- Normal range between ( 102 and 112 ) Carbon Dioxide Level: 24 mmol/L -- Normal range between ( 23 and 33 ) Anion Gap: 14 -- Normal range between ( 9 and 20 ) Bilirubin Total: 1.4 mg/dL -- Normal range between ( 0.1 and 1.0 ) A/G Ratio: 1.3 -- Normal range between ( 1.1 and 2.5 ) ALT: 89 Units/Liter -- Normal range between ( 16 and 61 ) AST: 102 Units/Liter -- Normal range between ( 0 and 31 ) Globulin: 2.6 Gram/dL -- Normal range between ( 1.5 and 4.5 ) Alk Phos: 107 Units/Liter -- Normal range between ( 27 and 136 ) Bun/Creatinine: 27.8 -- Normal range between ( 8.0 and 20.0 ) Calcium Level: 8.0 mg/dL -- Normal range between ( 8.4 and 10.1 ) eGFR : >60 mL/min/1.73m2 eGFR NonAfrican: >60 mL/min/1.73m2 Glucose Level: 126 mg/dL -- Normal range between ( 74 and 106 ) Blood Urea Nitrogen: 25 mg/dL -- Normal range between ( 7 and 22 ) Protein Total: 6.1 Gram/dL -- Normal range between ( 6.4 and 8.3 ) Albumin Level: 3.5 Gram/dL -- Normal range between ( 3.4 and 4.8 ) 08/03/18 23:27:00 Lipase Level: 155 Units/Liter -- Normal range between ( 73 and 393 ) 08/03/18 22:13:00 Lactic Acid Level: 2.2 mmol/L -- Normal range between ( 0.4 and 2.0 ) Cardiac Specific Markers 08/03/18 23:13:00 Troponin I Ultra: <0.015 ng/mL -- Normal range between ( 0.015 and 0.045 ) Coagulation 08/03/18 20:02:00 INR: 0.9 -- Normal range between ( 0.9 and 1.1 ) PTT: 24.1 Second(s) -- Normal range between ( 22.0 and 32.0 ) PT: 10.2 Second(s) -- Normal range between ( 9.6 and 12.0 ) Infectious Disease 08/04/18 00:22:00 Chlamydophila pneumoniae DNA PCR: Not Detected B. pertussis DNA: Not Detected Computed Tomography 08/03/18 23:47:12 CT Abdomen Pelvis W: CT Abdomen Pelvis W 08/03/18 20:04:15 CT Abdomen Pelvis WO: CT Abdomen Pelvis WO 08/03/18 20:00:48 CT Chest WO: CT Chest WO Diagnostic Radiology 08/03/18 19:50:00 CR Chest 1 Vw Portable: CR Chest 1 Vw Portable Medication Comment: Procedures: Laboratory Orders Name Status AutoDiff Completed AutoDiff Completed C BLOOD InProcess C BLOOD InProcess C SPUTUM Ordered CBCD Completed CBCD Completed CMP Completed CMP Completed LAC Completed LIPASE Completed PT Completed PTT Completed RAPID FLU Completed RESPPNLPCR Completed TROPIULT Completed TROPIULT Completed Radiology Orders Name Status CR Chest [address] Abdomen Pelvis W Completed CT Abdomen Pelvis WO Completed CT Chest WO Completed Cardiology Orders Name Status ECG Completed ECG Completed This statement is to verify that OMERO DOZIER was seen at [facility] Emergency Department on ,08/04/2018 20:47:48. This is not a work excuse, if a work excuse was needed it will be in addition to this statement as a separate form. IMPORTANT: The examination and treatment you have received in the Emergency Department has been done to provide an appropriate evaluation and stabilizing treatment on an emergency basis only. Given the limited resources, it is not meant to be a substitute for complete medical care. The follow-up doctor you named will receive a copy of your records and all test reports. IT IS IMPORTANT THAT YOU SCHEDULE A FOLLOW-UP APPOINTMENT AND ARE RE-EVALUATED. You should report any new complaints, symptoms, or remaining problems at that time. IT IS IMPOSSIBLE FOR THE EMERGENCY DEPARTMENT TO RECOGNIZE AND TREAT ALL ELEMENTS OF INJURY OR ILLNESS IN A SINGLE VISIT. If you have been referred to a specialist physician, it means that we believe you may have a condition that requires the expertise of a specialist. KEEP IN MIND THAT THE SPECIALIST HAS HIS/HER OWN OFFICE POLICIES WHICH MAY REQUIRE PROPER INSURANCE OR PAYMENT UP FRONT BEFORE THE SPECIALIST WILL SEE YOU. It is your responsibility to call the specialist physician to make an appointment. We do not have the ability to identify specialists/physicians that work with specific insurance companies. Please be advised that all financial charges or billing practices are determined by that practice, not the hospital. If your insurance company requires that you see a specialist from their approved list, it is your responsibility to contact your insurance company to make those arrangements. It is also your responsibility to follow any other requirements of your insurance company necessary to obtain coverage for claims submitted. If you had special tests, such as EKG???s or X-rays, the interpretation of your tests given to you by the Emergency Dept. Physician is a preliminary report. Some fractures and illnesses fail to show up on preliminary tests. We will review them again within 24-48 hours. We will call you if there are any new suggestions. If your symptoms continue notify your physician. After you leave, you should follow the instructions below. In all events, you may obtain a copy of your Emergency Department visit from Medical Records. Please call to be directed to this department. We will bill your insurance; however, you are responsible today for any co-pay amounts. You will receive a separate bill for any services you may have received including: emergency, radiology, or pathology physicians. Please be sure we have an accurate contact phone number and address, should we need to call you for any reason. CIGARETTE SMOKING: The facts are clear; cigarette smoking will shorten your life. Smoking can cause many illnesses along the way. As a healthcare provider, [facility] recommends that you stop smoking. Assistance with quitting is available by contacting 8-539-JLRG-NOW. This is a free resource providing counseling, support, and referral. Or you may contact your personal physician. As part of your treatment plan, [...] cramping, rapid heartbeat, difficulty sleeping, and nervousness. The home medications listed are only as accurate as the information you provided. Please continue taking all of your medications prescribed by your Primary Care Provider unless specifically told to change or discontinue the medication. Please direct any questions regarding your home medications to your Primary Care Provider. YOU ARE THE MOST IMPORTANT FACTOR IN YOUR RECOVERY. ?? Follow your instructions carefully ?? Take your medicines as prescribed ?? Most important, see a provider as discussed. If you do not have a provider, we can provide a list of clinics Confidential This message and accompanying documents are covered by Electronic Communications Privacy Act 18 U.S.C. ???Sections 7962-0800,?? and contain information intended for the specified individual(s) only. This information is confidential. If you are not the intended recipient or an agent responsible for delivering it to the intended recipient, you are hereby notified that you have received the document in error and that any review, dissemination, copying, or the taking of any action based on the contents of this information is strictly prohibited. If you have received this communication in error, please notify us immediately by email, and delete the original message. 4 WAYS TO GET AHEAD OF SEPSIS [...] Fibrillation (irregular heartbeat) Family history of stroke Acknowledgment I hereby acknowledge receipt of these instructions and information above. I understand that I have received Emergency Treatment only which is not a substitute for complete medical care and acknowledge that all of my medical problems may not be known, identified, or treated prior to my release. I UNDERSTAND THE NEED TO ARRANGE FOLLOW-UP CARE WITH THE PHYSICIAN INDICATED. I UNDERSTAND THAT I SHOULD CONTACT MY PHYSICIAN IMMEDIATELY OR RETURN TO THE EMERGENCY DEPARTMENT IF MY CONDITION WORSENS, FAILS TO IMPROVE, OR NEW SYMPTOMS APPEAR. Vital Signs B/P PULSE RESP. RATE TEMPERATURE PULSE OX Signature of Emergency Provider Date / Time Signature of Emergency Nurse Date / Time Reminder: Be sure to sign up for the [email or web address] [facility] patient portal, which gives you 17/01 access to your medical information ??? including these discharge instructions ??? using your computer, smartphone, or tablet. Just go to [employer] to get started. Questions? Call . Acknowledgment I hereby acknowledge receipt of these instructions and information above. I understand that I have received Emergency Treatment only which is not a substitute for complete medical care and acknowledge that all of my medical problems may not be known, identified, or treated prior to my release. I UNDERSTAND THE NEED TO ARRANGE FOLLOW-UP CARE WITH THE PHYSICIAN INDICATED. I UNDERSTAND THAT I SHOULD CONTACT MY PHYSICIAN IMMEDIATELY OR RETURN TO THE EMERGENCY DEPARTMENT IF MY CONDITION WORSENS, FAILS TO IMPROVE, OR NEW SYMPTOMS APPEAR. Signature of Patient / Responsible Person Date / Time Please provide a telephone number where you can be reached. The best time to call is between: It is permissable to leave a message if no answer: Yes____ No____ Nurse Providing Instructions: Emergency Physician: documented in this encounter Plan of Treatment Not on file documented as of this encounter Visit Diagnoses Not on filedocumented in this encounter Care Teams Livestock Broker Relationship Specialty Start Date End Date Dion Macedo MD [address] [id number] PCP - General Family Medicine 06/27/21 documented as of this encounter
--- OUTSIDE RECORDS SUMMARY | 2025-03-17 16:22 | XMS_ITS | Encounter Summary ---
Author Organization [employer] ([place], [place], [place], [place]) Address [address] [place] [address] Care Team Providers Care Customer Complaint Clerk Name Role Phone Dion Macedo MD Primary Care Provider Encounter Details Date Type Department Care Team (Latest Contact Info) Description 01/25/2025 Travel Social History Tobacco Use Types Packs/Day Years [...] Date Amilcar rded Speak language other than Samoan at home Not on file 07/08/2023 Want [...] on filedocumented in this encounter Care Teams Customer Complaint Clerk Relationship Specialty Start Date End Date Dion Macedo MD [address] [place] [address] PCP - General Family Medicine 06/27/21 documented as of this encounter
--- OUTSIDE RECORDS SUMMARY | 2025-03-17 16:22 | XMS_ITS | Clinical Summary ---
Author Organization [employer] ([place], [place], [place], [place]) Address [address] [place] [address] Care Team Providers Care Spot Billing Clerk Name Role Phone Dion Macedo MD Primary Care Provider Encounters Date Type Department Care Team Description 01/25/2025 11:00 AM EDT - 01/25/2025 11:59 PM EDT Hospital Encounter [facility] [address] [place] [address] Discharge Disposition: Home or Self Care 01/25/2025 Travel from Last 3 Months Social History Tobacco [...] Date Amilcar rded Speak language other than Cuban at home Not on file 07/08/2023 Want [...] Orientation Not on file Plan of Treatment Health Maintenance Due Date Last Done Comments Depression Screening (12+) 1947 Tobacco Cessation Counseling and Screening (12+) 1947 Shingles Vaccine (Zoster) (1 of 2) 12/01/1987 Medicare Initial AWV G0438 11/27/2003 Respiratory Syncytial Virus (RSV) Adult or (1 - 1-dose 75+ series) 2012 DTAP/TDAP/TD VACCINES (4 - T d or Tdap) 10/26/2023 10/25/2013, 10/25/2013, 10/11/2013 Falls Risk Screening 06/27/2024 COVID-19 VACCINE (2 - 2024-2 6 season) 2025 09/20/2020 Influenza Vaccine (#1) 2025 , 04/11/2020, 04/11/2020, Additional history exists Pneumococcal 50+ years Completed 10/27/2018, 2013 Insurance [facility] MEDICARE ADVANTAGE Care Teams Spot Billing Clerk Relationship Specialty Start Date End Date Dion Macedo MD [address] [place] [address] PCP - General Family Medicine 06/27/21
--- OUTSIDE RECORDS SUMMARY | 2025-03-17 16:22 | XMS_ITS | Encounter Summary ---
Author Organization [employer] ([place], [place], [place], [place]) Address [address] [place] [address] Care Team Providers Care Primary Care Provider Name Role Phone Dion Macedo MD Primary Care Provider Encounter Details Date Type Department Care Team (Late st Contact Info) Description 08/05/2018 Transcribed Document [facility] [place] Family Medicine [address] [place] [address] ProviderMarkos MD [address] [place], [place] [id number] Social History Tobacco Use Types Packs/Day Years Used Date Smoking Tobacco: Never Assessed Sex and Gender Information Value Date Recorded Sex Assigned at Male 12/29/2021 5:06 PM CDT Legal Sex Male 1:35 PM CDT Gender Identity Male 12/29/2021 5:06 PM CDT Sexual Orientation Not on file documented as of this encounter Miscellaneous Notes * Cerner Conversion Note - Markos Kebede MD - 08/05/2018 1:58 AM DUPLICATION SPECIALIST Event Note Entered On: 08/05/2018 2:01 EST Performed On: 08/05/2018 1:58 EST by Lea José Rn Event Note Event Date/Time : 08/04/2018 20:13 EST Description of Event : Spoke with pharmacy concerning the patient's medications needing to be placed through his PEG tube and medications needing to be changed to liquid or a form that could be crushed and placed through PEG. Lea José Rn - 08/05/2018 1:58 EST Electronically signed by Shira [facility] Conversion Psychiatric Lpn Cerner at 10/13/2022 9:39 PM CDT documented in this encounter Plan of Treatment Not on file documented as of this encounter Visit Diagnoses Not on filedocumented in this encounter Care Teams Primary Care Provider Relationship Specialty Start Date End Date Dion Macedo MD [address] [place] [address] PCP - General Family Medicine 06/27/21 documented as of this encounter
--- OUTSIDE RECORDS SUMMARY | 2025-03-17 16:22 | XMS_ITS | Encounter Summary ---
Author Organization [employer] ([place], [place], [place], [place]) Address [address] [place] [address] Care Team Providers Care Senior Financial Analyst Name Role Phone Dion Macedo MD Primary Care Provider Encounter Details Date Type Department Care Team (Late st Contact Info) Description 08/03/2018 Transcribed Document [facility] [place] Medicine [facility] [place] [address] ProviderMarkos MD [address] [place], [place] [address] Social History Tobacco Use Types Packs/Day Years Used Date Smoking Tobacco: Never Assessed Sex and Gender Information Value Date Recorded Sex Assigned at Male 12/29/2021 5:06 PM CDT Legal Sex Male 1:35 PM CDT Gender Identity Male 12/29/2021 5:06 PM CDT Sexual Orientation Not on file documented as of this encounter Miscellaneous Notes * Cerner Conversion Note - Markos ProviderMD - 08/03/2018 9:12 PM SHAREPOINT ANALYST Admission History, Adult Entered On: 08/04/2018 17:20 EST Performed On: 08/03/2018 21:12 EST by Rosie Luo Rn- Advance Directive Patient has Advance Directive *Q : Yes, Advance Directive on file Advance Directive Type : Living will Copy Advance Directive Verified/on Chart : No Rosie Luo Rn- - 08/04/2018 17:06 EST Anesthesia/Transfusion History Family History of Anesthesia Reaction : No prior transfusion(s) Transfusion History : Prior anesthesia without reaction Family History of Anesthesia Reaction : None Nasreen Mcmillan RN - 08/06/2018 15:21 EST Functional Assessment Living Situation : Home Patient Lives With : Spouse Mobility Assistance Prior to Admission : Independent MANRIQUEZ Hx Falls Immediate/Within 3 Months : No Current Home Treatments : None Rosie Luo Rn- - 08/04/2018 17:06 EST General Info Mode of Arrival on Unit : Ambulatory Legal Guardian : Friend Want Family/Rep/Phys Notified of Admit : No Emergency Contact #1 : Ceci Lovelace Emergency Contact #1 Emergency Contact #1 Relationship : Daughter Emergency Contact #2 : n/a Emergency Contact #2 Phone Number : n/a Emergency Contact #2 Relationship : n/a Chief Complaint : pt via lobby for sudden onset L side pain and shaking x1 hr. Primary Language : Egyptian Preferred Communication Mode : Verbal Communication Barrier : None Rosie Luo Rn- - 08/04/2018 17:06 EST Fall Risk Scales ABCs Fall Injury Risk Identification : Age, Bones, Coagulation ABC Fall Injury Risk : Moderate to high injury risk MANRIQUEZ Hx Falls Immediate/Within 3 Months : No Manriquez Secondary Diagnosis : Yes MANRIQUEZ Use of Ambulatory Aid : None MANRIQUEZ IV Therapy or IV Access : Yes Manriquez Gait/Transferring : Normal, bedrest, immobile Manriquez Mental Status : Oriented to own ability Manriquez Fall Risk Score : 35 MANRIQUEZ Fall Scale Risk Level : 25-45 Medium Risk [place] Fall Interventions : Adequate lighting, Bed in low position, Call device within reach, Hourly comfort/safety rounds, Non-slip footwear, Personal items within reach, Room free of clutter/spills, Upper side-rails up, Wheels locked, Wires/Cords secured Rosie Luo Rn- - 08/04/2018 17:06 EST Health Histories Smoking Status : Never (less than 100 in lifetime; none in last 30 days) Smokeless Tobacco Status : Never Rosie Luo Rn- - 08/04/2018 17:06 EST Social History (As Of: 08/04/2018 17:20:01 EST) Tobacco: Use in Last 12 Months: No. Smoking Status Former smoker. Years of Use: 20. Packs/Tins Daily: 2. Used Tobacco, but Quit Yes. Last Used: 30 years ago. (Last Updated: 03/13/2014 02:50:19 EDT by CONNER KEENE PA) Alcohol: Comments: 11/07/2013 21:49 - DENZEL CHAKRABORTY RN: on occasion (Last Updated: 11/07/2013 21:49:14 EDT by DENZEL CHAKRABORTY RN) Use in Last 12 Months: Yes. Comments: 05/02/2014 10:20 - PAGE ZAZUETA PA-C: drinks 1 beer every 3 days (Last Updated: 05/02/2014 10:20:45 EST by PAGE ZAZUETA PA-C) Substance Abuse: Drug Use Hx: No. Use in Last 12 Months: No. (Last Updated: 03/13/2014 02:50:03 EDT by CONNER KEENE PA) Nutrition/Health: Caffeine intake amount: moderate. (Last Updated: 03/13/2014 02:49:57 EDT by CONNER KEENE PA) Home/Environment: Lives with Spouse. Living situation: Home/Independent. (Last Updated: 10/11/2013 16:02:45 EDT by CHIQUITA URBAN PA-C) Height and Weight, Clinical Dosing Height Source : Stated Height Entry Format : [place] Height, Feet : 5 ft(Converted to: 152 cm, 60 Inch) Height, Inches : 8 Inch(Converted to: 0 ft 8 Inch, 20.32 cm) Clinical Height : 172.72 cm Weight Source : Stated [place] Body Weight : 67 kg Rosie Luo Rn- - 08/04/2018 17:06 EST Estimated Weight Type of Weight Measurement Est : [place] Weight, est lb : 161 lb(Converted to: 73 kg) Weight, est oz : 0 oz Estimated Clinical Dosing Weight : 73.18 kg Rosie Luo Rn- - 08/04/2018 17:06 EST Infectious Disease History Infectious Disease History : Measles, Mumps Fever/Chills Last 48 Hours : No Travel To Regions with Travel Advisories : No Travel Outside [place] Within Last 30 Days : No Contact With Traveler to Advisory Region : No Tuberculosis Symptoms : None Rosie Luo Rn- - 08/04/2018 17:06 EST Influenza Vaccine Asmt, Adult Previous Vaccines from Immunization Schedule : No qualifying data available. Influenza Immunization, Current Season : Yes Rosie Luo Rn- - 08/04/2018 17:06 EST Pneumococcal Vaccine Previous Vaccines from Immunization Schedule : No qualifying data available. Pneumonia Immunization Received : Yes Rosie Luo Rn- - 08/04/2018 17:06 EST Nutrition History Eating Poorly Due to Decreased Appetite : No Nasreen Mcmillan RN - 08/06/2018 15:21 EST Adaptive Feeding Equipment : Regular Unplanned Weight Loss in Past 3-6 Months : No Malnutrition Screening Tool Total(mal) : 0 Malnutrition Screening Tool Risk Level : Patient not at risk Rosie Luo Rn- - 08/04/2018 17:06 EST Psychosocial History Tried to Harm Yourself in the Past? : No Thoughts of Harming/Killing Yourself : No Nasreen Mcmillan RN - 08/06/2018 15:21 EST Currently in Unsafe Situation : No Rosie Luo Rn- - 08/04/2018 17:06 EST Sleep Apnea Risk Assmt Hx of Obstructive Sleep Apnea Diagnosis : No Snore Loudly : Yes Tired, Fatigued, or Sleepy During Day : No Observed Stopping Breathing During Sleep : No Have/Are Being Treated for Hypertension : Yes STOP Sleep Apnea Risk Level Score : 2 STOP Sleep Apnea Risk Level : High Rosie Luo Rn- - 08/04/2018 17:06 EST Valuables and Belongings Valuables and Belongings : Clothing, Personal items Clothing : Common streetwear, Outerwear Clothing Disposition : Bedside Personal Items : Cell phone, Electronic device(s) Personal Items Disposition : Bedside Rosie Luo Rn- - 08/04/2018 17:06 EST documented in this encounter Plan of Treatment Not on file documented as of this encounter Visit Diagnoses Not on filedocumented in this encounter Care Teams Senior Financial Analyst Relationship Specialty Start Date End Date Dion Macedo MD [address] [place] [address] PCP - General Family Medicine 06/27/21 documented as of this encounter
--- OUTSIDE RECORDS SUMMARY | 2025-03-17 16:22 | XMS_ITS | Encounter Summary ---
Author Organization [employer] ([place], [place], [place], [place]) Address [address] [place] [address] Care Team Providers Care Pulp Bleacher Name Role Phone Dion Macedo MD Primary Care Provider Encounter Details Date Type Department Care Team (Late st Contact Info) Description 08/08/2018 Transcribed Document [facility] [place] [address] [place] [address] ProviderMarkos MD [address] [place], [place] [id number] Social History Tobacco Use Types Packs/Day Years Used Date Smoking Tobacco: Never Assessed Sex and Gender Information Value Date Recorded Sex Assigned at Male 12/29/2021 5:06 PM CDT Legal Sex Male 1:35 PM CDT Gender Identity Male 12/29/2021 5:06 PM CDT Sexual Orientation Not on file documented as of this encounter Miscellaneous Notes * Cerner Conversion Note - Historical ProviderMD - 08/08/2018 2:51 PM STUCCO WORKER Care Management Assessment/Plan Entered On: 08/08/2018 14:55 EST Performed On: 08/08/2018 14:51 EST by KATYA DEAN CSW Care Management Note Anticipated Discharge Date : 08/08/2018 12:00 EST Care Management Note : SW spoke with pt related to his disposition. Pt states that he is I & that he stilll drives. Pt denies d/c planning needs & states that the family will transport the pt home. Documentation Status Complete : Yes KATYA DEAN CSW - 08/08/2018 14:51 EST Patient History Information Obtained from, Care Mgt : Patient, Medical Record Current Primary Care Physician : Dr. Louis Veras Emergency Contact #1 : Ceci Lovelace Emergency Contact #1 Emergency Contact #1 Relationship : Daughter Emergency Contact #2 : n/a Emergency Contact #2 Phone Number : n/a Emergency Contact #2 Relationship : n/a Living Situation : Home Patient Lives With : Spouse Mobility Assistance Prior to Admission : Independent Current Daily Living Assistance : None Sensory Deficits : None Professional Skilled Services : None Current Home Treatments : Tube feeding Home Equipment : Other: tubefeeding Special Services and Community Resources : Other: Out pt TF supplies & feedings Special Services Contact Information : Bioscripts , Financial Concerns Regarding Hospital/Discharge : No Sources of Income : Pension, Social Security Residential Benefits Employment/Vocation : Pt is retired Frequent [...] continue to follow. KATYA DEAN CSW - 08/08/2018 14:51 EST documented in this encounter Plan of Treatment Not on file documented as of this encounter Visit Diagnoses Not on filedocumented in this encounter Care Teams Pulp Bleacher Relationship Specialty Start Date End Date Dion Macedo MD [address] [place] [address] PCP - General Family Medicine 06/27/21 documented as of this encounter
--- OUTSIDE RECORDS SUMMARY | 2025-03-17 16:22 | XMS_ITS | Encounter Summary ---
Author Organization [employer] ([place], [place], [place], [place]) Address [address] [place] [address] Care Team Providers Care Test Engineer Nuclear Equipment Name Role Phone Dion Macedo MD Primary Care Provider Encounter Details Date Type Department Care Team (Late st Contact Info) Description 08/07/2018 Transcribed Document [facility] [place] [facility] [place] [address] ProviderMarkos MD [address] [place], [place] [id number] Social History Tobacco Use Types Packs/Day Years Used Date Smoking Tobacco: Never Assessed Sex and Gender Information Value Date Recorded Sex Assigned at Male 12/29/2021 5:06 PM CDT Legal Sex Male 1:35 PM CDT Gender Identity Male 12/29/2021 5:06 PM CDT Sexual Orientation Not on file documented as of this encounter Miscellaneous Notes * Cerner Conversion Note - Markos Kebede MD - 08/07/2018 2:37 PM ORTHOPTIST Patient: OMERO DOZIER Age: 82 years Sex: Male : 1935 Associated Diagnoses: None Author: ADRIA CM MD Basic Information Pulmonary/Critical Care Consultation Date of consult:08/03/18 Date of admission:08/03/18 Requesting physician: Dr Guadalupe-LACI Reason for consult: Chief complaint: Weakness History of present illness: The patient is an 82-year-old gentleman with history of following chronic stable conditions CAD, hyperlipidemia, hypertension, hypothyroidism, BPH, 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 Patient presents on 08/03/2018 to [facility] emergency room complaining of posterior rib-trunk pain. [...] or abuse alcohol. Review of Systems Constitutional: inc acitivity. Eye: Negative. Ear/Nose/Mouth/Throat: Negative. Respiratory: No shortness of breath, No cough. Cardiovascular: No chest pain. Gastrointestinal: adm feeds self. Genitourinary: Negative. Musculoskeletal: denies pain. Integumentary: Negative. Neurologic: Alert and oriented X4. Psychiatric: Negative. Health Status Allergies: Allergic Reactions (Selected) No Known Allergies, Allergies (1) Active Reaction No Known Allergies None Documented Current medications: (Selected) Inpatient Medications Ordered Astelin 137 mcg/inh nasal spray: 2 [place], Nasal, BID BD Lactinex oral granule: 1 Packet, Oral, BID DuoNeb 0.5 mg-2.5 mg/3 mL inhalation solution: 3 mL, Nebulized Inhalation, RT_Q4H, PRN: Dyspnea Lovenox: 40 mg, SubCutaneous, [id number] Milk of Magnesia 8% oral suspension: 30 mL, Oral, Daily, PRN: Constipation Normal Saline 1,000 mL: 150 mL/Hr, IntraVENous Normal Saline Flush: 10 mL, IV Push, See Comment, PRN: IV Use Pepcid: 20 mg, Oral, Daily Tylenol: 650 mg, Oral, Q4H, PRN: Pain (Mild 1-3) Zofran: 4 mg, IV Push, Q4H, PRN: Nausea Zosyn + Sodium Chloride 0.9% intravenous solution 100 mL: 3.375 Gram, 33.33 mL/Hr, IV Piggyback, Q6HInt diphenhydrAMINE: 25 mg, Oral, At Bedtime, PRN: [...] Daily, 30 Tab, Medications (18) Active Scheduled: (9) azelastine 137 mcg/spray nasal 30 mL 2 [place], Nasal, BID docusate sod 100 mg/10 mL liq 100 mg 10 mL, Oral, BID enoxaparin 40 mg/0.4 mL inj 40 mg 0.4 mL, SubCutaneous, [id number] famotidine 20 mg tab 20 mg 1 Tab, Oral, Daily lactobacillus granule pkt 1 Packet, Oral, BID levothyroxine 88 mcg (0.88 mg) tab 88 mcg 1 Tab, Oral, Daily loratadine 10 mg tab 5 mg 0.5 Tab, Oral, Daily piperacillin-tazobactam + NaCl 0.9% 100 mL 3.375 Gram, IV Piggyback, Q6HInt tamsulosin CR 0.4 mg cap 0.4 mg 1 Cap, Oral, At Bedtime Continuous: (1) NaCl 0.9% 1,000 mL 1,000 mL, IntraVENous, 150 mL/Hr PRN: (8) #NaCl 0.9% *FLUSH* inj 10 [...] 2 mL, IV Push, Q4H Problem list: All Problems At risk for sleep apnea / IMO [id number] / Confirmed BPH - Benign prostatic hypertrophy / SNOMED CT 369973710 / Confirmed CAD - Coronary artery disease / SNOMED CT 2064110652 / Confirmed Hyperlipidemia / SNOMED CT 79162789 / Confirmed Hypertension / SNOMED CT 23900422 / Confirmed Hypothyroid / SNOMED CT 434051265 / Confirmed Malignant carotid body tumor / SNOMED CT 36531330 / Confirmed Pancreatitis / SNOMED CT 328745007 / Confirmed, Active Problems (8) At risk for sleep apnea BPH - Benign prostatic hypertrophy CAD - Coronary artery disease Hyperlipidemia Hypertension Hypothyroid Malignant carotid body tumor Pancreatitis Physical Examination VS/Measurements Vitals Signs (last 24 hrs) Last Charted Minimum Maximum Temp 98.6 (AUG 07:) 97.7 (AUG 07:) 98.4 (AUG 06:34) Mon HR 73 (AUG 07:) 66 (AUG 07:) 74 (AUG 06:34) Resp Rate 18 (AUG 07:) 16 (AUG 06 16:34) 18 (AUG 06 22:38) SBP H 173 (AUG 07:) H 162 (AUG 07 02:27) H 187 (AUG 06:34) DBP 88 (AUG 07:) 88 (AUG 07:) H 103 (AUG 06 22:38) MAP 115 (AUG 07:) 115 (AUG 07:) 145 (AUG 07:) SpO2 L 92 (AUG 07:) L 90 (AUG 07:) L 93 (AUG 06:34) General: Alert and oriented, No acute distress. Eye: Normal conjunctiva. HENT: Normocephalic. Neck: chronic changes suspected post radiation. Respiratory: Respirations are non-labored, Breath sounds are equal, few crackles L base. Cardiovascular: Normal rate, Regular rhythm, tr le edema. Gastrointestinal: Soft, nondistended, BS present, PEG tube. Musculoskeletal: No swelling, No deformity. Integumentary: Warm, Intact. Neurologic: Alert, Oriented, No focal deficits. Psychiatric: Cooperative, Appropriate mood & affect. Review / Management Results review: Labs (Last four charted values) WBC 5.2 (AUG 07) 6.5 (AUG 06) 7.4 (AUG 05) H 11.0 (AUG 04) HB L 11.6 (FEB 11) L 12.7 (FEB 10) L 12.1 (FEB 09) L 13.3 (FEB 08) HCT L 34.1 (FEB 11) L 38.0 (FEB 10) L 36.6 (FEB 09) 40.2 (FEB 08) Plt L 109 (FEB 11) L 106 (FEB 10) L 91 (FEB 09) L 134 (FEB 08) Na 145 (FEB 11) 143 (FEB 10) 142 (FEB 09) 136 (FEB 08) K L 3.1 (FEB 11) L 3.4 (FEB 10) 4.2 (FEB 09) 5.0 (FEB 08) Cl 110 (FEB 11) 110 (FEB 10) 112 (FEB 09) 103 (FEB 08) CO2 27 (FEB 11) L 22 (FEB 10) 24 (FEB 09) 24 (FEB 08) BUN 15 (FEB 11) 14 (FEB 10) 18 (FEB 09) H 25 (FEB 08) Cr L 0.60 (FEB 11) L 0.50 (FEB 10) L 0.60 (FEB 09) 0.90 (FEB 08) Glu R 93 (FEB 11) 82 (FEB 10) H 116 (FEB 09) H 126 (FEB 08) Ca L 7.9 (FEB 11) 8.5 (FEB 10) L 7.7 (FEB 09) L 8.0 (FEB 08) Lactic C 2.2 (FEB 07) PT 10.2 (FEB 07) INR 0.9 (FEB 07) PTT 24.1 (FEB 07) AST 27 (FEB 11) 28 (FEB 10) 27 (FEB 09) H 102 (FEB 08) ALT 32 (FEB 11) 34 (FEB 10) 45 (FEB 09) H 89 (FEB 08) ALK P 59 (FEB 11) 76 (FEB 10) 70 (FEB 09) 107 (FEB 08) T Bili 0.9 (FEB 11) H 1.2 (FEB 10) H 1.1 (FEB 09) H 1.4 (FEB 08) PTN L 5.0 (FEB 11) L 5.8 (FEB 10) L 5.2 (AUG 05) L 6.1 (AUG 04) ALB L 2.8 (AUG 07) L 3.3 (AUG 06) L 2.9 (AUG 05) 3.5 (AUG 04) Lipase 155 (AUG 03) Troponin <0.015 (AUG 03) <0.015 (AUG 03) . No Radiology Results Found No qualifying data available Impression and Plan Acute hypoxemic respiratory failure Bilateral infiltrates multilobular with high likely aspiration pneumonitis in setting of chronic aspiration Tobacco smoking several years ago for 10-15 years CAD with previous stent Epigastric pain, unknown cause: initial troponin negative, CT ab/pelvis negative Sepsis on admit Plan: Cont supplmental O2 Wean for sat>90% Incentive spirometry Nebs prn Patient on Zosyn total 7 days can be changed to oral abx upon dc if needed (Doxycycline or Augmentin) Lovenox for DVT prophylaxis/ Pepcid for GI prophylaxis HTN managment /electrolytes per PCP Pulmonary to sign off call if needed CODE STATUS: DNR- full treatment Electronically signed by [facility] Conversion Drying Oven Tender Cerner at 10/13/2022 9:28 PM CDT documented in this encounter Plan of Treatment Not on file documented as of this encounter Visit Diagnoses Not on filedocumented in this encounter Care Teams Test Engineer Nuclear Equipment Relationship Specialty Start Date End Date Dion Macedo MD [address] [place] [address] PCP - General Family Medicine 06/27/21 documented as of this encounter
--- OUTSIDE RECORDS SUMMARY | 2025-03-17 16:22 | XMS_ITS | Encounter Summary ---
Author Organization [employer] ([place], [place], [place], [place]) Address [address] [place] [address] Care Team Providers Care Director Of Instrumental Music Name Role Phone Dion Macedo MD Primary Care Provider Encounter Details Date Type Department Care Team (Late st Contact Info) Description 08/05/2018 Transcribed Document [facility] Family Medicine [facility] [place] [address] ProviderMarkos MD [address] [place], [place] [id number] Social History Tobacco Use Types Packs/Day Years Used Date Smoking Tobacco: Never Assessed Sex and Gender Information Value Date Recorded Sex Assigned at Male 12/29/2021 5:06 PM CDT Legal Sex Male 1:35 PM CDT Gender Identity Male 12/29/2021 5:06 PM CDT Sexual Orientation Not on file documented as of this encounter Miscellaneous Notes * Cerner Conversion Note - Markos Kebede MD - 08/05/2018 1:42 PM INVESTMENT PROFESSIONAL Patient: OMERO DOZIER Age: 82 years Sex: Male : 1935 Associated Diagnoses: None Author: NIKO OCONNOR MD-INT Basic Information The patient is an 82-year-old gentleman with history of following chronic stable conditions CAD, hyperlipidemia, hypertension, hypothyroidism, BPH, 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 Patient presents on 08/03/2018 to [facility] emergency room complaining of posterior [...] Ordered Astelin 137 mcg/inh nasal spray: 2 [place], Nasal, BID BD Lactinex oral granule: 1 Packet, Oral, BID DuoNeb 0.5 mg-2.5 mg/3 mL inhalation solution: 3 mL, Nebulized Inhalation, RT_[id number], PRN: Dyspnea Lovenox: 40 mg, SubCutaneous, [id number] Milk of Magnesia 8% oral suspension: 30 [...] azelastine 137 mcg/spray nasal 30 mL 2 [place], Nasal, BID docusate sod 100 mg/10 mL liq 100 mg 10 mL, Oral, BID enoxaparin 40 mg/0.4 mL inj 40 mg 0.4 mL, SubCutaneous, [id number] famotidine 20 mg tab 20 mg 1 [...] At risk for sleep apnea / IMO [id number] / Confirmed BPH - Benign prostatic hypertrophy / SNOMED CT 701717776 / Confirmed CAD - Coronary artery disease / SNOMED CT 7042178301 / Confirmed Hyperlipidemia / SNOMED CT 59695761 / Confirmed Hypertension / SNOMED CT 01867785 / Confirmed Hypothyroid / SNOMED CT 828838271 / Confirmed Malignant carotid body tumor / SNOMED CT 81459260 / Confirmed Pancreatitis / SNOMED CT 137827275 / Confirmed, Active Problems (8) At risk for sleep apnea BPH - Benign prostatic hypertrophy CAD - Coronary artery disease Hyperlipidemia Hypertension Hypothyroid Malignant carotid body tumor Pancreatitis Objective VS/Measurements Vitals Signs (last 24 hrs) Last Charted Minimum Maximum Temp 98.2 (AUG 05 06:56) 98.2 (AUG 05 06:56) 99.0 (AUG 04 17:00) Mon HR 60 (AUG 05 06:56) 52 (AUG 04 14:08) 64 (AUG 04 22:21) Resp Rate 18 (AUG 05 06:56) 14 (AUG 04 15:30) 18 (AUG 04 17:00) SBP H 166 (AUG 05 06:56) H 146 (AUG 05 02:48) H 171 (AUG 04 17:00) DBP 90 (AUG 05 06:56) 69 (AUG 04 15:30) 90 (AUG 05 06:56) MAP 105 (AUG 05 06:56) 96 (AUG 04 22:21) 118 (AUG 04 14:08) SpO2 L 92 (FEB 09 06:56) L 92 (AUG 05 06:56) 97 (AUG 04 15:30) General: Alert and oriented, Mild distress. Eye: [...] No swelling, No deformity. Integumentary: Warm, Dry, Manning. Neurologic: Alert, Oriented, Normal sensory, Normal motor function, No focal deficits, Cranial Nerves II-XII are grossly intact, Gag reflex normal, Normal deep tendon reflexes. Psychiatric: Cooperative, Appropriate mood & affect, Normal judgment, Non-suicidal. Review / Management Results review: Labs (Last four charted values) WBC 7.4 (AUG 05) H 11.0 (AUG 04) 6.5 (AUG 03) HB L 12.1 (AUG 05) L 13.3 (AUG 04) 14.2 (AUG 03) HCT L 36.6 (AUG 05) 40.2 (AUG 04) 43.4 (AUG 03) Plt L 91 (AUG 05) L 134 (AUG 04) L 136 (AUG 03) Na 142 (AUG 05) 136 (AUG 04) 136 (AUG 03) K 4.2 (AUG 05) 5.0 (AUG 04) 4.2 (AUG 03) Cl 112 (AUG 05) 103 (AUG 04) L 101 (AUG 03) CO2 24 (AUG 05) 24 (AUG 04) 27 (AUG 03) BUN 18 (AUG 05) H 25 (AUG 04) 21 (AUG 03) Cr L 0.60 (AUG 05) 0.90 (JUL 08) 0.80 (AUG 03) Glu R H 116 (AUG 05) H 126 (JUL 08) 95 (AUG 03) Ca L 7.7 (AUG 05) L 8.0 (JUL 08) L 8.3 (AUG 03) Lactic C 2.2 (AUG 03) PT 10.2 (AUG 03) INR 0.9 (AUG 03) PTT 24.1 (AUG 03) AST 27 (AUG 05) H 102 (AUG 04) 13 (AUG 03) ALT 45 (AUG 05) H 89 (AUG 04) 20 (AUG 03) ALK P 70 (AUG 05) 107 (AUG 04) 86 (AUG 03) T Bili H 1.1 (AUG 05) H 1.4 (AUG 04) 0.5 (AUG 03) PTN L 5.2 (AUG 05) L 6.1 (AUG 04) 6.8 (AUG 03) ALB L 2.9 (AUG 05) 3.5 (AUG 04) 4.0 (AUG 03) Lipase 155 (AUG 03) Troponin <0.015 (AUG 03) <0.015 (AUG 03) . Radiology results Radiology Results (Last 48 hours) [id number] -- 08/03/2018 21:04 CR Chest 1 Vw [...] No acute intra-abdominal abnormality. CT Abdomen Pelvis W (08/03/2018 23:47) Result: CT ABDOMEN AND PELVIS WITH CONTRASTHISTORY: Mid abdominal pain.PROCEDURE: The patient was injected with IV contrast. Oral contrast wasadministered via a PEG tube. Axial images were obtained from the lungbases to the pubic symphysis by computed tomography.FINDINGS: ABDOMEN: The lung bases demonstrate bilateral lower lobe opacities andtrace pleural effusions. The heart is normal in size. The liver isnormal. A percutaneous gastrostomy tube is seen in the stomach. There isno extravasation of contrast. The spleen is unremarkable. No adrenalmass is present. The pancreas is normal. The kidneys demonstratenonspecific mild bilateral perinephric stranding. The aorta is normal incaliber. There is no free fluid or adenopathy. PELVIS: The cecum is in an unusual location in the right upper quadrantoverlying the liver. The appendix contains an appendicolith but there isno evidence of appendicitis. The urinary bladder is mildly distended.The prostate is enlarged. Hypodensity in the right aspect of theprostate is seen. Prostatitis is not excluded. There is diverticulosis.There is no significant free fluid or adenopathy. IMPRESSION: 1. Bilateral lower lobe opacities and trace effusions.2. Hypodensity in the prostate gland. Prostate is excluded.3. Percutaneous gastrostomy tube present without extravasation.Images reviewed, interpreted, and dictated by Dr. Deepali Son.Transcribed by Te Bai PA-C.I have personally viewed, interpreted and dictated the examination. Ihave read and agree with the above final transcribed report. Impression and Plan #1 multifocal aspiration pneumonia: Confirmed by CT on 08/03/2018. Patient was admitted to hospital ICU status on 08/03/2018 and initiated on Zosyn and Flagyl IV therapy. Patient will require 7 days of IV antibiotics therapy as recommended by pulmonary consultants. New problem, controlled, unstable #2 sepsis: With hypotension requiring pressors at time of admission, new problem, controlled, unstable #2 chest pain related to diagnosis #1. [...] patient's laboratory data and CT results. I have discussed this case with the Dr Denis in pulmonary. I ordered labs and IV antibiotics for this patient. I have discussed the plan of care with the patient at which we arrived via shared decision-making process. I discussed the CODE STATUS with this patient: The patient desires to be DNR. We have reviewed patient's current care and plan for future care. Counseling time spent above the time required to complete the above note: start time 12:04 PM to end time 12:36 PM. This note has been prepared with the use of voice recognition software and may contain sound alike errors and omissions. Electronically signed by Shira, [facility] Conversion Pointer Machine Operator Cerner at 10/13/2022 9:37 PM CDT documented in this encounter Plan of Treatment Not on file documented as of this encounter Visit Diagnoses Not on filedocumented in this encounter Care Teams Director Of Instrumental Music Relationship Specialty Start Date End Date Dion Maceod MD [address] [place] [address] PCP - General Family Medicine 06/27/21 documented as of this encounter
--- OUTSIDE RECORDS SUMMARY | 2025-03-17 16:22 | XMS_ITS | Encounter Summary ---
Author Organization [employer] ([place], [place], [place], [place]) Address [address] [place] [address] Care Team Providers Care Life Skills Coordinator Name Role Phone Dion Macedo MD Primary Care Provider Encounter Details Date Type Department Care Team (Late st Contact Info) Description 08/08/2018 Transcribed Document [facility] Family Medicine [address] [place] [address] ProviderMarkos MD [address] [place], [place] [id number] Social History Tobacco Use Types Packs/Day Years Used Date Smoking Tobacco: Never Assessed Sex and Gender Information Value Date Recorded Sex Assigned at Male 12/29/2021 5:06 PM CDT Legal Sex Male 1:35 PM CDT Gender Identity Male 12/29/2021 5:06 PM CDT Sexual Orientation Not on file documented as of this encounter Miscellaneous Notes * Cerner Conversion Note - Markos ProviderMD - 08/08/2018 3:00 AM SAP TECHNICAL ARCHITECT Nutrition Assessment Entered On: 08/08/2018 10:16 EST Performed On: 08/08/2018 13:[address], YAA Nutrition Assessment Nutrition Assessment Reason : Follow Up, Nutrition support LISA DIANA RD, YAA - 08/08/2018 10:16 EST Current Nutrition Regimen Comment : 08/08: changed TF to bolus 6x/day instead of 4x per day like pt was doing at home to try to improve diarrhea. Pt has been doing it himself in his room. 08/04: Rec'd consult for TF mgmt. Pt on home TF via PEG. States he boluses 4 cans of TwoCalHN daily. MD would like pt to have continuous TF while in hospital. Spoke with RN and pt about plan Dx: Aspiration, acute resp failure PMH: PEG for aspiration, carotid tumor s/p rxt, CAD, HTN Meds: docusate, lactobacillus, synthroid, abx Labs: K 2.9, Gluc 97, Alb 3.1 Skin: no breakdown, PEG GI: no bm noted X 5 days Diet: NPO TF: Two Delfino HN bolus feeds of 160 ml 6X per day => 1920 kcals and 80 grams protein Ht: 68 in Wt: 160# (08/04) BMI: 24.3 IBW: 154# Estimated Needs (25 kcal/kg; 1 gm pro/kg): 1680-7669 kcal; [address], LD - 08/08/2018 13:19 EST Nutrition Diagnoses Oral or Nutrition Support Intake : Inadequate oral intake Oral or Nutr Support Intake Related To : dysphagia Oral or Nutr Support Intake Evidenced by : NPO, need for EN Oral or Nutrition Support Intake Status : Active LISA DIANA RD, LD - 08/08/2018 13:23 EST Nutrition Interventions Enteral/Parenteral Nutrition : Continue current enteral nutrition regimen LISA DIANA RD, LD - 08/08/2018 13:23 EST Monitoring/Evaluation Energy Intake : Total energy intake Enteral Nutrition Intake : Formula/Solution Protein Intake : Total protein Weight Status : Weight Maintanence Gastrointestinal Function : Bowel Function LISA DIANA RD, YAA - 08/08/2018 13:23 EST Nutrition Recommendations Dietitian Recommendations : 1. Continue EN: Two Delfino HN bolus feeds of 160 ml 6X per day (provides 1920 kcals and 80 grams protein). Flush per MD. Goal: meet est needs 2. Weigh pt 2x weekly Goal: no sig weight changes High Risk- RD will f/up 2-3x/ week LISA DIANA RD, LD - 08/08/2018 13:23 EST documented in this encounter Plan of Treatment Not on file documented as of this encounter Visit Diagnoses Not on filedocumented in this encounter Care Teams Life Skills Coordinator Relationship Specialty Start Date End Date Dion Macedo MD [address] [place] [address] PCP - General Family Medicine 06/27/21 documented as of this encounter
--- OUTSIDE RECORDS SUMMARY | 2025-03-17 16:22 | XMS_ITS | Encounter Summary ---
Author Organization [employer] ([place], [place], [place], [place]) Address [address] [place] [address] Care Team Providers Care Engineering Production Worker Name Role Phone Dion Macedo MD Primary Care Provider Encounter Details Date Type Department Care Team (Late st Contact Info) Description 08/09/2018 Transcribed Document [facility] Family Medicine [address] [place] [address] ProviderMarkos MD [address] [place], [place] [id number] Social History Tobacco Use Types Packs/Day Years Used Date Smoking Tobacco: Never Assessed Sex and Gender Information Value Date Recorded Sex Assigned at Male 12/29/2021 5:06 PM CDT Legal Sex Male 1:35 PM CDT Gender Identity Male 12/29/2021 5:06 PM CDT Sexual Orientation Not on file documented as of this encounter Miscellaneous Notes * Cerner Conversion Note - Historical ProviderMD - 08/09/2018 5:00 AM DIETICIAN Height and Weight, Routine Entered On: 08/09/2018 5:24 EST Performed On: 08/09/2018 5:00 EST by Semaj Nicolas [facility] Height and Weight, Routine Routine Weight Source : Bed scale Routine Weight Entry Format : Metric Routine Weight, Kilograms : 72.8 kg(Converted to: 160 lb 8 oz) Routine Weight Calculation : 72.8 kg Height Source : Stated Height Entry Format : [place] Height, Feet : 5 ft Height, Inches : 8 Inch Clinical Height : 172.72 cm Body Surface Area (BSA), Routine : 1.86 m2 Body Mass Index (BMI), Routine : 24.4 kg/m2 Semaj Nicolas [facility] - 08/09/2018 5:24 EST documented in this encounter Plan of Treatment Not on file documented as of this encounter Visit Diagnoses Not on filedocumented in this encounter Care Teams Engineering Production Worker Relationship Specialty Start Date End Date Dion Macedo MD [address] [place] [address] PCP - General Family Medicine 06/27/21 documented as of this encounter
--- OUTSIDE RECORDS SUMMARY | 2025-03-17 16:22 | XMS_ITS | Encounter Summary ---
Author Organization [employer] ([place], [place], [place], [place]) Address [address] [place] [address] Care Team Providers Care Relationship Executive Name Role Phone Dion Macedo MD Primary Care Provider Encounter Details Date Type Department Care Team (Late st Contact Info) Description 08/03/2018 Transcribed Document [facility] [place] [address] [place] [address] ProviderMarkos MD [address] [place] [address] Social History Tobacco Use Types Packs/Day Years Used Date Smoking Tobacco: Never Assessed Sex and Gender Information Value Date Recorded Sex Assigned at Male 12/29/2021 5:06 PM CDT Legal Sex Male 1:35 PM CDT Gender Identity Male 12/29/2021 5:06 PM CDT Sexual Orientation Not on file documented as of this encounter Miscellaneous Notes * Cerner Conversion Note - Markos ProviderMD - 08/03/2018 7:17 PM STRIKER OUT ED Assessment Entered On: 08/03/2018 20:04 EST Performed On: 08/03/2018 20:03 EST by Tawana Wetzel RN ED Quick Look Assessment Level of Consciousness : Alert, Awake Affect/Behavior : Calm, Cooperative Orientation : Oriented x 4 Skin Temperature : Warm Tawana Wetzel RN - 08/03/2018 20:03 EST ED General-Functional Assess Preferred Communication Mode : Verbal Communication Barrier : None Primary Language : Venezuelan Any Spiritual/Cultural Needs or Requests : No Currently in Unsafe Situation : No Tawana Wetzel RN - 08/03/2018 20:03 EST Social Habits Smoking Status : Never (less than 100 in lifetime; none in last 30 days) Smokeless Tobacco Status : Never Desires Tobacco Cessation Calc : 0 Tawana Wetzel RN - 08/03/2018 20:03 EST Social History (As Of: 08/03/2018 20:04:43 EST) Tobacco: Use in Last 12 Months: [...] 10/11/2013 16:02:45 EDT by CHIQUITA URBAN PA-C) Cardiovascular ASMT, ED Cardiovascular Assessment WDL : WDL Cardiovascular Symptoms : None Tawana Wetzel RN - 08/03/2018 20:03 EST Respiratory Respiratory Assessment WDL : WDL with exceptions (Comment: SOA [Tawana Wetzel RN - 08/03/2018 20:03 EST] ) Cough : Non-productive Tawana Wetzel RN - 08/03/2018 20:03 EST Breath Sounds Assessment Grid All Lobes Breath Sounds : Clear Tawana Wetzel RN - 08/03/2018 20:03 EST Musculoskeletal Musculoskeletal Assessment WDL : WDL with exceptions (Comment: Back and left flank pain [Tawana Wetzel, RN - 08/03/2018 20:03 EST] ) Tawana Wetzel RN - 08/03/2018 20:03 EST Electronically signed by [facility], [facility] Conversion Dip Tube Assembler Machine Cerner at 10/13/2022 9:24 PM CDT documented in this encounter Plan of Treatment Not on file documented as of this encounter Visit Diagnoses Not on filedocumented in this encounter Care Teams Relationship Executive Relationship Specialty Start Date End Date Dion Macedo MD [address] [place] [address] PCP - General Family Medicine 06/27/21 documented as of this encounter
--- OUTSIDE RECORDS SUMMARY | 2025-03-17 16:22 | XMS_ITS | Encounter Summary ---
Author Organization [employer] ([place], [place], [place], [place]) Address [address] [place] [address] Care Team Providers Care Hr Systems Analyst Name Role Phone Dion Macedo MD Primary Care Provider Encounter Details Date Type Department Care Team (Late st Contact Info) Description 08/10/2018 Transcribed Document [facility] [place] Family Medicine [facility] [place] [address] ProviderMarkos MD [address] [place] [address] Social History Tobacco Use Types Packs/Day Years Used Date Smoking Tobacco: Never Assessed Sex and Gender Information Value Date Recorded Sex Assigned at Male 12/29/2021 5:06 PM CDT Legal Sex Male 1:35 PM CDT Gender Identity Male 12/29/2021 5:06 PM CDT Sexual Orientation Not on file documented as of this encounter Miscellaneous Notes * Cerner Conversion Note - Markos Kebede MD - 08/10/2018 2:52 PM ANIMAL DOCTOR Post Visit Phone Call Entered On: 08/10/2018 14:57 EST Performed On: 08/10/2018 14:52 EST by Samina Vinson Rn Post Visit Phone Call Post Visit Phone Call History : First call Contact Relationship to Patient : Self Contact Name : [facility] Visit Since DC : No Adequate Pain Control After Visit : Yes Symptoms of Fever : No Symptoms of Nausea or Vomiting : No Adequate Fluid Intake : Yes Food Intake, Post Visit : Fair Bowel/Bladder Concerns : No Mobility Progressing or Maintained as Expected : Yes Discharge Instructions Understood : Yes Follow-Up Actions : None Samina Vinson Rn - 08/10/2018 14:52 EST Electronically signed by Shira, [facility] Conversion Asphalt Tamper Cerner at 10/13/2022 9:27 PM CDT documented in this encounter Plan of Treatment Not on file documented as of this encounter Visit Diagnoses Not on filedocumented in this encounter Care Teams Hr Systems Analyst Relationship Specialty Start Date End Date Dion Macedo MD [address] [place] [address] PCP - General Family Medicine 06/27/21 documented as of this encounter
--- OUTSIDE RECORDS SUMMARY | 2025-03-17 16:22 | XMS_ITS | Clinical Summary ---
Author Organization [facility] Address [address] [place] [address] Care Team Providers Care Treating Engineer Name Role Phone Louis Epperson MD Primary Care Provider [phone] Allergies Active Allergy Reactions Criticality Noted Date Comments Amoxicillin-Pot Clavulanate Swelling High 05/12/20 23 Penicillins Diarrhea Low 05/12/2023 Medications amLODIPine (Norvasc) 5 MG tablet Take 1 tablet every day by oral route. 3 Active aspirin 81 MG EC tablet Take 1 tablet (81 mg) by mouth Daily. Active cetirizine (ZyrTEC) 10 MG tablet Take 1 tablet (10 mg) by mouth 1 (one) time each day. Active diphenhydrAMINE (Benadryl) 25 MG capsule Take 12.5 mg by mouth twice a day. Active omeprazole (PriLOSEC) [address] capsule Take 1 capsule (20 mg) by mouth. Active levothyroxine (Synthroid, Levoxyl) 137 MCG tablet Take by mouth. 3 Active hydrOXYzine HCl (Atarax) 25 MG tablet Take by mouth 1 (one) time each day. Active albuterol 108 (90 Base) MCG/ACT inhaler Inhale 2 puffs 4 times a day. 3 Active fluticasone (Flonase) 50 MCG/ACT nasal spray Administer 2 sprays into affected nostril(s) 1 (one) time each day. Active Zinc 50 MG tablet Take by mouth 1 (one) time each day. Active Active Problems Problem Noted Date Diagnosed Date Dysphagia, oropharyngeal 06/09/2023 Social History Tobacco Use Types Packs/Day Years Used Date Smoking Tobacco: Former Cigarettes Q uit: 1984 Smokeless Tobacco: Never Tobacco Cessation:Counseling Given: Not Answered Alcohol Use Standard Drinks/Week Comments Yes 2 (1 standard drink = 0.6 oz pur e alcohol) not currently Sex and Gender Information Value Date Recorded Sex Assigned at Not on file Legal Sex Male 8:21 PM EDT Gender Identity Not on file Sexual Orientation Not on file Last Filed Vital Signs Vital Sign Reading Time Taken Comments Blood Pressure 112/61 05/16/2023 8:59 AM EST Pulse 56 05/16/2023 8:59 AM EST Temperature - - Respiratory Rate - - Oxygen Saturation - - Inhaled Oxygen Concentration - - Weight 65.3 kg (144 lb) 05/16/2023 8:59 AM EST Height 172.7 cm (5' 8 ) 05/16/2023 8:59 AM EST Body Mass Index 21.9 05/16/2023 8:59 AM EST Plan of Treatment Health Maintenance Due Date Last Done Comments [facility]-Depression Screening 1935 [facility]-/Child/Adol SDOH Screenings 1935 [facility]- SDOH Screenings 12/01/1955 [facility]-Adult SDOH Screenings 12/01/1955 [facility]-Zoster Vaccines (1 of 2) 12/01/1987 [facility]-RSV Vaccine: 60+ Years or (1 - 1-dose 75+ series) 2012 [facility]-DOBMA-75 Vaccine (2 - Pfizer risk series) 10/11/2020 09/20/2020 [facility]-DTaP,Tdap,and Td Vaccines (3 - Td or Tdap) 10/26/2023 10/25/2013, 10/11/2013 [facility]-Medicare Annual Wellness (AWV) 04/19/2024 04/19/2023, 01/30/2019 [facility]-Influenza Vaccine (#1) 02/25/202503/09, 03/10/2022, 03/05/2021, Additional history exists [facility]-Pneumococcal Vaccine: 50+ Years Completed 10/27/2018, 03/25/2014 HPV Vaccines Aged Out No longer eligi ble based on patient's age to complete this topic [facility]-HIB Vaccines Aged Out No longer e ligible based on patient's age to complete this topic [facility]-Hepatitis A Vaccines Aged Out No longer eligible based on patient's age to complete this topic [facility]-IPV Vaccines Aged Out No longer e ligible based on patient's age to complete this topic [facility]-Rotavirus Vaccines Aged Out No lo nger eligible based on patient's age to complete this topic Insurance [address] MEDICARE Care Teams Treating Engineer Relationship Specialty Start Date End Date Louis Epperson MD [address] [place] [address] PCP - General 11/07/20
--- OUTSIDE RECORDS SUMMARY | 2025-03-17 16:22 | XMS_ITS | Encounter Summary ---
Author Organization [employer] ([place], [place], [place], [place]) Address [address] [place] [address] Care Team Providers Care Trapeze Performer Name Role Phone Dion Macedo MD Primary Care Provider Encounter Details Date Type Department Care Team (Late st Contact Info) Description 08/04/2018 Transcribed Document [facility] [place] Family Medicine [facility] [place] [address] ProviderMarkos MD [address], [place] [id number] Social History Tobacco Use Types Packs/Day Years Used Date Smoking Tobacco: Never Assessed Sex and Gender Information Value Date Recorded Sex Assigned at Male 12/29/2021 5:06 PM CDT Legal Sex Male 1:35 PM CDT Gender Identity Male 12/29/2021 5:06 PM CDT Sexual Orientation Not on file documented as of this encounter Miscellaneous Notes * Cerner Conversion Note - Markos Kebede MD - 08/04/2018 10:31 PM FOOD CHECKERS AND CASHIERS SUPERVISOR Patient: OMERO DOZIER Age: 82 years Sex: Male : 1935 Associated Diagnoses: None Author: NIKO OCONNOR MD-INT Basic Information The patient is an 82-year-old gentleman with history of following chronic stable conditions CAD, hyperlipidemia, hypertension, hypothyroidism, BPH, 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 Patient presents on 08/03/2018 to [facility] emergency room complaining of posterior [...] pt c/o pain that is rated as 4-5 on scale of 1-10, with out radiation [...] history of present illness. Respiratory: Shortness of breath, Cough. Cardiovascular: Negative except as documented in history of present illness. Gastrointestinal: Abdominal pain. Genitourinary: Negative except as documented in history [...] Ordered Astelin 137 mcg/inh nasal spray: 2 [place], Nasal, BID BD Lactinex oral granule: 1 Packet, Oral, BID DuoNeb 0.5 mg-2.5 mg/3 mL inhalation solution: 3 mL, Nebulized Inhalation, RT_Q4H, PRN: Dyspnea Lovenox: 40 mg, SubCutaneous, [id number] Milk of Magnesia 8% oral suspension: 30 [...] azelastine 137 mcg/spray nasal 30 mL 2 [place], Nasal, BID docusate sod 100 mg/10 mL liq 100 mg 10 mL, Oral, BID enoxaparin 40 mg/0.4 mL inj 40 mg 0.4 mL, SubCutaneous, [id number] famotidine 20 mg tab 20 mg 1 [...] At risk for sleep apnea / IMO [id number] / Confirmed BPH - Benign prostatic hypertrophy / SNOMED CT 405094624 / Confirmed CAD - Coronary artery disease / SNOMED CT 6568047795 / Confirmed Hyperlipidemia / SNOMED CT 85573115 / Confirmed Hypertension / SNOMED CT 13250354 / Confirmed Hypothyroid / SNOMED CT 629044943 / Confirmed Malignant carotid body tumor / SNOMED CT 62936844 / Confirmed Pancreatitis / SNOMED CT 121643804 / Confirmed, Active Problems (8) At risk for sleep apnea BPH - Benign prostatic hypertrophy CAD - Coronary artery disease Hyperlipidemia Hypertension Hypothyroid Malignant carotid body tumor Pancreatitis Objective VS/Measurements Vitals Signs (last 24 hrs) Last Charted Minimum Maximum Temp 99.0 (AUG 04 17:00) 98.4 (AUG 04 08:24) 99.0 (AUG 04 17:00) Mon HR 58 (AUG 04 17:00) 44 (AUG 04 01:00) 82 (AUG 04 00:25) Resp Rate 18 (AUG 04 17:00) L 10 (AUG 04 06:45) H 39 (AUG 04 00:35) SBP H 171 (AUG 04 17:00) L 74 (AUG 04 01:20) H 194 (AUG 04 04:07) DBP 86 (AUG 04 17:00) L 41 (AUG 04 01:25) 86 (AUG 04 17:00) MAP 113 (AUG 04 15:30) 55 (AUG 04 01:20) 124 (AUG 04 07:15) SpO2 94 (AUG 04 17:00) L 89 (AUG 04 01:20) 99 (AUG 04 07:00) General: Alert and oriented, Mild distress. Eye: [...] but much improved in comparison to initial exam.. Genitourinary: No costovertebral angle tenderness. Lymphatics: No lymphadenopathy neck, axilla, groin. Musculoskeletal: Normal range of motion, Normal strength, No tenderness, No swelling, No deformity. Integumentary: Warm, Dry, [place]. Neurologic: Alert, Oriented, Normal sensory, Normal motor function, No focal deficits, Cranial Nerves II-XII are grossly intact, Gag reflex normal, Normal deep tendon reflexes. Psychiatric: Cooperative, Appropriate mood & affect, Normal judgment, Non-suicidal. Review / Management Results review: Labs (Last four charted values) WBC H 11.0 (AUG 04) 6.5 (AUG 03) HB L 13.3 (AUG 04) 14.2 (AUG 03) HCT 40.2 (AUG 04) 43.4 (AUG 03) Plt L 134 (AUG 04) L 136 (AUG 03) Na 136 (AUG 04) 136 (AUG 03) K 5.0 (AUG 04) 4.2 (AUG 03) Cl 103 (AUG 04) L 101 (AUG 03) CO2 24 (AUG 04) 27 (AUG 03) BUN H 25 (AUG 04) 21 (AUG 03) Cr 0.90 (AUG 04) 0.80 (AUG 03) Glu R H 126 (AUG 04) 95 (AUG 03) Ca L 8.0 (AUG 04) L 8.3 (AUG 03) Lactic C 2.2 (AUG 03) PT 10.2 (AUG 03) INR 0.9 (AUG 03) PTT 24.1 (AUG 03) AST H 102 (AUG 04) 13 (AUG 03) ALT H 89 (AUG 04) 20 (AUG 03) ALK P 107 (AUG 04) 86 (AUG 03) T Bili H 1.4 (AUG 04) 0.5 (AUG 03) PTN L 6.1 (AUG 04) 6.8 (AUG 03) ALB 3.5 (AUG 04) 4.0 (AUG 03) Lipase 155 (AUG 03) Troponin <0.015 (AUG 03) <0.015 (AUG 03) . Radiology results Radiology Results (Last 48 hours) [id number] -- 08/03/2018 21:04 CR Chest 1 Vw [...] initiated on Zosyn and Flagyl IV therapy. New problem, uncontrolled, unstable #2 sepsis: With hypotension requiring pressors at time of admission, new problem, uncontrolled, unstable #2 chest pain related to diagnosis [...] close monitoring due to risks of toxicity I have reviewed patient's past medical history, I have personally reviewed patient's laboratory data and CT results. I have discussed this case with the Dr Denis in pulmonary and with the radiologist: Due to patient's unstable exam we have repeated the CT of abdomen and pelvis with by mouth and IV contrast for improved visualization of potential intra-abdominal pathology. I ordered labs and IV antibiotics for this patient. I have discussed the plan of care with the patient at which we arrived via shared decision-making process. I discussed the CODE STATUS with this patient: The patient desires to be DNR. ICU care start time 6:30 AM to end time 7 AM. This note has been prepared with the use of voice recognition software and may contain sound alike errors and omissions. documented in this encounter Plan of Treatment Not on file documented as of this encounter Visit Diagnoses Not on filedocumented in this encounter Care Teams Trapeze Performer Relationship Specialty Start Date End Date Dion Macedo MD [address] [place] [address] PCP - General Family Medicine 06/27/21 documented as of this encounter
--- OUTSIDE RECORDS SUMMARY | 2025-03-17 16:22 | XMS_ITS | Encounter Summary ---
Author Organization [employer] ([place], [place], [place], [place]) Address [address] [place] [address] Care Team Providers Care Information Delivery Analyst Name Role Phone Dion Macedo MD Primary Care Provider Encounter Details Date Type Department Care Team (Late st Contact Info) Description 08/04/2018 Transcribed Document [facility] [place] [address] [place] [address] ProviderMarkos MD [address] [place] [id number] Social History Tobacco Use Types Packs/Day Years Used Date Smoking Tobacco: Never Assessed Sex and Gender Information Value Date Recorded Sex Assigned at Male 12/29/2021 5:06 PM CDT Legal Sex Male 1:35 PM CDT Gender Identity Male 12/29/2021 5:06 PM CDT Sexual Orientation Not on file documented as of this encounter Miscellaneous Notes * Cerner Conversion Note - Markos ProviderMD - 08/04/2018 2:00 AM BANKRUPTCY ATTORNEY Housekeeping Worker Details Entered On: 08/04/2018 17:23 EST Performed On: 08/04/2018 2:00 EST by Rosie Luo Rn-Weekend Order Details Transport Mode Order Detail : Wheelchair Isolation Precautions Order Detail : Standard Precautions Order Detail : N/A IV Order Detail : 1 Oxygen Order Detail : 1 Nurse Collect Order Detail : 0 Lift/Transfer : Independent Central Line Order Detail : No Room Service : Appropriate Arterial Line : No Rosie Luo Rn-Weekend - 08/04/2018 17:23 EST Electronically signed by Shira [facility] Conversion Helmet Hat Brim Cutter Cerner at 10/13/2022 9:21 PM CDT documented in this encounter Plan of Treatment Not on file documented as of this encounter Visit Diagnoses Not on filedocumented in this encounter Care Teams Information Delivery Analyst Relationship Specialty Start Date End Date Dion Macedo MD [address] [place] [address] PCP - General Family Medicine 06/27/21 documented as of this encounter
--- OUTSIDE RECORDS SUMMARY | 2025-03-17 16:22 | XMS_ITS | Encounter Summary ---
Author Organization [employer] ([place], [place], [place], [place]) Address [address] [place] [address] Care Team Providers Care Drain Layer Name Role Phone Dion Macedo MD Primary Care Provider Encounter Details Date Type Department Care Team (Late st Contact Info) Description 08/04/2018 Transcribed Document [facility] [place] Family Medicine [facility] [place] [address] ProviderMarkos MD [address] [place], [place] [phone] Social History Tobacco Use Types Packs/Day Years Used Date Smoking Tobacco: Never Assessed Sex and Gender Information Value Date Recorded Sex Assigned at Male 12/29/2021 5:06 PM CDT Legal Sex Male 1:35 PM CDT Gender Identity Male 12/29/2021 5:06 PM CDT Sexual Orientation Not on file documented as of this encounter Miscellaneous Notes * Cerner Conversion Note - Markos ProviderMD - 08/04/2018 4:09 AM STOCK SHEETS CLEANER INSPECTOR ED Event Note Entered On: 08/04/2018 4:10 EST Performed On: 08/04/2018 4:09 EST by Dorita Donovan, VENETIAN BLIND TAPE CUTTER Event Note ED Event Date/Time : 08/04/2018 4:09 EST ED Description of Event : patient placed on inpatient bed. Dorita Donovan, RN - 08/04/2018 4:09 EST documented in this encounter Plan of Treatment Not on file documented as of this encounter Visit Diagnoses Not on filedocumented in this encounter Care Teams Drain Layer Relationship Specialty Start Date End Date Dion Macedo MD [address] [place] [address] PCP - General Family Medicine 06/27/21 documented as of this encounter
--- OUTSIDE RECORDS SUMMARY | 2025-03-17 16:22 | XMS_ITS | Encounter Summary ---
Author Organization [employer] ([place], [place], [place], [place]) Address [address] [place] [address] Care Team Providers Care Auger Press Operator Name Role Phone Dion Macedo MD Primary Care Provider Encounter Details Date Type Department Care Team (Late st Contact Info) Description 08/03/2018 Transcribed Document [facility] [place] Family Medicine [facility] [place] [address] ProviderMarkos MD [address] [place], [place] [address] Social History Tobacco Use Types Packs/Day Years Used Date Smoking Tobacco: Never Assessed Sex and Gender Information Value Date Recorded Sex Assigned at Male 12/29/2021 5:06 PM CDT Legal Sex Male 1:35 PM CDT Gender Identity Male 12/29/2021 5:06 PM CDT Sexual Orientation Not on file documented as of this encounter Miscellaneous Notes * Cerner Conversion Note - Markos Kebede MD - 08/03/2018 9:21 PM DENTAL ASSISTANT Patient: OMERO DOZEIR Age: 82 Years Sex: Male : 1935 Chief Complaint pt via lobby for sudden onset L side pain and shaking x1 hr. 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 Patient presents on 08/03/[address] [facility] [place] emergency room complaining of posterior rib-trunk pain. [...] surgery and advanced age Review of Systems Review of systems Gen.: Positive for fatigue, chills, denies fevers Eyes: Denies blurring, diplopia, irritation, or discharge ENT: No trouble swallowing or earache CV: Denies chest pain, palpitations, orthopnea, or edema Respiratory: Positive for dyspnea, denies wheezing, positive for cough, denies hemoptysis GI: Denies abdominal pain, dysphagia, nausea, vomiting, diarrhea, constipation, hematochezia, melena, or jaundice : Denies dysuria, nocturia, hematuria, impotence, discharge, hesitancy, incontinence, genital sores, or decreased libido Musculoskeletal: Positive for back pain, joint pain, denies stiffness, or swelling Skin: Denies rashes, itches, or suspicious lesions Neurologic: Denies syncope, transient paralysis, weakness, or numbness Psychiatric: No anxiety or depression Endocrine: Denies polydipsia, polyuria, or weight change Heme lymph: Denies abnormal bruising, bleeding, or enlarged lymph nodes Allergy and immunology: Denies urticaria, hay fever, or persistent infections Physical Exam Vitals & Measurements T: 36.9 ??C HR: 78(Peripheral) RR: 22 BP: 180/94 HT: 172.72 cm WT: 72.73 kg BMI: 24.4 Physical exam: Vital Signs: are stable please refer to the vital signs documented in electronic medical record HEENT: Normocephalic atraumatic, extraocular movements intact, pupils are equally reactive to light, nasal mucosa clear, tympanic membranes are clear bilaterally, oropharynx is clear. Woodiness of the neck tissue is present. Patient is unable to open his mouth more than 1 cm. Neck: no JVD, no lymphadenopathy, trachea is midline, thyroid is without nodules Lungs: Scattered crackles are present bilaterally with decreased breath sounds on bases Heart: regular rate and rhythm, S1 and S2 is audible without murmurs, rubs, or gallops Abdomen: nontender, nondistended, positive bowel sounds, no hepatosplenomegaly, no masses, no CVAT, PEG tube is in place Extremities: no cyanosis, clubbing, or edema Neurological: cranial nerves II - XII are intact, sensory exam is intact to light touch and pin prick grossly, reflexes are +1 throughout Psychiatric: patient answers questions appropriately in normal affect, patient is not suicidal Skin: No cyanosis, no rash, no ecchymosis : Patient's a normal male Vascular: Pulses are 2+ throughout Musculoskeletal: Patient moves all extremities with strength 4+ throughout Lymphatic: There is no cervical, axillary, or inguinal lymphadenopathy appreciated on exam Assessment/Plan Aspiration pneumonia J69.0 Chest pain R07.9 Flank pain [id number] Rib/trunk pain-swelling [id number] Orders: acetaminophen, 650 mg, Oral, Tab, Q4H, PRN for Pain (Mild 1-3), Routine, Start 08/03/18 21:17:00 EST docusate, 100 mg, Oral, Cap, BID, Routine, Start 08/03/18 21:17:00 EST enoxaparin, 30 mg, SubCutaneous, Inj, [id number], Routine, Start 08/03/18 22:00:00 EST magnesium hydroxide, 30 mL, Oral, Liquid, Daily, PRN for Constipation, Routine, Start 08/03/18 21:17:00 EST metroNIDAZOLE, 500 mg, IV Piggyback, Inj, Q8HInt, infuse over 1 Hour(s), Routine, Start 08/03/18 22:00:00 EST, 100 mL/Hr, Indication: Pneumonia ondansetron, 4 mg, IV Push, Inj, Q4H, PRN for Nausea, Routine, Start 08/03/18 21:17:00 EST sodium chloride, 10 mL, IV Push, Inj, See Comment, PRN for IV Use, Routine, Start 08/03/18 21:17:00 EST Sodium Chloride 0.9% intravenous solution 1,000 mL, 1,000 mL, Bag Volume (mL) = 1,000, Rate = 20 mL/Hr, IntraVENous, start date 08/03/18 21:17:00 EST, Routine Bedrest With Bathroom Privileges CBC w/ Auto Diff CMP Comprehensive Metabolic Panel Communication to Nursing Consult to Dietitian Diabetes Education (Nursing) DVT VTE Prophylaxis Education Facility Protocol Intake and Output Notify Provider Intake and Output Notify Provider Vital Signs OT Evaluation and Treatment Oxygen Therapy PT Evaluation and Treatment Respiratory Care Assessment Resuscitation Status Saline Lock Insert Smoking Cessation Education (Nursing) Vital Signs Weight (Routine) #1 multifocal aspiration pneumonia: Confirmed by CT on 08/03/2018. Patient was admitted to hospital on 08/03/2018 and initiated on Zosyn and Flagyl IV therapy. New problem, uncontrolled, unstable #2 chest pain related to diagnosis #1. Morphine will be administered when necessary to improve patient's discomfort. New problem, unstable, controlled #3 hypertension, blood pressure will be monitored closely and [...] I have discussed this case with the emergency room physician. I performed medicine reconciliation for this patient. I ordered labs and IV antibiotics for this patient. I have discussed the plan of care with the patient at which we arrived via shared decision-making process. I discussed the CODE STATUS with this patient: The patient desires to be DNR. Time in preparation of this admission H&P 1 hour 33 minutes. This note has been prepared with the use of voice recognition software and may contain sound alike errors and omissions. Problem List/Past Medical History Ongoing BPH - Benign prostatic hypertrophy CAD - Coronary artery disease Hyperlipidemia Hypertension Hypothyroid Malignant carotid body tumor Pancreatitis Historical No qualifying data Procedure/Surgical History Appendectomy, cardiac stenting, Cholecystectomy, hernia repair, left neck dissection 05/2007. Medications Inpatient Colace, 100 mg= 1 Cap, Oral, BID Flagyl, 500 mg= 100 mL, IV Piggyback, Q8HInt Lovenox, 30 mg= 0.3 mL, SubCutaneous, [id number] Milk of Magnesia 8% oral suspension, 30 mL, Oral, Daily, PRN Normal Saline Flush, 10 mL, IV Push, See Comment, PRN Sodium Chloride 0.9% intravenous solution 1,000 mL, 1000 mL, IntraVENous Tylenol, 650 mg= 2 Tab, Oral, Q4H, PRN Zofran, 4 mg= 2 mL, IV Push, Q4H, PRN Home Flomax 0.4 mg oral capsule, 0.4 mg= 1 Cap, Oral, At Bedtime levothyroxine 88 mcg (0.088 mg) oral tablet, 88 mcg= 1 Tab, Oral, Daily Allergies No Known Allergies Social History Alcohol Use in Last 12 Months: Yes. Home/Environment Lives with Spouse. Living situation: Home/Independent. Nutrition/Health Caffeine intake amount: moderate. Substance Abuse Drug Use Hx: No. Use in Last 12 Months: No. Tobacco Use in Last 12 Months: No. Smoking Status Former smoker. Years of Use: 20. Packs/Tins Daily: 2. Used Tobacco, but Quit Yes. Last Used: 30 years ago. Patient has no STD risk factors. He uses seat belts. He has had 5-6 lifetime sexual partners. He has been twice. He has no pets. He does not have history of drug abuse. He exercises by walking and rates exercise level as light. He sleeps 5-7 hours per night. He lives at home with his . 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 He has a well-balanced diet. He drinks one cup of coffee a day. He drinks alcohol approximately three drinks per week. He has guns at home. He has no HIV risk factors. He has never smoked. He is a college graduate. Family History Patient's father at 79 of natural causes. He had dementia. Patient's mother at 57 of lymphoma. Patient has had one sister who at 60 due to complications of diabetes mellitus type 2. Immunizations Immunizations are up-to-date Lab Results Radiology Results (Last 48 hours) [id number] -- 08/03/2018 21:04 CR Chest 1 Vw [...] pneumonia or aspiration.2. No acute intra-abdominal abnormality. Diagnostic Results Radiology Results (Last 48 hours) [id number] -- 08/03/2018 21:04 CR Chest 1 Vw [...] pneumonia or aspiration.2. No acute intra-abdominal abnormality. Electronically signed by Shira, [facility] Conversion Authors Motivational Cerner at 10/13/2022 9:13 PM CDT documented in this encounter Plan of Treatment Not on file documented as of this encounter Visit Diagnoses Not on filedocumented in this encounter Care Teams Auger Press Operator Relationship Specialty Start Date End Date Dion Macedo MD [address] [place] [address] PCP - General Family Medicine 06/27/21 documented as of this encounter
--- OUTSIDE RECORDS SUMMARY | 2025-03-17 16:22 | XMS_ITS | Encounter Summary ---
Author Organization [employer] ([place], [place], [place], [place]) Address [address] [place] [address] Care Team Providers Care Transonic Engineer Name Role Phone Dion Macedo MD Primary Care Provider Encounter Details Date Type Department Care Team (Late st Contact Info) Description 08/08/2018 Transcribed Document [facility] [place] [address] [place] [address] ProviderMarkos MD [address] [place], [place] [id number] Social History Tobacco Use Types Packs/Day Years Used Date Smoking Tobacco: Never Assessed Sex and Gender Information Value Date Recorded Sex Assigned at Male 12/29/2021 5:06 PM CDT Legal Sex Male 1:35 PM CDT Gender Identity Male 12/29/2021 5:06 PM CDT Sexual Orientation Not on file documented as of this encounter Miscellaneous Notes * Cerner Conversion Note - Markos ProviderMD - 08/08/2018 2:00 AM ELECTRICAL PLUMBING SUPERVISOR Advertising Executive Details Entered On: 08/08/2018 3:55 EST Performed On: 08/08/2018 2:00 EST by Sarah Recio Rn-Resource Order Details Transport Mode Order Detail : Wheelchair Isolation Precautions Order Detail : Standard Precautions Order Detail : N/A IV Order Detail : 1 Oxygen Order Detail : 0 Nurse Collect Order Detail : 0 Lift/Transfer : Independent Central Line Order Detail : No Room Service : Appropriate Arterial Line : No Sarah Recio Rn-Resource - 08/08/2018 3:55 EST Electronically signed by Shira [facility] Conversion Fulling Mill Operator Cerner at 10/13/2022 9:23 PM CDT documented in this encounter Plan of Treatment Not on file documented as of this encounter Visit Diagnoses Not on filedocumented in this encounter Care Teams Transonic Engineer Relationship Specialty Start Date End Date Dion Macedo MD [address] [place] [address] PCP - General Family Medicine 06/27/21 documented as of this encounter
--- OUTSIDE RECORDS SUMMARY | 2025-03-17 16:22 | XMS_ITS | Encounter Summary ---
Author Organization [employer] ([place], [place], [place], [place]) Address [address] [place] [address] Care Team Providers Care Ship Keeper Name Role Phone Dion Macedo MD Primary Care Provider Encounter Details Date Type Department Care Team (Late st Contact Info) Description 08/07/2018 Transcribed Document [facility] [place] Family Medicine [facility]ly [facility] [place] [address] ProviderMarkos MD [address], [place] [id number] Social History Tobacco Use Types Packs/Day Years Used Date Smoking Tobacco: Never Assessed Sex and Gender Information Value Date Recorded Sex Assigned at Male 12/29/2021 5:06 PM CDT Legal Sex Male 1:35 PM CDT Gender Identity Male 12/29/2021 5:06 PM CDT Sexual Orientation Not on file documented as of this encounter Miscellaneous Notes * Cerner Conversion Note - Markos Kebede MD - 08/07/2018 8:00 PM PILOT CAN ROUTER Patient: OMERO DOZIER Age: 82 years Sex: Male : 1935 Associated Diagnoses: None Author: NIKO OCONNOR MD-INT Basic Information The patient is an 82-year-old gentleman with history of following chronic stable conditions CAD, hyperlipidemia, hypertension, hypothyroidism, BPH, 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 Patient presents on 08/03/2018 to [facility] emergency room complaining of posterior rib-trunk [...] Ordered Astelin 137 mcg/inh nasal spray: 2 [place], Nasal, BID BD Lactinex oral granule: 1 Packet, Oral, BID DuoNeb 0.5 mg-2.5 mg/3 mL inhalation solution: 3 mL, Nebulized Inhalation, RT_Q4H, PRN: Dyspnea Lovenox: 40 mg, SubCutaneous, [id number] Milk of Magnesia 8% oral suspension: 30 [...] azelastine 137 mcg/spray nasal 30 mL 2 [place], Nasal, BID docusate sod 100 mg/10 mL liq 100 mg 10 mL, Oral, BID enoxaparin 40 mg/0.4 mL inj 40 mg 0.4 mL, SubCutaneous, [id number] famotidine 20 mg tab 20 mg 1 [...] At risk for sleep apnea / IMO [id number] / Confirmed BPH - Benign prostatic hypertrophy / SNOMED CT 223696827 / Confirmed CAD - Coronary artery disease / SNOMED CT 7583678572 / Confirmed Hyperlipidemia / SNOMED CT 78683563 / Confirmed Hypertension / SNOMED CT 38173883 / Confirmed Hypothyroid / SNOMED CT 742509779 / Confirmed Malignant carotid body tumor / SNOMED CT 01552772 / Confirmed Pancreatitis / SNOMED CT 045446070 / Confirmed, Active Problems (8) At risk for sleep apnea BPH - Benign prostatic hypertrophy CAD - Coronary artery disease Hyperlipidemia Hypertension Hypothyroid Malignant carotid body tumor Pancreatitis Objective VS/Measurements Vitals Signs (last 24 hrs) Last Charted Minimum Maximum Temp 98.7 (AUG 07 18:48) 97.7 (AUG 07 05:26) 98.4 (AUG 06 22:38) Mon HR 78 (AUG 07 18:48) 66 (AUG 07 05:26) 78 (AUG 07 18:48) Resp Rate 18 (AUG 07 05:26) 18 (AUG 06 22:38) 18 (AUG 06 22:38) SBP H 183 (AUG 07 18:48) H 162 (AUG 07 02:27) H 186 (AUG 06 22:38) DBP H 98 (AUG 07 18:48) 88 (AUG 07 10:00) H 103 (AUG 06 22:38) MAP 115 (AUG 07 18:48) 115 (AUG 07 10:00) 145 (AUG 07 05:26) SpO2 L 92 (AUG 07 10:00) L 90 (AUG 07 05:26) L 93 (AUG 07 02:27) General: Alert and oriented, Mild distress. Eye: [...] No swelling, No deformity. Integumentary: Warm, Dry, [place]. Neurologic: Alert, Oriented, Normal sensory, Normal motor function, No focal deficits, Cranial Nerves II-XII are grossly intact, Gag reflex normal, Normal deep tendon reflexes. Psychiatric: Cooperative, Appropriate mood & affect, Normal judgment, Non-suicidal. Review / Management Results review: Labs (Last four charted values) WBC 5.2 (AUG 07) 6.5 (AUG 06) 7.4 (AUG 05) H 11.0 (AUG 04) HB L 11.6 (AUG 07) L 12.7 (AUG 06) L 12.1 (AUG 05) L 13.3 (AUG 04) HCT L 34.1 (AUG 07) L 38.0 (AUG 06) L 36.6 (AUG 05) 40.2 (AUG 04) Plt L 109 (AUG 07) L 106 (FEB 10) L 91 (FEB [...] 5.8 (FEB 10) L 5.2 (FEB 09) L 6.1 (FEB 08) ALB L 2.8 (FEB 11) L 3.3 (FEB 10) L 2.9 (FEB 09) 3.5 (FEB 08) Lipase 155 (FEB 07) Troponin <0.015 (FEB [...] on filedocumented in this encounter Care Teams Ship Keeper Relationship Specialty Start Date End Date Dion Macedo MD [address] [place] [address] PCP - General Family Medicine 06/27/21 documented as of this encounter
--- OUTSIDE RECORDS SUMMARY | 2025-03-17 16:22 | XMS_ITS | Encounter Summary ---
Author Organization [employer] ([place], [place], [place], [place]) Address [address] [place] [address] Care Team Providers Care Bench Inspector Name Role Phone Dion Macedo MD Primary Care Provider Encounter Details Date Type Department Care Team (Late st Contact Info) Description 08/03/2018 Transcribed Document [facility] [place] [facility] [place] [address] ProviderMarkos MD [address] [place], [place] [address] Social History Tobacco Use Types Packs/Day Years Used Date Smoking Tobacco: Never Assessed Sex and Gender Information Value Date Recorded Sex Assigned at Male 12/29/2021 5:06 PM CDT Legal Sex Male 1:35 PM CDT Gender Identity Male 12/29/2021 5:06 PM CDT Sexual Orientation Not on file documented as of this encounter Miscellaneous Notes * Cerner Conversion Note - Markos Kebede MD - 08/03/2018 8:31 PM EMERGENCY PHYSICIAN Patient: OMERO DOZIER Age: 82 years Sex: Male : 1935 Associated Diagnoses: Aspiration pneumonia; Chest pain Author: JENSEN SANTOS MD-EMR Basic Information Time seen: Date 08/03/2018, Immediately upon arrival. History source: Patient. Arrival mode: Ambulance. History limitation: None. Additional information: Chief Complaint from Nursing Triage Note : Chief Complaint 08/03/2018 19:26 EST Chief Complaint pt via lobby for sudden onset L side pain and shaking x1 hr. . History of Present Illness The patient presents with rib-trunk pain. The onset was 1 hours [...] symptoms: shortness of breath. Additional history: none. Review of Systems Constitutional symptoms: Negative except as documented in HPI. Skin symptoms: Negative except as documented in HPI. Eye symptoms: Negative except as documented in HPI. ENMT symptoms: Negative except as documented in HPI. Respiratory symptoms: Shortness of breath, cough. Cardiovascular symptoms: Chest pain. Gastrointestinal symptoms: Negative except as documented in HPI. Genitourinary symptoms: Negative except as documented in HPI. Musculoskeletal symptoms: Negative except as documented in HPI. Neurologic symptoms: Negative except as documented in HPI. Psychiatric symptoms: Negative except as documented in HPI. Endocrine symptoms: Negative except as documented in HPI. Hematologic/Lymphatic symptoms: Negative except as documented in HPI. Allergy/immunologic symptoms: Negative except as documented in HPI. Additional review of systems information: All other systems reviewed and otherwise negative. Health Status Allergies: Allergic Reactions (Selected) No Known Allergies. Medications: (Selected) Documented Medications Documented Flomax 0.4 mg oral capsule: 1 Cap, Oral, At Bedtime levothyroxine 88 mcg (0.088 mg) oral tablet: 1 Tab, Oral, Daily, 30 Tab. Past Medical/ Family/ Social History Surgical history: Cholecystectomy ([id number]). hernia repair. 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 cardiac stenting. Appendectomy ([id number]).. Family history: No family history items have been selected or recorded.. Social history: Social & Psychosocial Habits Alcohol Comment: on occasion - 11/07/2013 21:49 - DENZEL CHAKRABORTY RN 05/02/2014 Alcohol Use in Last Twelve Months Yes Comment: drinks 1 beer every 3 days - 05/02/2014 10:20 - PAGE ZAZUETA PA-C Home/Environment 10/11/2013 Lives with: Spouse Living situation: Home/Independent Nutrition/Health 03/13/2014 Caffeine intake amount: moderate Substance Abuse 03/13/2014 Recreational Drug Use History No Recreational Drug Use Last 12 Months No Tobacco 03/13/2014 Tobacco Use Within Last Twelve Months No Smoking Status Former smoker Years of Tobacco Use 20 Packs/Tins Daily 2 Used Tobacco, but Quit Yes Month Tobacco Last Used 30 years ago . Problem list: Active Problems (7) BPH - Benign prostatic hypertrophy CAD - Coronary artery disease Hyperlipidemia Hypertension Hypothyroid Malignant carotid body tumor Pancreatitis . Physical Examination Vital Signs Vital Signs/Vital Measures 08/03/2018 19:26 EST Temperature Source Oral Temperature Mode Fahrenheit Temperature, Fahrenheit 98.5 Deg F Clinical Temperature, C 36.9 Deg C Peripheral Pulse Rate 78 bpm Respiratory Rate 22 Breaths/Min HI Systolic Blood Pressure 180 mmHg HI Diastolic Blood Pressure 94 mmHg HI Oxygen Therapy Mode Room air . Measurements 08/03/2018 19:26 EST Height Source Stated Height Entry Format [place] Height/Length, CYMRAES (ft) 5 ft Height/Length CYMRAES 8 Inch CLINICALHEIGHT 172.72 cm [place] Body Weight 67.45 kg Weight Source, ED Critical estimated dosing weight Weight Entry Format [place] Weight Citizen [place] lb 160 lb CLINICALWEIGHT 72.73 kg Body Surface Area (BSA) 1.86 m2 Body Mass Index 24.4 kg/m2 HI . General: Alert, mild distress. Skin: Warm, dry, pink, intact. Head: Normocephalic, atraumatic. Neck: Supple, trachea midline, no tenderness, no JVD, no carotid bruit. Cardiovascular: Regular rate and rhythm, No murmur, Normal peripheral perfusion, No edema. Respiratory: Respirations: Tachypneic, respiratory distress mild, Breath sounds: Left, posterior, base(s), diminished. Chest wall: No deformity, mild TTP along L lateral chest wall. Gastrointestinal: Soft, Nontender, Non distended, Normal bowel sounds. Neurological: Alert and oriented to person, place, time, and situation, No focal neurological deficit observed. Lymphatics: No lymphadenopathy. Psychiatric: Cooperative. Medical Decision Making Differential Diagnosis: Chest wall pain, rib fracture, chest wall injury. Documents reviewed: Emergency department nurses' notes. Electrocardiogram: Time 08/03/2018 19:30:00, rate 80, normal sinus rhythm, No ST changes, no ectopy, normal IA & QRS intervals, EP Interp. Results review: Lab results : Lab Results 08/03/2018 20:02 EST Sodium Level 136 mmol/L Potassium Level 4.2 mmol/L Chloride Level 101 mmol/L LOW Carbon Dioxide Level 27 mmol/L Anion Gap 12 Glucose Level 95 mg/dL Blood Urea Nitrogen 21 mg/dL Creatinine Level 0.80 mg/dL eGFR >60 mL/min/1.73m2 eGFR NonAfrican >60 mL/min/1.73m2 Bun/Creatinine 26.2 HI Calcium Level 8.3 mg/dL LOW Protein Total 6.8 Gram/dL Albumin Level 4.0 Gram/dL Globulin 2.8 Gram/dL A/G Ratio 1.4 Bilirubin Total 0.5 mg/dL Alk Phos 86 Units/Liter AST 13 Units/Liter ALT 20 Units/Liter Troponin I Ultra <0.015 ng/mL WBC 6.5 K/uL RBC 4.23 Million/uL LOW Hgb 14.2 g/dL Hct 43.4 % MCV 102.6 fL HI MCH 33.6 pg HI MCHC 32.7 Gram/dL Platelet Count 136 K/uL LOW MPV 10.9 fL RDW 13.5 % Neut % 80.9 % HI Neut # 5.26 K/uL Lymph % 12.0 % LOW Lymph # 0.78 x10(3)/uL LOW [place] % 6.3 % [place] # 0.41 K/uL Eos % 0.3 % Eos # 0.02 x10(3)/uL Baso % 0.2 % Baso # 0.01 x10(3)/uL Slide Review No IG# 0.02 x10(3)/uL IG% 0.30 % PT 10.2 Second(s) INR 0.9 PTT 24.1 Second(s) Influenza A+B Antigen See Result . Radiology results: Radiology Results (Last 48 hours) [id number] -- 08/03/2018 19:17 CR Chest 1 Vw Portable (08/03/2018 19:50) [...] pneumonia or aspiration.2. No acute intra-abdominal abnormality. . Reexamination/ Reevaluation Time: 08/03/2018 21:03:00 . Notes: Patient reports event during an ultrasound today while he was laying flat for he coughed up sour tasting material and thinks he may have aspirated into his lungs. His chest CT scan is concerning for aspiration pneumonia. Started on Zosyn, hospitalist to admit. Impression and Plan Diagnosis Aspiration pneumonia - Discharge, Medical Chest pain - Discharge, Medical Plan Condition: Stable. Disposition: Admit Admit/Transfer/Discharge: Admit to Inpatient (Order): Start: 08/03/2018 21:04 EST, Admit reason: aspiration pneumonia, Estimated length of stay 2 Midnights or LONGER, Level of Care: Telemetry unit, Admitting: NIKO OCONNOR MD-INT. Counseled: Patient, Family, Regarding diagnosis, Regarding diagnostic results, Regarding treatment plan, Regarding prescription. documented in this encounter Plan of Treatment Not on file documented as of this encounter Visit Diagnoses Not on filedocumented in this encounter Care Teams Bench Inspector Relationship Specialty Start Date End Date Dion Macedo MD [address] [place] [address] PCP - General Family Medicine 06/27/21 documented as of this encounter
--- OUTSIDE RECORDS SUMMARY | 2025-03-17 16:22 | XMS_ITS | Encounter Summary ---
Author Organization [employer] ([place], [place], [place], [place]) Address [address] [place] [address] Care Team Providers Care Furniture Assembler Name Role Phone Dion Macedo MD Primary Care Provider Encounter Details Date Type Department Care Team (Late st Contact Info) Description 08/03/[address] [facility] [place] Family Medicine [address] [place] [address] ProviderMarkos MD [address] [place], [place] [id number] Social History Tobacco Use Types Packs/Day Years Used Date Smoking Tobacco: Never Assessed Sex and Gender Information Value Date Recorded Sex Assigned at Male 12/29/2021 5:06 PM CDT Legal Sex Male 1:35 PM CDT Gender Identity Male 12/29/2021 5:06 PM CDT Sexual Orientation Not on file documented as of this encounter Miscellaneous Notes * Cerner Conversion Note - Markos Kebede MD - 08/03/2018 7:17 PM MEAT WASHER ED Triage Entered On: 08/03/2018 19:32 EST Performed On: 08/03/2018 19:26 EST by Jeanine Pittman Rn ED Triage Across the Room Triage Date/Time : 08/03/2018 19:26 EST Chief Complaint : pt via lobby for sudden onset L side pain and shaking x1 hr. Jeanine Pittman Rn - 08/03/2018 19:26 EST DCP GENERIC CODE Tracking Acuity : 2 - Emergent Tracking Group : [facility] ED Jeanine Pittman Rn - 08/03/2018 19:26 EST Mode of Arrival : Ambulatory Transported to ED by : Private vehicle To Room Via : Stretcher Accompanied By : Friend ED Vital Signs : Document Height & Weight : Document ED Allergies : Document ED Reason for Visit : Document Tetanus Immunization : Unknown Jeanine Pittman Rn - 08/03/2018 19:26 EST Infectious Disease History Infectious Disease History : Measles, Mumps Fever/Chills Last 48 Hours : No Travel To Regions with Travel Advisories : No Travel Outside [place] Within Last 30 Days : No Contact With Traveler to Advisory Region : No Tuberculosis Symptoms : None Jeanine Pittman Rn - 08/03/2018 19:26 EST Vital Signs ED Temperature Source : Oral Temperature Mode : Fahrenheit Temperature, Fahrenheit : 98.5 Deg F ED Pain : Yes Clinical Temperature, C : 36.9 Deg C Oxygen Therapy Mode : Room air Peripheral Pulse Rate : 78 bpm Respiratory Rate : 22 Breaths/Min (HI) Systolic Blood Pressure : 180 mmHg (HI) Diastolic Blood Pressure : 94 mmHg (HI) Jeanine Pittman Rn - 08/03/2018 19:26 EST Allergy (As Of: 08/03/2018 19:32:41 EST) Allergies (Active) No Known Allergies Estimated Onset Date: Unspecified ; Created By: KVNG TODD RN; Reaction Status: Active ; Category: Drug ; Substance: No Known Allergies ; Type: Allergy ; Updated By: VKNG TODD RN; Reviewed Date: 08/03/2018 19:30 EST Diagnosis Control ED (As Of: 08/03/2018 19:32:41 EST) Problems(Active) BPH - Benign prostatic hypertrophy (SNOMED CT :259140845 ) Name of Problem: BPH - Benign prostatic hypertrophy ; Recorder: CONNER KEENE PA; Confirmation: Confirmed ; Classification: Medical ; Code: [id number] ; Contributor System: Zigswitch ; Last Updated: 03/13/2014 2:50 EDT ; Life Cycle Date: 03/13/2014 ; Life Cycle Status: Active ; Responsible Provider: CONNER KEENE PA; Vocabulary: SNOMED CT CAD - Coronary artery disease (SNOMED CT :0845572776 ) Name of Problem: CAD - Coronary artery disease ; Recorder: CONNER KEENE PA; Confirmation: Confirmed ; Classification: Medical ; Code: [id number] ; Contributor System: PowerChart ; Last Updated: 03/13/2014 2:50 EDT ; Life Cycle Date: 03/13/2014 ; Life Cycle Status: Active ; Responsible Provider: CONNER KEENE PA; Vocabulary: SNOMED CT Hyperlipidemia (SNOMED CT :75387609 ) Name of Problem: Hyperlipidemia ; Recorder: CONNER KEENE PA; Confirmation: Confirmed ; Classification: Medical ; Code: 91176952 ; Contributor System: PowerChart ; Last Updated: 03/13/2014 2:50 EDT ; Life Cycle Date: 03/13/2014 ; Life Cycle Status: Active ; Responsible Provider: CONNER KEENE PA; Vocabulary: SNOMED CT Hypertension (SNOMED CT :82313773 ) Name of Problem: Hypertension ; Recorder: KAIN PEGUERO RN; Confirmation: Confirmed ; Classification: Medical ; Code: 57884129 ; Contributor System: PowerChart ; Last Updated: 12/06/2013 19:25 EDT ; Life Cycle Date: 10/11/2013 ; Life Cycle Status: Active ; Vocabulary: SNOMED CT Hypothyroid (SNOMED CT :117095407 ) Name of Problem: Hypothyroid ; Recorder: CONNER KEENE PA; Confirmation: Confirmed ; Classification: Medical ; Code: [id number] ; Contributor System: PowerChart ; Last Updated: 03/13/2014 2:50 EDT ; Life Cycle Date: 03/13/2014 ; Life Cycle Status: Active ; Responsible Provider: CONNER KEENE PA; Vocabulary: SNOMED CT Malignant carotid body tumor (SNOMED CT :51145307 ) Name of Problem: Malignant carotid body tumor ; Recorder: CONNER KEENE PA; Confirmation: Confirmed ; Classification: Medical ; Code: [id number] ; Contributor System: PowerChart ; Last Updated: 03/13/2014 2:50 EDT ; Life Cycle Date: 03/13/2014 ; Life Cycle Status: Active ; Responsible Provider: CONNER KEENE PA; Vocabulary: SNOMED CT Pancreatitis (SNOMED CT :582224218 ) Name of Problem: Pancreatitis ; Recorder: KEITH ZAMUDIO ARN-FAM; Confirmation: Confirmed ; Classification: Medical ; Code: [id number] ; Contributor System: PowerChart ; Last Updated: 05/09/2014 19:23 EST ; Life Cycle Date: 05/09/2014 ; Life Cycle Status: Active ; Responsible Provider: KEITH ZAMUDIO ARN-FAM; Vocabulary: SNOMED CT Diagnoses(Active) Flank pain Date: 08/03/2018 ; Diagnosis Type: Reason For Visit ; Confirmation: Complaint of ; Clinical Dx: Flank pain ; Classification: Medical ; Clinical Service: Emergency medicine ; Code: PNED ; Probability: 0 ; Diagnosis Code: [id number] Rib/trunk pain-swelling Date: 08/03/2018 ; Diagnosis Type: Reason For Visit ; Confirmation: Complaint of ; Clinical Dx: Rib/trunk pain-swelling ; Classification: Medical ; Clinical Service: Emergency medicine ; Code: PNED ; Probability: 0 ; Diagnosis Code: [id number] ED Height and Weight Height Source : Stated Height Entry Format : [place] Height, Feet : 5 ft(Converted to: 152 cm, 60 Inch) Height, Inches : 8 Inch(Converted to: 0 ft 8 Inch, 20.32 cm) Clinical Height : 172.72 cm Weight Source, ED : Critical estimated dosing weight Weight Entry Format : [place] Weight, Pounds : 160 lb Clinical Dosing Weight : 72.73 kg Body Surface Area (BSA) : 1.86 m2 Body Mass Index : 24.4 kg/m2 (HI) [place] Body Weight (IBW) : 67.45 kg Jeanine Pittman Rn - 08/03/2018 19:26 EST Pain Assessment Pain Assessment : Initial assessment Pain Scale Used : 0-10 Scale Jeanine Pittman Rn - 08/03/2018 19:26 EST Pain Scale Intensity : 9 Jeanine Pittman Rn - 08/03/2018 19:26 EST Image 4 - Images currently included in the form version of this document have not been included in the text rendition version of the form. Electronically signed by Addi Silva Conversion Screw Machine Operator [employer] at 10/13/2022 9:13 PM CDT documented in this encounter Plan of Treatment Not on file documented as of this encounter Visit Diagnoses Not on filedocumented in this encounter Care Teams Furniture Assembler Relationship Specialty Start Date End Date Dion Macedo MD [address] [place] [address] PCP - General Family Medicine 06/27/21 documented as of this encounter
--- OUTSIDE RECORDS SUMMARY | 2025-03-17 16:22 | XMS_ITS | Encounter Summary ---
Author Organization [employer] ([place], [place], [place], [place]) Address [address] [place] [address] Care Team Providers Care Fur Examiner Name Role Phone Dion Macedo MD Primary Care Provider Encounter Details Date Type Department Care Team (Late st Contact Info) Description 06/22/2022 Outside Orders [facility] [address] [place] [address] Dion Macedo MD [address] [address] Social History Tobacco Use Types Packs/Day Years [...] on filedocumented in this encounter Care Teams Fur Examiner Relationship Specialty Start Date End Date Dion Macedo MD [address] [facility] [address] [place] [address] PCP - General Family Medicine 06/27/21 documented as of this encounter
--- OUTSIDE RECORDS SUMMARY | 2025-03-17 16:23 | XMS_ITS | Encounter Summary ---
Author Organization [facility] yste Address [address] [place] [address] Care Team Providers Care Card Feeder Name Role Phone Dion Macedo MD Primary Care Provider Encounter Details Date Type Department Care Team (Late st Contact Info) Description 03/14/2025 Readmission Management [facility] [address] [place] [phone] Marla Camacho, RN Social History Tobacco Use Types Packs/Day Years Used Date Smoking Tobacco: Former Cigarettes 1 10 1 08/22/1973 - 06/21/1984 Smokeless Tobacco: Never Alcohol Use Standard Drinks/Week Comments Yes 4 (1 standard drink = 0.6 oz pur e alcohol) [facility] Utilities Answer Date Recorded In the past 12 months has e electric, gas, oil, or water company threatened [...] care, and heating? Not very hard 03/14/2025 [facility] [place] [facility] Occupat ional [facility] - Occupational Stress [...] or equivalent Patient declined 03/14/2025 Preferred Language British 03/14/2025 PHQ-2 Answer Date Recorded Patient Health Questionnaire-2 Score 0 03/14/2025 Sex and Gender Information Value Date Recorded Sex Assigned at Not on file Legal Sex Male 10:55 AM EDT Gender Identity Not on file Sexual Orientation Not on file documented as of this encounter Functional Status * Over the past 2 weeks, how often have you been bothered by any of the following problems? Question Answer Date of Assessment Author Patient Health Questionnaire -2 Score 0 03/14/2025 12:41 PM EDT Rosetta Banegas, ABO * Question Answer Date of Assessment Author Little interest or pleasure in doing things Not at all 03/14/2025 12:41 PM EDT Rosetta Banegas RN Feeling down, depressed, or hopeless Not at all 03/14/2025 12:41 PM EDT Rosetta Banegas RN documented as of this encounter Miscellaneous Notes * Outreach Note - Marla Camacho RN - 03/14/2025 7:16 PM EDT Prep Survey Flowsheet Row Responses Shinto facility patient discharged from? [facility] Is LACE score less than 10 ? No Eligibility Readm Mgmt Discharge diagnosis DENIA (acute kidney injury) Does the patient have one of the following disease processes/diagnoses(primary or secondary)? Other Is there a DME ordered? Yes What DME was ordered? [facility] ([facility]) Prep survey completed? Yes Marla Valenzuela - Registered Nurse documented in this encounter Plan of Treatment Not on file documented as of this encounter Visit Diagnoses Not on filedocumented in this encounter Care Teams Card Feeder Relationship Specialty Start Date End Date Dion Macedo MD [address] [place] [address] PCP - General Family Medicine 03/13/25 documented as of this encounter
--- OUTSIDE RECORDS SUMMARY | 2025-03-17 16:23 | XMS_ITS | Encounter Summary ---
Author Organization [facility] Address [address] [place] [address] Care Team Providers Care Policy Director Name Role Phone Dion Macedo MD Primary Care Provider Encounter Details Date Type Department Care Team (Latest Contact Info) Description 03/13/2025 Travel Social History Tobacco Use Types Packs/Day Years Used Date Smoking Tobacco: Former Cigarettes 1 10 1 08/22/1973 - 06/21/1984 Smokeless Tobacco: Never Alcohol Use Standard Drinks/Week Comments Yes 4 (1 standard drink = 0.6 oz pur e alcohol) [facility] Utilities Answer Date Recorded In the past 12 months has [employer] electric, gas, oil, or water company threatened [...] care, and heating? Not very hard 03/14/2025 [facility] [place] [facility] - Occupational Stress [...] or equivalent Patient declined 03/14/2025 Preferred Language Lithuanian 03/14/2025 PHQ-2 Answer Date Recorded Patient Health Questionnaire-2 Score 0 03/14/2025 Sex and Gender Information Value Date Recorded Sex Assigned at Not on file Legal Sex Male 10:55 AM EDT Gender Identity Not on file Sexual Orientation Not on file documented as of this encounter Functional Status * Calculated C-SSRS Risk Score (Lifetime/Recent) Answer Date of Assessment Author No Risk Indicated 03/13/2025 1:55 PM EDT Monica Johnston RN * [place] Suicide Severity Rating Scale (Screener/Recent Self-Report) Question Answer Date of Assessment Author 1. Wish to be (Past 1 Month) No 025 1:55 PM EDT Monica Coy RN 2. Non-Specific Active Suici maryann Thoughts (Past 1 Month) No 03/13/2025 1:55 PM EDT Dayanna Coy, BAO 6. Suicidal Behavior (Lifetime) No 5 1:55 PM EDT Monica Coy, BAO documented as of this encounter Plan of Treatment Not on file documented as of this encounter Visit Diagnoses Not on filedocumented in this encounter Additional Health Concerns Infection Onset Date Last Indicated Resolved Time COVID Screen (preop/placement) 03/13/2025 03/13/2025 03/13/2025 4:06 PM EDT documented as of this encounter Care Teams Policy Director Relationship Specialty Start Date End Date Dion Macedo MD [address] [place] [address] PCP - General Family Medicine 03/13/25 documented as of this encounter
--- OUTSIDE RECORDS SUMMARY | 2025-03-17 16:23 | XMS_ITS | Clinical Summary ---
Author Organization [facility] Address [address] [place] [address] Care Team Providers Care Pit Slagman Name Role Phone Dion Macedo MD Primary Care Provider Allergies No known active allergies Medications amLODIPine (NORVASC) 5 MG tablet amlodipine 5 mg tablet Take 1 tablet every day by oral route. Active aspirin 81 MG EC tablet Aspir-Low 81 mg tablet,delayed release Active diphenhydrAMINE (BENADRYL) 25 mg capsule Take 12.5 mg by mouth 2 (Two) Times a Day. Active tamsulosin (FLOMAX) 0.4 MG capsule 24 hr capsule Take 1 capsule by mouth Daily. 2 Active Cyanocobalamin (VITAMIN B 12 PO) Take 1,000 mcg by mouth Daily. Active Zinc 50 MG tablet Take by mouth Daily. Active levothyroxine (SYNTHROID, LEVOTHROID) 137 MCG tablet Take 1 tablet by mouth Every Morning. Active baclofen (LIORESAL) 10 MG tablet Take 1 tablet by mouth 3 (Three) Times a Day. Pt states he takes it once in the evening Active omeprazole (priLOSEC) 40 MG capsule Take 1 capsule by mouth Daily. Active predniSONE (DELTASONE) 10 MG tabletIndication s:Non-seasonal allergic rhinitis, unspecified trigger Take three tablets once daily on day once. Take two tablets once daily on day two. Take one tablet daily on day three. 3 tablet 2 5 Active Additional Information Patient taking differently: 20 mg Oral Daily, Take three tablets once daily on day once. Take two tablets once daily on day two. Take one tablet daily on day three., Reported on 03/14/2025 Hospital, Clinic, or Other Facility Administered Medication Ordered Dose Route Frequency Start Date End Date Status OnabotulinumtoxinA 200 UnitsIndications:Cervica l dystonia 200 Units IM Every 3 Months 03/31/2022 Active Active Problems Problem Noted Date Diagnosed Date Dysphagia, oropharyngeal 06/09/2023 PAF (paroxysmal atrial fibrillation) 03/16/2022 Body mass index (BMI) of 22.0-22.9 in adult 02/26 Carotid artery disease 03/16/2022 DDD (degenerative disc disease), cervical 2021 Panlobular emphysema 03/16/2022 PEG (percutaneous endoscopic gastrostomy) status 03/16/2022 History of cancer of head or neck 03/16/2022 Assessment & Plan (07/09/2024 5:25 PM EST): 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 He he has been dependent on G-tube nutrition for quite some time. He did have a period of regurgitation issues which have since resolved. Patient previously followed by ENT, Dr. Velazquez. Patient has now been referred to now that he is relocated to [place]. He does not continue to follow with oncology Torticollis, acquired 03/16/2022 Cervical dystonia 03/16/2022 Assessment & Plan (05/14/2022 1:51 PM EST): Increase BTX 300 units. Assessment & Plan (03/16/2022 10:23 AM EDT): Start BTX 200 units Hyperlipidemia 11/11/2020 COVID-19 virus infection 07/31/2020 Personal history of malignant neoplasm, unspecif ied 07/31/2020 Overview (03/16/2022): Carotid artery tumor, s/p radiation and chemotherapy Carotid artery tumor, s/p radiation and chemotherapy Abdominal aortic aneurysm without rupture 2019 Assessment & Plan (07/09/2024 5:24 PM EST): Patient's last available ultrasound from February 2022 notes 2.7 cm x 3.0 cm distal abdominal aortic aneurysm that has been stable. Patient has chosen to not continue following with vascular at this time. Feeding problem 11/07/2019 Overview (03/16/2022): Annotation - [id number]: radiation from tumor on left carotid artery. 35 treatments of each. ; ; Dr. Shiela Morales [facility] in [place], [place] about 12 years; Teal can of [place] HN 2.0 carlie calorie and protein dense nutrition. vanilla. Arthritis 11/06/2019 Overview (03/16/2022): Description: (PL) Acquired hypothyroidism 07/30/2019 Assessment & Plan (07/09/2024 5:24 PM EST): Patient currently utilizes levothyroxine 137 mcg tablet every morning Allergic rhinitis 07/30/2019 Assessment & Plan (07/09/2024 5:27 PM EST): As a result of his CCRT, patient states that he will have issues with sinus drainage accumulating in his throat. He states his previous PCP, Dr. Scott Macedo would treat with prednisone. Patient states that he had utilized daily antihistamine such as Claritin in the past however they caused him to be too dried out. Patient was evaluated in the emergency department at [facility] a couple days ago, diagnosed with sinusitis, subsequently treated with prednisone and Augmentin. He is also received ENT referral to Dr. Cazares Benign prostatic hyperplasia 07/30/2019 Assessment & Plan (07/09/2024 5:24 PM EST): Patient currently asymptomatic with use of nightly tamsulosin 0.4 mg HTN, goal below 140/90 07/30/2019 Overview (03/16/2022): Description: (PL) Assessment & Plan (07/09/2024 5:26 PM EST): Patient's blood pressure exhibiting excellent control in office today, 116/68. Currently utilizes amlodipine 5 mg once daily Resolved Problems Problem Noted Date Diagnosed Date Resolved Date Hypotension 03/14/2025 03/14/2025 Hyperkalemia 03/13/2025 03/14/2025 DENIA (acute kidney injury) 03/13/2025 Initial Medicare annual wellness visit 07/09/2024 07/09/2024 Actinic keratosis 03/16/2022 07/09/2024 Acute cystitis without hematuria 03/16/2022 07/09/2024 Aspiration pneumonia 03/16/2022 025 Bilateral edema of lower extremity 03/16/2022 07/09/2024 Chronic gastritis without bleeding 03/16/2022 07/09/2024 Hospital discharge follow-up 03/16/2022 07/09/2024 Hypoxia 03/16/2022 07/09/2024 Need for vaccination against Streptococcus pneumoniae 03/16/2022 07/09/2024 Arteriosclerosis of coronary artery 11/11/2020 07/09/2024 Acute respiratory failure with hypoxia 07/31/2020 07/09/2024 Uses feeding tube 07/31/2020 07/09/2024 Viral pneumonia 07/31/2020 07/09/2024 Shortness of breath 07/30/2020 07/09/19 25 Lymphadenopathy 12/04/2019 07/09/2024 Decreased white blood cell count 11/21/2019 07/09/2024 Disturbance in sleep behavior 07/30/2019 07/09/2024 Pruritic rash 07/30/2019 07/09/2024 Encounters Date Type Department Care Team Description 03/14/2025 Readmission Management [facility] [address] [place] [id number] Marla Camacho RN 03/13/2025 1:41 PM EDT - 03/14/2025 4:55 PM EDT Hospital Encounter [address] [place] [id number] Danie Billings DO Anderson, Laurie, MD Pianti, Richard M, DO Scott, Emma L, MD Generalized weakness (Primary Dx); Weakness of right lower extremity; Pneumonia of right lower lobe due to infectious organism; DENIA (acute kidney injury); Dehydration; Hyperkalemia; Elevated lactic acid level; Pyuria; Elevated liver enzymes; Anemia, unspecified type; Dysphagia, unspecified type; Panlobular emphysema; History of cancer of head or neck Discharge Disposition: Home or Self Care 03/13/2025 Travel from Last 3 Months Immunizations Immunization Administration Dates Next Due Fluad Quad 65+ 04/11/2020 Fluzone High-Dose 65+YRS 03/27/2019,03/20/2018 Influenza, Unspecified 03/08/2024 Pneumococcal Conjugate 13-Valent (PCV13) 019 Pneumococcal Polysaccharide (PPSV23) 03/25/2014 Td (TDVAX) 10/25/2013 Tdap 10/11/2013 Family History Medical History Relation Name Comments Dementia Father rita snider Relation Name Status Comments Father rita snider Social History Tobacco Use Types Packs/Day Years Used Date Smoking Tobacco: Former Cigarettes 1 10 1 08/22/1973 - 06/21/1984 Smokeless Tobacco: Never Tobacco Cessation:Counseling Given: Not Answered Alcohol Use Standard Drinks/Week Comments Yes 4 (1 standard drink = 0.6 oz pur e alcohol) [facility] Utilities Answer Date Recorded In the past 12 months has e electric, gas, oil, or water [employer] threatened to shut off services in your [...] care, and heating? Not very hard 03/14/2025 [facility] Occupat ional Health - Occupational Stress [...] or equivalent Patient declined 03/14/2025 Preferred Language Macedonian 03/14/2025 PHQ-2 Answer Date Recorded Patient Health [...] Mass Index 26.15 03/13/2025 2:09 PM EDT Plan of Treatment Health Maintenance Due Date Last Done Comments ZOSTER VACCINE (1 of 2) 12/01/1987 RSV Vaccine - Adults (1 - 1-dose 75+ series) 2012 ANNUAL WELLNESS VISIT 03/16/2022 INFLUENZA VACCINE 01/25/2025 03/08/2024, , 03/05/2021, Additional history exists COVID-19 Vaccine ( - season) 2025 09/20/2020 TDAP/TD VACCINES (3 - Td or Tdap) 07/09/2025 10/25/2013, 10/11/2013 Postponed from 10/26/2023 (Patient Refused) LIPID PANEL 03/14/2026 03/14/2025, 11/15/2019 Pneumococcal Vaccine 50+ Completed 10/27/2018, 02/26 Procedures Procedure Name Priority Date/Time Associated Diagnosis Comments CT HEAD WO CONTRAST STAT 03/14/2025 8 :29 AM EDT PHOSPHORUS Routine 03/14/2025 6:50 AM EDT MAGNESIUM Routine 03/14/2025 6:50 AM EDT COMPREHENSIVE METABOLIC PANEL Routine 03/14/2025 6:50 AM EDT CBC WITH AUTO DIFFERENTIAL Routine 03/14/2025 6:50 AM EDT LIPID PANEL Routine 03/14/2025 6:50 AM EDT POCT [id number] CT Routine 03/13/2025 5:15 PM EDT LACTIC ACID, REFLEX STAT 03/13/2025 5 :09 PM EDT TYPE AND SCREEN STAT 03/13/2025 3:40 PM EDT URINALYSIS, MICROSCOPIC ONLY STAT 03/13/2025 3:28 PM EDT URINALYSIS W/ CULTURE IF INDICATED STAT 03/13/2025 3:28 PM EDT BLOOD CULTURE STAT 03/13/2025 3:06 PM EDT BLOOD CULTURE STAT 03/13/2025 3:06 PM EDT RESPIRATORY PANEL PCR W/ COVID-19 (SARS-COV-2), PROVIDER ENROLLMENT SPECIALIST SWAB IN UTM/VTP, 2 HR TAT STAT [...] STAT 03/13/2025 2:[address] ANGIOGRAM NECK STAT 03/13/2025 2:[address] ANGIOGRAM HEAD W AI ANALYSIS OF LVO STAT 03/13/2025 2:06 PM EDT LIGHT BLUE TOP STAT 03/13/2025 1:55 PM EDT KING TOP STAT 03/13/2025 1:55 PM EDT GOLD TOP - SST STAT 03/13/2025 1:55 PM EDT LAVENDER TOP STAT 03/13/2025 1:55 PM EDT DK GREEN TOP STAT 03/13/2025 1:55 PM EDT CBC AND DIFFERENTIAL STAT 03/13/2025 1:55 PM EDT C-REACTIVE PROTEIN Add-On 03/13/2025 1: 55 PM EDT CK STAT 03/13/2025 1:55 PM EDT ETHANOL STAT 03/13/2025 1:55 PM EDT PROCALCITONIN STAT 03/13/2025 1:55 PM EDT LACTIC ACID, PLASMA STAT 03/13/2025 1 :55 PM EDT CBC WITH AUTO DIFFERENTIAL STAT 03/13/2025 1:55 PM EDT RAINBOW DRAW STAT 03/13/2025 1:55 PM EDT PROTIME-INR STAT 03/13/2025 1:55 PM EDT COMPREHENSIVE METABOLIC PANEL STAT 03/13/2025 1:55 PM EDT POCT [id number] CT STAT 03/13/2025 1:[address] HEAD WO CONTRAST STROKE PROTOCOL STAT 03/13/2025 1:45 PM EDT from Last 3 Months Results * CT Head Without Contrast (03/14/2025 8:29 AM EDT) Anatomical Region Laterality Modality Head N/A Computed Tomogra phy 03/14/2025 8:32 AM EDT Impressions 03/14/2025 8:35 AM EDT Impression: No acute intracranial findings. Electronically Signed: Santiago Miles MD 03/14/2025 8:35 AM EDT Workstation ID: [id number] DxDesc Narrative 03/14/2025 8:[address] [...] MD 03/14/2025 8:35 AM EDT Workstation ID: [id number] DxDesc us Zhanna Lozano [employer] IMG CT ORDERABLES F inal Result * (ABNORMAL) CBC Auto Differential (03/14/2025 6:50 AM EDT) Only the most recent of2 resultswithin the time period is included. WBC 5.07 3.40 - 10.80 10*3/mm3 03/14/2025 7:13 AM EDT [facility] RBC 3.20(L) 4.14 - 5.80 10*6/mm3 03/14/2025 7:13 AM EDT [facility] Hemoglobin 10.4(L) 13.0 - 17.7 g/dL 03/14/2025 7:13 AM EDT [facility] Hematocrit 32.8(L) 37.5 - 51.0 % 03/14/2025 7:13 AM EDT [facility] MCV 102.5(H) 79.0 - 97.0 fL 03/14/2025 7:13 AM EDT [facility] MCH 32.5 26.6 - 33.0 pg 03/14/2025 7:13 AM EDT [facility] MCHC 31.7 31.5 - 35.7 g/dL 03/14/2025 7:13 AM EDT [facility] RDW 15.9(H) 12.3 - 15.4 % 03/14/2025 7:13 AM EDT [facility] RDW-SD 59.3(H) 37.0 - 54.0 fl 03/14/2025 7:13 AM EDT [facility] MPV 11.0 6.0 - 12.0 fL 03/14/2025 7:13 AM EDT [facility] Platelets 118(L) 140 - 450 10*3/mm3 03/14/2025 7:13 AM [facility] Neutrophil % 76.5(H) 42.7 - 76.0 % 03/14/2025 7:13 AM [facility] Lymphocyte % 14.6(L) 19.6 - 45.3 % 03/14/2025 7:13 AM [facility] Monocyte % 7.9 5.0 - 12.0 % 03/14/2025 7:13 AM [facility] Eosinophil % 0.0(L) 0.3 - 6.2 % 03/14/2025 7:13 AM [facility] Basophil % 0.2 0.0 - 1.5 % 03/14/2025 7:13 AM [facility] Immature Grans % 0.8(H) 0.0 - 0.5 % 03/14/2025 7:13 AM [facility] Neutrophils, Absolute 3.88 1.70 - 7.00 10*3/mm3 03/14/2025 7:13 AM [facility] Lymphocytes, Absolute 0.74 0.70 - 3.10 10*3/mm3 03/14/2025 7:13 AM [facility] Monocytes, Absolute 0.40 0.10 - 0.90 10*3/mm3 03/14/2025 7:13 AM [facility] Eosinophils, Absolute 0.00 0.00 - 0.40 10*3/mm3 03/14/2025 7:13 AM [facility] Basophils, Absolute 0.01 0.00 - 0.20 10*3/mm3 03/14/2025 7:13 AM [facility] Immature Grans, Absolute 0.04 0.00 - 0.05 10*3/mm3 03/14/2025 7:13 AM [facility] nRBC 0.6(H) 0.0 - 0.2 /100 WBC 03/14/2025 7:13 AM [facility] Blood Venipuncture / Unknown 03/14/2025 6:50 AM EDT 03/14/2025 7:00 AM EDT us Lasha Bernabe DO LAB BLOOD ORDERABLES Final R esult Performing Organization Address City/[facility]/ZIP Co de Phone Number [facility]
[address] [place] [address], * Phosphorus (03/14/2025 6:50 AM EDT) Phosphorus 2.9 2.5 - 4.5 mg/dL 03/14/2025 7:43 AM EDT [facility] Blood Venipuncture / Unknown 03/14/2025 6:50 AM EDT 03/14/2025 7:00 AM EDT us Lasha Bernabe DO LAB BLOOD ORDERABLES Final R esult Performing Organization Address [facility] Co de Phone Number [facility]
[address] [place] [address], [place] [phone] * Magnesium (03/14/2025 6:50 AM EDT) Magnesium 2.1 1.6 - 2.4 mg/dL 03/14/2025 7:45 AM EDT [facility] Blood Venipuncture / Unknown 03/14/2025 6:50 AM EDT 03/14/2025 7:00 AM EDT us Lasha Bernabe DO LAB BLOOD ORDERABLES Final R esult Performing Organization Address City/[facility]/ZIP Co de Phone Number [facility]
[address] [place] [address], [place] [phone] * Lipid Panel (03/14/2025 6:50 AM EDT) Total Cholesterol 89 0 - 200 mg/dL 03/14/2025 7:43 AM EDT [facility] Triglycerides 36 0 - 150 mg/dL 03/14/2025 7:43 AM EDT [facility] HDL Cholesterol 41 40 - 60 mg/dL 03/14/2025 7:43 AM EDT [facility] LDL Cholesterol 37 0 - 100 mg/dL 03/14/2025 7:43 AM EDT [facility] VLDL Cholesterol 11 5 - 40 mg/dL 03/14/2025 7:43 AM EDT [facility] LDL/HDL Ratio 1.00 03/14/2025 7:43 AM EDT [facility] Blood Venipuncture / Unknown 03/14/2025 6:50 AM EDT 03/14/2025 7:00 AM EDT [facility] - 03/14/2025 7:43 AM EDT Cholesterol [...] is calculated using the NIH LDL-C calculation. us Zhanna Lozano APRN LAB BLOOD ORDERABLE S Final Result [facility]
[address] [place] [address], * (ABNORMAL) Comprehensive Metabolic Panel (03/14/2025 6:50 AM EDT) Only the most recent of2 resultswithin the time period is included. [facility] Glucose 90 65 - 99 mg/dL 03/14/2025 7:45 AM [facility] BUN 34.3(H) 8.0 - 23.0 mg/dL 03/14/2025 7:45 AM [facility] Creatinine 0.79 0.76 - 1.27 mg/dL 03/14/2025 7:45 AM [facility] Sodium 136 136 - 145 mmol/L 03/14/2025 7:45 AM [facility] Potassium 3.9 3.5 - 5.2 mmol/L 03/14/2025 7:45 AM [facility] Chloride 99 98 - 107 mmol/L 03/14/2025 7:45 AM [facility] CO2 27.0 22.0 - 29.0 mmol/L 03/14/2025 7:45 AM [facility] Calcium 8.5(L) 8.6 - 10.5 mg/dL 03/14/2025 7:45 AM [facility] Total Protein 5.7(L) 6.0 - 8.5 g/dL 03/14/2025 7:45 AM [facility] Albumin 3.6 3.5 - 5.2 g/dL 03/14/2025 7:45 AM [facility] ALT (SGPT) 195(H) 1 - 41 U/L 03/14/2025 7:45 AM [facility] AST (SGOT) 193(H) 1 - 40 U/L 03/14/2025 7:45 AM [facility] Alkaline Phosphatase 128(H) 39 - 117 U/L 03/14/2025 7:45 AM [facility] Total Bilirubin 0.5 0.0 - 1.2 mg/dL 03/14/2025 7:45 AM [facility] Globulin 2.1 gm/dL 03/14/2025 7:45 AM [facility] Comment:Calculated Result A/G Ratio 1.7 g/dL 03/14/2025 7:45 AM EDT [facility] BUN/Creatinine Ratio 43.4(H) 7.0 - 25.0 03/14/2025 7:45 AM EDT [facility] Anion Gap 10.0 5.0 - 15.0 mmol/L 03/14/2025 7:45 AM EDT [facility] eGFR 86.0 >60.0 mL/min/1.7 3 03/14/2025 7:45 AM EDT [facility] Blood Venipuncture / Unknown 03/14/2025 6:50 AM EDT 03/14/2025 7:00 AM EDT [facility] - 03/14/2025 7:45 AM EDT GFR [...] not include race as a factor us Lasha Bernabe DO LAB BLOOD ORDERABLES Final R esult [facility]
[address] [place] [address], * (ABNORMAL) POC CHEM 8 (03/13/2025 5:15 PM EDT) Only the most recent of2 resultswithin the time period is included. Glucose 126 70 - 130 mg/dL 03/13/2025 5:18 PM EDT [facility] BUN 40(H) 8 - 26 mg/dL 03/13/2025 5:18 PM EDT [facility] Creatinine 1.50(H) 0.60 - 1.30 mg/dL 03/13/2025 5:18 PM EDT [facility] Sodium 132(L) 138 - 146 mmol/L 03/13/2025 5:18 PM EDT [facility] POC Potassium 5.0(H) 3.5 - 4.9 mmol/L 03/13/2025 5:18 PM EDT [facility] Chloride 95(L) 98 - 109 mmol/L 03/13/2025 5:18 PM EDT [facility] Total CO2 27 24 - 29 mmol/L 03/13/2025 5:18 PM EDT [facility] Hemoglobin 11.2(L) 12.0 - 17.0 g/dL 03/13/2025 5:18 PM EDT [facility] Comment:Serial Number: [id number] 1Operator: [id number] Hematocrit 33(L) 38 - 51 % 03/13/2025 5:18 PM EDT [facility] Ionized Calcium 1.14(L) 1.20 - 1.32 mmol/L 03/13/2025 5:18 PM EDT [facility] eGFR 44.8(L) >60.0 mL/min/1.7 3 03/13/2025 5:18 PM EDT [facility] Blood 03/13/2025 5:15 PM EDT 03/13/2025 5:18 PM EDT us Gay Lozano MD POINT OF CARE TEST ORDERABLES Final Result [facility]
[address] [place] [address], * STAT Lactic Acid, Reflex (03/13/2025 5:09 PM EDT) Lactate 1.7 0.5 - 2.0 mmol/L 03/13/2025 5:43 PM EDT [facility] Comment:Falsely depressed re sults may occur on samples drawn from patients receiving N-Acetylcysteine (NAC) or Metamizole. Blood Structure of left upper limb / Unknown Venipuncture / Unknown 03/13/2025 5:09 PM EDT 03/13/2025 5:19 PM EDT [facility] LAB BLOOD ORDERABLES Final Resul t Performing Organization Address City/[facility] Co de Phone Number [facility]
[address] [place] [address], * Type & Screen (03/13/2025 3:40 PM EDT) ABO Type O 03/13/2025 4:29 PM EDT [facility] RH type Positive 03/13/2025 4:29 PM EDT [facility] Antibody Screen Negative 03/13/2025 4:29 PM EDT [facility] T&S Expiration Date 03/16/2025 11:59:59 PM 03/13/2025 4:29 PM EDT [facility] Blood Venipuncture / Unknown 03/13/2025 3:40 PM EDT 03/13/2025 3:53 PM EDT [facility] BLOOD BANK TEST ORDERABLES Edite d Result - Final Performing Organization Address [facility] de Phone Number [facility]
[address] [place] [address], * (ABNORMAL) Urinalysis, Microscopic Only - Straight Cath (03/13/2025 3:28 PM EDT) RBC, UA 0-2 None Seen, 0-2 /HPF 03/13/2025 4:11 PM EDT [facility] WBC, UA 6-10(A) None Seen, 0-2 /HPF 03/13/2025 4:11 PM EDT [facility] Comment:Urine culture not in dicated. Bacteria, UA None Seen None Seen /HPF 03/13/2025 4:11 PM EDT [facility] Squamous Epithelial Cells, UA 7-12(A) None Seen, 0-2 /HPF 03/13/2025 4:11 PM EDT [facility] Hyaline Casts, UA 21-30 None Seen /LPF 03/13/2025 4:11 PM EDT [facility] Methodology Manual Light Microscopy 03/13/2025 4:11 PM EDT [facility] Urine (Straight Cath) Collection / Unknown 03/13/2025 3:28 PM EDT 03/13/2025 3:42 PM EDT us Danie Billings DO URINE ORDERABLES Final Result [facility]
[address] [place] [address], [place] [phone] * (ABNORMAL) Urinalysis With Culture If Indicated - Straight Cath (03/13/2025 3:28 PM EDT) Color, UA Dark Yellow(A) Yellow, Straw 03/13/2025 3:51 PM EDT [facility] Appearance, UA Clear Clear 03/13/2025 3:51 PM EDT [facility] pH, UA <=5.0 5.0 - 8.0 03/13/2025 3:51 PM EDT [facility] Specific [place], UA 1.020 1.005 - 1.030 03/13/2025 3:51 PM EDT [facility] Glucose, UA Negative Negative 03/13/2025 3:51 PM EDT [facility] Ketones, UA Trace(A) Negative 03/13/2025 3:51 PM EDT [facility] Bilirubin, UA Negative Negative 03/13/2025 3:51 PM EDT [facility] Blood, UA Negative Negative 03/13/2025 3:51 PM EDT [facility] Protein, UA Trace(A) Negative 03/13/2025 3:51 PM EDT [facility] Leuk Esterase, UA Trace(A) Negative 03/13/2025 3:51 PM EDT [facility] Nitrite, UA Negative Negative 03/13/2025 3:51 PM EDT [facility] Urobilinogen, UA 1.0 E.U./dL 0.2 - 1.0 E.U./dL 03/13/2025 3:51 PM EDT [facility] Urine (Straight Cath) Collection / Unknown 03/13/2025 3:28 PM EDT 03/13/2025 3:42 PM EDT Narrative [facility] - 03/13/2025 3:51 PM EDT In absence of clinical symptoms, the presence of pyuria, bacteria, and/or nitrites on the urinalysis result does not correlate with infection. Danie Billings DO URINE ORDERABLES Final Result [facility]
[address] [place] [address], * Respiratory Panel PCR w/COVID-19(SARS-CoV-2) TIFFANI/ONDINA/SAFIA/PAD/COR/BROOK In-House, PROVIDER ENROLLMENT SPECIALIST Swab in UTM/VTM, 2 HR TAT - Swab, Nasopharynx (03/13/2025 2:53 PM EDT) ADENOVIRUS, PCR Not Detected Not Detected [facility]RE TORCH 03/13/2025 4:06 PM EDT [facility] Coronavirus 229E Not Detected Not Detected BIOFIRE TORCH 03/13/2025 4:06 PM EDT [facility] Coronavirus HKU1 Not Detected Not Detected BIOFIRE TORCH 03/13/2025 4:06 PM EDT [facility] Coronavirus NL63 Not Detected Not Detected [facility]IOFIRE TORCH 03/13/2025 4:06 PM EDT [facility] Coronavirus OC43 Not Detected Not Detected BIOFIRE TORCH 03/13/2025 4:06 PM EDT [facility] [facility] COVID19 Not Detected Not Detected - Ref. Range BIOFIRE TORCH 03/13/2025 4:06 PM EDT [facility] Human Metapneumovirus Not Detected Not Detected BIOFIRE TORCH 03/13/2025 4:06 PM EDT [facility] Human Rhinovirus/Enterov irus Not Detected Not Detected BIOFIRE TORCH 03/13/2025 4:06 PM EDT [facility] Influenza A PCR Not Detected Not Detected BIOFIRE TORCH 03/13/2025 4:06 PM EDT [facility] Influenza B PCR Not Detected Not Detected BIOFIRE TOR 03/13/2025 4:06 PM EDT [facility] Parainfluenza Virus 1 Not Detected Not Detected BIOFIRE TOR 03/13/2025 4:06 PM EDT [facility] Parainfluenza Virus 2 Not Detected Not Detected BIOFIRE TOR 03/13/2025 4:06 PM EDT [facility] Parainfluenza Virus 3 Not Detected Not Detected BIOFIRE TOR 03/13/2025 4:06 PM EDT [facility] Parainfluenza Virus 4 Not Detected Not Detected BIOFIRE TOR 03/13/2025 4:06 PM EDT [facility] RSV, PCR Not Detected Not Detected BIOFIRE TOR 03/13/2025 4:06 PM EDT [facility] Bordetella pertussis pcr Not Detected Not Detected BIOFIRE TOR 03/13/2025 4:06 PM EDT [facility] Bordetella parapertussis PCR Not Detected Not Detected BIOFIRE TORCH 03/13/2025 4:06 PM EDT [facility] Chlamydophila pneumoniae PCR Not Detected Not Detected BIOFIRE TORCH 03/13/2025 4:06 PM EDT [facility] Mycoplasma pneumo by PCR Not Detected Not Detected BIOFIRE TOR 03/13/2025 4:06 PM EDT [facility] Swab Nasopharyngeal structure / Unknown Collection / Unknown 03/13/2025 2:53 PM EDT 03/13/2025 3:16 PM EDT Narrative [facility] - 03/13/2025 4:06 PM EDT In [...] antibiotic de-escalation to target atypical bacterial infection. Danie Billings DO MICROBIOLOGY - GENERAL ORDERABLE S Final Result [facility]
[address] [place] [address], * XR Chest 1 View (03/13/2025 2:35 [...] MD 03/13/2025 2:43 PM EDT Workstation ID: [id number] Narrative 03/13/2025 2:43 PM EDT XR CHEST 1 [...] MD 03/13/2025 2:43 PM EDT Workstation ID: [id number] Danie Billings DO IMG DIAGNOSTIC IMAGING ORDERABLE S Final Result * ECG 12 Lead Rhythm Change (03/13/2025 2:30 PM EDT) Only the most recent of2 resultswithin the time period is included. QT Interval 424 ms ECG QTC Interval 378 ms ECG 03/13/2025 [...] has replaced Atrial fibrillation Confirmed by MD BILLINGS CORY ([id number]) on 03/17/2025 2:30:24 PM Referred By: EDMD Confirmed By: DANIE BILLINGS MD Procedure Note Danie Billings DO - 03/17/2025 Test Reason : Rhythm [...] has replaced Atrial fibrillation Confirmed by MD BILLINGS CORY ([id number]) on 03/17/2025 2:30:24 PM Referred By: EDMD Confirmed By: DANIE BILLINGS MD Danie Billings DO ECG ORDERABLES Final Result ECG * Telemetry Scan (03/13/2025 2:29 PM EDT) Only the most recent of3 resultswithin the time period is included. [facility] ECG ORDERABLES Final Result * CT Angiogram Head w AI Analysis of LVO (03/13/2025 2:06 PM EDT) Anatomical Region Laterality Modality Head, Vascular N/A Computed Tomogra phy 03/13/2025 2:26 PM EDT Impressions 03/13/2025 2:34 PM EDT 1. No evidence of hemodynamically significant stenosis. CTA OF [place] INCLUDING MULTIPLANAR REFORMATTED IMAGING AND [...] appear normal. POSTERIOR CEREBRAL ARTERY CIRCULATION: The SHIP WIRER segments appear normal. VERTEBROBASILAR CIRCULATION: Codominant vertebral arteries. Basilar artery appears patent and normal. ADDITIONAL FINDINGS: None IMPRESSION: 1. Normal. Electronically Signed: Jassi Allison MD 03/13/2025 2:34 PM EDT Workstation ID: [id number] Narrative 03/13/2025 2:[address] ANGIOGRAM NECK, [...] of hemodynamically significant stenosis. CTA OF [place] INCLUDING MULTIPLANAR REFORMATTED IMAGING ANDPERFORMANCE [...] segmentsappear normal. POSTERIOR CEREBRAL ARTERY CIRCULATION: The SHIP WIRER segments appear normal. VERTEBROBASILAR CIRCULATION: Codominant vertebral arteries. Basilarartery appears patent and normal. ADDITIONAL FINDINGS: None IMPRESSION: 1. Normal. Electronically Signed: Jassi Allison MD 03/13/2025 2:34 PM EDT Workstation ID: [id number] Nikki Cartagena MD IMG CT ORDERABLES Final R esult * CT Angiogram Neck (03/13/2025 2:06 PM EDT) Anatomical Region Laterality Modality Neck, Vascular N/A Computed Tomogra phy 03/13/2025 2:26 PM EDT Impressions 03/13/2025 2:34 PM EDT 1. No evidence of hemodynamically significant stenosis. CTA OF [place] INCLUDING MULTIPLANAR REFORMATTED IMAGING AND [...] appear normal. POSTERIOR CEREBRAL ARTERY CIRCULATION: The SHIP WIRER segments appear normal. VERTEBROBASILAR CIRCULATION: Codominant vertebral arteries. Basilar artery appears patent and normal. ADDITIONAL FINDINGS: None IMPRESSION: 1. Normal. Electronically Signed: Jassi Allison MD 03/13/2025 2:34 PM EDT Workstation ID: [id number] Narrative 03/13/2025 2:[address] ANGIOGRAM NECK, [...] of hemodynamically significant stenosis. CTA OF [place] INCLUDING MULTIPLANAR REFORMATTED IMAGING ANDPERFORMANCE [...] segmentsappear normal. POSTERIOR CEREBRAL ARTERY CIRCULATION: The SHIP WIRER segments appear normal. VERTEBROBASILAR CIRCULATION: Codominant vertebral arteries. Basilarartery appears patent and normal. ADDITIONAL FINDINGS: None IMPRESSION: 1. Normal. Electronically Signed: Jassi Allison MD 03/13/2025 2:34 PM EDT Workstation ID: [id number] Zhanna Lozano [employer] IMG CT ORDERABLES F inal Result * King Top (03/13/2025 1:55 PM EDT) Extra Tube Hold for add-ons. 03/13/2025 2:01 PM EDT [facility] Comment:Auto resulted. Blood Line / Unknown 03/13/2025 1: 55 PM EDT 03/13/2025 1:59 PM EDT Danie Billings DO LAB BLOOD ORDER ONLY Final Resul t [facility]
[address] [place] [address], * Gold Top - SST (03/13/2025 1:55 PM EDT) Extra Tube Hold for add-ons. 03/13/2025 2:01 PM EDT [facility] Comment:Auto resulted. Blood Line / Unknown 03/13/2025 1: 55 PM EDT 03/13/2025 1:59 PM EDT Danie Rafael Capo DO LAB BLOOD ORDER ONLY Final Resul t Performing Organization Address City/[facility]/ZIP Co de Phone Number [facility]
[address] [place] [address], * Green Top (Gel) (03/13/2025 1:55 PM EDT) Extra Tube Hold for add-ons. 03/13/2025 2:01 PM EDT [facility] Comment:Auto resulted. Blood Line / Unknown 03/13/2025 1: 55 PM EDT 03/13/2025 1:59 PM EDT Danie Rafael Capo DO LAB BLOOD ORDER ONLY Final Resul t Performing Organization Address [facility] de Phone Number [facility]
[address] [place] [address], * (ABNORMAL) Procalcitonin (03/13/2025 1:55 PM EDT) Procalcitonin 0.27(H) 0.00 - 0.25 ng/mL 03/13/2025 2:32 PM EDT [facility] Blood Line / Unknown 03/13/2025 1: 55 PM EDT 03/13/2025 1:59 PM EDT Narrative [facility] - 03/13/2025 2:32 PM EDT As [...] Day 4 values are available. Refer to http://www.jjsxev-ldw-dtalqpwaxc.com Change in PCT <=80% A decrease of [...] severe sepsis or septic shock. us Danie Rafael Capo DO LAB BLOOD ORDERABLES Final Resul t Performing Organization Address City/[facility]/ZIP Co de Phone Number [facility]
[address] [place] [address], * Lavender Top (03/13/2025 1:55 PM EDT) Extra Tube hold for add-on 03/13/2025 2:01 PM EDT [facility] Comment:Auto resulted Blood Line / Unknown 03/13/2025 1: 55 PM EDT 03/13/2025 1:59 PM EDT us Danie Rafael Capo DO LAB BLOOD ORDER ONLY Final Resul t Performing Organization Address [facility] Co de Phone Number [facility]
[address] [place] [address], * Light Blue Top (03/13/2025 1:55 PM EDT) Extra Tube Hold for add-ons. 03/13/2025 2:01 PM EDT [facility] Comment:Auto resulted Blood Line / Unknown 03/13/2025 1: 55 PM EDT 03/13/2025 1:59 PM EDT Danie Rafael Capo LAB BLOOD ORDER ONLY Final Resul t Performing Organization Address City/[facility]/ZIP Co de Phone Number [facility]
[address] [place] [address], * Protime-INR (03/13/2025 1:55 PM EDT) Protime 14.8 12.2 - 15.3 Seconds 03/13/2025 2:17 PM EDT [facility] INR 1.09 0.89 - 1.12 03/13/2025 2:17 PM EDT [facility] Blood Line / Unknown 03/13/2025 1: 55 PM EDT 03/13/2025 1:59 PM EDT Danie Billings LAB BLOOD ORDERABLES Final Resul t [facility]
[address] [place] [address], * (ABNORMAL) C-reactive Protein (03/13/2025 1:55 PM EDT) C-Reactive Protein 5.00(H) 0.00 - 0.50 mg/dL 03/13/2025 10:50 PM EDT [facility] Blood Line / Unknown 03/13/2025 1: 55 PM EDT 03/13/2025 1:59 PM EDT Lasha Bernabe DO LAB BLOOD ORDERABLES Final R esult Performing Organization Address [facility] de Phone Number [facility]
[address] [place] [address], * (ABNORMAL) Lactic Acid, Plasma (03/13/2025 1:55 PM EDT) Pathologist [facility] Lactate 4.8(HH) 0.5 - 2.0 mmol/L 03/13/2025 3:05 PM EDT [facility] Comment:Falsely depressed re sults may occur on samples drawn from patients receiving N-Acetylcysteine (NAC) or Metamizole. Blood Line / Unknown 03/13/2025 1: 55 PM EDT 03/13/2025 1:59 PM EDT Danie Billings DO LAB BLOOD ORDERABLES Final Resul t Performing Organization Address [facility] Co de Phone Number [facility]
[address] [place] [address], * CK (03/13/2025 1:55 PM EDT) [facility] Creatine Kinase 57 20 - 200 U/L 03/13/2025 5:20 PM EDT [facility] Blood Line / Unknown 03/13/2025 1: 55 PM EDT 03/13/2025 1:59 PM EDT Gay Lozano MD LAB BLOOD ORDERABLES Final Re sult Performing Organization Address [facility] Co de Phone Number [facility]
[address] [place] [address], * Ethanol (03/13/2025 1:55 PM EDT) Ethanol <10 0 - 10 mg/dL 03/13/2025 4:41 PM EDT [facility] Blood Line / Unknown 03/13/2025 1: 55 PM EDT 03/13/2025 1:59 PM EDT Narrative [facility] - 03/13/2025 4:41 PM EDT Not for legal purposes. us Danie Billings DO LAB BLOOD ORDERABLES Final Resul t [facility]
[address] [place] [address], * CT Head Without Contrast Stroke Protocol (03/13/2025 1:45 PM EDT) Anatomical Region Laterality Modality Head N/A Computed Tomogra phy 03/13/2025 1:51 PM EDT Impressions 03/13/2025 1:56 PM EDT Impression: No acute intracranial findings. Electronically Signed: Santiago Miles MD 03/13/2025 1:56 PM EDT Workstation ID: [id number] Narrative 03/13/2025 1:[address] HEAD [...] MD 03/13/2025 1:56 PM EDT Workstation ID: [id number] us Danie Billings DO IMG CT ORDERABLES Final Result from Last 3 Months Insurance [employer] PPO Advance Directives * No CPR (Do Not Attempt to Resuscitate) (Latest Code Status on File) Date Activated Date Inactivated Comments 03/13/2025 7:22 PM 03/14/2025 7:01 PM Question Answer Comments Code Status (Patient has no pulse and is not breathing): No CPR (Do Not Attempt to Resuscitate) Medical Interventions (Patie nt has pulse or is breathing): Limited Support Medical Intervention Limits: No intubation (DNI) Level Of Support Discussed With: Patient * No CPR (Do Not Attempt to Resuscitate) Date Activated Date Inactivated Comments 12/08/2022 3:27 AM 12/10/2022 3:35 PM Question Answer Comments Code Status (Patient has no pulse and is not breathing): No CPR (Do Not Attempt to Resuscitate) Medical Interventions (Patie nt has pulse or is breathing): Limited Support Medical Intervention Limits: NO intubation (DNI) Care Teams Pit Slagman Relationship Specialty Start Date End Date Dion Macedo MD [address] [place] [address] PCP - General Family Medicine 03/13/25
== END 2025-03-17 11:41 | disposition expired ==
PROVIDERS: Internal Medicine; Admitting Provider Internal Medicine Adolescent Medicine; Visit Provider Internal Medicine Adolescent Medicine
DX: I21.4 Non-ST elevation (NSTEMI) myocardial infarction (principal); E43 Unspecified severe protein-calorie malnutrition; I50.33 Acute on chronic diastolic (congestive) heart failure; J96.91 Respiratory failure, unspecified with hypoxia; Z68.1 Body mass index [BMI] 19.9 or less, adult; Z51.5 Encounter for palliative care; E03.9 Hypothyroidism, unspecified; I11.0 Hypertensive heart disease with heart failure; I48.91 Unspecified atrial fibrillation; J43.9 Emphysema, unspecified; I25.10 Atherosclerotic heart disease of native coronary artery without angina pectoris; N40.0 Benign prostatic hyperplasia without lower urinary tract symptoms; Z53.20 Procedure and treatment not carried out because of patient's decision for unspecified reasons; Z95.5 Presence of coronary angioplasty implant and graft; Z93.1 Gastrostomy status; Z79.82 Long term (current) use of aspirin; Z79.899 Other long term (current) drug therapy; Z79.890 Hormone replacement therapy; Z87.891 Personal history of nicotine dependence; Z85.21 Personal history of malignant neoplasm of larynx; Z92.3 Personal history of irradiation
CPT/HCPCS: 36415; 71045; 71275; 80053; 80061; 82803; 83605; 83735; 83880; 84100; 84145; 84484; 85014; 85018; 85025; 85378; 87040; 93005; 94660; G0378; J1450; J1650; J1938; J1939; J2270; J2919; Q9967